=== PATIENT | male | born 1950 | race American Indian/Alaskan Native ===

== ENCOUNTER 2016-11-18 13:50 | Inpatient (IN) | payer MEDICARE, MEDICAID ==
[2016-11-18 14:05] VITALS: BMI 35.7
[2016-11-18] MEDS ORDERED: Piperacillin/Tazobact 3.375 gm 100 ML IV STA (14:11)
[2016-11-18] MEDS ORDERED: (Novolin R) Insulin Human Regular 100 units/ml vial IV STA (14:17)
[2016-11-18] MEDS ORDERED: Vancomycin 1 GM 1 GM/250 ML BAG IV STA (14:31)
--- NOTE | 2016-11-18 14:33 | C.PDOC ---
History Of Present Illness 65 year old male was referred to the ED by Dr. Johns for evaluation of gangrene of the right foot. Patient has a history of left AKA and chronic distal right toe infections. He was seen today and found to have deteriorating wounds. Patient denies fever, nausea, or vomiting. Time Seen by Provider: 11/18/16 14:07 Chief Complaint (Nursing): Lower Extremity Problem/Injury History Per: Patient, Other (Patient's girlfriend is at bedside ) History/Exam Limitations: no limitations Onset/Duration Of Symptoms: Hrs (deteriorating wounds found today), Persistent ( chronic right toe infections ) Current Symptoms Are (Timing): Still Present Recent travel outside of the [place]: No Additional History Per: Prior Records (Dr. Johns) Past Medical History Reviewed: Historical Data, Nursing Documentation, Vital Signs Vital Signs: Last Vital Signs Temp 99.3 F 11/18/16 14:05 Pulse 89 11/18/16 14:05 Resp 18 11/18/16 14:05 BP 151/82 H 11/18/16 14:05 Pulse Ox 95 11/18/16 15:28 - Medical History PMH: Anxiety, Arthritis, Asthma, Depression, Diabetes, HTN, Hypercholesterolemia Surgical History: CABG, Cholecystectomy, Coronary Stent (x3) - [facility] Procedures ABOVE KNEE AMPUTATION (12/07/14) ANGIOPLASTY OF OTHER NON-CORONARY VESSEL(S) (11/28/13) ATHERECTOMY OF OTHER NON-CORONARY VESSEL(S) (10/21/11) BELOW KNEE AMPUTAT NEC (09/10/14) CATARAC PHACOEMULS/ASPIR (02/13/14) CONTRAST AORTOGRAM (09/04/14) CONTRAST ARTERIOGRAM-LEG (09/04/14) INFLUENZA VACCINATION (04/24/14) INSEJ [id number] PERIPHERAL NON-CORONARY VES STENT(S) (11/28/13) INSERT LENS AT CATAR EXT (02/13/14) INSERTION OF ONE VASCULAR STENT (11/28/13) LOC EXC BONE LESION NEC (10/31/14) OCCUPATIONAL THERAPY (09/17/14) OTHER MYECTOMY (10/10/14) PHYSICAL THERAPY NEC (09/17/14) PROCEDURE ON SINGLE VESSEL (11/28/13) RECREATIONAL THERAPY (09/17/14) VACCINATION NEC (04/24/14) VASC SHUNT & BYPASS NEC (11/28/13) Family History: States: Unknown Family Hx - Social History Hx Tobacco Use: Yes Hx Alcohol Use: No Hx Substance Use: No - Immunization History Hx Tetanus Toxoid Vaccination: No Hx Influenza Vaccination: No Hx Pneumococcal Vaccination: No Review Of Systems Constitutional: Negative for: Fever, Chills Cardiovascular: Negative for: Chest Pain, Palpitations Respiratory: Negative for: Cough, Shortness of Breath Gastrointestinal: Negative for: Nausea, Vomiting, Abdominal Pain, Diarrhea Musculoskeletal: Positive for: Foot Pain (gangrene of the right foot; chronic right toe infections) Neurological: Negative for: Weakness, Numbness Physical Exam - Physical Exam Appears: Non-toxic, No Acute Distress, Other (Patient is a morbidly obese black male) Skin: Warm, Dry Head: Atraumatic Oral Mucosa: Moist Neck: Supple Chest: Symmetrical, No Deformity Cardiovascular: Rhythm Regular Respiratory: Normal Breath Sounds, No Rhonchi, No Wheezing Gastrointestinal/Abdominal: Soft, No Tenderness, No Distention, No Guarding, No Rebound Extremity: No Calf Tenderness, No Swelling, Other (left AKA; first and second toe of the right foot with chronic diabetic wounds and are foul smelling. ) Neurological/Psych: Oriented x3, Normal Speech, Normal Cognition ED Course And Treatment - Laboratory Results Result Diagrams: 11/18/16 14:52 11/18/16 14:52 Lab Interpretation: Abnormal (+ elev glu) ECG: Interpreted By Me, Viewed By Me ECG Rhythm: Sinus Rhythm (91 bpm) ECG Interpretation: Normal Rate From EC O2 Sat by Pulse Oximetry: 95 (room air ) Pulse Ox Interpretation: Normal - Radiology CXR: Interpreted by Me CXR Interpretation: Yes: No Acute Disease - Other Rad R foot X-Ray: Interpreted by Me (no gas/periosteal lifting) Progress Note: EKG , CXR, right foot X-Ray, and labs were ordered. PAtient was given insulin, ultram, vancomycin, and IV fluids were given. Case was discussed with Dr. Dias at 14:[address] Muhammad at 14:20. Reevaluation Time: 15:21 Reassessment Condition: Improved - Physician Consult Information Time Consulting Physician Contacted: 14:15 Physician Contacted: Nba Dias Jr. Medical Decision Making Medical Decision Making: chronic non-healing wounds/gangrene R foot 1/2 MTP's glucose corrected in ED Disposition Doctor Will See Patient In The: Hospital Counseled Patient/Family Regarding: Studies Performed, Diagnosis - Disposition Disposition: HOSPITALIZED Disposition Time: 15:22 Condition: GOOD Forms: [facility] (Greenlandic) - Clinical Impression Clinical Impression: Uncontrolled diabetes mellitus, Diabetic foot ulcer - Scribe Statement The provider has reviewed the documentation as recorded by the Scribcassy Elizabeth All medical record entries made by the Markibcassy were at my direction and personally dictated by me. I have reviewed the chart and agree that the record accurately reflects my personal performance of the history, physical exam, medical decision making, and the department course for this patient. I have also personally directed, reviewed, and agree with the discharge instructions and disposition.
--- NOTE | 2016-11-18 14:54 | RAD ---
PROCEDURE: CHEST RADIOGRAPH, 1 VIEW HISTORY: SOB COMPARISON: 01/19/2016. FINDINGS: LUNGS: The lungs are clear. PLEURA: No pneumothorax or pleural fluid seen. CARDIOVASCULAR: There is persistent moderate cardiomegaly. Status post CABG. OSSEOUS STRUCTURES: No significant abnormalities. VISUALIZED UPPER ABDOMEN: Normal. OTHER FINDINGS: None. IMPRESSION: No active pulmonary disease. Persistent moderate cardiomegaly.
--- NOTE | 2016-11-18 14:55 | RAD ---
PROCEDURE: Right Foot Radiographs. HISTORY: chronic infect R 2/d MTP, ? osteo/gas COMPARISON: None. FINDINGS: BONES: There is no acute fracture or bone destruction. Bone alignment is normal. There is periarticular bone demineralization. JOINTS: The joint spaces are preserved. SOFT TISSUES: There is mild dorsal soft tissue swelling. OTHER FINDINGS: Atherosclerotic vascular calcifications are present. IMPRESSION: Mild dorsal soft tissue swelling. No radiographic evidence for osteomyelitis. No evidence of soft tissue emphysema.
[2016-11-18 15:02] LABS: BASO # 0.1 K/uL (0.0-0.2); BASO % 0.7 % (0.0-2.0); EOS # 0.2 K/uL (0.0-0.7); EOS % 1.9 % (0.0-4.0); HEMATOCRIT 45.1 % (35.0-51.0); LYMPH # 2.2 K/uL (1.0-4.3); LYMPH % 20.8 % (20.0-40.0); MEAN CORPUSCULAR HGB CONC 33.9 g/dL (33.0-37.0); MEAN PLATELET VOLUME 7.9 fL (7.2-11.7); MONO # 0.4 K/uL (0.0-0.8); MONO % 4.2 % (0.0-10.0); NRBC % 0.1 % (0.0-2.0); RED CELL DISTRIBUTION WIDTH 14.1 % (11.5-14.5); WHITE BLOOD COUNT 10.4 K/uL (4.8-10.8)
[2016-11-18 15:03] LABS: MEAN CELL VOLUME 82.6 fL (80.0-94.0)
[2016-11-18 15:05] LABS: INR 1.1
[2016-11-18] MEDS ORDERED: Vancomycin 1 GM 1 GM/250 ML BAG IVPB ONE (15:09)
[2016-11-18] MEDS ORDERED: (Novolin R) Insulin Human Regular 100 units/ml vial ONE (15:09)
[2016-11-18] MEDS ORDERED: Piperacillin/Tazobact 3.375 gm 100 ML IVPB ONE (15:09)
[2016-11-18 15:10] LABS: CHLORIDE 102 mmol/L (98-107); SODIUM 137 mmol/L (132-148)
[2016-11-18 15:11] LABS: POTASSIUM 4.6 mmol/L (3.6-5.2)
[2016-11-18 15:13] LABS: AST/SGOT 32 U/L (17-59); BILIRUBIN,TOTAL 0.9 mg/dL (0.2-1.3); CARBON DIOXIDE 25 mmol/L (22-30); GFR AFRICAN-AMERICAN > 60; TOTAL PROTEIN 7.9 g/dL (6.3-8.3)
[2016-11-18 15:14] LABS: ALKALINE PHOSPHATASE 104 U/L (38-126); ALT/SGPT 22 U/L (21-72); BLOOD UREA NITROGEN 11 mg/dL (9-20); CALCIUM 9.6 mg/dl (8.6-10.4); GLUCOSE,RANDOM 237 mg/dL (75-110)
[2016-11-18] MEDS ORDERED: Iodixanol 320 mg/ml 150 ml Bottle IV ONE (15:54)
--- NOTE | 2016-11-18 16:30 | CP.PCM.CON ---
History of Present Illness - History of Present Illness History of Present Illness: 65M with PMHx of CAD with 3 stent placement, CABG, IDDM, Asthma, and HTN comes to the ED complaining of right leg pain and was sent by his PMD for evaluation of right foot. General surgery consulted for gangrene of right foot. Patient denies fever, nausea, or vomiting. PMHx: CAD with 3 stent placement, CABG, IDDM, Asthma, and HTN PSHx: CABG, Stent placement, Left AKA SHx: Smokes 1/2 pack a day since he was 11 years old, social etoh use, denies illicit drug use. Review of Systems - Review of Systems Review of Systems: 12 pt ROS unremarkable except as stated in HPI Past Patient History - Infectious Disease Hx of Infectious Diseases: None - Past Medical History & Family History Past Medical History?: Yes - Past Social History Smoking Status: Light Smoker < 10 Cigarettes Daily - CARDIAC Hx Hypercholesterolemia: Yes Hx Hypertension: Yes - PULMONARY Hx Asthma: Yes - HEENT Hx HEENT Problems: Yes Hx Cataracts: Yes Hx Glaucoma: Yes - RENAL Hx Chronic Kidney Disease: No - ENDOCRINE/METABOLIC Hx Endocrine Disorders: Yes Hx Diabetes Mellitus Type 1: Yes - INTEGUMENTARY Hx Dermatological Problems: No - MUSCULOSKELETAL/RHEUMATOLOGICAL Hx Arthritis: Yes - GASTROINTESTINAL Hx Gastrointestinal Disorders: No - GENITOURINARY/GYNECOLOGICAL Hx Genitourinary Disorders: No - PSYCHIATRIC Hx Anxiety: Yes Hx Depression: Yes Hx Substance Use: No - SURGICAL HISTORY Hx Cholecystectomy: Yes Hx Coronary Artery Bypass Graft: Yes Hx Coronary Stent: Yes (x3) - ANESTHESIA Hx Anesthesia: Yes Hx Anesthesia Reactions: No Hx Malignant Hyperthermia: No Meds Allergies/Adverse Reactions: Allergies Allergy/AdvReac Type Severity Reaction Status Date / Time tomato Allergy Verified 11/18/16 14:02 Physical Exam - Constitutional Appears: No Acute Distress - Head Exam Head Exam: NORMOCEPHALIC - Eye Exam Eye Exam: Normal appearance - ENT Exam ENT Exam: Normal Exam - Respiratory Exam Respiratory Exam: NORMAL BREATHING PATTERN - Cardiovascular Exam Cardiovascular Exam: +S1, +S2 - GI/Abdominal Exam GI & Abdominal Exam: Soft - Extremities Exam Extremities exam: Negative for: pedal edema Additional comments: right foot discoloration ulcers present along lateral side of foot +femoral pulses - Neurological Exam Neurological exam: Alert, Oriented x3 - Psychiatric Exam Psychiatric exam: Normal Mood - Skin Skin Exam: Dry Results - Vital Signs Recent Vital Signs: Last Vital Signs Temp 98.7 F 11/18/16 16:25 Pulse 83 11/18/16 16:25 Resp 18 11/18/16 16:25 BP 143/82 11/18/16 16:25 Pulse Ox 98 11/18/16 16:25 - Labs Result Diagrams: 11/18/16 14:52 11/18/16 14:52 Assessment & Plan - Assessment and Plan (Free Text) Assessment: 65M w/ right foot gangrene -F/u arterial doppler -F/u venous duplex -F/u CTAngiography -Will make further recommendations based on imaging results -D/w Dr. Larissa Singh PGY-2
[2016-11-18] MEDS: (Novolog) Insulin Aspart, Recombinant 100 u/ml 10 ml vial SC SCH ×2 (17:30→21:44)
[2016-11-18] MEDS: Enoxaparin 40 mg Syringe SC SCH (18:00)
--- NOTE | 2016-11-18 21:18 | CT ---
EXAM: CT Angiography Abdomen and Pelvis With Runoff to the Lower Extremities With Intravenous Contrast EXAM DATE/TIME: 11/18/2016 2:48 PM CLINICAL HISTORY: 65 years old, male; Condition or disease; Peripheral vascular disease; Patient HX: Right foot swelling; Additional info: Pad TECHNIQUE: Axial computed tomographic angiography images of the abdomen, pelvis and lower extremities with intravenous contrast using CT angiography protocol. All CT scans at this facility use one or more dose reduction techniques, viz.: automated exposure control; ma/kV adjustment per patient size (including targeted exams where dose is matched to indication; i.e. head); or iterative reconstruction technique. 3D and MIP reconstructed images were created and reviewed. Coronal and sagittal reformatted images were created and reviewed. CONTRAST: 150 mL of visipaque 320 administered intravenously. COMPARISON: No relevant prior studies available. FINDINGS: LOWER THORAX: No infiltrate seen in the lung bases. VASCULATURE: AORTA: No evidence of aortic dissection. No evidence of abdominal aortic aneurysm. CELIAC TRUNK AND MESENTERIC ARTERIES: Noncalcified plaque in the celiac trunk, just distal to its origin, causing a less than 50% stenosis. Noncalcified plaque in the superior mesenteric artery, just distal to its takeoff, causing an approximately 50% stenosis. RENAL ARTERIES: Extensive atherosclerotic disease of the left and right renal arteries. This does appear to be causing bilateral renal artery stenoses, but recommend ultrasound for better evaluation. RIGHT ILIAC ARTERIES: Right common iliac artery demonstrates extensive atherosclerotic disease, but is not occluded. Right external iliac artery is patent. There is extensive atherosclerotic disease of the right internal iliac artery and its branches. RIGHT FEMORAL/POPLITEAL ARTERIES: Right common femoral artery demonstrates atherosclerotic plaque, but is non-occluded. Right superficial femoral artery is occluded just distal to its origin. Right popliteal artery is occluded. Stent is noted in the right popliteal artery, which is occluded. RIGHT CALF/FOOT ARTERIES: Right peroneal artery is occluded. Right anterior tibial artery is occluded. Best seen on image 3 of series 651, there is a collateral vessel originating in the posterior thigh which courses distally and reconstitutes the right posterior tibial artery in the proximal to mid calf. There is one vessel runoff to the right foot. LEFT ILIAC ARTERIES: Left common iliac artery demonstrates extensive atherosclerotic plaque, however is nonoccluded. Left external iliac artery appears patent. There is extensive atherosclerotic disease of the left internal iliac artery and its branches. LEFT FEMORAL/POPLITEAL ARTERIES: Left common femoral artery is occluded, at its origin. Left superficial femoral artery is occluded. Stent is noted in the left superficial femoral artery, which is occluded. Left femoral bypass graft is visualized, which is occluded. ABDOMEN: LIVER: Fatty infiltration of the liver. GALLBLADDER AND BILE DUCTS: No evidence of acute cholecystitis. PANCREAS: No evidence of acute pancreatitis. SPLEEN: No acute abnormality of the spleen identified. ADRENALS: No acute abnormality of the adrenal glands identified. KIDNEYS AND URETERS: No acute abnormality of the kidneys identified. STOMACH AND BOWEL: Colonic diverticulosis, with no evidence of acute diverticulitis. APPENDIX: No findings to suggest acute appendicitis. PELVIS: BLADDER: No acute abnormality of the bladder is seen. REPRODUCTIVE: Prostate gland is enlarged and enhances heterogeneously. Fluid incidentally noted in the scrotum bilaterally, suspicious for bilateral hydroceles. ABDOMEN, PELVIS and LOWER EXTREMITIES: INTRAPERITONEAL SPACE: No evidence of free fluid or free air. BONES/JOINTS: Patchy areas of sclerosis and lucency in the left femoral on the stump, and chronic osteomyelitis is not excluded.Patient is post left above the knee amputation. SOFT TISSUES: No acute abnormality of the visualized soft tissues seen. LYMPH NODES: No evidence of diffuse lymphadenopathy. IMPRESSION: - Occlusion of the right superficial femoral artery. The right popliteal, anterior tibial, and peroneal arteries are occluded. The left posterior tibial artery is occluded proximally, but is reconstituted via a collateral vessel of the level of the proximal to mid calf. There is one vessel runoff to the right foot. - Occlusion of the left common femoral artery. There are multiple stents in the left superficial femoral artery, which are occluded. - Patchy areas of sclerosis and lucency in the left distal femoral stump, and chronic osteomyelitis is not excluded. - See above for remaining findings.
[2016-11-18] MEDS ORDERED: Pneumococcal 23-Valent Vaccine IM ONE (22:00)
[2016-11-19 07:23] LABS: RBC URINE 2 /hpf (0-3); URINE BILIRUBIN NEGATIVE (NEGATIVE); URINE BLOOD NEGATIVE (NEGATIVE); URINE COLOR Yellow (YELLOW); URINE GLUCOSE (UA) 1+ mg/dL (Normal); URINE KETONE NEGATIVE (NEGATIVE); URINE LEUKOCYTE ESTERASE NEG Leu/uL (Negative); URINE PROTEIN 1+ mg/dL (NEGATIVE); URINE UROBILINOGEN NORMAL mg/dL (0.2-1.0)
[2016-11-19] MEDS: (Novolog) Insulin Aspart, Recombinant 100 u/ml 10 ml vial SC SCH ×4 (08:13→21:30)
[2016-11-19 08:49] LABS: BASO % 0.4 % (0.0-2.0); EOS # 0.2 K/uL (0.0-0.7); EOS % 2.1 % (0.0-4.0); HEMATOCRIT 43.9 % (35.0-51.0); LYMPH # 1.8 K/uL (1.0-4.3); LYMPH % 23.7 % (20.0-40.0); MEAN CELL VOLUME 83.4 fL (80.0-94.0); MEAN CORPUSCULAR HEMOGLOBIN 27.6 pg (27.0-31.0); MEAN CORPUSCULAR HGB CONC 33.1 g/dL (33.0-37.0); MEAN PLATELET VOLUME 7.9 fL (7.2-11.7); MONO # 0.4 K/uL (0.0-0.8); MONO % 5.2 % (0.0-10.0); RED CELL DISTRIBUTION WIDTH 14.1 % (11.5-14.5); WHITE BLOOD COUNT 7.8 K/uL (4.8-10.8)
[2016-11-19 08:51] LABS: CHLORIDE 102 mmol/L (98-107)
[2016-11-19 08:52] LABS: POTASSIUM 4.2 mmol/L (3.6-5.2); SODIUM 136 mmol/L (132-148)
[2016-11-19 08:54] LABS: ALB/GLOB RATIO 1.1 (1.0-2.1); ALKALINE PHOSPHATASE 102 U/L (38-126); ALT/SGPT 23 U/L (21-72); AST/SGOT 18 U/L (17-59); BILIRUBIN,TOTAL 0.6 mg/dL (0.2-1.3); BLOOD UREA NITROGEN 11 mg/dL (9-20); CARBON DIOXIDE 22 mmol/L (22-30); GFR AFRICAN-AMERICAN > 60; TOTAL PROTEIN 6.8 g/dL (6.3-8.3)
[2016-11-19 08:55] LABS: CALCIUM 9.1 mg/dl (8.6-10.4); GLUCOSE,RANDOM 334 mg/dL (75-110)
[2016-11-19] MEDS: Enoxaparin 40 mg Syringe SC SCH (09:42)
--- NOTE | 2016-11-19 10:01 | CP.PCM.PN ---
Subjective - Date & Time of Evaluation Date of Evaluation: 11/19/16 Time of Evaluation: 07:05 - Subjective Subjective: General Surgery Note Patient was seen and examined at bedside in no acute distress. Patient was resting comfortably. Patient denies fever, chills, nausea, vomiting, chest pain , SOB but admit to mild pain in his right leg. Objective - Vital Signs/Intake and Output Vital Signs (last 24 hours): Temp Pulse Resp BP Pulse Ox 98.2 F 85 20 136/76 95 11/19/16 08:12 11/19/16 08:12 11/19/16 08:12 11/18/16 23:20 11/19/16 08:12 Intake and Output: 11/19/16 11/19/16 06:59 18:59 Intake Total 340 Balance 340 - Medications Medications: Current Medications Enoxaparin Sodium (Lovenox) 40 mg SC DAILY [facility] Last Admin: 11/19/16 09:42 Dose: 40 mg Gabapentin (Neurontin) 400 mg PO TID [facility] Last Admin: 11/19/16 09:42 Dose: 400 mg Insulin Aspart (Novolog) 0 unit SC [facility] PRN Reason: Protocol Last Admin: 11/19/16 08:13 Dose: 3 unit - Labs Labs: 11/19/16 08:36 11/19/16 08:36 PT 12.4 SECONDS (9.7-12.2) H 11/18/16 14:52 INR 1.1 11/18/16 14:52 APTT 31 SECONDS (21-34) 11/18/16 14:52 - Constitutional Appears: Well, No Acute Distress - Head Exam Head Exam: ATRAUMATIC, NORMAL INSPECTION - Eye Exam Eye Exam: EOMI, Normal appearance - Respiratory Exam Respiratory Exam: Clear to Ausculation Bilateral, NORMAL BREATHING PATTERN - Cardiovascular Exam Cardiovascular Exam: REGULAR RHYTHM, +S1, +S2 - GI/Abdominal Exam GI & Abdominal Exam: Soft, Normal Bowel Sounds - Extremities Exam Extremities Exam: absent: Pedal Edema Additional comments: right foot discoloration ulcers present along lateral side of foot +femoral pulses - Neurological Exam Neurological Exam: Alert, Awake, Oriented x3 Assessment and Plan - Assessment and Plan (Free Text) Assessment: 65M w/ right foot gangrene Plan: -F/u vein mapping to determine if surgical intervention is needed -Pain control as needed -Plans discussed with Dr. Roche during rounds -Further recommendation as per Dr. Larissa Lucas, PGY-1
--- NOTE | 2016-11-19 14:21 | CP.PCM.PN ---
Subjective - Date & Time of Evaluation Date of Evaluation: 11/19/16 Time of Evaluation: 07:25 - Subjective Subjective: Medicine Note- Dr. Muhammad's service Patient was seen and examined at bedside. Patient reports no acute complaints at this time. He says that he is unsure how long his right toes have been ulcerated as they are, but he says they are not painful and he able to feel and move his toes at this time. 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 No events overnight, per nursing. Objective - Vital Signs/Intake and Output Vital Signs (last 24 hours): Temp Pulse Resp BP Pulse Ox 98.2 F 85 20 140/80 95 11/19/16 08:12 11/19/16 08:12 11/19/16 08:12 11/19/16 10:44 11/19/16 08:12 Intake and Output: 11/19/16 11/19/16 06:59 18:59 Intake Total 340 Balance 340 - Medications Medications: Current Medications Enoxaparin Sodium (Lovenox) 40 mg SC DAILY [facility] Last Admin: 11/19/16 09:42 Dose: 40 mg Gabapentin (Neurontin) 400 mg PO TID [facility] Last Admin: 11/19/16 13:51 Dose: 400 mg Insulin Aspart (Novolog) 0 unit SC ACHS [facility] PRN Reason: Protocol Last Admin: 11/19/16 11:30 Dose: 4 unit - Labs Labs: 11/19/16 08:36 11/19/16 08:36 PT 12.4 SECONDS (9.7-12.2) H 11/18/16 14:52 INR 1.1 11/18/16 14:52 APTT 31 SECONDS (21-34) 11/18/16 14:52 - Constitutional Appears: Non-toxic, No Acute Distress, Older Than Stated Age, Chronically Ill - Head Exam Head Exam: ATRAUMATIC, NORMAL INSPECTION, NORMOCEPHALIC - Eye Exam Pupil Exam: NORMAL ACCOMODATION, PERRL - ENT Exam ENT Exam: Mucous Membranes Moist - Respiratory Exam Respiratory Exam: Clear to Ausculation Bilateral, NORMAL BREATHING PATTERN. absent: Prolonged Expiratory Phase, Rales, Rhonchi, Wheezes - Cardiovascular Exam Cardiovascular Exam: REGULAR RHYTHM, +S1, +S2 - GI/Abdominal Exam GI & Abdominal Exam: Soft, Normal Bowel Sounds. absent: Rigid, Tenderness, Diminished Bowel Sounds, Hypoactive Bowel Sounds, Pulsatile Mass - Extremities Exam Extremities Exam: absent: Normal Inspection Additional comments: left BKA Multiple dry ulcers +femoral pulse - Neurological Exam Neurological Exam: Alert, Awake, Oriented x3 - Psychiatric Exam Psychiatric exam: Normal Affect, Normal Mood - Skin Skin Exam: Dry, Intact, Normal Color, Warm Assessment and Plan - Assessment and Plan (Free Text) Assessment: R foot gangrene Consult Podiatry- Dr. Mehta Consult Vascular Surgery- Dr. Dias Consult Cardio- Dr. Roche Planned vein mapping to evaluate possibility of Fem bipass surgery Foot X ray- 11/18/16- mild dorsal soft tissue swelling. CT Abdomen Angio- Occlusion of R superficial fem aryery, R popliteal , anterior tibila and peroneal arteries are occluded. R posterior tibilal artery is occluded proximally, but is reconsitutted via a collateral vessel of the foot. Occlusion of left common femoral artery. Multiple stents in the left superficial femoral artery , which are occluded. Patchy areas of sclerosis and lucency in the left distal femoral stump. Pending Venous and Arterial dopplers Continue Neurontin 400mg TID DM RISS Accucheck Heart Healthy, Mod CHO Diet Htn Blood pressure appears controlled at this time without medication. Will start Lisinopril 5mg for renal protection. Will continue to monitor for now. Hx of CAD s/p 3 stents Consult Cardio- Dr. Roche Prophylactic Measure Lovenox 40mg SC Daily
--- NOTE | 2016-11-19 15:45 | CP.PCM.CON ---
History of Present Illness - History of Present Illness History of Present Illness: 65 year old male with PMHx including CAD with 3 stent placement, CABG, IDDM, Asthma, and HTN was seen at bedside for evaluation of right foot. Patient is a poor historian and unwilling to answer many questions. Patient has a AKA noted to the LLE but does not recall when the surgery was performed. He denies any n/v /f/c/sob/cp. Past Patient History - Infectious Disease Hx of Infectious Diseases: None - Past Medical History & Family History Past Medical History?: Yes - Past Social History Smoking Status: Light Smoker < 10 Cigarettes Daily - CARDIAC Hx Hypercholesterolemia: Yes Hx Hypertension: Yes - PULMONARY Hx Asthma: Yes - HEENT Hx HEENT Problems: Yes Hx Cataracts: Yes Hx Glaucoma: Yes - RENAL Hx Chronic Kidney Disease: No - ENDOCRINE/METABOLIC Hx Endocrine Disorders: Yes Hx Diabetes Mellitus Type 1: Yes - INTEGUMENTARY Hx Dermatological Problems: No - MUSCULOSKELETAL/RHEUMATOLOGICAL Hx Falls: No - GASTROINTESTINAL Hx Gastrointestinal Disorders: No - GENITOURINARY/GYNECOLOGICAL Hx Genitourinary Disorders: No - PSYCHIATRIC Hx Anxiety: Yes Hx Depression: Yes Hx Substance Use: No - SURGICAL HISTORY Hx Cholecystectomy: Yes Hx Coronary Artery Bypass Graft: Yes Hx Coronary Stent: Yes (x3) - ANESTHESIA Hx Anesthesia: Yes Hx Anesthesia Reactions: No Hx Malignant Hyperthermia: No Meds Allergies/Adverse Reactions: Allergies Allergy/AdvReac Type Severity Reaction Status Date / Time tomato Allergy Verified 11/18/16 14:02 - Medications Medications: Current Medications Enoxaparin Sodium (Lovenox) 40 mg SC DAILY [facility] Last Admin: 11/19/16 09:42 Dose: 40 mg Gabapentin (Neurontin) 400 mg PO TID [facility] Last Admin: 11/19/16 13:51 Dose: 400 mg Insulin Aspart (Novolog) 0 unit SC ACHS [facility] PRN Reason: Protocol Last Admin: 11/19/16 11:30 Dose: 4 unit Insulin Human Regular (Novolin R) 0 unit SC ACHS [facility] PRN Reason: Protocol Lisinopril (Zestril) 5 mg PO DAILY [facility] Pantoprazole Sodium (Protonix Ec Tab) 40 mg PO DAILY [facility] Physical Exam - Constitutional Appears: Non-toxic, No Acute Distress - Extremities Exam Additional comments: Left: AKA Right lower extremity focused exam: Vasc: DP and PT pulses non-palpable. Skin temperature is cool to cold from proximal to distal. Neuro: Gross sensation diminished Ortho: No tenderness on palpation to right 2nd digit Derm: Open ulceration noted to the dorsum of the right 2nd digit with possible bone exposed and right 1st medial emience. Second digit is dry and darkly discolored. No drainage, no malodor, no purulence. - Neurological Exam Neurological exam: Alert, Oriented x3 - Psychiatric Exam Psychiatric exam: Normal Affect, Normal Mood Results - Vital Signs Recent Vital Signs: Last Vital Signs Temp 98.2 F 11/19/16 08:12 Pulse 85 11/19/16 08:12 Resp 20 11/19/16 08:12 BP 140/80 11/19/16 10:44 Pulse Ox 95 11/19/16 08:12 - Labs Result Diagrams: 11/19/16 08:36 11/19/16 08:36 Labs: Laboratory Results - last 24 hr 11/18/16 11/18/16 11/19/16 17:19 21:11 07:14 WBC RBC Hgb Hct MCV MCH MCHC RDW Plt Count MPV Neut % (Auto) Lymph % (Auto) [place] % (Auto) Eos % (Auto) Baso % (Auto) Neut # Lymph # [place] # Eos # Baso # Sodium Potassium Chloride Carbon Dioxide Anion Gap BUN Creatinine Est GFR ( Amer) Est GFR (Non-Af Amer) POC Glucose (mg/dL) 155 H 262 H Random Glucose Calcium Total Bilirubin AST ALT Alkaline Phosphatase Total Protein Albumin Globulin Albumin/Globulin Ratio Urine Color Yellow Urine Clarity Clear Urine pH 6.0 Ur Specific [place] 1.046 H Urine Protein 1+ H Urine Glucose (UA) 1+ H Urine Ketones Negative Urine Blood Negative Urine Nitrate Negative Urine Bilirubin Negative Urine Urobilinogen Normal Ur Leukocyte Esterase Neg Urine RBC (Auto) 2 Ur Squamous Epith Cells 1 Urine Opiates Screen Urine Methadone Screen Ur Barbiturates Screen Ur Phencyclidine Scrn Ur Amphetamines Screen U Benzodiazepines Scrn U Oth Cocaine Metabols U Cannabinoids Screen 11/19/16 11/19/16 11/19/16 07:14 07:25 08:36 WBC 7.8 RBC 5.26 Hgb 14.5 Hct 43.9 MCV 83.4 MCH 27.6 MCHC 33.1 RDW 14.1 Plt Count 225 MPV 7.9 Neut % (Auto) 68.6 Lymph % (Auto) 23.7 [place] % (Auto) 5.2 Eos % (Auto) 2.1 Baso % (Auto) 0.4 Neut # 5.3 Lymph # 1.8 [place] # 0.4 Eos # 0.2 Baso # 0.0 Sodium Potassium Chloride Carbon Dioxide Anion Gap BUN Creatinine Est GFR ( Amer) Est GFR (Non-Af Amer) POC Glucose (mg/dL) 283 H Random Glucose Calcium Total Bilirubin AST ALT Alkaline Phosphatase Total Protein Albumin Globulin Albumin/Globulin Ratio Urine Color Urine Clarity Urine pH Ur Specific [place] Urine Protein Urine Glucose (UA) Urine Ketones Urine Blood Urine Nitrate Urine Bilirubin Urine Urobilinogen Ur Leukocyte Esterase Urine RBC (Auto) Ur Squamous Epith Cells Urine Opiates Screen Negative Urine Methadone Screen Negative Ur Barbiturates Screen Negative Ur Phencyclidine Scrn Negative Ur Amphetamines Screen Negative U Benzodiazepines Scrn Negative U Oth Cocaine Metabols Negative U Cannabinoids Screen Negative 11/19/16 11/19/16 08:36 11:10 WBC RBC Hgb Hct MCV MCH MCHC RDW Plt Count MPV Neut % (Auto) Lymph % (Auto) [place] % (Auto) Eos % (Auto) Baso % (Auto) Neut # Lymph # [place] # Eos # Baso # Sodium 136 Potassium 4.2 Chloride 102 Carbon Dioxide 22 Anion Gap 15 BUN 11 Creatinine 0.8 Est GFR ( Amer) > 60 Est GFR (Non-Af Amer) > 60 POC Glucose (mg/dL) 310 H Random Glucose 334 H Calcium 9.1 Total Bilirubin 0.6 AST 18 ALT 23 Alkaline Phosphatase 102 Total Protein 6.8 Albumin 3.5 Globulin 3.3 Albumin/Globulin Ratio 1.1 Urine Color Urine Clarity Urine pH Ur Specific [place] Urine Protein Urine Glucose (UA) Urine Ketones Urine Blood Urine Nitrate Urine Bilirubin Urine Urobilinogen Ur Leukocyte Esterase Urine RBC (Auto) Ur Squamous Epith Cells Urine Opiates Screen Urine Methadone Screen Ur Barbiturates Screen Ur Phencyclidine Scrn Ur Amphetamines Screen U Benzodiazepines Scrn U Oth Cocaine Metabols U Cannabinoids Screen Assessment & Plan - Assessment and Plan (Free Text) Assessment: 65 year old male with right 2nd digit gangrene Plan: patient examined and evaluated discussed in detail with attending, Dr. Johns chart, labs, vitals reviewed right foot dressed with 4x4, kerlix Vascular on board cont IV abx per primary podiatry will continue to follow patient while in house
[2016-11-19] MEDS ORDERED: (Novolin R) Insulin Human Regular 100 units/ml vial SC SCH (16:30)
--- NOTE | 2016-11-19 18:42 | CP.PCM.CON ---
History of Present Illness - History of Present Illness History of Present Illness: I was asked to evlaute patient by Dr. Muhammad for cardiovascular evalaution. Patient is a 65 year old male with PMH CAD s/p CABG, HTN, PAD, L BKA who presents with pain of the right foot. The patient states he has had pain of the foot for the last few months, but came in today because of worsening pain. The patient denies chest pain or dyspnea. Review of Systems - Constitutional Constitutional: absent: As Per HPI, Anorexia, Chills, Daytime Sleepiness, Excessive Sweating, Fatigue, Fever, Frequent Falls, Headache, Increased Appetite , Lethargy, Malaise, Night Sweats, Snoring, Sleep Apnea, Weight Gain, Weight Loss, Weakness, Other - EENT Eyes: absent: As Per HPI, Blind Spots, Blurred Vision, Change in Vision, Decreased Night Vision, Diplopia, Discharge, Dry Eye, Exophthalmos, Floaters, Irritation, Itchy Eyes, Loss of Peripheral Vision, Pain, Photophobia, Requires Corrective Lenses, Sees Flashes, Spots in Vision, Tunnel Vision, Other Visual Disturbances, Loss of Vision, Other Ears: absent: As Per HPI, Decreased Hearing, Ear Discharge, Ear Pain, Tinnitus, Abnormal Hearing, Disequilibrium, Dizziness, Other Nose/Mouth/Throat: absent: As Per HPI, Epistaxis, Nasal Congestion, Nasal Discharge, Nasal Obstruction, Nasal Trauma, Nose Pain, Post Nasal Drip, Sinus Pain, Sinus Pressure, Bleeding Gums, Change in Voice, Dental Pain, Dry Mouth, Dysphagia, Halitosis, Hoarsness, Lip Swelling, Mouth Lesions, Mouth Pain, Odynophagia, Sore Throat, Throat Swelling, Tongue Swelling, Facial Pain, Neck Pain, Neck Mass, Other - Cardiovascular Cardiovascular: absent: As Per HPI, Acrocyanosis, Chest Pain, Chest Pain at Rest , Chest Pain with Activity, Claudication, Diaphoresis, Dyspnea, Dyspnea on Exertion, Edema, Irregular Heart Rhythm, Pain Radiating to Arm/Neck/Jaw, Leg Edema, Leg Ulcers, Lightheadedness, Orthopnea, Palpitations, Paroxysmal Nocturnal Dyspnea, Pedal Edema, Radiating Pain, Rapid Heart Rate, Slow Heart Rate, Syncope, Other - Respiratory Respiratory: absent: As Per HPI, Cough, Dyspnea, Hemoptysis, Dyspnea on Exertion , Wheezing, Snoring, Stridor, Pain on Inspiration, Chest Congestion, Excessive Mucous Production, Change in Mucous Color, Pain with Coughing, Other - Gastrointestinal Gastrointestinal: absent: As Per HPI, Abdominal Pain, Belching, Bloating, Change in Bowel Habits, Change in Stool Character, Coffee Ground Emesis, Constipation, Cramping, Diarrhea, Dyspepsia, Dysphagia, Early Satiety, Excessive Flatus, Fecal Incontinence, Heartburn, Hematemesis, Hematochezia, Loose Stools, Melena, Nausea, Odynophagia, Temesmus, Vomiting, Other - Genitourinary Genitourinary: absent: As Per HPI, Change in Urinary Stream, Difficulty Urinating, Dysuria, Flank Pain, Hematuria, Pyuria, Nocturia, Urinary Incontinence, Urinary Frequency, Urinary Hesitance, Urinary Urgency, Voiding Freq/Small Amts, Freq UTI, Hx Renal/Bladder Calculi, Hx /Renal Surgery, Bladder Distension, Other - Musculoskeletal Musculoskeletal: Radiating Pain into Limb - Integumentary Integumentary: absent: As Per HPI, Acne, Alopecia, Bleeding Lesions, Change in Hair, Change in Nails, Change in Pigmentation, Changing Lesions, Dry Skin, Erythema, Furuncle, Hirsutism, Lesions, New Lesions, Non-Healing Lesions, Photosensitivity, Pruritus, Rash, Skin Pain, Skin Ulcer, Sores, Striae, Swelling , Unusual Bruising, Wounds, Jaundice, Other - Neurological Neurological: absent: As Per HPI, Abnormal Gait, Abnormal Hearing, Abnormal Movements, Abnormal Speech, Behavioral Changes, Burning Sensations, Confusion, Convulsions, Disequilibrium, Dizziness, Numbness, Focal Weakness, Frequent Falls , Headaches, Lack of Coordination, Loss of Vision, Memory Loss, Paresthesias, Radicular Pain, Restless Legs, Sensory Deficit, Syncope, Tingling, Tremor, Vertigo, Weakness, Other Visual Disturbances, Other - Psychiatric Psychiatric: absent: As Per HPI, Abnormal Sleep Pattern, Anhedonia, Anxiety, Auditory Hallucinations, Behavioral Changes, Change in Appetite, Change in Libido, Confusion, Depression, Difficulty Concentrating, Hallucinations, Homicidal Ideation, Hopelessness, Irritability, Memory Loss, Mood Swings, Panic Attacks, Paranoia, Suicidal Ideation, Visual Hallucinations, Tactile Hallucinations, Other - Endocrine Endocrine: absent: As Per HPI, Change in Body Appearance, Change in Libido, Cold Intolorance, Deepening of Voice, Excessive Sweating, Fatigue, Flushing, Heat Intolorance, Increase in Ring/Shoe/Hat Size, Palpitations, Polydipsia, Polyphagia, Polyuria, Other - Hematologic/Lymphatic Hematologic: absent: As Per HPI, Easy Bleeding, Easy Bruising, Lymphadenopathy, Other Past Patient History - Infectious Disease Hx of Infectious Diseases: None - Past Medical History & Family History Past Medical History?: Yes - Past Social History Smoking Status: Light Smoker < 10 Cigarettes Daily - CARDIAC Hx Hypercholesterolemia: Yes Hx Hypertension: Yes - PULMONARY Hx Asthma: Yes - HEENT Hx HEENT Problems: Yes Hx Cataracts: Yes Hx Glaucoma: Yes - RENAL Hx Chronic Kidney Disease: No - ENDOCRINE/METABOLIC Hx Endocrine Disorders: Yes Hx Diabetes Mellitus Type 1: Yes - INTEGUMENTARY Hx Dermatological Problems: No - MUSCULOSKELETAL/RHEUMATOLOGICAL Hx Falls: No - GASTROINTESTINAL Hx Gastrointestinal Disorders: No - GENITOURINARY/GYNECOLOGICAL Hx Genitourinary Disorders: No - PSYCHIATRIC Hx Anxiety: Yes Hx Depression: Yes Hx Substance Use: No - SURGICAL HISTORY Hx Cholecystectomy: Yes Hx Coronary Artery Bypass Graft: Yes Hx Coronary Stent: Yes (x3) - ANESTHESIA Hx Anesthesia: Yes Hx Anesthesia Reactions: No Hx Malignant Hyperthermia: No Meds Allergies/Adverse Reactions: Allergies Allergy/AdvReac Type Severity Reaction Status Date / Time tomato Allergy Verified 11/18/16 14:02 - Medications Medications: Current Medications Enoxaparin Sodium (Lovenox) 40 mg SC DAILY [facility] Last Admin: 11/19/16 09:42 Dose: 40 mg Gabapentin (Neurontin) 400 mg PO TID [facility] Last Admin: 11/19/16 17:03 Dose: 400 mg Insulin Aspart (Novolog) 0 unit SC ACHS [facility] PRN Reason: Protocol Last Admin: 11/19/16 17:02 Dose: 4 unit Lisinopril (Zestril) 5 mg PO DAILY [facility] Pantoprazole Sodium (Protonix Ec Tab) 40 mg PO DAILY [facility] Physical Exam - Constitutional Appears: Non-toxic - Head Exam Head Exam: NORMAL INSPECTION - Eye Exam Eye Exam: Normal appearance - ENT Exam ENT Exam: Mucous Membranes Moist - Neck Exam Neck exam: Positive for: Full Rom - Respiratory Exam Respiratory Exam: NORMAL BREATHING PATTERN - Cardiovascular Exam Cardiovascular Exam: REGULAR RHYTHM - GI/Abdominal Exam GI & Abdominal Exam: Normal Bowel Sounds - Rectal Exam Rectal Exam: Deferred - Extremities Exam Extremities exam: Positive for: pedal edema - Back Exam Back exam: NORMAL INSPECTION - Neurological Exam Neurological exam: Alert, Oriented x3 - Psychiatric Exam Psychiatric exam: Normal Affect - Skin Skin Exam: Normal Color Results - Vital Signs Recent Vital Signs: Last Vital Signs Temp 98.1 F 11/19/16 15:00 Pulse 78 11/19/16 15:00 Resp 20 11/19/16 15:00 BP 165/82 H 11/19/16 15:00 Pulse Ox 96 11/19/16 15:00 - Labs Result Diagrams: 11/20/16 08:01 11/20/16 08:01 Labs: Laboratory Results - last 24 hr 11/18/16 11/19/16 11/19/16 21:11 07:14 07:14 WBC RBC Hgb Hct MCV MCH MCHC RDW Plt Count MPV Neut % (Auto) Lymph % (Auto) [place] % (Auto) Eos % (Auto) Baso % (Auto) Neut # Lymph # [place] # Eos # Baso # Sodium Potassium Chloride Carbon Dioxide Anion Gap BUN Creatinine Est GFR ( Amer) Est GFR (Non-Af Amer) POC Glucose (mg/dL) 262 H Random Glucose Calcium Total Bilirubin AST ALT Alkaline Phosphatase Total Protein Albumin Globulin Albumin/Globulin Ratio Urine Color Yellow Urine Clarity Clear Urine pH 6.0 Ur Specific [place] 1.046 H Urine Protein 1+ H Urine Glucose (UA) 1+ H Urine Ketones Negative Urine Blood Negative Urine Nitrate Negative Urine Bilirubin Negative Urine Urobilinogen Normal Ur Leukocyte Esterase Neg Urine RBC (Auto) 2 Ur Squamous Epith Cells 1 Urine Opiates Screen Negative Urine Methadone Screen Negative Ur Barbiturates Screen Negative Ur Phencyclidine Scrn Negative Ur Amphetamines Screen Negative U Benzodiazepines Scrn Negative U Oth Cocaine Metabols Negative U Cannabinoids Screen Negative 11/19/16 11/19/16 11/19/16 07:25 08:36 08:36 WBC 7.8 RBC 5.26 Hgb 14.5 Hct 43.9 MCV 83.4 MCH 27.6 MCHC 33.1 RDW 14.1 Plt Count 225 MPV 7.9 Neut % (Auto) 68.6 Lymph % (Auto) 23.7 [place] % (Auto) 5.2 Eos % (Auto) 2.1 Baso % (Auto) 0.4 Neut # 5.3 Lymph # 1.8 [place] # 0.4 Eos # 0.2 Baso # 0.0 Sodium 136 Potassium 4.2 Chloride 102 Carbon Dioxide 22 Anion Gap 15 BUN 11 Creatinine 0.8 Est GFR ( Amer) > 60 Est GFR (Non-Af Amer) > 60 POC Glucose (mg/dL) 283 H Random Glucose 334 H Calcium 9.1 Total Bilirubin 0.6 AST 18 ALT 23 Alkaline Phosphatase 102 Total Protein 6.8 Albumin 3.5 Globulin 3.3 Albumin/Globulin Ratio 1.1 Urine Color Urine Clarity Urine pH Ur Specific [place] Urine Protein Urine Glucose (UA) Urine Ketones Urine Blood Urine Nitrate Urine Bilirubin Urine Urobilinogen Ur Leukocyte Esterase Urine RBC (Auto) Ur Squamous Epith Cells Urine Opiates Screen Urine Methadone Screen Ur Barbiturates Screen Ur Phencyclidine Scrn Ur Amphetamines Screen U Benzodiazepines Scrn U Oth Cocaine Metabols U Cannabinoids Screen 11/19/16 11/19/16 11:10 16:11 WBC RBC Hgb Hct MCV MCH MCHC RDW Plt Count MPV Neut % (Auto) Lymph % (Auto) [place] % (Auto) Eos % (Auto) Baso % (Auto) Neut # Lymph # [place] # Eos # Baso # Sodium Potassium Chloride Carbon Dioxide Anion Gap BUN Creatinine Est GFR ( Amer) Est GFR (Non-Af Amer) POC Glucose (mg/dL) 310 H 321 H Random Glucose Calcium Total Bilirubin AST ALT Alkaline Phosphatase Total Protein Albumin Globulin Albumin/Globulin Ratio Urine Color Urine Clarity Urine pH Ur Specific [place] Urine Protein Urine Glucose (UA) Urine Ketones Urine Blood Urine Nitrate Urine Bilirubin Urine Urobilinogen Ur Leukocyte Esterase Urine RBC (Auto) Ur Squamous Epith Cells Urine Opiates Screen Urine Methadone Screen Ur Barbiturates Screen Ur Phencyclidine Scrn Ur Amphetamines Screen U Benzodiazepines Scrn U Oth Cocaine Metabols U Cannabinoids Screen - EKG Data EKG Interpreted by: Myself Assessment & Plan (1) PVD (peripheral vascular disease) Assessment and Plan: CT angiogram reviewed. The patient has severe occlusive disease to the level of the popliteal artery. THe patient will benefit from vein mapping to assess if he may undergo fem-pop bypass. Endovascular therapy does not appear to be a feasible option. Status: Acute (2) CAD (coronary artery disease) Assessment and Plan: no current angina. will check echocardogram to assess LV function. Status: Acute (3) Diabetes mellitus Assessment and Plan: risk factor for progressive PAD Status: Chronic (4) HTN (hypertension) Assessment and Plan: blood pressure control Status: Chronic
--- NOTE | 2016-11-20 01:01 | CP.PCM.PN ---
Subjective - Date & Time of Evaluation Date of Evaluation: 11/20/16 Time of Evaluation: 00:58 - Subjective Subjective: SURGERY NOTE FOR DR. DOMINGUEZ 65M seen and examined at bedside. Patient complain of mild pain in the foot, denies fevers. Objective - Vital Signs/Intake and Output Vital Signs (last 24 hours): Temp Pulse Resp BP Pulse Ox 98.4 F 90 20 168/82 H 95 11/20/16 00:00 11/20/16 00:00 11/20/16 00:00 11/20/16 00:00 11/20/16 00:00 Intake and Output: 11/19/16 11/20/16 18:59 06:59 Intake Total 120 Balance 120 - Medications Medications: Current Medications Enoxaparin Sodium (Lovenox) 40 mg SC DAILY [facility] Last Admin: 11/19/16 09:42 Dose: 40 mg Gabapentin (Neurontin) 400 mg PO TID [facility] Last Admin: 11/19/16 17:03 Dose: 400 mg Insulin Aspart (Novolog) 0 unit SC ACHS [facility] PRN Reason: Protocol Last Admin: 11/19/16 21:30 Dose: Not Given Lisinopril (Zestril) 5 mg PO DAILY [facility] Oxycodone/Acetaminophen (Percocet 5/325 Mg Tab) 2 tab PO Q6H PRN PRN Reason: Pain, moderate (4-7) Stop: 11/22/16 18:49 Pantoprazole Sodium (Protonix Ec Tab) 40 mg PO DAILY [facility] - Labs Labs: 11/19/16 08:36 11/19/16 08:36 PT 12.4 SECONDS (9.7-12.2) H 11/18/16 14:52 INR 1.1 11/18/16 14:52 APTT 31 SECONDS (21-34) 11/18/16 14:52 - Constitutional Appears: Non-toxic, No Acute Distress - Respiratory Exam Respiratory Exam: Clear to Ausculation Bilateral, NORMAL BREATHING PATTERN - Cardiovascular Exam Cardiovascular Exam: REGULAR RHYTHM, +S1, +S2 - Extremities Exam Additional comments: right foot dressed with curlex, CDI. Assessment and Plan - Assessment and Plan (Free Text) Assessment: 65M w/ right foot gangrene Plan: -F/u vein mapping to determine if surgical intervention is possible -Pain control as needed -Plans discussed with Dr. Roche during rounds -Further recommendation as per Dr. Larissa Carrera, PGY2
[2016-11-20] MEDS: (Novolog) Insulin Aspart, Recombinant 100 u/ml 10 ml vial SC SCH ×3 (08:07→21:28)
[2016-11-20 08:09] LABS: BASO % 0.3 % (0.0-2.0); EOS # 0.2 K/uL (0.0-0.7); EOS % 2.1 % (0.0-4.0); HEMATOCRIT 44.1 % (35.0-51.0); LYMPH # 1.7 K/uL (1.0-4.3); LYMPH % 23.7 % (20.0-40.0); MEAN CELL VOLUME 82.1 fL (80.0-94.0); MEAN CORPUSCULAR HEMOGLOBIN 27.6 pg (27.0-31.0); MEAN CORPUSCULAR HGB CONC 33.6 g/dL (33.0-37.0); MEAN PLATELET VOLUME 8.1 fL (7.2-11.7); MONO # 0.4 K/uL (0.0-0.8); MONO % 5.9 % (0.0-10.0); NRBC % 0.1 % (0.0-2.0); RED CELL DISTRIBUTION WIDTH 13.7 % (11.5-14.5); WHITE BLOOD COUNT 7.3 K/uL (4.8-10.8)
[2016-11-20 08:38] LABS: CHLORIDE 101 mmol/L (98-107); POTASSIUM 3.9 mmol/L (3.6-5.2); SODIUM 138 mmol/L (132-148)
[2016-11-20 08:40] LABS: ALKALINE PHOSPHATASE 104 U/L (38-126); AST/SGOT 17 U/L (17-59); BILIRUBIN,TOTAL 0.6 mg/dL (0.2-1.3); CARBON DIOXIDE 25 mmol/L (22-30); GFR AFRICAN-AMERICAN > 60; TOTAL PROTEIN 6.8 g/dL (6.3-8.3)
[2016-11-20 08:41] LABS: ALT/SGPT 25 U/L (21-72); BLOOD UREA NITROGEN 11 mg/dL (9-20); CALCIUM 9.5 mg/dl (8.6-10.4); GLUCOSE,RANDOM 338 mg/dL (75-110)
--- NOTE | 2016-11-20 10:04 | CP.PCM.PN ---
Subjective - Date & Time of Evaluation Date of Evaluation: 11/20/16 Time of Evaluation: 10:02 - Subjective Subjective: gsv marginal at best based on review of cta and previous angios there is a posterior tibial artery as a target will discuss options with patient all reviewed and discussed Objective - Vital Signs/Intake and Output Vital Signs (last 24 hours): Temp Pulse Resp BP Pulse Ox 98.3 F 71 209 H 144/92 H 95 11/20/16 06:00 11/20/16 06:00 11/20/16 06:00 11/20/16 06:00 11/20/16 00:00 Intake and Output: 11/20/16 11/20/16 06:59 18:59 Intake Total 120 Balance 120 - Medications Medications: Current Medications Enoxaparin Sodium (Lovenox) 40 mg SC DAILY [facility] Last Admin: 11/19/16 09:42 Dose: 40 mg Gabapentin (Neurontin) 400 mg PO TID [facility] Last Admin: 11/19/16 17:03 Dose: 400 mg Insulin Aspart (Novolog) 0 unit SC ACHS [facility] PRN Reason: Protocol Last Admin: 11/20/16 08:07 Dose: 5 unit Lisinopril (Zestril) 5 mg PO DAILY [facility] Oxycodone/Acetaminophen (Percocet 5/325 Mg Tab) 2 tab PO Q6H PRN PRN Reason: Pain, moderate (4-7) Stop: 11/22/16 18:49 Pantoprazole Sodium (Protonix Ec Tab) 40 mg PO DAILY [facility] - Labs Labs: 11/20/16 08:01 11/20/16 08:01 PT 12.4 SECONDS (9.7-12.2) H 11/18/16 14:52 INR 1.1 11/18/16 14:52 APTT 31 SECONDS (21-34) 11/18/16 14:52
[2016-11-20] MEDS: Enoxaparin 40 mg Syringe SC SCH (10:22)
[2016-11-20] MEDS: Pantoprazole 40 mg EC Tab PO SCH (10:22)
[2016-11-20] MEDS: Oxycodone/Acetaminophen 5/325 mg Tab PO PRN (11:09)
[2016-11-20] MEDS: (Novolog Mix 70/30) Insulin Aspart/Insulin Aspar 100 units/ml SC SCH ×2 (12:27→17:28)
--- NOTE | 2016-11-20 13:37 | CP.PCM.PN ---
Subjective - Date & Time of Evaluation Date of Evaluation: 11/20/16 Time of Evaluation: 10:30 - Subjective Subjective: 65 year old male with seen at bedside concerning right foot and leg ischemia. Patient is a poor historian and but was willing to answer simple questions and respond to verbal prompts. Reports transient left 2nd digit and forfoot pain, graded 5/10 at peak. He denies any n/v/f/c/sob/cp. Objective - Vital Signs/Intake and Output Vital Signs (last 24 hours): Temp Pulse Resp BP Pulse Ox 98.3 F 71 209 H 144/92 H 95 11/20/16 06:00 11/20/16 06:00 11/20/16 06:00 11/20/16 06:00 11/20/16 00:00 Intake and Output: 11/20/16 11/20/16 06:59 18:59 Intake Total 120 Balance 120 - Medications Medications: Current Medications Enoxaparin Sodium (Lovenox) 40 mg SC DAILY [facility] Last Admin: 11/20/16 10:22 Dose: 40 mg Gabapentin (Neurontin) 400 mg PO TID [facility] Last Admin: 11/20/16 13:10 Dose: 400 mg Insulin Aspart (Novolog) 0 unit SC ACHS [facility] PRN Reason: Protocol Insulin Aspart (Novolog Mix 70/30 (70/30 Units/Ml)) 35 units SC ACTID [facility] Last Admin: 11/20/16 12:27 Dose: 35 units Lisinopril (Zestril) 5 mg PO DAILY [facility] Last Admin: 11/20/16 10:22 Dose: 5 mg Oxycodone/Acetaminophen (Percocet 5/325 Mg Tab) 2 tab PO Q6H PRN PRN Reason: Pain, moderate (4-7) Stop: 11/22/16 18:49 Last Admin: 11/20/16 11:09 Dose: 2 tab Pantoprazole Sodium (Protonix Ec Tab) 40 mg PO DAILY [facility] Last Admin: 11/20/16 10:22 Dose: 40 mg - Labs Labs: 11/20/16 08:01 11/20/16 08:01 PT 12.4 SECONDS (9.7-12.2) H 11/18/16 14:52 INR 1.1 11/18/16 14:52 APTT 31 SECONDS (21-34) 11/18/16 14:52 - Constitutional Appears: Well, Non-toxic, No Acute Distress - Extremities Exam Additional comments: Left side above knee amputation (AKA) noted. Right lower extremity focused exam: Vasc: DP and PT pulses non-palpable. Skin temperature is cool to cold from proximal to distal. 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 Neuro: Gross sensation diminished Ortho: No tenderness on palpation to right 2nd digit Derm: Open dry, ulceration noted to the dorsum of the right 2nd digit with possible bone exposed and right 1st medial emience. Second digit is dry and darkly discolored. No drainage, no malodor, no purulence, no exudates. Medial forefoot preulcerative schar noted. Midfoot and forefoot skin dusky in appearance. - Neurological Exam Neurological Exam: Alert, Awake - Psychiatric Exam Psychiatric exam: Normal Affect, Normal Mood Assessment and Plan - Assessment and Plan (Free Text) Assessment: 65 year old male with right 2nd digit gangrene and right foot ischemia. Plan: Patient examined and evaluated. Discussed in detail with attending, Dr. Johns Chart, labs, & vitals reviewed. Right foot dressed with 4x4, kerlix -Endovascular consult reviewed- notes unfeasible nature of an endo-vascular intervention due to significant right popliteal artery occlusions. -Discussed pt with Vascular specialist, Dr. Dias who reports there is potential indication for fem-pop bypass depending on results of venous mapping. Venous mapping- results pending. Cont IV abx per primary. Podiatry will continue to follow patient while in house
[2016-11-21] MEDS: (Novolog) Insulin Aspart, Recombinant 100 u/ml 10 ml vial SC SCH ×4 (08:03→22:17)
[2016-11-21] MEDS: (Novolog Mix 70/30) Insulin Aspart/Insulin Aspar 100 units/ml SC SCH ×3 (08:30→17:22)
[2016-11-21 08:44] LABS: CHLORIDE 103 mmol/L (98-107); SODIUM 140 mmol/L (132-148)
[2016-11-21 08:45] LABS: POTASSIUM 3.7 mmol/L (3.6-5.2)
[2016-11-21 08:47] LABS: ALKALINE PHOSPHATASE 98 U/L (38-126); ALT/SGPT 22 U/L (21-72); AST/SGOT 17 U/L (17-59); BILIRUBIN,TOTAL 0.6 mg/dL (0.2-1.3); BLOOD UREA NITROGEN 18 mg/dL (9-20); CALCIUM 9.6 mg/dl (8.6-10.4); CARBON DIOXIDE 25 mmol/L (22-30); GFR AFRICAN-AMERICAN > 60; GLUCOSE,RANDOM 146 mg/dL (75-110); TOTAL PROTEIN 6.8 g/dL (6.3-8.3)
[2016-11-21 08:54] LABS: BASO % 0.4 % (0.0-2.0); EOS # 0.2 K/uL (0.0-0.7); EOS % 2.4 % (0.0-4.0); HEMATOCRIT 43.2 % (35.0-51.0); LYMPH % 22.4 % (20.0-40.0); MEAN CELL VOLUME 82.1 fL (80.0-94.0); MEAN CORPUSCULAR HEMOGLOBIN 27.6 pg (27.0-31.0); MEAN CORPUSCULAR HGB CONC 33.6 g/dL (33.0-37.0); MONO # 0.5 K/uL (0.0-0.8); MONO % 5.9 % (0.0-10.0); NRBC % 0.1 % (0.0-2.0); RED CELL DISTRIBUTION WIDTH 13.9 % (11.5-14.5); WHITE BLOOD COUNT 8.9 K/uL (4.8-10.8)
--- NOTE | 2016-11-21 09:35 | CP.PCM.PN ---
Subjective - Date & Time of Evaluation Date of Evaluation: 11/21/16 Time of Evaluation: 10:15 - Subjective Subjective: 65 year old male with seen at bedside concerning right foot and leg ischemia. Patient is a poor historian and but was willing to answer simple questions and respond to verbal prompts. Reports transient left 2nd digit and forefoot pain, graded 3/10 at peak during breakthrough, though largely well controlled. He denies any n/v/f/c/sob/cp. Objective - Vital Signs/Intake and Output Vital Signs (last 24 hours): Temp Pulse Resp BP Pulse Ox 97.7 F 77 20 134/77 100 11/21/16 08:00 11/21/16 08:00 11/21/16 08:00 11/21/16 08:00 11/21/16 08:00 Intake and Output: 11/21/16 11/21/16 06:59 18:59 Intake Total 120 Balance 120 - Medications Medications: Current Medications Enoxaparin Sodium (Lovenox) 40 mg SC DAILY [facility] Last Admin: 11/20/16 10:22 Dose: 40 mg Gabapentin (Neurontin) 400 mg PO TID [facility] Last Admin: 11/20/16 17:28 Dose: 400 mg Insulin Aspart (Novolog) 0 unit SC ACHS [facility] PRN Reason: Protocol Last Admin: 11/21/16 08:03 Dose: Not Given Insulin Aspart (Novolog Mix 70/30 (70/30 Units/Ml)) 35 units SC ACTID [facility] Last Admin: 11/21/16 08:30 Dose: 35 units Lisinopril (Zestril) 5 mg PO DAILY [facility] Last Admin: 11/20/16 10:22 Dose: 5 mg Oxycodone/Acetaminophen (Percocet 5/325 Mg Tab) 2 tab PO Q6H PRN PRN Reason: Pain, moderate (4-7) Stop: 11/22/16 18:49 Last Admin: 11/20/16 11:09 Dose: 2 tab Pantoprazole Sodium (Protonix Ec Tab) 40 mg PO DAILY [facility] Last Admin: 11/20/16 10:22 Dose: 40 mg - Labs Labs: 11/21/16 08:20 11/21/16 08:20 PT 12.4 SECONDS (9.7-12.2) H 11/18/16 14:52 INR 1.1 11/18/16 14:52 APTT 31 SECONDS (21-34) 11/18/16 14:52 - Constitutional Appears: Well, Non-toxic, No Acute Distress - Extremities Exam Additional comments: Left side above knee amputation (AKA) noted. Right lower extremity focused exam: Vasc: DP and PT pulses non-palpable. Skin temperature is cool to cold from proximal to distal. 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 Neuro: Gross sensation diminished Ortho: No tenderness on palpation to right 2nd digit Derm: Open dry, ulceration noted to the dorsum of the right 2nd digit with possible bone exposed and right 1st medial emience. Second digit is dry and darkly discolored. No drainage, no malodor, no purulence, no exudates. Medial forefoot preulcerative schar noted. Midfoot and forefoot skin dusky in appearance. - Neurological Exam Neurological Exam: Alert, Awake, Oriented x3 - Psychiatric Exam Psychiatric exam: Normal Affect, Normal Mood Assessment and Plan - Assessment and Plan (Free Text) Assessment: 65 year old male with right 2nd digit gangrene and right foot ischemia. Plan: Patient examined and evaluated. Discussed in detail with attending, Dr. Johns Chart, labs, & vitals reviewed. Right foot dressed with 4x4, kerlix * Venous mapping- results pending. * Vascular intervention (Fem-pop bypass)-pending decision Cont IV abx per primary. Podiatry will continue to follow patient while in house
--- NOTE | 2016-11-21 09:42 | CP.PCM.PN ---
Subjective - Date & Time of Evaluation Date of Evaluation: 11/21/16 Objective - Vital Signs/Intake and Output Vital Signs (last 24 hours): Temp Pulse Resp BP Pulse Ox 97.7 F 77 20 134/77 100 11/21/16 08:00 11/21/16 08:00 11/21/16 08:00 11/21/16 08:00 11/21/16 08:00 Intake and Output: 11/21/16 11/21/16 06:59 18:59 Intake Total 120 Balance 120 - Medications Medications: Current Medications Enoxaparin Sodium (Lovenox) 40 mg SC DAILY [facility] Last Admin: 11/20/16 10:22 Dose: 40 mg Gabapentin (Neurontin) 400 mg PO TID [facility] Last Admin: 11/20/16 17:28 Dose: 400 mg Insulin Aspart (Novolog) 0 unit SC ACHS [facility] PRN Reason: Protocol Last Admin: 11/21/16 08:03 Dose: Not Given Insulin Aspart (Novolog Mix 70/30 (70/30 Units/Ml)) 35 units SC ACTID [facility] Last Admin: 11/21/16 08:30 Dose: 35 units Lisinopril (Zestril) 5 mg PO DAILY [facility] Last Admin: 11/20/16 10:22 Dose: 5 mg Oxycodone/Acetaminophen (Percocet 5/325 Mg Tab) 2 tab PO Q6H PRN PRN Reason: Pain, moderate (4-7) Stop: 11/22/16 18:49 Last Admin: 11/20/16 11:09 Dose: 2 tab Pantoprazole Sodium (Protonix Ec Tab) 40 mg PO DAILY [facility] Last Admin: 11/20/16 10:22 Dose: 40 mg - Labs Labs: 11/21/16 08:20 11/21/16 08:20 PT 12.4 SECONDS (9.7-12.2) H 11/18/16 14:52 INR 1.1 11/18/16 14:52 APTT 31 SECONDS (21-34) 11/18/16 14:52 - Constitutional Appears: Well, Non-toxic, No Acute Distress - Neurological Exam Neurological Exam: Alert, Awake, Oriented x3 - Psychiatric Exam Psychiatric exam: Normal Affect, Normal Mood
[2016-11-21] MEDS: Pantoprazole 40 mg EC Tab PO SCH (10:04)
[2016-11-21] MEDS: Enoxaparin 40 mg Syringe SC SCH (10:05)
[2016-11-21] MEDS: Oxycodone/Acetaminophen 5/325 mg Tab PO PRN (11:07)
--- NOTE | 2016-11-21 12:41 | CP.PCM.PN ---
Subjective - Date & Time of Evaluation Date of Evaluation: 11/21/16 Time of Evaluation: 12:25 - Subjective Subjective: patient is feeling well. no current chest pain vascular surgery note reviewed. Objective - Vital Signs/Intake and Output Vital Signs (last 24 hours): Temp Pulse Resp BP Pulse Ox 97.7 F 77 20 134/77 100 11/21/16 08:00 11/21/16 08:00 11/21/16 08:00 11/21/16 08:00 11/21/16 08:00 Intake and Output: 11/21/16 11/21/16 06:59 18:59 Intake Total 120 Balance 120 - Medications Medications: Current Medications Enoxaparin Sodium (Lovenox) 40 mg SC DAILY [facility] Last Admin: 11/21/16 10:05 Dose: 40 mg Gabapentin (Neurontin) 400 mg PO TID [facility] Last Admin: 11/21/16 10:04 Dose: 400 mg Insulin Aspart (Novolog) 0 unit SC ACHS [facility] PRN Reason: Protocol Last Admin: 11/21/16 08:03 Dose: Not Given Insulin Aspart (Novolog Mix 70/30 (70/30 Units/Ml)) 35 units SC ACTID [facility] Last Admin: 11/21/16 08:30 Dose: 35 units Lisinopril (Zestril) 5 mg PO DAILY [facility] Last Admin: 11/21/16 10:04 Dose: 5 mg Oxycodone/Acetaminophen (Percocet 5/325 Mg Tab) 2 tab PO Q6H PRN PRN Reason: Pain, moderate (4-7) Stop: 11/22/16 18:49 Last Admin: 11/21/16 11:07 Dose: 2 tab Pantoprazole Sodium (Protonix Ec Tab) 40 mg PO DAILY [facility] Last Admin: 11/21/16 10:04 Dose: 40 mg - Labs Labs: 11/21/16 08:20 11/21/16 08:20 PT 12.4 SECONDS (9.7-12.2) H 11/18/16 14:52 INR 1.1 11/18/16 14:52 APTT 31 SECONDS (21-34) 11/18/16 14:52 - Constitutional Appears: Non-toxic - Head Exam Head Exam: NORMAL INSPECTION - Eye Exam Eye Exam: Normal appearance - ENT Exam ENT Exam: Mucous Membranes Moist - Respiratory Exam Respiratory Exam: Decreased Breath Sounds - Cardiovascular Exam Cardiovascular Exam: REGULAR RHYTHM - GI/Abdominal Exam GI & Abdominal Exam: Normal Bowel Sounds - Rectal Exam Rectal Exam: Deferred - Extremities Exam Extremities Exam: Pedal Edema - Back Exam Back Exam: NORMAL INSPECTION - Psychiatric Exam Psychiatric exam: Normal Affect - Skin Skin Exam: Normal Color Assessment and Plan (1) PVD (peripheral vascular disease) Assessment & Plan: for possible fem distal. will check echocardiogram Status: Acute (2) CAD (coronary artery disease) Assessment & Plan: previous CABG Status: Acute (3) Diabetes mellitus Status: Chronic (4) HTN (hypertension) Assessment & Plan: controlled Status: Chronic
--- NOTE | 2016-11-21 14:12 | CP.PCM.PN ---
Subjective - Date & Time of Evaluation Date of Evaluation: 11/21/16 Time of Evaluation: 07:50 - Subjective Subjective: Vascular Surgery Pt S&E, NAEO. No complaints at this time. Objective - Vital Signs/Intake and Output Vital Signs (last 24 hours): Temp Pulse Resp BP Pulse Ox 97.7 F 77 20 134/77 100 11/21/16 08:00 11/21/16 08:00 11/21/16 08:00 11/21/16 08:00 11/21/16 08:00 Intake and Output: 11/21/16 11/21/16 06:59 18:59 Intake Total 120 Balance 120 - Medications Medications: Current Medications Enoxaparin Sodium (Lovenox) 40 mg SC DAILY [facility] Last Admin: 11/21/16 10:05 Dose: 40 mg Gabapentin (Neurontin) 400 mg PO TID [facility] Last Admin: 11/21/16 13:50 Dose: 400 mg Insulin Aspart (Novolog) 0 unit SC ACHS [facility] PRN Reason: Protocol Last Admin: 11/21/16 12:45 Dose: 6 unit Insulin Aspart (Novolog Mix 70/30 (70/30 Units/Ml)) 35 units SC ACTID [facility] Last Admin: 11/21/16 12:46 Dose: 35 units Lisinopril (Zestril) 5 mg PO DAILY [facility] Last Admin: 11/21/16 10:04 Dose: 5 mg Oxycodone/Acetaminophen (Percocet 5/325 Mg Tab) 2 tab PO Q6H PRN PRN Reason: Pain, moderate (4-7) Stop: 11/22/16 18:49 Last Admin: 11/21/16 11:07 Dose: 2 tab Pantoprazole Sodium (Protonix Ec Tab) 40 mg PO DAILY [facility] Last Admin: 11/21/16 10:04 Dose: 40 mg - Labs Labs: 11/21/16 08:20 11/21/16 08:20 PT 12.4 SECONDS (9.7-12.2) H 11/18/16 14:52 INR 1.1 11/18/16 14:52 APTT 31 SECONDS (21-34) 11/18/16 14:52 - Constitutional Appears: Non-toxic, No Acute Distress - Head Exam Head Exam: ATRAUMATIC, NORMOCEPHALIC - GI/Abdominal Exam GI & Abdominal Exam: Soft. absent: Distended, Tenderness - Back Exam Additional comments: L amputation right foot dressed with curlex, CDI. - Neurological Exam Neurological Exam: Alert, Awake, Oriented x3 - Skin Skin Exam: Dry, Warm Assessment and Plan - Assessment and Plan (Free Text) Assessment: 65M w/ right foot gangrene Plan: Options discussed with pt by Dr. Dias. Pain control as needed PGY4
--- NOTE | 2016-11-21 17:56 | CARD ---
APPROVED REPORT EKG Measurement Heart [id number] MD [id number] <Conclusion> Normal sinus rhythm Inferior infarct, age undetermined T wave abnormality, consider lateral ischemia Abnormal ECG
[2016-11-22] MEDS: Oxycodone/Acetaminophen 5/325 mg Tab PO PRN ×2 (01:15→07:12)
[2016-11-22] MEDS: (Novolog) Insulin Aspart, Recombinant 100 u/ml 10 ml vial SC SCH ×4 (08:20→21:18)
[2016-11-22] MEDS: (Novolog Mix 70/30) Insulin Aspart/Insulin Aspar 100 units/ml SC SCH ×3 (08:21→18:07)
--- NOTE | 2016-11-22 09:00 | CP.PCM.PN ---
Subjective - Date & Time of Evaluation Date of Evaluation: 11/22/16 Time of Evaluation: 08:57 - Subjective Subjective: Medicine Progress Note for Dr. Muhammad's Service Pt seen and examined at bedside. He complains of phantom pain in the LLE which is s/p AKA. He denies f/c/n/v/cp/sob. He continues to be followed by the surgical team and they are considering fem-pop bypass pending venous studies. Pt verbalizes that he is vehemently opposed to amputation of the lower extremity. No acute events overnight as per nursing. Objective - Vital Signs/Intake and Output Vital Signs (last 24 hours): Temp Pulse Resp BP Pulse Ox 97.9 F 88 20 140/80 97 11/22/16 07:48 11/22/16 07:48 11/22/16 07:48 11/22/16 08:38 11/22/16 07:48 - Medications Medications: Current Medications Enoxaparin Sodium (Lovenox) 40 mg SC DAILY [facility] Last Admin: 11/21/16 10:05 Dose: 40 mg Gabapentin (Neurontin) 400 mg PO TID [facility] Last Admin: 11/21/16 17:21 Dose: 400 mg Insulin Aspart (Novolog) 0 unit SC ACHS [facility] PRN Reason: Protocol Last Admin: 11/22/16 08:20 Dose: 4 unit Insulin Aspart (Novolog Mix 70/30 (70/30 Units/Ml)) 35 units SC ACTID [facility] Last Admin: 11/22/16 08:21 Dose: 35 units Lisinopril (Zestril) 5 mg PO DAILY [facility] Last Admin: 11/21/16 10:04 Dose: 5 mg Oxycodone/Acetaminophen (Percocet 5/325 Mg Tab) 2 tab PO Q6H PRN PRN Reason: Pain, moderate (4-7) Stop: 11/22/16 18:49 Last Admin: 11/22/16 07:12 Dose: 2 tab Pantoprazole Sodium (Protonix Ec Tab) 40 mg PO DAILY [facility] Last Admin: 11/21/16 10:04 Dose: 40 mg - Labs Labs: 11/21/16 08:20 11/21/16 08:20 PT 12.4 SECONDS (9.7-12.2) H 11/18/16 14:52 INR 1.1 11/18/16 14:52 APTT 31 SECONDS (21-34) 11/18/16 14:52 - Constitutional Appears: No Acute Distress - Head Exam Head Exam: ATRAUMATIC - Eye Exam Eye Exam: EOMI - ENT Exam ENT Exam: Mucous Membranes Moist - Respiratory Exam Respiratory Exam: Clear to Ausculation Bilateral, NORMAL BREATHING PATTERN - Cardiovascular Exam Cardiovascular Exam: REGULAR RHYTHM - GI/Abdominal Exam GI & Abdominal Exam: Soft. absent: Tenderness - Extremities Exam Additional comments: L AKA RLE dressing c/d/i RLE diminished DP pulse - Neurological Exam Neurological Exam: Alert, Awake, Oriented x3 Assessment and Plan - Assessment and Plan (Free Text) Plan: PVD complicated by R foot gangrene Consult Podiatry- Dr. Mehta Seen by attending and resident- recs appreciated evaluating for fem-pop bypass pending studies Consult Vascular Surgery- Dr. Dias Continuing to follow pending decision for fem-pop Consult Cardio- Dr. Roche; recs appreciated Foot X ray- 11/18/16- mild dorsal soft tissue swelling. CT Abdomen Angio- Occlusion of R superficial fem aryery, R popliteal , anterior tibila and peroneal arteries are occluded. R posterior tibilal artery is occluded proximally, but is reconsitutted via a collateral vessel of the foot. Occlusion of left common femoral artery. Multiple stents in the left superficial femoral artery , which are occluded. Patchy areas of sclerosis and lucency in the left distal femoral stump. Pending Venous and Arterial dopplers Continue Neurontin 400mg TID Follow up lower extremity dopplers Follow up lower extremity venous study Continue gabapentin 400mg PO TID Continue percocet 2T PO q6hrs prn DM RISS Accucheck Heart Healthy, Mod CHO Diet Htn Blood pressure appears controlled at this time without medication. Will start Lisinopril 5mg for renal protection. Will continue to monitor for now. Hx of CAD s/p 3 stents Consult Cardio- Dr. Roche Prophylactic Measure Lovenox 40mg SC Daily Protonix Case discussed with Dr. Muhammad. All management as per Dr. Muhammad.
[2016-11-22] MEDS: Enoxaparin 40 mg Syringe SC SCH (09:42)
[2016-11-22] MEDS: Pantoprazole 40 mg EC Tab PO SCH (09:42)
[2016-11-22 11:42] LABS: BASO % 0.3 % (0.0-2.0); EOS # 0.2 K/uL (0.0-0.7); HEMATOCRIT 43.6 % (35.0-51.0); LYMPH # 1.7 K/uL (1.0-4.3); LYMPH % 18.9 % (20.0-40.0); MEAN CELL VOLUME 82.2 fL (80.0-94.0); MEAN CORPUSCULAR HEMOGLOBIN 27.2 pg (27.0-31.0); MEAN CORPUSCULAR HGB CONC 33.1 g/dL (33.0-37.0); MONO # 0.6 K/uL (0.0-0.8); NRBC % 0.1 % (0.0-2.0)
[2016-11-22 11:52] LABS: CHLORIDE 104 mmol/L (98-107); POTASSIUM 3.7 mmol/L (3.6-5.2); SODIUM 143 mmol/L (132-148)
[2016-11-22 11:54] LABS: AST/SGOT 21 U/L (17-59); BILIRUBIN,TOTAL 0.6 mg/dL (0.2-1.3); CARBON DIOXIDE 26 mmol/L (22-30); GFR AFRICAN-AMERICAN > 60
[2016-11-22 11:55] LABS: ALKALINE PHOSPHATASE 101 U/L (38-126); ALT/SGPT 19 U/L (21-72); BLOOD UREA NITROGEN 12 mg/dL (9-20); CALCIUM 9.7 mg/dl (8.6-10.4); GLUCOSE,RANDOM 171 mg/dL (75-110); TOTAL PROTEIN 7.1 g/dL (6.3-8.3)
--- NOTE | 2016-11-22 14:31 | CP.PCM.PN ---
Subjective - Date & Time of Evaluation Date of Evaluation: 11/22/16 Time of Evaluation: 08:00 - Subjective Subjective: SURGERY NOTE FOR DR. DOMINGUEZ 65M seen and examined at bedside. Patient continues to complain of pain in the right leg. Objective - Vital Signs/Intake and Output Vital Signs (last 24 hours): Temp Pulse Resp BP Pulse Ox 97.9 F 88 20 140/80 97 11/22/16 07:48 11/22/16 07:48 11/22/16 07:48 11/22/16 08:38 11/22/16 07:48 Intake and Output: 11/22/16 11/22/16 06:59 18:59 Intake Total 500 Balance 500 - Medications Medications: Current Medications Enoxaparin Sodium (Lovenox) 40 mg SC DAILY [facility] Last Admin: 11/22/16 09:42 Dose: 40 mg Gabapentin (Neurontin) 400 mg PO TID [facility] Last Admin: 11/22/16 09:42 Dose: 400 mg Insulin Aspart (Novolog) 0 unit SC ACHS [facility] PRN Reason: Protocol Last Admin: 11/22/16 12:07 Dose: 3 unit Insulin Aspart (Novolog Mix 70/30 (70/30 Units/Ml)) 35 units SC ACTID [facility] Last Admin: 11/22/16 12:06 Dose: 35 units Lisinopril (Zestril) 5 mg PO DAILY [facility] Last Admin: 11/22/16 09:42 Dose: 5 mg Oxycodone/Acetaminophen (Percocet 5/325 Mg Tab) 2 tab PO Q6H PRN PRN Reason: Pain, moderate (4-7) Stop: 11/22/16 18:49 Last Admin: 11/22/16 07:12 Dose: 2 tab Pantoprazole Sodium (Protonix Ec Tab) 40 mg PO DAILY [facility] Last Admin: 11/22/16 09:42 Dose: 40 mg - Labs Labs: 11/22/16 11:29 11/22/16 11:29 PT 12.4 SECONDS (9.7-12.2) H 11/18/16 14:52 INR 1.1 11/18/16 14:52 APTT 31 SECONDS (21-34) 11/18/16 14:52 - Constitutional Appears: Non-toxic, No Acute Distress - Respiratory Exam Respiratory Exam: Clear to Ausculation Bilateral, NORMAL BREATHING PATTERN - Cardiovascular Exam Cardiovascular Exam: REGULAR RHYTHM, +S1, +S2 - Extremities Exam Additional comments: L BKA, R foot wrapped with curlex, CDI Assessment and Plan - Assessment and Plan (Free Text) Assessment: 65M with PVD, Right foot gangrene Plan: - Plan for possible bypass in near future Discussed with Dr Larissa Carrera, PGY2
--- NOTE | 2016-11-22 15:00 | VASCLAB ---
PROCEDURE: HISTORY: PAD COMPARISON: None available. TECHNIQUE: Grayscale and duplex Doppler evaluation of the right common femoral, femoral, profunda femoral, popliteal, posterior tibial, anterior tibial and dorsalis pedis arteries was performed. Report prepared by MAGAN Wood, RVT FINDINGS: RIGHT LOWER EXTREMITY: * Common Femoral Artery: Peak Systolic Velocity - 60: Doppler Waveform: Biphasic: Plaque description - Calcific * Profunda Femoral Artery: Peak Systolic Velocity - 243: Doppler Waveform: Biphasic.: Plaque description - Calcific * Femoral Artery o Proximal Segment: Peak Systolic Velocity - 0: Doppler Waveform: Absent: Plaque description - Calcific o Middle Segment: Peak Systolic Velocity - 0: Doppler Waveform: Absent: Plaque description - Calcific o Distal Segment: Peak Systolic Velocity - 0: Doppler Waveform: Absent: Plaque description - Calcific * Popliteal Artery o Proximal Segment: Peak Systolic Velocity - 0: Doppler Waveform: Absent: Plaque description - Calcific o Middle Segment: Peak Systolic Velocity - 0: Doppler Waveform: Absent: Plaque description - Calcific o Distal Segment: Peak Systolic Velocity - 0: Doppler Waveform: Absent: Plaque description - Calcific * Posterior Tibial Artery: Peak Systolic Velocity - 0: Doppler Waveform: Absent: Plaque description - Calcific * Anterior Tibial Artery: Peak Systolic Velocity - 0: Doppler Waveform: Absent: Plaque description - Calcific * Dorsalis Pedis Artery: Peak Systolic Velocity - 0: Doppler Waveform: Absent: Plaque description - Calcific OTHER FINDINGS: Dr. Enrique Vance notified about the findings. IMPRESSION: RIGHT: Occlusion of the right superficial femoral, popliteal, anterior tibial and proximal posterior tibial arteries. 50-75% stenosis of the right proximal profunda femoral artery.
--- NOTE | 2016-11-22 15:08 | VASCLAB ---
PROCEDURE: Right Lower Extremity Vein mapping. HISTORY: Right leg pain PRIORS: None. TECHNIQUE: Right common femoral, femoral, popliteal and posterior tibial, peroneal and great saphenous veins were evaluated. Flow was assessed with color Doppler, compressibility, assessment of phasic flow and augmentation response. Report prepared by MAGAN Wood, RVT FINDINGS: RIGHT: 1. Common Femoral Vein: Compressibility - Fully compressible: Thrombus - None : Flow - Phasic: Augmentation -Normal: Reflux - None. 2. Femoral Vein:Compressibility - Fully compressible: Thrombus - None 3. Popliteal Vein: Compressibility - Fully compressible: Thrombus - None 4. Posterior Tibial Vein: Compressibility - Fully compressible: Thrombus - None 5. Peroneal Vein:Compressibility - Fully compressible: Thrombus - None 6. Greater Saphenous Vein: Compressibility - Fully compressible: Thrombus - None 6.1. Thigh - Proximal Diameter: 0.34cm. Mid Diameter: 0.29cm. Distal Diameter: 0.26cm. Knee - Diameter 0.34cm 7. 7.1. Calf - Proximal Diameter: 0.33cm. Mid Diameter:0.35cm. Distal Diameter: 0.35cm 7.2. Ankle - Diameter: 0.46cm 8. Conway Saphenous Vein: Compressibility - Fully compressible: thrombus - None 8.1. Knee - Diameter cm 8.2. Calf - Proximal Diameter: cm. Mid Diameter: cm. Distal Diameter: cm. 8.3. Ankle - Diameter: cm OTHER FINDINGS: The right shorter saphenous vein was small in caliber. IMPRESSION: Diameter measurements of the right greater saphenous vein are measured between 0.26 cm and 0.46 cm.
--- NOTE | 2016-11-22 15:46 | CP.PCM.PN ---
Subjective - Date & Time of Evaluation Date of Evaluation: 11/22/16 Time of Evaluation: 15:46 - Subjective Subjective: 65 year old male with seen at bedside concerning right foot and leg ischemia. Patient is a poor historian and but was willing to answer simple questions and respond to verbal prompts. Reports transient left 2nd digit and forefoot pain. He denies any n/v/f/c/sob/cp. Objective - Vital Signs/Intake and Output Vital Signs (last 24 hours): Temp Pulse Resp BP Pulse Ox 97.9 F 88 20 140/80 97 11/22/16 07:48 11/22/16 07:48 11/22/16 07:48 11/22/16 08:38 11/22/16 07:48 Intake and Output: 11/22/16 11/22/16 06:59 18:59 Intake Total 500 Balance 500 - Medications Medications: Current Medications Enoxaparin Sodium (Lovenox) 40 mg SC DAILY [facility] Last Admin: 11/22/16 09:42 Dose: 40 mg Gabapentin (Neurontin) 400 mg PO TID [facility] Last Admin: 11/22/16 09:42 Dose: 400 mg Insulin Aspart (Novolog) 0 unit SC ACHS [facility] PRN Reason: Protocol Last Admin: 11/22/16 12:07 Dose: 3 unit Insulin Aspart (Novolog Mix 70/30 (70/30 Units/Ml)) 35 units SC ACTID [facility] Last Admin: 11/22/16 12:06 Dose: 35 units Lisinopril (Zestril) 5 mg PO DAILY [facility] Last Admin: 11/22/16 09:42 Dose: 5 mg Oxycodone/Acetaminophen (Percocet 5/325 Mg Tab) 2 tab PO Q6H PRN PRN Reason: Pain, moderate (4-7) Stop: 11/22/16 18:49 Last Admin: 11/22/16 07:12 Dose: 2 tab Pantoprazole Sodium (Protonix Ec Tab) 40 mg PO DAILY [facility] Last Admin: 11/22/16 09:42 Dose: 40 mg - Labs Labs: 11/22/16 11:29 11/22/16 11:29 PT 12.4 SECONDS (9.7-12.2) H 11/18/16 14:52 INR 1.1 11/18/16 14:52 APTT 31 SECONDS (21-34) 11/18/16 14:52 - Constitutional Appears: Non-toxic, No Acute Distress - Extremities Exam Additional comments: Left side above knee amputation (AKA) noted. Right lower extremity focused exam: Vasc: DP and PT pulses non-palpable. Skin temperature is cool to cold from proximal to distal. 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 Neuro: Gross sensation diminished Ortho: No tenderness on palpation to right 2nd digit Derm: Open dry, ulceration noted to the dorsum of the right 2nd digit with possible bone exposed and right 1st medial eminence. Second digit is dry and darkly discolored. No drainage, no malodor, no purulence, no exudates. Medial forefoot pre-ulcerative eschar noted. Midfoot and forefoot skin dusky in appearance. - Neurological Exam Neurological Exam: Alert, Awake, Oriented x3 - Psychiatric Exam Psychiatric exam: Normal Affect, Normal Mood Assessment and Plan - Assessment and Plan (Free Text) Assessment: 65 year old male with right 2nd digit gangrene and right foot ischemia. Plan: Patient examined and evaluated. Discussed in detail with attending, Dr. Johns Chart, labs, & vitals reviewed. Right foot dressed with 4x4, kerlix Cont IV abx per primary Plan for possible bypass in near future per vascular Podiatry will continue to follow patient while in house
--- NOTE | 2016-11-22 16:59 | CARD ---
APPROVED REPORT EXAM: Two-dimensional and M-mode echocardiogram with Doppler and color Doppler. Other Information Quality : GoodTechnically LimitedRhythm : INDICATION Cardiac Disease: CAD RISK FACTORS Hypertension Diabetes 2D DIMENSIONS LVOT Diameter2.1 (1.8-2.4cm) M-Mode DIMENSIONS RVDd1.64 (2.1-3.2cm)Left Atrium (MM)3.16 (2.5-4.0cm) IVSd1.60 (0.7-1.1cm)Aortic Root3.32 (2.2-3.7cm) LVDd4.41 (4.0-5.6cm)Aortic Cusp Exc.1.80 (1.5-2.0cm) PWd1.17 (0.7-1.1cm)FS (%) 18 % LVDs3.63 (2.0-3.8cm)LVEF (%)37 (>50%) Aortic Valve AoV Peak Arpbpkzn780.2cm/sAoV VTI33.6cmAO Peak GR.12mmHg LVOT Peak Geidgfzz82.0cm/sLVOT VTI16.93cmAO Mean GR.5mmHg OLAMIDE (VMAX)1.05jd7QTE (VTI)1.69cm2 Mitral Valve MV E Fcwjzrfa98.7cm/sMV A Qgvmwqdr590.8cm/sE/A ratio0.7 TDI E/Lateral E'0.0E/Medial E'0.0 LEFT VENTRICLE The left ventricle is mildly dilated. There is borderline concentric left ventricular hypertrophy. The systolic function is moderately impaired. The Ejection Fraction is 35-40%. There is borderline to mild hypokinesis in the proximal-anteroseptal wall. Transmitral Doppler flow pattern is Grade I-abnormal relaxation pattern. RIGHT VENTRICLE The right ventricle is normal size. The right ventricular systolic function is normal. ATRIA The left atrium size is normal. The right atrium size is normal. AORTIC VALVE The aortic valve is slightly calcified but opens well. No aortic regurgitation is present. MITRAL VALVE The mitral valve is normal in structure. Mitral annular calcification is mild. There is no mitral valve regurgitation noted. TRICUSPID VALVE The tricuspid valve is normal in structure. There is no tricuspid valve regurgitation noted. PULMONIC VALVE The pulmonic valve is not well visualized. GREAT VESSELS The aortic root displays mild to moderate sclerocalcific changes. The IVC is normal in size and collapses >50% with inspiration. PERICARDIAL EFFUSION There is no pericardial effusion. <Conclusion> SUBOPTIMAL STUDY DUE TO POOR ACOUSTIC WINDOWS There is borderline concentric left ventricular hypertrophy. The systolic function is moderately impaired. The Ejection Fraction is 35-40%. There is borderline to mild hypokinesis in the proximal-anteroseptal wall. Transmitral Doppler flow pattern is Grade I-abnormal relaxation pattern. The right ventricular systolic function is normal. Arteriosclerotic Heart Disease as depicted by: Miitral annular calcification - The aortic valve is slightly calcified but opens well - The aortic root displays mild to moderate sclerocalcific changes. There is no pericardial effusion.
--- NOTE | 2016-11-22 21:47 | CP.PCM.PN ---
Subjective - Date & Time of Evaluation Date of Evaluation: 11/22/16 Time of Evaluation: 17:30 - Subjective Subjective: patient denies chest pain. foot has been increasingly painful. Objective - Vital Signs/Intake and Output Vital Signs (last 24 hours): Temp Pulse Resp BP Pulse Ox 97.8 F 80 20 135/61 94 L 11/22/16 15:00 11/22/16 15:00 11/22/16 15:00 11/22/16 15:00 11/22/16 15:00 Intake and Output: 11/22/16 11/23/16 18:59 06:59 Intake Total 500 Balance 500 - Medications Medications: Current Medications Enoxaparin Sodium (Lovenox) 40 mg SC DAILY [facility] Last Admin: 11/22/16 09:42 Dose: 40 mg Gabapentin (Neurontin) 400 mg PO TID [facility] Last Admin: 11/22/16 18:06 Dose: 400 mg Insulin Aspart (Novolog) 0 unit SC ACHS [facility] PRN Reason: Protocol Last Admin: 11/22/16 21:18 Dose: Not Given Insulin Aspart (Novolog Mix 70/30 (70/30 Units/Ml)) 35 units SC ACTID [facility] Last Admin: 11/22/16 18:07 Dose: 35 units Lisinopril (Zestril) 5 mg PO DAILY [facility] Last Admin: 11/22/16 09:42 Dose: 5 mg Pantoprazole Sodium (Protonix Ec Tab) 40 mg PO DAILY [facility] Last Admin: 11/22/16 09:42 Dose: 40 mg - Labs Labs: 11/22/16 11:29 11/22/16 11:29 PT 12.4 SECONDS (9.7-12.2) H 11/18/16 14:52 INR 1.1 11/18/16 14:52 APTT 31 SECONDS (21-34) 11/18/16 14:52 - Constitutional Appears: Non-toxic - Head Exam Head Exam: NORMAL INSPECTION - Eye Exam Eye Exam: Normal appearance - ENT Exam ENT Exam: Mucous Membranes Moist - Neck Exam Neck Exam: Full ROM - Respiratory Exam Respiratory Exam: NORMAL BREATHING PATTERN - Cardiovascular Exam Cardiovascular Exam: REGULAR RHYTHM - GI/Abdominal Exam GI & Abdominal Exam: Normal Bowel Sounds - Rectal Exam Rectal Exam: Deferred - Extremities Exam Additional comments: ischemic right foot - Back Exam Back Exam: NORMAL INSPECTION - Neurological Exam Neurological Exam: Alert - Psychiatric Exam Psychiatric exam: Normal Affect - Skin Skin Exam: Normal Color Assessment and Plan (1) PVD (peripheral vascular disease) Assessment & Plan: patient has an ischemic foot. Due to extensive diffuse PAD with occlusions, patient is not a candidate for endovascular therapy. Patient is consider at intermediate to high risk givne previous cardiac history and LV dysfunction, however the patient has no other options for revascularization. The patient is medically optimized. Recommend postop ICU management Status: Acute (2) CAD (coronary artery disease) Status: Acute (3) Diabetes mellitus Status: Chronic (4) HTN (hypertension) Status: Chronic
[2016-11-23] MEDS: (Novolog Mix 70/30) Insulin Aspart/Insulin Aspar 100 units/ml SC SCH ×3 (07:30→16:30)
[2016-11-23] MEDS: (Novolog) Insulin Aspart, Recombinant 100 u/ml 10 ml vial SC SCH ×4 (07:30→21:46)
[2016-11-23 07:54] LABS: BASO # 0.1 K/uL (0.0-0.2); BASO % 0.6 % (0.0-2.0); EOS # 0.2 K/uL (0.0-0.7); EOS % 1.9 % (0.0-4.0); LYMPH # 1.8 K/uL (1.0-4.3); LYMPH % 19.1 % (20.0-40.0); MEAN CELL VOLUME 82.7 fL (80.0-94.0); MEAN CORPUSCULAR HEMOGLOBIN 27.7 pg (27.0-31.0); MEAN CORPUSCULAR HGB CONC 33.5 g/dL (33.0-37.0); MEAN PLATELET VOLUME 8.3 fL (7.2-11.7); MONO # 0.5 K/uL (0.0-0.8); MONO % 5.8 % (0.0-10.0); WHITE BLOOD COUNT 9.2 K/uL (4.8-10.8)
[2016-11-23 07:58] LABS: CHLORIDE 103 mmol/L (98-107); POTASSIUM 4.2 mmol/L (3.6-5.2); SODIUM 137 mmol/L (132-148)
[2016-11-23 08:00] LABS: BILIRUBIN,TOTAL 0.7 mg/dL (0.2-1.3); GFR AFRICAN-AMERICAN > 60
[2016-11-23 08:01] LABS: ALKALINE PHOSPHATASE 99 U/L (38-126); ALT/SGPT 22 U/L (21-72); AST/SGOT 22 U/L (17-59); BLOOD UREA NITROGEN 13 mg/dL (9-20); CALCIUM 9.4 mg/dl (8.6-10.4); CARBON DIOXIDE 25 mmol/L (22-30); GLUCOSE,RANDOM 261 mg/dL (75-110)
--- NOTE | 2016-11-23 09:21 | CP.PCM.PN ---
Subjective - Date & Time of Evaluation Date of Evaluation: 11/23/16 Time of Evaluation: 09:18 - Subjective Subjective: Medicine Progress Note for Dr. Muhammad's Service Pt seen and examined at bedside. He continues to complain of phantom pain in the LLE which is s/p AKA. He continues to be followed by the surgical team and they are considering fem- pop bypass pending venous studies. Pt verbalizes that he is vehemently opposed to amputation of the lower extremity. He will be seen by the surgical team later today once study results have been released for a decision on future OR plans. No acute events overnight as per nursing. He denies f/c/n/v/cp/sob. Objective - Vital Signs/Intake and Output Vital Signs (last 24 hours): Temp Pulse Resp BP Pulse Ox 98.4 F 96 H 22 153/78 H 97 11/22/16 23:00 11/22/16 23:00 11/22/16 23:00 11/22/16 23:00 11/22/16 23:00 Intake and Output: 11/23/16 11/23/16 06:59 18:59 Intake Total 240 Output Total 600 Balance -360 - Medications Medications: Current Medications Enoxaparin Sodium (Lovenox) 40 mg SC DAILY [facility] Last Admin: 11/22/16 09:42 Dose: 40 mg Gabapentin (Neurontin) 400 mg PO TID [facility] Last Admin: 11/22/16 18:06 Dose: 400 mg Insulin Aspart (Novolog) 0 unit SC ACHS [facility] PRN Reason: Protocol Last Admin: 11/22/16 21:18 Dose: Not Given Insulin Aspart (Novolog Mix 70/30 (70/30 Units/Ml)) 35 units SC ACTID [facility] Last Admin: 11/22/16 18:07 Dose: 35 units Lisinopril (Zestril) 5 mg PO DAILY [facility] Last Admin: 11/22/16 09:42 Dose: 5 mg Pantoprazole Sodium (Protonix Ec Tab) 40 mg PO DAILY [facility] Last Admin: 11/22/16 09:42 Dose: 40 mg - Labs Labs: 11/23/16 07:44 11/23/16 07:44 PT 12.4 SECONDS (9.7-12.2) H 11/18/16 14:52 INR 1.1 11/18/16 14:52 APTT 31 SECONDS (21-34) 11/18/16 14:52 - Constitutional Appears: No Acute Distress - Head Exam Head Exam: NORMAL INSPECTION - Eye Exam Eye Exam: EOMI - ENT Exam ENT Exam: Mucous Membranes Moist - Respiratory Exam Respiratory Exam: Clear to Ausculation Bilateral, NORMAL BREATHING PATTERN - Cardiovascular Exam Cardiovascular Exam: REGULAR RHYTHM - GI/Abdominal Exam GI & Abdominal Exam: Soft. absent: Tenderness - Extremities Exam Additional comments: LLE s/p AKA RLE dressing is C/D/I - Neurological Exam Neurological Exam: Alert, Awake, Oriented x3 Assessment and Plan - Assessment and Plan (Free Text) Plan: PVD complicated by R foot gangrene Consult Podiatry- Dr. Mehta-11/22: possible bypass in near future as per vascular. Will continue to follow up. evaluating for fem-pop bypass pending studies Consult Vascular Surgery- Dr. Dias- 11/23: Plan for possible bypass in near future. Continue pain control. Continuing to follow pending decision for fem-pop Consult Cardio- Dr. Roche- 11/22: pt not candidate for endovascular surgery. Pt considered intermediate to high risk but there are no alternatives at this point. He has been medically optimized. Recommend post op ICU management. Foot X ray- 11/18/16- mild dorsal soft tissue swelling. CT Abdomen Angio- Occlusion of R superficial fem aryery, R popliteal , anterior tibila and peroneal arteries are occluded. R posterior tibilal artery is occluded proximally, but is reconsitutted via a collateral vessel of the foot. Occlusion of left common femoral artery. Multiple stents in the left superficial femoral artery , which are occluded. Patchy areas of sclerosis and lucency in the left distal femoral stump. lower extremity doppler-11/18 - Occlusion R superficial femoral, popliteal, anterior tibial and proximal posterior tibal arteries. 50-75% stenosis. lower extremity venous study- 11/19- Right LE: no thrombus common femoral, femoral, posterior tibial and popliteal veins. Diameter measurements of the right greater saphenous vein are measured between 0.26 cm and 0.46cm. Continue gabapentin 400mg PO TID Continue percocet 5/325 2Tab PO q6hrs prn DM ISS 35 units novolog 70/30 ACTID Accucheck Heart Healthy, Mod CHO Diet Htn Blood pressure appears controlled at this time without medication. Lisinopril 5mg PO daily Will continue to monitor for now. Hx of CAD s/p CABG Consult Cardio- Dr. Roche Echo 11/21/16- LVH with systolic dyfunction and EF of 35-40% Currently asymptomatic; no angina Prophylactic Measure Lovenox 40mg SC Daily Protonix 40mg PO daily Dr. Dias will be making a decision of whether or not to take this patient to the OR. As per cardiology consult- Dr. Roche, this patient is high risk but there are not alternatives to the OR at this point. He has been medically optimized for the OR. Case discussed with Dr. Muhammad. All management as per Dr. Muhammad.
[2016-11-23] MEDS: Enoxaparin 40 mg Syringe SC SCH (09:36)
[2016-11-23] MEDS: Pantoprazole 40 mg EC Tab PO SCH (09:37)
--- NOTE | 2016-11-23 09:44 | CP.PCM.PN ---
Subjective - Date & Time of Evaluation Date of Evaluation: 11/23/16 Time of Evaluation: 08:10 - Subjective Subjective: General Surgery Note Patient was seen and examined at bedside in no acute distress. Patient denies fever, chills, nausea, vomiting, chest pain, palpitations but admits to moderate pain in his right leg. Objective - Vital Signs/Intake and Output Vital Signs (last 24 hours): Temp Pulse Resp BP Pulse Ox 98.4 F 96 H 22 153/78 H 97 11/22/16 23:00 11/22/16 23:00 11/22/16 23:00 11/22/16 23:00 11/22/16 23:00 Intake and Output: 11/23/16 11/23/16 06:59 18:59 Intake Total 240 Output Total 600 Balance -360 - Medications Medications: Current Medications Enoxaparin Sodium (Lovenox) 40 mg SC DAILY [facility] Last Admin: 11/22/16 09:42 Dose: 40 mg Gabapentin (Neurontin) 400 mg PO TID [facility] Last Admin: 11/22/16 18:06 Dose: 400 mg Insulin Aspart (Novolog) 0 unit SC ACHS [facility] PRN Reason: Protocol Last Admin: 11/22/16 21:18 Dose: Not Given Insulin Aspart (Novolog Mix 70/30 (70/30 Units/Ml)) 35 units SC ACTID [facility] Last Admin: 11/22/16 18:07 Dose: 35 units Lisinopril (Zestril) 5 mg PO DAILY [facility] Last Admin: 11/22/16 09:42 Dose: 5 mg Pantoprazole Sodium (Protonix Ec Tab) 40 mg PO DAILY [facility] Last Admin: 11/22/16 09:42 Dose: 40 mg - Labs Labs: 11/23/16 07:44 11/23/16 07:44 PT 12.4 SECONDS (9.7-12.2) H 11/18/16 14:52 INR 1.1 11/18/16 14:52 APTT 31 SECONDS (21-34) 11/18/16 14:52 - Constitutional Appears: Well, No Acute Distress - Head Exam Head Exam: ATRAUMATIC - Eye Exam Eye Exam: EOMI, Normal appearance - Respiratory Exam Respiratory Exam: Clear to Ausculation Bilateral, NORMAL BREATHING PATTERN - Cardiovascular Exam Cardiovascular Exam: REGULAR RHYTHM, +S1, +S2 - GI/Abdominal Exam GI & Abdominal Exam: Soft, Normal Bowel Sounds - Extremities Exam Additional comments: L BKA, R foot wrapped with curlex, CDI - Neurological Exam Neurological Exam: Alert, Awake, Oriented x3 - Psychiatric Exam Psychiatric exam: Normal Affect, Normal Mood - Skin Skin Exam: Dry, Normal Color, Warm Assessment and Plan - Assessment and Plan (Free Text) Assessment: 65M with PVD, Right foot gangrene Plan: - Plan for possible bypass in near future -Continue pain control Discussed with Dr Dias
[2016-11-23] MEDS: Oxycodone/Acetaminophen 5/325 mg Tab PO PRN (11:27)
--- NOTE | 2016-11-23 13:17 | CP.PCM.PN ---
Subjective - Date & Time of Evaluation Date of Evaluation: 11/23/16 Time of Evaluation: 13:14 - Subjective Subjective: 65 year old male with seen at bedside concerning right foot and leg ischemia. Patient is a poor historian but admits he is going to surgery tomorrow. Admits to some intermittent right 2nd digit pain. He denies any n/v/f/c/sob/cp. Objective - Vital Signs/Intake and Output Vital Signs (last 24 hours): Temp Pulse Resp BP Pulse Ox 97.8 F 88 20 123/72 97 11/23/16 08:00 11/23/16 08:00 11/23/16 08:00 11/23/16 08:00 11/23/16 08:00 Intake and Output: 11/23/16 11/23/16 06:59 18:59 Intake Total 240 Output Total 600 Balance -360 - Medications Medications: Current Medications Enoxaparin Sodium (Lovenox) 40 mg SC DAILY [facility] Last Admin: 11/23/16 09:36 Dose: 40 mg Gabapentin (Neurontin) 400 mg PO TID [facility] Last Admin: 11/23/16 10:00 Dose: 400 mg Insulin Aspart (Novolog) 0 unit SC ACHS [facility] PRN Reason: Protocol Last Admin: 11/23/16 11:30 Dose: 4 unit Insulin Aspart (Novolog Mix 70/30 (70/30 Units/Ml)) 35 units SC ACTID [facility] Last Admin: 11/23/16 07:30 Dose: 35 units Lisinopril (Zestril) 5 mg PO DAILY [facility] Last Admin: 11/23/16 09:37 Dose: 5 mg Oxycodone/Acetaminophen (Percocet 5/325 Mg Tab) 2 tab PO Q6H PRN PRN Reason: Pain, moderate (4-7) Stop: 11/26/16 10:44 Last Admin: 11/23/16 11:27 Dose: 2 tab Pantoprazole Sodium (Protonix Ec Tab) 40 mg PO DAILY [facility] Last Admin: 11/23/16 09:37 Dose: 40 mg - Labs Labs: 11/23/16 07:44 11/23/16 07:44 PT 12.4 SECONDS (9.7-12.2) H 11/18/16 14:52 INR 1.1 11/18/16 14:52 APTT 31 SECONDS (21-34) 11/18/16 14:52 - Constitutional Appears: Non-toxic, No Acute Distress - Extremities Exam Additional comments: Left side above knee amputation (AKA) noted. Right lower extremity focused exam: Vasc: DP and PT pulses non-palpable. Skin temperature is cool to cold from proximal to distal. POULTRY SEXER >3 seconds. Neuro: Gross sensation diminished Ortho: No tenderness on palpation to right 2nd digit Derm: Open dry, ulceration noted to the dorsum of the right 2nd digit with possible bone exposed and right 1st medial eminence. Second digit is dry and darkly discolored. No drainage, no malodor, no purulence, no exudates. Medial forefoot pre-ulcerative eschar noted. Midfoot and forefoot skin dusky in appearance. - Neurological Exam Neurological Exam: Alert, Awake, Oriented x3 - Psychiatric Exam Psychiatric exam: Normal Affect, Normal Mood Assessment and Plan - Assessment and Plan (Free Text) Assessment: 65 year old male with right 2nd digit gangrene and right foot ischemia. Plan: Patient examined and evaluated. Discussed in detail with attending, Dr. Johns Chart, labs, & vitals reviewed. Right foot dressed with 4x4, kerlix Cont IV abx per primary Patient for bypass tomorrow morning Podiatry will continue to follow patient while in house
[2016-11-23 14:14] LABS: INR 1.1
[2016-11-24] MEDS: Oxycodone/Acetaminophen 5/325 mg Tab PO PRN (01:32)
[2016-11-24 04:30] LABS: BASO # 0.1 K/uL (0.0-0.2); BASO % 0.6 % (0.0-2.0); EOS # 0.2 K/uL (0.0-0.7); HEMATOCRIT 41.3 % (35.0-51.0); LYMPH # 1.7 K/uL (1.0-4.3); LYMPH % 18.2 % (20.0-40.0); MEAN CELL VOLUME 82.1 fL (80.0-94.0); MEAN CORPUSCULAR HEMOGLOBIN 27.5 pg (27.0-31.0); MEAN CORPUSCULAR HGB CONC 33.5 g/dL (33.0-37.0); MEAN PLATELET VOLUME 7.8 fL (7.2-11.7); MONO # 0.6 K/uL (0.0-0.8); MONO % 6.7 % (0.0-10.0); RED CELL DISTRIBUTION WIDTH 13.9 % (11.5-14.5); WHITE BLOOD COUNT 9.5 K/uL (4.8-10.8)
[2016-11-24 04:39] LABS: CHLORIDE 102 mmol/L (98-107); POTASSIUM 3.9 mmol/L (3.6-5.2); SODIUM 139 mmol/L (132-148)
[2016-11-24 04:42] LABS: ALKALINE PHOSPHATASE 93 U/L (38-126); ALT/SGPT 20 U/L (21-72); AST/SGOT 20 U/L (17-59); BILIRUBIN,TOTAL 0.7 mg/dL (0.2-1.3); BLOOD UREA NITROGEN 15 mg/dL (9-20); CARBON DIOXIDE 25 mmol/L (22-30); GFR AFRICAN-AMERICAN > 60; GLUCOSE,RANDOM 241 mg/dL (75-110); TOTAL PROTEIN 6.7 g/dL (6.3-8.3)
[2016-11-24 04:43] LABS: CALCIUM 9.2 mg/dl (8.6-10.4)
[2016-11-24] MEDS: (Novolog) Insulin Aspart, Recombinant 100 u/ml 10 ml vial SC SCH ×4 (08:22→21:57)
[2016-11-24] MEDS: (Novolog Mix 70/30) Insulin Aspart/Insulin Aspar 100 units/ml SC SCH ×3 (08:22→16:30)
[2016-11-24] MEDS ORDERED: HEPARIN-NS 5,000 UNITS/500 ML 10,000 UNIT/1,000 ML BAG IV ONE (10:15)
[2016-11-24] MEDS ORDERED: Thrombin Topical 20,000 Intl Units Spray Kit TOP ONE (10:15)
[2016-11-24] MEDS ORDERED: Iodixanol 320 MG/ML 200 ML BOTTLE IV ONE (10:16)
[2016-11-24] MEDS ORDERED: Propofol 10 mg/ml Inj (20 ML) ONE (11:09)
[2016-11-24] MEDS ORDERED: Succinylcholine Chloride 20 mg/ml Syr (5 ml) IV ONE (11:09)
[2016-11-24] MEDS ORDERED: Phenylephrine 10 mg/ml Inj ONE (11:10)
[2016-11-24] MEDS ORDERED: Lactated Ringer's 1,000 ML IV ONE ×2 (11:15)
--- NOTE | 2016-11-24 11:17 | CP.PCM.PN ---
Subjective - Date & Time of Evaluation Date of Evaluation: 11/24/16 Time of Evaluation: 09:00 - Subjective Subjective: PGY3 on medicine Dr. Muhammad service: Pt seen and examined at bedside this morning. Pt c/o right leg pain controlled with medication. Pt said he is ready for bypass procedure today. Objective - Vital Signs/Intake and Output Vital Signs (last 24 hours): Temp Pulse Resp BP Pulse Ox 98.6 F 97 H 22 134/62 97 11/23/16 16:00 11/24/16 10:45 11/23/16 16:00 11/24/16 10:45 11/24/16 10:45 Intake and Output: 11/24/16 11/24/16 06:59 18:59 Intake Total 0 Output Total 300 Balance -300 - Medications Medications: Current Medications Enoxaparin Sodium (Lovenox) 40 mg SC DAILY [facility] Last Admin: 11/23/16 09:36 Dose: 40 mg Gabapentin (Neurontin) 400 mg PO TID [facility] Last Admin: 11/23/16 18:05 Dose: 400 mg Insulin Aspart (Novolog) 0 unit SC ACHS [facility] PRN Reason: Protocol Last Admin: 11/24/16 08:22 Dose: Not Given Insulin Aspart (Novolog Mix 70/30 (70/30 Units/Ml)) 35 units SC ACTID [facility] Last Admin: 11/24/16 08:22 Dose: Not Given Lisinopril (Zestril) 5 mg PO DAILY [facility] Last Admin: 11/23/16 09:37 Dose: 5 mg Oxycodone/Acetaminophen (Percocet 5/325 Mg Tab) 2 tab PO Q6H PRN PRN Reason: Pain, moderate (4-7) Stop: 11/26/16 10:44 Last Admin: 11/24/16 01:32 Dose: 2 tab Pantoprazole Sodium (Protonix Ec Tab) 40 mg PO DAILY [facility] Last Admin: 11/23/16 09:37 Dose: 40 mg - Labs Labs: 11/24/16 04:28 11/24/16 04:28 PT 12.7 SECONDS (9.7-12.2) H 11/23/16 14:00 INR 1.1 11/23/16 14:00 APTT 30 SECONDS (21-34) 11/23/16 14:00 - Constitutional Appears: Non-toxic, No Acute Distress - Head Exam Head Exam: NORMOCEPHALIC - Eye Exam Eye Exam: Normal appearance - ENT Exam ENT Exam: Mucous Membranes Moist - Respiratory Exam Respiratory Exam: Clear to Ausculation Bilateral, NORMAL BREATHING PATTERN. absent: Wheezes - Cardiovascular Exam Cardiovascular Exam: REGULAR RHYTHM, +S1, +S2. absent: Gallop, Rubs - GI/Abdominal Exam GI & Abdominal Exam: Soft, Normal Bowel Sounds - Extremities Exam Additional comments: left AKA, right lower extremity dressing clean dry and intact - Neurological Exam Neurological Exam: Alert, Awake, Oriented x3 - Psychiatric Exam Psychiatric exam: Normal Mood Assessment and Plan - Assessment and Plan (Free Text) Assessment: PVD complicated by R foot gangrene 11/24: patient to have fem-pop bypass today. Likely transfer to ICU for post op care as per Dr. Roche suggestion. Consult Podiatry- Dr. Mehta-11/22: possible bypass in near future as per vascular. Will continue to follow up. evaluating for fem-pop bypass pending studies Consult Vascular Surgery- Dr. Dias- 11/23: Plan for possible bypass in near future. Continue pain control. Continuing to follow pending decision for fem-pop Consult Cardio- Dr. Roche- 11/22: pt not candidate for endovascular surgery. Pt considered intermediate to high risk but there are no alternatives at this point. He has been medically optimized. Recommend post op ICU management. Foot X ray- 11/18/16- mild dorsal soft tissue swelling. CT Abdomen Angio- Occlusion of R superficial fem aryery, R popliteal , anterior tibila and peroneal arteries are occluded. R posterior tibilal artery is occluded proximally, but is reconsitutted via a collateral vessel of the foot. Occlusion of left common femoral artery. Multiple stents in the left superficial femoral artery , which are occluded. Patchy areas of sclerosis and lucency in the left distal femoral stump. lower extremity doppler-11/18 - Occlusion R superficial femoral, popliteal, anterior tibial and proximal posterior tibal arteries. 50-75% stenosis. lower extremity venous study- 11/19- Right LE: no thrombus common femoral, femoral, posterior tibial and popliteal veins. Diameter measurements of the right greater saphenous vein are measured between 0.26 cm and 0.46cm. Continue gabapentin 400mg PO TID Continue percocet 5/325 2Tab PO q6hrs prn DM ISS 35 units novolog 70/30 ACTID Accucheck Heart Healthy, Mod CHO Diet Htn Blood pressure appears controlled at this time without medication. Lisinopril 5mg PO daily Will continue to monitor for now. Hx of CAD s/p CABG Consult Cardio- Dr. Roche Echo 11/21/16- LVH with systolic dyfunction and EF of 35-40% Currently asymptomatic; no angina Prophylactic Measure Lovenox 40mg SC Daily Protonix 40mg PO daily Case discussed with Dr. Muhammad. All management as per Dr. Muhammad.
[2016-11-24] MEDS ORDERED: Nitroglycerin 50mg in D5W 50 MG/250 ML BOTTLE IV ONE (11:18)
[2016-11-24] MEDS ORDERED: ceFAZolin IV 2 gm in Dextrose 1 GM/50 ML BAG IVPB ONE (11:31)
[2016-11-24] MEDS: Enoxaparin 40 mg Syringe SC SCH (11:45)
[2016-11-24] MEDS: Pantoprazole 40 mg EC Tab PO SCH (11:50)
[2016-11-24] MEDS ORDERED: Rocuronium 10 mg/ml (5 ml) ONE (11:50)
[2016-11-24] MEDS ORDERED: Bacitracin 50,000 UNIT in Sodium Chloride 0.9% Irrig 1,000 ML IR SCH (12:44)
[2016-11-24] MEDS ORDERED: Papaverine Hydrochloride 30 mg/ml (2ml) ONE (13:01)
[2016-11-24] MEDS ORDERED: Neostigmine Methylsulfate 3mg/3ml Syringe IV ONE (13:14)
[2016-11-24] MEDS ORDERED: HYDROmorphone 0.5 mg/0.5 ml ISec IVP PRN (14:07)
--- NOTE | 2016-11-24 14:08 | PCM.SURG1 ---
Surgeon's Initial Post Op Note - Surgeon's Notes Surgeon: Dr. Dias Spot Cleaner: Dr. Burks PGY-3, Luis Stroud OMS-III Type of Anesthesia: General Endo Pre-Operative Diagnosis: Right PVD Operative Findings: Intraop angio: posterior tibial artery visualized, not adequate target for successful bypass Post-Operative Diagnosis: Right PVD Operation Performed: Open femoral artery exploration with intraoperative arterial angiogram Specimen/Specimens Removed: none Estimated Blood Loss: EBL {In ML}: 75 Blood Products Given: N/A Drains Used: No Drains Post-Op Condition: Fair Date of Surgery/Procedure: 11/24/16 Time of Surgery/Procedure: 14:07
[2016-11-24] MEDS ORDERED: (Novolin R) Insulin Human Regular 100 units/ml vial IV STA (14:42)
--- NOTE | 2016-11-24 15:35 | RAD ---
PROCEDURE: INTRAOPERATIVE FLUOROSCOPY RIGHT LOWER EXTREMITY HISTORY: TVD COMPARISON: TECHNIQUE: Intraoperative fluoroscopy was provided the referring physician to assist in angiographic based procedure. FINDINGS: Spot fluoroscopic images have been did not submitted demonstrating fiducial markings along the distal right lower extremity down to the right ankle. Apparent digital subtraction technique was utilized no definite arterial opacification is is seen on the images submitted. Please see operative report further detail. 12.1 mGy total radiographic dose is noted over 147 seconds of fluoroscopy time. IMPRESSION: See discussion above as well separate operative report.
[2016-11-24 16:08] VITALS: RESP 20
--- NOTE | 2016-11-25 01:47 | OP ---
PROCEDURE DATE: 11/24/2016 PREOPERATIVE DIAGNOSIS: Gangrene of the right foot. PROCEDURE CARRIED OUT: Open exploration of right groin, femoral artery expose, multiple intraoperative arteriogram. SURGEON: Dr. Dias. FICTION AND NONFICTION PROSE WRITER: Dr. Burks and Dr. Singh. The patient is an older middle-aged male with multiple problems including amputation of the other leg above the knee. He presents with gangrene of the foot. He previously had endovascular procedures. OPERATIVE FINDINGS: 1. Our initial plan based on previous imaging was to carry out a right femoral to posterior tibial bypass. However, prior to beginning the operation, we dissected out the groin where the vessels are relatively soft and we dissected out the common femoral artery. After obtaining control of vessel, we placed a 5-Macedonian sheath and carried out multiple angiograms via injection of the common femoral artery. Overlapping films were taken from the area of the midline down, and this showed that all the stents were previously occluded, that the anterior tibial and peroneal artery were completely occluded, that the only vessel posterior tibial artery, which we constituted in the mid calf and continued to foot. Despite continuing his vessel, there are multiple areas of stenosis throughout the vessel. With over 70% stenosis in some region, because of this, we abandoned any attempt to carry out a bypass in this portion of the leg and abandoned the procedure. We then removed the catheter from the groin, applied pressure, and terminated the procedure and closed the groin wound. The operation carried out was open exploration of right common femoral artery and multiple intraoperative arteriograms. The angiographic findings were as described above. Nba Dias Jr., MD
--- NOTE | 2016-11-25 07:19 | CP.PCM.PN ---
Subjective - Date & Time of Evaluation Date of Evaluation: 11/25/16 Time of Evaluation: 07:15 - Subjective Subjective: Medicine Progress Not for Dr. Muhammad's Service Pt seen and examined at bedside. He continues to have a variety of complaints including left lower extremity phantom pain and lack of attention from nurses. He states that he has been urinating all night and does not understand why he is experiencing this increased urination. His speech is tangential and he makes a variety of outstanding claims such as "there was blood all over the pedroza in the OR" and extensive complaints about someone named Dominga. He was taken to the OR yesterday but it was determined that he is not a candidate for bypass. We are awaiting the official surgical report and recommendations for this patient. He continues to reject the idea of amputation. Objective - Vital Signs/Intake and Output Vital Signs (last 24 hours): Temp Pulse Resp BP Pulse Ox 98 F 101 H 20 126/49 L 96 11/25/16 00:00 11/25/16 00:00 11/25/16 00:00 11/25/16 00:00 11/25/16 00:00 Intake and Output: 11/25/16 11/25/16 06:59 18:59 Intake Total 400 Balance 400 - Medications Medications: Current Medications Acetaminophen (Tylenol 325mg Tab) 975 mg PO Q8 [facility] Last Admin: 11/24/16 22:01 Dose: Not Given Enoxaparin Sodium (Lovenox) 40 mg SC DAILY [facility] Last Admin: 11/24/16 11:45 Dose: Not Given Gabapentin (Neurontin) 400 mg PO TID [facility] Last Admin: 11/24/16 18:00 Dose: 400 mg Insulin Aspart (Novolog) 0 unit SC ACHS [facility] PRN Reason: Protocol Last Admin: 11/24/16 21:57 Dose: Not Given Insulin Aspart (Novolog Mix 70/30 (70/30 Units/Ml)) 35 units SC ACTID [facility] Last Admin: 11/24/16 16:30 Dose: 35 units Ketorolac Tromethamine (Toradol) 15 mg IVP Q6 PRN PRN Reason: Pain, moderate (4-7) Last Admin: 11/25/16 03:40 Dose: 15 mg Lisinopril (Zestril) 5 mg PO DAILY [facility] Last Admin: 11/24/16 18:10 Dose: 5 mg Pantoprazole Sodium (Protonix Ec Tab) 40 mg PO DAILY [facility] Last Admin: 11/24/16 11:50 Dose: Not Given - Labs Labs: 11/24/16 04:28 11/24/16 04:28 PT 12.7 SECONDS (9.7-12.2) H 11/23/16 14:00 INR 1.1 11/23/16 14:00 APTT 30 SECONDS (21-34) 11/23/16 14:00 - Constitutional Appears: No Acute Distress - Head Exam Head Exam: ATRAUMATIC - Eye Exam Eye Exam: EOMI - ENT Exam ENT Exam: Mucous Membranes Moist - Respiratory Exam Respiratory Exam: Clear to Ausculation Bilateral, NORMAL BREATHING PATTERN - Cardiovascular Exam Cardiovascular Exam: REGULAR RHYTHM - GI/Abdominal Exam GI & Abdominal Exam: Soft - Neurological Exam Neurological Exam: Alert, Awake, Oriented x3 - Psychiatric Exam Psychiatric exam: Agitated Assessment and Plan - Assessment and Plan (Free Text) Plan: PVD complicated by R foot gangrene 11/24: patient to have fem-pop bypass today. Likely transfer to ICU for post op care as per Dr. Roche suggestion. Consult Podiatry- Dr. Mehta-11/22: possible bypass in near future as per vascular. Will continue to follow up. evaluating for fem-pop bypass pending studies Consult Vascular Surgery- Dr. Dias- 11/23: Plan for possible bypass in near future. Continue pain control. Continuing to follow pending decision for fem-pop Consult Cardio- Dr. Roche- 11/22: pt not candidate for endovascular surgery. Pt considered intermediate to high risk but there are no alternatives at this point. He has been medically optimized. Recommend post op ICU management. Foot X ray- 11/18/16- mild dorsal soft tissue swelling. CT Abdomen Angio- Occlusion of R superficial fem aryery, R popliteal , anterior tibila and peroneal arteries are occluded. R posterior tibilal artery is occluded proximally, but is reconsitutted via a collateral vessel of the foot. Occlusion of left common femoral artery. Multiple stents in the left superficial femoral artery , which are occluded. Patchy areas of sclerosis and lucency in the left distal femoral stump. lower extremity doppler-11/18 - Occlusion R superficial femoral, popliteal, anterior tibial and proximal posterior tibal arteries. 50-75% stenosis. lower extremity venous study- 11/19- Right LE: no thrombus common femoral, femoral, posterior tibial and popliteal veins. Diameter measurements of the right greater saphenous vein are measured between 0.26 cm and 0.46cm. Continue gabapentin 400mg PO TID Continue percocet 5/325 2Tab PO q6hrs prn He was taken to the OR yesterday but it was determined that he is not a candidate for bypass. We are awaiting the official surgical report and recommendations for this patient. He continues to reject the idea of amputation. DM ISS 35 units novolog 70/30 ACTID Accucheck Heart Healthy, Mod CHO Diet Htn Lisinopril 5mg PO daily Will continue to monitor for now. Hx of CAD s/p CABG Consult Cardio- Dr. Roche Echo 11/21/16- LVH with systolic dyfunction and EF of 35-40% Currently asymptomatic; no angina Prophylactic Measure Lovenox 40mg SC Daily Protonix 40mg PO daily Following up on recommendations from surgery. Case discussed with Dr. Muhammad. All management as per Dr. Muhammad.
[2016-11-25 07:39] LABS: BASO % 0.3 % (0.0-2.0); EOS # 0.1 K/uL (0.0-0.7); EOS % 1.1 % (0.0-4.0); HEMATOCRIT 41.9 % (35.0-51.0); LYMPH # 1.5 K/uL (1.0-4.3); LYMPH % 13.7 % (20.0-40.0); MEAN CELL VOLUME 82.8 fL (80.0-94.0); MEAN CORPUSCULAR HEMOGLOBIN 27.3 pg (27.0-31.0); MEAN CORPUSCULAR HGB CONC 32.9 g/dL (33.0-37.0); MEAN PLATELET VOLUME 8.5 fL (7.2-11.7); MONO # 0.7 K/uL (0.0-0.8); MONO % 6.2 % (0.0-10.0); RED CELL DISTRIBUTION WIDTH 13.9 % (11.5-14.5); WHITE BLOOD COUNT 11.3 K/uL (4.8-10.8)
[2016-11-25 07:59] LABS: CHLORIDE 99 mmol/L (98-107)
[2016-11-25 08:00] LABS: POTASSIUM 4.1 mmol/L (3.6-5.2); SODIUM 136 mmol/L (132-148)
[2016-11-25 08:02] LABS: AST/SGOT 20 U/L (17-59); BILIRUBIN,TOTAL 0.9 mg/dL (0.2-1.3); BLOOD UREA NITROGEN 12 mg/dL (9-20); CARBON DIOXIDE 26 mmol/L (22-30); GFR AFRICAN-AMERICAN > 60; TOTAL PROTEIN 7.3 g/dL (6.3-8.3)
[2016-11-25 08:03] LABS: ALKALINE PHOSPHATASE 105 U/L (38-126); ALT/SGPT 24 U/L (21-72); CALCIUM 9.3 mg/dl (8.6-10.4); GLUCOSE,RANDOM 327 mg/dL (75-110)
[2016-11-25] MEDS: (Novolog Mix 70/30) Insulin Aspart/Insulin Aspar 100 units/ml SC SCH ×3 (08:40→16:30)
[2016-11-25] MEDS: (Novolog) Insulin Aspart, Recombinant 100 u/ml 10 ml vial SC SCH ×4 (08:40→16:30)
[2016-11-25] MEDS: Enoxaparin 40 mg Syringe SC SCH (10:13)
[2016-11-25] MEDS: Pantoprazole 40 mg EC Tab PO SCH (10:13)
--- NOTE | 2016-11-25 13:01 | CP.PCM.PN ---
Subjective - Date & Time of Evaluation Date of Evaluation: 11/25/16 Time of Evaluation: 12:59 - Subjective Subjective: 65 year old male with seen at bedside concerning right foot and leg ischemia. Patient states that he went for surgery yesterday but the procedure did not happen. Admits to some intermittent right 2nd digit pain. He denies any n/v/f/c /sob/cp. Objective - Vital Signs/Intake and Output Vital Signs (last 24 hours): Temp Pulse Resp BP Pulse Ox 98.0 F 65 20 161/74 H 95 11/25/16 09:02 11/25/16 09:02 11/25/16 09:02 11/25/16 09:02 11/25/16 09:02 Intake and Output: 11/25/16 11/25/16 06:59 18:59 Intake Total 400 Balance 400 - Medications Medications: Current Medications Acetaminophen (Tylenol 325mg Tab) 975 mg PO Q8 [facility] Last Admin: 11/24/16 22:01 Dose: Not Given Enoxaparin Sodium (Lovenox) 40 mg SC DAILY [facility] Last Admin: 11/25/16 10:13 Dose: 40 mg Gabapentin (Neurontin) 400 mg PO TID [facility] Last Admin: 11/25/16 10:13 Dose: 400 mg Insulin Aspart (Novolog) 0 unit SC ACHS [facility] PRN Reason: Protocol Last Admin: 11/25/16 12:31 Dose: 1 unit Insulin Aspart (Novolog Mix 70/30 (70/30 Units/Ml)) 35 units SC ACTID [facility] Last Admin: 11/25/16 12:30 Dose: 35 units Ketorolac Tromethamine (Toradol) 15 mg IVP Q6 PRN PRN Reason: Pain, moderate (4-7) Last Admin: 11/25/16 10:12 Dose: 15 mg Lisinopril (Zestril) 5 mg PO DAILY [facility] Last Admin: 11/25/16 10:13 Dose: 5 mg Pantoprazole Sodium (Protonix Ec Tab) 40 mg PO DAILY [facility] Last Admin: 11/25/16 10:13 Dose: 40 mg - Labs Labs: 11/25/16 07:07 11/25/16 07:07 PT 12.7 SECONDS (9.7-12.2) H 11/23/16 14:00 INR 1.1 11/23/16 14:00 APTT 30 SECONDS (21-34) 11/23/16 14:00 - Constitutional Appears: No Acute Distress, Chronically Ill - Extremities Exam Additional comments: Left side above knee amputation (AKA) noted. Right lower extremity focused exam: Vasc: DP and PT pulses non-palpable. Skin temperature is cool to cold from proximal to distal. 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 Neuro: Gross sensation diminished Ortho: No tenderness on palpation to right 2nd digit Derm: Open dry, ulceration noted to the dorsum of the right 2nd digit with possible bone exposed and right 1st medial eminence. Second digit is dry and darkly discolored. No drainage, no malodor, no purulence, no exudates. Medial forefoot pre-ulcerative eschar noted. Midfoot and forefoot skin dusky in appearance. - Neurological Exam Neurological Exam: Alert, Awake - Psychiatric Exam Psychiatric exam: Normal Mood Assessment and Plan - Assessment and Plan (Free Text) Assessment: 65 year old male with right 2nd digit gangrene and right foot ischemia. Plan: Patient examined and evaluated. Discussed in detail with attending, Dr. Johns Chart, labs, & vitals reviewed. Patient refused dressing to his RLE daily dressing changes of DSD to RLE Cont IV abx per primary Patient stable for d/c per podiatry f/u vascular recs Podiatry will continue to follow patient while in house
--- NOTE | 2016-11-25 13:53 | CP.PCM.PN ---
Subjective - Date & Time of Evaluation Date of Evaluation: 12/02/16 Time of Evaluation: 09:35 - Subjective Subjective: General Surgery note Patient was seen and examined at bedside. Patient denies fever, chills, nausea , vomiting, chest pain, palpitations but admits to moderate pain in his right leg. Patient is aware of the outcome of surgical procedure and current recommendations as per Dr. Dias. Objective - Vital Signs/Intake and Output Vital Signs (last 24 hours): Temp Pulse Resp BP Pulse Ox 98.0 F 65 20 161/74 H 95 11/25/16 09:02 11/25/16 09:02 11/25/16 09:02 11/25/16 09:02 11/25/16 09:02 Intake and Output: 11/25/16 11/25/16 06:59 18:59 Intake Total 400 Balance 400 - Medications Medications: Current Medications Acetaminophen (Tylenol 325mg Tab) 975 mg PO Q8 [facility] Last Admin: 11/24/16 22:01 Dose: Not Given Enoxaparin Sodium (Lovenox) 40 mg SC DAILY [facility] Last Admin: 11/25/16 10:13 Dose: 40 mg Gabapentin (Neurontin) 400 mg PO TID [facility] Last Admin: 11/25/16 10:13 Dose: 400 mg Insulin Aspart (Novolog) 0 unit SC ACHS [facility] PRN Reason: Protocol Last Admin: 11/25/16 12:31 Dose: 1 unit Insulin Aspart (Novolog Mix 70/30 (70/30 Units/Ml)) 35 units SC ACTID [facility] Last Admin: 11/25/16 12:30 Dose: 35 units Ketorolac Tromethamine (Toradol) 15 mg IVP Q6 PRN PRN Reason: Pain, moderate (4-7) Last Admin: 11/25/16 10:12 Dose: 15 mg Lisinopril (Zestril) 5 mg PO DAILY [facility] Last Admin: 11/25/16 10:13 Dose: 5 mg Pantoprazole Sodium (Protonix Ec Tab) 40 mg PO DAILY [facility] Last Admin: 11/25/16 10:13 Dose: 40 mg - Labs Labs: 11/25/16 07:07 11/25/16 07:07 PT 12.7 SECONDS (9.7-12.2) H 11/23/16 14:00 INR 1.1 11/23/16 14:00 APTT 30 SECONDS (21-34) 11/23/16 14:00 - Constitutional Appears: Well, No Acute Distress - Head Exam Head Exam: ATRAUMATIC - Eye Exam Eye Exam: EOMI - Respiratory Exam Respiratory Exam: Clear to Ausculation Bilateral, NORMAL BREATHING PATTERN - Cardiovascular Exam Cardiovascular Exam: REGULAR RHYTHM, +S1, +S2 - GI/Abdominal Exam GI & Abdominal Exam: Soft, Normal Bowel Sounds - Extremities Exam Additional comments: L BKA, R foot wrapped with curlex, CDI - Neurological Exam Neurological Exam: Alert, Awake - Psychiatric Exam Psychiatric exam: Depressed Assessment and Plan - Assessment and Plan (Free Text) Assessment: 65M with PVD, Right foot gangrene with open femoral artery exploration artery, intraoperative angiogram with no bypass POD #1 Plan: -Unsuccessful right femoral popliteal bypass -Patient was counselled on the need for amputation as well as the risk and benefits. Patient refused and states that he would rather deal with the pain and future complications - Continue medical management as per primary team Plans discussed with Dr. Larissa Lucas, PGY-1
[2016-11-25 16:22] VITALS: BP 104/59; PULSE 87; TEMP 99.9; O2SAT 97
--- NOTE | 2016-11-25 16:29 | CP.PCM.PN ---
Subjective - Date & Time of Evaluation Date of Evaluation: 11/25/16 Time of Evaluation: 16:29 - Subjective Subjective: Pt to be discharged to [facility] as per Dr. Muhammad Objective - Vital Signs/Intake and Output Vital Signs (last 24 hours): Temp Pulse Resp BP Pulse Ox 99.9 F H 87 20 104/59 L 97 11/25/16 16:21 11/25/16 16:21 11/25/16 16:21 11/25/16 16:21 11/25/16 16:21 Intake and Output: 11/25/16 11/25/16 06:59 18:59 Intake Total 400 Balance 400 - Medications Medications: Current Medications Acetaminophen (Tylenol 325mg Tab) 975 mg PO Q8 [facility] Last Admin: 11/25/16 14:11 Dose: 975 mg Enoxaparin Sodium (Lovenox) 40 mg SC DAILY [facility] Last Admin: 11/25/16 10:13 Dose: 40 mg Gabapentin (Neurontin) 400 mg PO TID [facility] Last Admin: 11/25/16 14:13 Dose: 400 mg Insulin Aspart (Novolog) 0 unit SC ACHS [facility] PRN Reason: Protocol Last Admin: 11/25/16 12:31 Dose: 1 unit Insulin Aspart (Novolog Mix 70/30 (70/30 Units/Ml)) 35 units SC ACTID [facility] Last Admin: 11/25/16 12:30 Dose: 35 units Ketorolac Tromethamine (Toradol) 15 mg IVP Q6 PRN PRN Reason: Pain, moderate (4-7) Last Admin: 11/25/16 10:12 Dose: 15 mg Lisinopril (Zestril) 5 mg PO DAILY [facility] Last Admin: 11/25/16 10:13 Dose: 5 mg Pantoprazole Sodium (Protonix Ec Tab) 40 mg PO DAILY [facility] Last Admin: 11/25/16 10:13 Dose: 40 mg - Labs Labs: 11/25/16 07:07 11/25/16 07:07 PT 12.7 SECONDS (9.7-12.2) H 11/23/16 14:00 INR 1.1 11/23/16 14:00 APTT 30 SECONDS (21-34) 11/23/16 14:00
--- NOTE | 2016-11-25 17:02 | CP.PCM.PN ---
Subjective - Date & Time of Evaluation Date of Evaluation: 11/25/16 Time of Evaluation: 17:01 - Subjective Subjective: OR findings and plans dw patient Objective - Vital Signs/Intake and Output Vital Signs (last 24 hours): Temp Pulse Resp BP Pulse Ox 99.9 F H 87 20 104/59 L 97 11/25/16 16:21 11/25/16 16:21 11/25/16 16:21 11/25/16 16:21 11/25/16 16:21 Intake and Output: 11/25/16 11/25/16 06:59 18:59 Intake Total 400 Balance 400 - Medications Medications: Current Medications Acetaminophen (Tylenol 325mg Tab) 975 mg PO Q8 [facility] Last Admin: 11/25/16 14:11 Dose: 975 mg Enoxaparin Sodium (Lovenox) 40 mg SC DAILY [facility] Last Admin: 11/25/16 10:13 Dose: 40 mg Gabapentin (Neurontin) 400 mg PO TID [facility] Last Admin: 11/25/16 14:13 Dose: 400 mg Insulin Aspart (Novolog) 0 unit SC ACHS [facility] PRN Reason: Protocol Last Admin: 11/25/16 12:31 Dose: 1 unit Insulin Aspart (Novolog Mix 70/30 (70/30 Units/Ml)) 35 units SC ACTID [facility] Last Admin: 11/25/16 12:30 Dose: 35 units Ketorolac Tromethamine (Toradol) 15 mg IVP Q6 PRN PRN Reason: Pain, moderate (4-7) Last Admin: 11/25/16 10:12 Dose: 15 mg Lisinopril (Zestril) 5 mg PO DAILY [facility] Last Admin: 11/25/16 10:13 Dose: 5 mg Pantoprazole Sodium (Protonix Ec Tab) 40 mg PO DAILY [facility] Last Admin: 11/25/16 10:13 Dose: 40 mg - Labs Labs: 11/25/16 07:07 11/25/16 07:07 PT 12.7 SECONDS (9.7-12.2) H 11/23/16 14:00 INR 1.1 11/23/16 14:00 APTT 30 SECONDS (21-34) 11/23/16 14:00
--- NOTE | 2016-12-09 03:21 | DS ---
The patient is admitted to hospital with chief complaint of diabetic foot, osteomyelitis and peripheral vascular disease. The patient was given IV antibiotics. Vascular consult done. Vascular Doppler shows peripheral vascular disease. The patient not suitable for bypass. . The patient was transferred to a rehab with IV antibiotics. Mrati Muhammad MD
== END 2016-11-25 19:00 | DRG 253 ==
LOC: C.ER 13:50 → C.9E 15:39 → C.3T 16:16
PROVIDERS: ADMIT Internal Medicine Pulmonary Disease; ATTEND Internal Medicine Pulmonary Disease
PROC: B41F110 Fluoroscopy of Right Lower Extremity Arteries using Low Osmolar Contrast, Laser Intraoperative (ICD-10-PCS; 2016-11-24)
PROC: 04JY0ZZ Inspection of Lower Artery, Open Approach (ICD-10-PCS; principal; 2016-11-24 11:30)
DX: E10.52 Type 1 diabetes mellitus with diabetic peripheral angiopathy with gangrene (principal); I70.261 Atherosclerosis of native arteries of extremities with gangrene, right leg; E10.621 Type 1 diabetes mellitus with foot ulcer; M86.671 Other chronic osteomyelitis, right ankle and foot; E10.65 Type 1 diabetes mellitus with hyperglycemia; I70.92 Chronic total occlusion of artery of the extremities; Z89.612 Acquired absence of left leg above knee; T82.856A Stenosis of peripheral vascular stent, initial encounter; E10.69 Type 1 diabetes mellitus with other specified complication; G54.6 Phantom limb syndrome with pain; L97.519 Non-pressure chronic ulcer of other part of right foot with unspecified severity; E78.00 Pure hypercholesterolemia, unspecified; F17.210 Nicotine dependence, cigarettes, uncomplicated; I10 Essential (primary) hypertension; I25.10 Atherosclerotic heart disease of native coronary artery without angina pectoris; Y83.8 Other surgical procedures as the cause of abnormal reaction of the patient, or of later complication, without mention of misadventure at the time of the procedure; J45.909 Unspecified asthma, uncomplicated; Z79.4 Long term (current) use of insulin; Z95.1 Presence of aortocoronary bypass graft; Z95.5 Presence of coronary angioplasty implant and graft

== ENCOUNTER 2017-01-07 15:39 | Inpatient (IN) | payer MEDICARE, MEDICAID ==
[2017-01-07 15:40] VITALS: BMI 35.7
[2017-01-07] MEDS ORDERED: HYDROmorphone 1 mg/ml ISec IVP STA (16:57)
[2017-01-07] MEDS ORDERED: Sodium Chloride 0.9% 500 ML IV STA (16:57)
[2017-01-07] MEDS ORDERED: HYDROmorphone 0.5 mg/0.5 ml ISec ONE (17:11)
[2017-01-07 17:16] LABS: BASO % 0.2 % (0.0-2.0); EOS # 0.1 K/uL (0.0-0.7); EOS % 1.4 % (0.0-4.0); HEMATOCRIT 39.4 % (35.0-51.0); LYMPH # 1.8 K/uL (1.0-4.3); LYMPH % 19.8 % (20.0-40.0); MEAN CELL VOLUME 82.1 fL (80.0-94.0); MEAN CORPUSCULAR HEMOGLOBIN 27.3 pg (27.0-31.0); MEAN CORPUSCULAR HGB CONC 33.2 g/dL (33.0-37.0); MONO # 0.5 K/uL (0.0-0.8); MONO % 5.7 % (0.0-10.0)
[2017-01-07 17:24] LABS: CHLORIDE 99 mmol/L (98-107); POTASSIUM 3.6 mmol/L (3.6-5.2); SODIUM 138 mmol/L (132-148)
[2017-01-07 17:26] LABS: AST/SGOT 15 U/L (17-59); BILIRUBIN,TOTAL 0.4 mg/dL (0.2-1.3); CARBON DIOXIDE 24 mmol/L (22-30); GFR AFRICAN-AMERICAN > 60
[2017-01-07 17:27] LABS: ALKALINE PHOSPHATASE 99 U/L (38-126); ALT/SGPT 26 U/L (21-72); BLOOD UREA NITROGEN 7 mg/dL (9-20); CALCIUM 9.5 mg/dl (8.6-10.4); GLUCOSE,RANDOM 232 mg/dL (75-110); TOTAL PROTEIN 7.8 g/dL (6.3-8.3)
--- NOTE | 2017-01-07 18:03 | C.PDOC ---
History Of Present Illness 66 y/o male sent to ED by PMD for evaluation of right foot pain for the last month. As per PMD note, pt has signs of gangrene. Otherwise, denies any injury, fall, change in sensation, weakness, numbness, fever, or chills. Time Seen by Provider: 01/07/17 16:09 Chief Complaint (Nursing): Lower Extremity Problem/Injury History Per: Patient History/Exam Limitations: no limitations Onset/Duration Of Symptoms: Days Current Symptoms Are (Timing): Still Present Recent travel outside of the [place]: No Additional History Per: Patient Past Medical History Reviewed: Historical Data, Nursing Documentation, Vital Signs Vital Signs: Last Vital Signs Temp 98.8 F 01/07/17 15:46 Pulse 80 01/07/17 17:47 Resp 18 01/07/17 17:47 BP 177/93 H 01/07/17 17:47 Pulse Ox 100 01/07/17 18:36 - Medical History PMH: Anxiety, Arthritis, Asthma, Depression, Diabetes, HTN, Hypercholesterolemia Denies: Chronic Kidney Disease Surgical History: CABG, Cholecystectomy, Coronary Stent (x3) - [facility] Procedures ABOVE KNEE AMPUTATION (12/07/14) ANGIOPLASTY OF OTHER NON-CORONARY VESSEL(S) (11/28/13) ATHERECTOMY OF OTHER NON-CORONARY VESSEL(S) (10/21/11) BELOW KNEE AMPUTAT NEC (09/10/14) CATARAC PHACOEMULS/ASPIR (02/13/14) CONTRAST AORTOGRAM (09/04/14) CONTRAST ARTERIOGRAM-LEG (09/04/14) FLUOROSCOPY R LOW EXTREM ART W L OSM CONTRAST, LASER INTRAOP (11/18/16) INFLUENZA VACCINATION (04/24/14) INSEJ [id number] PERIPHERAL NON-CORONARY VES STENT(S) (11/28/13) INSERT LENS AT CATAR EXT (02/13/14) INSERTION OF ONE VASCULAR STENT (11/28/13) INSPECTION OF LOWER ARTERY, OPEN APPROACH (11/18/16) LOC EXC BONE LESION NEC (10/31/14) OCCUPATIONAL THERAPY (09/17/14) OTHER MYECTOMY (10/10/14) PHYSICAL THERAPY NEC (09/17/14) PROCEDURE ON SINGLE VESSEL (11/28/13) RECREATIONAL THERAPY (09/17/14) VACCINATION NEC (04/24/14) VASC SHUNT & BYPASS NEC (11/28/13) Family History: States: Unknown Family Hx - Social History Hx Tobacco Use: Yes Hx Alcohol Use: No Hx Substance Use: No - Immunization History Hx Tetanus Toxoid Vaccination: No Hx Influenza Vaccination: No Hx Pneumococcal Vaccination: No Review Of Systems Except As Marked, All Systems Reviewed And Found Negative. Constitutional: Negative for: Fever, Chills Cardiovascular: Negative for: Chest Pain, Palpitations, Edema Respiratory: Negative for: Cough, Shortness of Breath Musculoskeletal: Positive for: Foot Pain (right) Neurological: Negative for: Weakness, Numbness, Headache Physical Exam - Physical Exam Appears: Non-toxic, No Acute Distress Skin: Warm, Dry, Other (dry gangrene to right foot, (+) black discoloration, no drainage) Head: Atraumatic, Normacephalic Eye(s): bilateral: Normal Inspection Oral Mucosa: Moist Neck: Supple Chest: Symmetrical Cardiovascular: Rhythm Regular, No Murmur Respiratory: Normal Breath Sounds, No Rales, No Rhonchi, No Wheezing Gastrointestinal/Abdominal: Soft, No Tenderness Extremity: Normal ROM (FROM of right foot), Capillary Refill (<2 sec.), Other ( left BKA) Neurological/Psych: Oriented x3, Normal Speech, Normal Motor, Normal Sensation ED Course And Treatment - Laboratory Results Result Diagrams: 01/07/17 17:06 01/07/17 17:06 O2 Sat by Pulse Oximetry: 100 Pulse Ox Interpretation: Normal - Other Rad Right foot x-ray X-Ray: Interpreted by Me, Viewed By Me Interpretation: No acute changes. Progress Note: Blood work, EKG, CXR, right foot x-ray ordered and reviewed. Patient was given Dilaudid and IV fluids. Case was d/w pt's PMD who accepted him to med/surg for admission. Disposition - Disposition Disposition: HOSPITALIZED Disposition Time: 18:02 Condition: FAIR - Clinical Impression Clinical Impression: Gangrene of right foot - PA / [employer] / Resident Statement MD/DO has reviewed & agrees with the documentation as recorded. - Scribe Statement The provider has reviewed the documentation as recorded by the Scribe Crissy Marquez All medical record entries made by the Scribe were at my direction and personally dictated by me. I have reviewed the chart and agree that the record accurately reflects my personal performance of the history, physical exam, medical decision making, and the department course for this patient. I have also personally directed, reviewed, and agree with the discharge instructions and disposition. Decision To Admit - Pt Status Changed To: Hospital Disposition Of: Inpatient - Admit Certification Admit to Inpatient:: After my assessment, the patient will require hospitalization for at least two midnights. This is because of the severity of symptoms shown, intensity of services needed, and/or the medical risk in this patient being treated as an outpatient. - InPatient: Physician Admission Certification: I certify that this patient requires 2 or more midnights of care for the following reason:: Patient will need surgical treatment of his right foot gangrene. - . Bed Request Type: Regular Patient Diagnosis: Gangrene of right foot
--- NOTE | 2017-01-07 20:03 | RAD ---
PROCEDURE: CHEST RADIOGRAPH, 1 VIEW HISTORY: admission COMPARISON: 11/18/2016 FINDINGS: LUNGS: The lungs are clear. PLEURA: No pneumothorax or pleural fluid seen. CARDIOVASCULAR: There is mild cardiomegaly. Status post CABG. OSSEOUS STRUCTURES: No significant abnormalities. VISUALIZED UPPER ABDOMEN: Normal. OTHER FINDINGS: None. IMPRESSION: No active pulmonary disease.
--- NOTE | 2017-01-07 20:03 | RAD ---
PROCEDURE: Right Foot Radiographs. HISTORY: right foot gangrene COMPARISON: None. FINDINGS: BONES: There is no acute displaced fracture or bone destruction. Bone alignment is normal. There is periarticular bone demineralization. JOINTS: There is mild degenerative osteoarthrosis at the 1st MTP joint. The remaining joint spaces are preserved. SOFT TISSUES: There is diffuse soft tissue swelling in the foot. OTHER FINDINGS: There atherosclerotic vascular calcifications. . IMPRESSION: No radiographic evidence for osteomyelitis.
[2017-01-07] MEDS ORDERED: Pneumococcal 23-Valent Vaccine IM ONE (22:19)
[2017-01-07] MEDS: Oxycodone/Acetaminophen 5/325 mg Tab PO PRN (22:23)
[2017-01-07] MEDS: (Novolog) Insulin Aspart, Recombinant 100 u/ml 10 ml vial SC SCH (22:29)
--- NOTE | 2017-01-08 01:23 | CP.PCM.CON ---
History of Present Illness - History of Present Illness History of Present Illness: Vascular Surgery Consult Re: R foot gangrene HPI: 66M well known to the surgical service was sent to ED by PMD for R foot pain x 1 month and signs of gangrene. Pt knows his foot is dying but he wants to have only the forefoot removed. He declined prior recommendation for BKA /AKA. Still wants to keep part of his foot at this time. Denies change in sensation, weakness, numbness, F/C, N/V, SOB, chest pain, night sweats. PMH: CAD with 3 stent placement, CABG, IDDM, Asthma, and HTN PSH: CABG, Stent placement, Left AKA SH: Smokes 1/2 pack a day since he was 11 years old, social etoh use, denies illicit drug use. All: tomato Meds: See MAR Review of Systems - Review of Systems All systems: reviewed and no additional remarkable complaints except (as per HPI ) Past Patient History - Infectious Disease Hx of Infectious Diseases: None - Past Medical History & Family History Past Medical History?: Yes - Past Social History Smoking Status: Light Smoker < 10 Cigarettes Daily - CARDIAC Hx Hypercholesterolemia: Yes Hx Hypertension: Yes - PULMONARY Hx Asthma: Yes - HEENT Hx HEENT Problems: Yes Hx Cataracts: Yes Hx Glaucoma: Yes - RENAL Hx Chronic Kidney Disease: No - ENDOCRINE/METABOLIC Hx Diabetes Mellitus Type 1: Yes - INTEGUMENTARY Hx Dermatological Problems: No - MUSCULOSKELETAL/RHEUMATOLOGICAL Hx Arthritis: Yes - GASTROINTESTINAL Hx Gastrointestinal Disorders: No - GENITOURINARY/GYNECOLOGICAL Hx Genitourinary Disorders: No - PSYCHIATRIC Hx Anxiety: Yes Hx Depression: Yes Hx Substance Use: No - SURGICAL HISTORY Hx Cholecystectomy: Yes Hx Coronary Artery Bypass Graft: Yes Hx Coronary Stent: Yes (x3) - ANESTHESIA Hx Anesthesia: Yes Hx Anesthesia Reactions: No Hx Malignant Hyperthermia: No Meds Allergies/Adverse Reactions: Allergies Allergy/AdvReac Type Severity Reaction Status Date / Time tomato Allergy Verified 11/18/16 14:02 - Medications Medications: Current Medications Enoxaparin Sodium (Lovenox) 40 mg SC DAILY [facility] Gabapentin (Neurontin) 400 mg PO TID [facility] Insulin Aspart (Novolog) 35 unit SC TIDAC [facility] Insulin Aspart (Novolog) 0 unit SC ACHS [facility] PRN Reason: Protocol Last Admin: 01/07/17 22:29 Dose: Not Given Lisinopril (Zestril) 5 mg PO DAILY [facility] Oxycodone/Acetaminophen (Percocet 5/325 Mg Tab) 2 tab PO Q4H PRN PRN Reason: pain Stop: 01/10/17 22:09 Last Admin: 01/07/17 22:23 Dose: 2 tab Physical Exam - Constitutional Appears: Non-toxic, No Acute Distress - Head Exam Head Exam: ATRAUMATIC, NORMOCEPHALIC - Eye Exam Eye Exam: EOMI. absent: Scleral icterus - ENT Exam ENT Exam: Mucous Membranes Moist Additional comments: trachea midline - Respiratory Exam Respiratory Exam: NORMAL BREATHING PATTERN. absent: Respiratory Distress - Cardiovascular Exam Cardiovascular Exam: RRR, +S1, +S2 - GI/Abdominal Exam GI & Abdominal Exam: Soft. absent: Distended, Tenderness - Rectal Exam Rectal Exam: Deferred - Extremities Exam Extremities exam: Negative for: calf tenderness, pedal edema, tenderness Additional comments: L BKA R foot with medial dry gangrene to mid foot - Back Exam Back exam: absent: CVA tenderness (L), CVA tenderness (R) - Neurological Exam Neurological exam: Alert, Oriented x3 - Psychiatric Exam Psychiatric exam: Normal Affect, Normal Mood - Skin Skin Exam: Dry, Warm Results - Vital Signs Recent Vital Signs: Last Vital Signs Temp 98.6 F 01/07/17 23:44 Pulse 94 H 01/07/17 23:44 Resp 20 01/07/17 23:44 BP 135/77 01/07/17 23:44 Pulse Ox 98 01/07/17 23:44 - Labs Result Diagrams: 01/07/17 17:06 01/07/17 17:06 Labs: Laboratory Results - last 24 hr 01/07/17 01/07/17 01/07/17 17:06 17:06 22:24 WBC 9.0 RBC 4.80 Hgb 13.1 Hct 39.4 MCV 82.1 MCH 27.3 MCHC 33.2 RDW 14.0 Plt Count 273 MPV 8.0 Neut % (Auto) 72.9 Lymph % (Auto) 19.8 L [place] % (Auto) 5.7 Eos % (Auto) 1.4 Baso % (Auto) 0.2 Neut # 6.6 Lymph # 1.8 [place] # 0.5 Eos # 0.1 Baso # 0.0 Sodium 138 Potassium 3.6 Chloride 99 Carbon Dioxide 24 Anion Gap 18 BUN 7 L Creatinine 0.7 L Est GFR ( Amer) > 60 Est GFR (Non-Af Amer) > 60 POC Glucose (mg/dL) 273 H Random Glucose 232 H Calcium 9.5 Total Bilirubin 0.4 AST 15 L ALT 26 Alkaline Phosphatase 99 Total Protein 7.8 Albumin 3.9 Globulin 3.9 Albumin/Globulin Ratio 1.0 - Imaging and Cardiology R Foot x-ray Status: Image reviewed by me, Report reviewed by me Assessment & Plan - Assessment and Plan (Free Text) Assessment: 66M with dry gangrene of R distal foot Plan: Pain control Had offered pt BKA/AKA in past as bypass was unable to be performed. Pt still is declining complete foot amputation and wants a trans met amputation. A trans met wound would not be likely to heal due to poor blood flow. Will D/W Dr. Larissa Garcia PGY4
[2017-01-08] MEDS: Oxycodone/Acetaminophen 5/325 mg Tab PO PRN ×3 (05:59→23:03)
[2017-01-08] MEDS: (Novolog) Insulin Aspart, Recombinant 100 u/ml 10 ml vial SC SCH ×7 (08:30→22:46)
[2017-01-08] MEDS: Enoxaparin 40 mg Syringe SC SCH (10:26)
--- NOTE | 2017-01-08 12:57 | CP.PCM.PN ---
Subjective - Date & Time of Evaluation Date of Evaluation: 01/08/17 Time of Evaluation: 12:56 - Subjective Subjective: will need aka Objective - Vital Signs/Intake and Output Vital Signs (last 24 hours): Temp Pulse Resp BP Pulse Ox 98.7 F 76 20 167/92 H 98 01/08/17 08:38 01/08/17 08:38 01/08/17 08:38 01/08/17 08:38 01/08/17 08:38 Intake and Output: 01/08/17 01/08/17 06:59 18:59 Intake Total 200 Output Total 550 Balance -350 - Medications Medications: Current Medications Enoxaparin Sodium (Lovenox) 40 mg SC DAILY [facility] Last Admin: 01/08/17 10:26 Dose: 40 mg Gabapentin (Neurontin) 400 mg PO TID [facility] Last Admin: 01/08/17 10:26 Dose: 400 mg Insulin Aspart (Novolog) 35 unit SC TIDAC [facility] Last Admin: 01/08/17 12:30 Dose: Not Given Insulin Aspart (Novolog) 0 unit SC ACHS [facility] PRN Reason: Protocol Last Admin: 01/08/17 12:30 Dose: 3 unit Lisinopril (Zestril) 5 mg PO DAILY [facility] Last Admin: 01/08/17 10:26 Dose: 5 mg Oxycodone/Acetaminophen (Percocet 5/325 Mg Tab) 2 tab PO Q4H PRN PRN Reason: pain Stop: 01/10/17 22:09 Last Admin: 01/08/17 10:26 Dose: 2 tab - Labs Labs: 01/07/17 17:06 01/07/17 17:06
[2017-01-08] MEDS: Patient's Own Drops OU SCH ×2 (18:21→22:46)
--- NOTE | 2017-01-09 08:09 | CP.PCM.PN ---
Subjective - Date & Time of Evaluation Date of Evaluation: 01/09/17 Time of Evaluation: 07:00 - Subjective Subjective: Vascular Surgery Dr. Dias Pt S&E @bedside. NAEO. admits minor paresthesia of RLE. denies pain, F/C, N/V. tolerating diet. Objective - Vital Signs/Intake and Output Vital Signs (last 24 hours): Temp Pulse Resp BP Pulse Ox 97.5 F L 73 20 159/83 H 99 01/09/17 00:00 01/09/17 00:00 01/09/17 00:00 01/09/17 00:00 01/09/17 00:00 Intake and Output: 01/09/17 01/09/17 06:59 18:59 Intake Total 850 Balance 850 - Medications Medications: Current Medications Enoxaparin Sodium (Lovenox) 40 mg SC DAILY [facility] Last Admin: 01/08/17 10:26 Dose: 40 mg Gabapentin (Neurontin) 400 mg PO TID [facility] Last Admin: 01/08/17 18:21 Dose: 400 mg Home Med (Patient's Own Drops) 1 drop OU QID [facility] Last Admin: 01/08/17 22:46 Dose: Not Given Hydromorphone HCl (Dilaudid) 2 mg IVP Q4H PRN PRN Reason: Pain, severe (8-10) Last Admin: 01/08/17 15:08 Dose: 2 mg Vancomycin HCl 1,000 mg/ (Sodium Chloride) 250 mls @ 166.6 mls/hr IVPB Q12H [facility] Last Admin: 01/09/17 00:05 Dose: 166.6 mls/hr Insulin Aspart (Novolog) 35 unit SC TIDAC [facility] Last Admin: 01/08/17 17:18 Dose: Not Given Insulin Aspart (Novolog) 0 unit SC ACHS [facility] PRN Reason: Protocol Last Admin: 01/08/17 22:46 Dose: Not Given Lisinopril (Zestril) 5 mg PO DAILY [facility] Last Admin: 01/08/17 10:26 Dose: 5 mg Oxycodone/Acetaminophen (Percocet 5/325 Mg Tab) 2 tab PO Q4H PRN PRN Reason: pain Stop: 01/10/17 22:09 Last Admin: 01/08/17 23:03 Dose: 2 tab - Labs Labs: 01/07/17 17:06 01/07/17 17:06 - Constitutional Appears: Non-toxic, No Acute Distress - Head Exam Head Exam: NORMAL INSPECTION - Eye Exam Eye Exam: Normal appearance - ENT Exam ENT Exam: Mucous Membranes Moist - Respiratory Exam Respiratory Exam: NORMAL BREATHING PATTERN. absent: Accessory Muscle Use, Respiratory Distress - GI/Abdominal Exam GI & Abdominal Exam: Soft. absent: Distended - Extremities Exam Additional comments: R halux dry gangrene - Neurological Exam Neurological Exam: Alert, Awake, Oriented x3 - Psychiatric Exam Psychiatric exam: Normal Affect, Normal Mood - Skin Skin Exam: Dry, Warm Assessment and Plan - Assessment and Plan (Free Text) Assessment: 66 y/o M w/ dry gangrene of R distal foot - cont pain management - Pt wants a trans met amputation though pt would benefit most from AKA - cont medical management Further recs per Dr. Larissa Zamarripa DO PGY2
[2017-01-09] MEDS: (Novolog) Insulin Aspart, Recombinant 100 u/ml 10 ml vial SC SCH ×7 (08:11→21:58)
[2017-01-09] MEDS: Patient's Own Drops OU SCH ×4 (09:10→21:31)
[2017-01-09] MEDS: Enoxaparin 40 mg Syringe SC SCH (09:10)
[2017-01-09] MEDS ORDERED: Influenza Vaccine 60 mcg/0.5 mL SYR (4YR UP) IM ONE (10:00)
--- NOTE | 2017-01-09 16:02 | HP ---
HISTORY OF PRESENT ILLNESS: A 66-year-old male who has a complaint of weakness with pain in the foot. The patient had gangrene of the foot. The patient came to the hospital, advised admission. PAST MEDICAL HISTORY: Diabetes, hypertension, peripheral vascular disease. PHYSICAL EXAMINATION: GENERAL: The patient is awake, alert, and oriented. VITAL SIGNS: Temperature 98. Pulse . HEENT: Normal limits. NECK: Supple. CHEST: Symmetrical. HEART: Regular. ABDOMEN: Soft. EXTREMITIES: Gangrene present. ASSESSMENT AND PLAN: The patient with gangrene of foot, diabetic foot, diabetes, hypertension. The patient on bedrest, pain medication, Vascular Surgery consult. Marti Muhammad MD
--- NOTE | 2017-01-09 18:00 | CP.PCM.CON ---
History of Present Illness - History of Present Illness History of Present Illness: 66M was sent to ED by PMD for R foot pain x 1 month and signs of gangrene. Pt knows his foot is dying but he wants to have only the forefoot removed. He declined prior recommendation for BKA/AKA. Still wants to keep part of his foot at this time. Denies change in sensation, weakness, numbness, F/C, N/V, SOB, chest pain, night sweats. PMH: CAD with 3 stent placement, CABG, IDDM, Asthma, and HTN PSH: CABG, Stent placement, Left AKA SH: Smokes 1/2 pack a day since he was 11 years old, social etoh use, denies illicit drug use. All: tomato Meds: See MAR Review of Systems - Constitutional Constitutional: As Per HPI - EENT Eyes: absent: As Per HPI, Blind Spots, Blurred Vision, Change in Vision, Decreased Night Vision, Diplopia, Discharge, Dry Eye, Exophthalmos, Floaters, Irritation, Itchy Eyes, Loss of Peripheral Vision, Pain, Photophobia, Requires Corrective Lenses, Sees Flashes, Spots in Vision, Tunnel Vision, Other Visual Disturbances, Loss of Vision, Other Ears: absent: As Per HPI, Decreased Hearing, Ear Discharge, Ear Pain, Tinnitus, Abnormal Hearing, Disequilibrium, Dizziness, Other Nose/Mouth/Throat: absent: As Per HPI, Epistaxis, Nasal Congestion, Nasal Discharge, Nasal Obstruction, Nasal Trauma, Nose Pain, Post Nasal Drip, Sinus Pain, Sinus Pressure, Bleeding Gums, Change in Voice, Dental Pain, Dry Mouth, Dysphagia, Halitosis, Hoarsness, Lip Swelling, Mouth Lesions, Mouth Pain, Odynophagia, Sore Throat, Throat Swelling, Tongue Swelling, Facial Pain, Neck Pain, Neck Mass, Other - Cardiovascular Cardiovascular: As Per HPI - Respiratory Respiratory: absent: As Per HPI, Cough, Dyspnea, Hemoptysis, Dyspnea on Exertion , Wheezing, Snoring, Stridor, Pain on Inspiration, Chest Congestion, Excessive Mucous Production, Change in Mucous Color, Pain with Coughing, Other - Gastrointestinal Gastrointestinal: absent: As Per HPI, Abdominal Pain, Belching, Bloating, Change in Bowel Habits, Change in Stool Character, Coffee Ground Emesis, Constipation, Cramping, Diarrhea, Dyspepsia, Dysphagia, Early Satiety, Excessive Flatus, Fecal Incontinence, Heartburn, Hematemesis, Hematochezia, Loose Stools, Melena, Nausea, Odynophagia, Temesmus, Vomiting, Other - Genitourinary Genitourinary: absent: As Per HPI, Change in Urinary Stream, Difficulty Urinating, Dysuria, Flank Pain, Hematuria, Pyuria, Nocturia, Urinary Incontinence, Urinary Frequency, Urinary Hesitance, Urinary Urgency, Voiding Freq/Small Amts, Freq UTI, Hx Renal/Bladder Calculi, Hx /Renal Surgery, Bladder Distension, Other - Musculoskeletal Musculoskeletal: absent: As Per HPI, Abnormal Gait, Arthralgias, Atrophy, Back Pain, Deformity, Joint Swelling, Limited Range of Motion, Loss of Height, Muscle Cramps, Muscle Weakness, Myalgias, Neck Pain, Numbness, Radiating Pain into Limb, Stiffness, Tingling, Other - Integumentary Integumentary: absent: As Per HPI, Acne, Alopecia, Bleeding Lesions, Change in Hair, Change in Nails, Change in Pigmentation, Changing Lesions, Dry Skin, Erythema, Furuncle, Hirsutism, Lesions, New Lesions, Non-Healing Lesions, Photosensitivity, Pruritus, Rash, Skin Pain, Skin Ulcer, Sores, Striae, Swelling , Unusual Bruising, Wounds, Jaundice, Other - Neurological Neurological: absent: As Per HPI, Abnormal Gait, Abnormal Hearing, Abnormal Movements, Abnormal Speech, Behavioral Changes, Burning Sensations, Confusion, Convulsions, Disequilibrium, Dizziness, Numbness, Focal Weakness, Frequent Falls , Headaches, Lack of Coordination, Loss of Vision, Memory Loss, Paresthesias, Radicular Pain, Restless Legs, Sensory Deficit, Syncope, Tingling, Tremor, Vertigo, Weakness, Other Visual Disturbances, Other - Psychiatric Psychiatric: absent: As Per HPI, Abnormal Sleep Pattern, Anhedonia, Anxiety, Auditory Hallucinations, Behavioral Changes, Change in Appetite, Change in Libido, Confusion, Depression, Difficulty Concentrating, Hallucinations, Homicidal Ideation, Hopelessness, Irritability, Memory Loss, Mood Swings, Panic Attacks, Paranoia, Suicidal Ideation, Visual Hallucinations, Tactile Hallucinations, Other - Endocrine Endocrine: As Per HPI - Hematologic/Lymphatic Hematologic: As Per HPI Past Patient History - Infectious Disease Hx of Infectious Diseases: None - Past Medical History & Family History Past Medical History?: Yes - Past Social History Smoking Status: Light Smoker < 10 Cigarettes Daily - CARDIAC Hx Hypercholesterolemia: Yes Hx Hypertension: Yes - PULMONARY Hx Asthma: Yes - HEENT Hx HEENT Problems: Yes Hx Cataracts: Yes Hx Glaucoma: Yes - RENAL Hx Chronic Kidney Disease: No - ENDOCRINE/METABOLIC Hx Diabetes Mellitus Type 1: Yes - INTEGUMENTARY Hx Dermatological Problems: No - MUSCULOSKELETAL/RHEUMATOLOGICAL Hx Arthritis: Yes - GASTROINTESTINAL Hx Gastrointestinal Disorders: No - GENITOURINARY/GYNECOLOGICAL Hx Genitourinary Disorders: No - PSYCHIATRIC Hx Anxiety: Yes Hx Depression: Yes Hx Substance Use: No - SURGICAL HISTORY Hx Cholecystectomy: Yes Hx Coronary Artery Bypass Graft: Yes Hx Coronary Stent: Yes (x3) - ANESTHESIA Hx Anesthesia: Yes Hx Anesthesia Reactions: No Hx Malignant Hyperthermia: No Meds Allergies/Adverse Reactions: Allergies Allergy/AdvReac Type Severity Reaction Status Date / Time tomato Allergy Verified 11/18/16 14:02 - Medications Medications: Current Medications Enoxaparin Sodium (Lovenox) [address] [facility] Last Admin: 01/09/17 09:10 Dose: 40 mg Gabapentin (Neurontin) [address] [facility] Last Admin: 01/09/17 17:51 Dose: 400 mg Home Med (Patient's Own Drops) [address] [facility] Last Admin: 01/09/17 17:51 Dose: 1 drop Hydromorphone HCl (Dilaudid) 2 mg IVP Q4H PRN PRN Reason: Pain, severe (8-10) Last Admin: 01/09/17 17:54 Dose: 2 mg Vancomycin HCl 1,000 mg/ (Sodium Chloride) 250 mls @ 166.6 mls/hr IVPB Q12H [facility] Last Admin: 01/09/17 12:35 Dose: 166.6 mls/hr Insulin Aspart (Novolog) [address] [facility] PRN Reason: Protocol Last Admin: 01/09/17 16:49 Dose: Not Given Lisinopril (Zestril) [address] [facility] Last Admin: 01/09/17 09:09 Dose: 5 mg Oxycodone/Acetaminophen (Percocet 5/325 Mg Tab) 2 tab PO Q4H PRN PRN Reason: pain Stop: 01/10/17 22:09 Last Admin: 01/08/17 23:03 Dose: 2 tab Physical Exam - Constitutional Appears: Non-toxic, Chronically Ill - Head Exam Head Exam: NORMOCEPHALIC - Eye Exam Eye Exam: PERRL. absent: Scleral icterus - ENT Exam ENT Exam: Mucous Membranes Dry, Normal External Ear Exam - Neck Exam Neck exam: Negative for: Lymphadenopathy - Respiratory Exam Respiratory Exam: Decreased Breath Sounds, Clear to Auscultation Bilateral - Cardiovascular Exam Cardiovascular Exam: REGULAR RHYTHM, +S1, +S2 - GI/Abdominal Exam GI & Abdominal Exam: Diminished Bowel Sounds, Soft. absent: Tenderness - Rectal Exam Rectal Exam: Deferred - Exam Exam: NORMAL INSPECTION - Extremities Exam Extremities exam: Positive for: pedal edema. Negative for: calf tenderness, tenderness, pedal pulses present Additional comments: left AKA right foot dry gangrene - Back Exam Back exam: absent: CVA tenderness (L), CVA tenderness (R) - Neurological Exam Neurological exam: Alert, CN II-XII Intact, Oriented x3, Reflexes Normal - Psychiatric Exam Psychiatric exam: Normal Mood - Skin Skin Exam: Dry Results - Vital Signs Recent Vital Signs: Last Vital Signs Temp 98.2 F 01/09/17 16:00 Pulse 74 01/09/17 16:00 Resp 20 01/09/17 16:00 BP 163/77 H 01/09/17 16:00 Pulse Ox 96 01/09/17 16:00 - Labs Result Diagrams: 01/07/17 17:06 01/07/17 17:06 Labs: Laboratory Results - last 24 hr 01/08/17 01/09/17 01/09/17 21:34 07:06 11:08 POC Glucose (mg/dL) 283 H 195 H 274 H 01/09/17 01/09/17 16:38 16:58 POC Glucose (mg/dL) 58 L 106 Assessment & Plan (1) Gangrene of right foot Status: Acute (2) Above knee amputation of left lower extremity Status: Acute (3) Arterial, arteriole and capillary disease Status: Acute (4) CAD (coronary artery disease) Status: Acute (5) Diabetic foot ulcer Status: Acute (6) Elevated BP Status: Acute - Assessment and Plan (Free Text) Assessment: positive blood c/s refusing BKA severe PVD CAD DM Plan: cont iv vanco checlk levels
--- NOTE | 2017-01-10 08:19 | CP.PCM.PN ---
Subjective - Date & Time of Evaluation Date of Evaluation: 01/10/17 Time of Evaluation: 07:00 - Subjective Subjective: Surgery Note for Dr. Dias Patient seen and examined at bedside and in no acute distress. Patient says his right foot is not painful today like it was when he came to the hospital. Patient denies n/v, c/d. Objective - Vital Signs/Intake and Output Vital Signs (last 24 hours): Temp Pulse Resp BP Pulse Ox 97.9 F 77 20 162/82 H 96 01/10/17 07:36 01/10/17 07:36 01/10/17 07:36 01/10/17 07:36 01/10/17 07:36 Intake and Output: 01/10/17 01/10/17 06:59 18:59 Intake Total 1000 Output Total 600 Balance 400 - Medications Medications: Current Medications Enoxaparin Sodium (Lovenox) 40 mg SC DAILY [facility] Last Admin: 01/09/17 09:10 Dose: 40 mg Gabapentin (Neurontin) 400 mg PO TID [facility] Last Admin: 01/09/17 18:00 Dose: Not Given Home Med (Patient's Own Drops) 1 drop OU QID [facility] Last Admin: 01/09/17 21:31 Dose: 1 drop Hydromorphone HCl (Dilaudid) 2 mg IVP Q4H PRN PRN Reason: Pain, severe (8-10) Last Admin: 01/09/17 17:54 Dose: 2 mg Vancomycin HCl 1,000 mg/ (Sodium Chloride) 250 mls @ 166.6 mls/hr IVPB Q12H [facility] Last Admin: 01/09/17 12:35 Dose: 166.6 mls/hr Insulin Aspart (Novolog) 0 unit SC ACHS [facility] PRN Reason: Protocol Last Admin: 01/09/17 21:58 Dose: Not Given Lisinopril (Zestril) 5 mg PO DAILY [facility] Last Admin: 01/09/17 09:09 Dose: 5 mg Oxycodone/Acetaminophen (Percocet 5/325 Mg Tab) 2 tab PO Q4H PRN PRN Reason: pain Stop: 01/10/17 22:09 Last Admin: 01/08/17 23:03 Dose: 2 tab - Labs Labs: 01/07/17 17:06 01/07/17 17:06 - Constitutional Appears: Non-toxic, No Acute Distress - Head Exam Head Exam: ATRAUMATIC, NORMAL INSPECTION, NORMOCEPHALIC - Eye Exam Eye Exam: EOMI, Normal appearance - ENT Exam ENT Exam: Mucous Membranes Moist - Respiratory Exam Respiratory Exam: NORMAL BREATHING PATTERN. absent: Accessory Muscle Use, Respiratory Distress - GI/Abdominal Exam GI & Abdominal Exam: Soft. absent: Tenderness - Extremities Exam Additional comments: R halux dry gangrene, pulses not appreciated by doppler - Neurological Exam Neurological Exam: Alert, Awake, Oriented x3 - Psychiatric Exam Psychiatric exam: Normal Affect, Normal Mood - Skin Skin Exam: Warm Additional comments: dry gangrene of right foot Assessment and Plan - Assessment and Plan (Free Text) Assessment: 66 y/o M w/ dry gangrene of R distal foot - cont pain management - Pt considering AKA as recommended by Dr. Dias - cont medical management -NPO past midnight Further recs per Dr. Dias
[2017-01-10] MEDS: (Novolog) Insulin Aspart, Recombinant 100 u/ml 10 ml vial SC SCH ×4 (08:40→21:46)
[2017-01-10] MEDS: Patient's Own Drops OU SCH ×4 (09:57→21:45)
[2017-01-10] MEDS: Enoxaparin 40 mg Syringe SC SCH (09:57)
[2017-01-10] MEDS: Oxycodone/Acetaminophen 5/325 mg Tab PO PRN (10:02)
[2017-01-10] MEDS ORDERED: Dextrose 50% SYRINGE Inj (50 ml) IV PRN (12:59)
[2017-01-10] MEDS ORDERED: Glucagon Recombinant 1 mg Inj IM PRN (12:59)
--- NOTE | 2017-01-10 13:00 | CP.PCM.PN ---
Subjective - Date & Time of Evaluation Date of Evaluation: 01/10/17 Time of Evaluation: 13:06 - Subjective Subjective: Pt seen and examined at bedside; reluctant to to AKA but finally agreed, patient is complaining of pain in his right foot that is "unbearable". Denies all other symptoms. Objective - Vital Signs/Intake and Output Vital Signs (last 24 hours): Temp Pulse Resp BP Pulse Ox 97.9 F 77 20 162/82 H 96 01/10/17 07:36 01/10/17 07:36 01/10/17 07:36 01/10/17 07:36 01/10/17 07:36 Intake and Output: 01/10/17 01/10/17 06:59 18:59 Intake Total 1000 Output Total 600 Balance 400 - Medications Medications: Current Medications Enoxaparin Sodium (Lovenox) 40 mg SC DAILY [facility] Last Admin: 01/10/17 09:57 Dose: 40 mg Gabapentin (Neurontin) 400 mg PO TID [facility] Last Admin: 01/10/17 09:56 Dose: 400 mg Home Med (Patient's Own Drops) 1 drop OU QID [facility] Last Admin: 01/10/17 09:57 Dose: 1 drop Hydromorphone HCl (Dilaudid) 2 mg IVP Q4H PRN PRN Reason: Pain, severe (8-10) Last Admin: 01/10/17 12:11 Dose: 2 mg Vancomycin HCl 1,000 mg/ (Sodium Chloride) 250 mls @ 166.6 mls/hr IVPB Q12H [facility] Last Admin: 01/09/17 12:35 Dose: 166.6 mls/hr Insulin Aspart (Novolog) 0 unit SC ACHS [facility] PRN Reason: Protocol Last Admin: 01/10/17 08:40 Dose: 3 unit Lisinopril (Zestril) 5 mg PO DAILY [facility] Last Admin: 01/10/17 09:56 Dose: 5 mg Oxycodone/Acetaminophen (Percocet 5/325 Mg Tab) 2 tab PO Q4H PRN PRN Reason: pain Stop: 01/10/17 22:09 Last Admin: 01/10/17 10:02 Dose: 2 tab - Labs Labs: 01/07/17 17:06 01/07/17 17:06 - Constitutional Appears: Non-toxic - Head Exam Head Exam: ATRAUMATIC - Eye Exam Eye Exam: EOMI - ENT Exam ENT Exam: Mucous Membranes Moist - Neck Exam Neck Exam: Full ROM - Respiratory Exam Respiratory Exam: Clear to Ausculation Bilateral. absent: Rales, Rhonchi, Wheezes - Cardiovascular Exam Cardiovascular Exam: REGULAR RHYTHM, +S1, +S2 - GI/Abdominal Exam GI & Abdominal Exam: Soft, Normal Bowel Sounds - Extremities Exam Additional comments: Right foot is cold to the touch, black, and - Back Exam Back Exam: absent: CVA tenderness (L), CVA tenderness (R) - Neurological Exam Neurological Exam: Alert, Awake, Oriented x3 - Psychiatric Exam Psychiatric exam: Normal Affect - Skin Skin Exam: Warm Assessment and Plan - Assessment and Plan (Free Text) Assessment: 66 yo M admitted for Dry Gangrene of R Foot Dry Gangrene R Foot -Mangia ID on board; appreciate recs; c/w antibiotics (Vancomycin) -Surgery on board; Larissa; appreciate recs; recommending AKA; patient is extremely reluctant but has agreed to the surgery; coordinate to see when patient is good to go for surgery -pain control DM 2 -RISS -hypoglycemia protocol Proph -Lovenox -Pepcid -Heart Healthy Diet All management as per Dr. Muhammad
--- NOTE | 2017-01-10 15:56 | CP.PCM.PN ---
Subjective - Date & Time of Evaluation Date of Evaluation: 01/10/17 Time of Evaluation: 11:00 - Subjective Subjective: blood + coag neg staph iv rx in progress Objective - Vital Signs/Intake and Output Vital Signs (last 24 hours): Temp Pulse Resp BP Pulse Ox 97.9 F 77 20 162/82 H 96 01/10/17 07:36 01/10/17 07:36 01/10/17 07:36 01/10/17 07:36 01/10/17 07:36 Intake and Output: 01/10/17 01/10/17 06:59 18:59 Intake Total 1000 Output Total 600 Balance 400 - Medications Medications: Current Medications Dextrose (Dextrose 50% Inj) 0 ml IV STAT PRN; Protocol PRN Reason: Hyglycemia Protocol Dextrose (Glutose 15) 0 gm PO ONCE PRN; Protocol PRN Reason: Hypoglycemia Protocol Enoxaparin Sodium (Lovenox) 40 mg SC DAILY [facility] Last Admin: 01/10/17 09:57 Dose: 40 mg Gabapentin (Neurontin) 400 mg PO TID [facility] Last Admin: 01/10/17 13:11 Dose: 400 mg Glucagon (Glucagen Diagnostic Kit) 0 mg IM STAT PRN; Protocol PRN Reason: Hypoglycemia Protocol Home Med (Patient's Own Drops) 1 drop OU QID [facility] Last Admin: 01/10/17 13:11 Dose: 1 drop Hydromorphone HCl (Dilaudid) 2 mg IVP Q4H PRN PRN Reason: Pain, severe (8-10) Last Admin: 01/10/17 12:11 Dose: 2 mg Vancomycin HCl 1,000 mg/ (Sodium Chloride) 250 mls @ 166.6 mls/hr IVPB Q12H [facility] Last Admin: 01/10/17 13:07 Dose: 166.6 mls/hr Dextrose (Dextrose 5% In Water 1000 Ml) 1,000 mls @ 0 mls/hr IV .Q0M PRN; Protocol; Per Protocol PRN Reason: Hypoglycemia Protocol Insulin Aspart (Novolog) 0 unit SC ACHS [facility] PRN Reason: Protocol Lisinopril (Zestril) 5 mg PO DAILY [facility] Last Admin: 01/10/17 09:56 Dose: 5 mg Oxycodone/Acetaminophen (Percocet 5/325 Mg Tab) 2 tab PO Q4H PRN PRN Reason: pain Stop: 01/10/17 22:09 Last Admin: 01/10/17 10:02 Dose: 2 tab - Labs Labs: 01/07/17 17:06 01/07/17 17:06 - Constitutional Appears: Non-toxic, Chronically Ill - Head Exam Head Exam: NORMOCEPHALIC - Eye Exam Eye Exam: PERRL - ENT Exam ENT Exam: Mucous Membranes Dry - Neck Exam Neck Exam: absent: Lymphadenopathy - Respiratory Exam Respiratory Exam: Decreased Breath Sounds - Cardiovascular Exam Cardiovascular Exam: REGULAR RHYTHM - GI/Abdominal Exam GI & Abdominal Exam: Distended Assessment and Plan (1) Gangrene of right foot Status: Acute (2) Above knee amputation of left lower extremity Status: Acute (3) Arterial, arteriole and capillary disease Status: Acute (4) CAD (coronary artery disease) Status: Acute (5) Diabetic foot ulcer Status: Acute (6) Elevated BP Status: Acute
[2017-01-11] MEDS: (Novolog) Insulin Aspart, Recombinant 100 u/ml 10 ml vial SC SCH ×4 (08:19→21:19)
--- NOTE | 2017-01-11 09:11 | CP.PCM.PN ---
Subjective - Date & Time of Evaluation Date of Evaluation: 01/11/17 Time of Evaluation: 07:00 - Subjective Subjective: Surgery Note fro Dr. Dias Patient seen and examined at bedside and in no acute distress. Patient says he is not having any pain this morning and feels okay. Patient agrees with plan to get AKA tomorrow. Patient denies n/v, c/d. Objective - Vital Signs/Intake and Output Vital Signs (last 24 hours): Temp Pulse Resp BP Pulse Ox 97.6 F 72 20 178/81 H 99 01/11/17 07:52 01/11/17 07:52 01/11/17 07:52 01/11/17 07:52 01/11/17 07:52 Intake and Output: 01/11/17 01/11/17 06:59 18:59 Intake Total 250 Output Total 800 Balance -550 - Medications Medications: Current Medications Dextrose (Dextrose 50% Inj) 0 ml IV STAT PRN; Protocol PRN Reason: Hyglycemia Protocol Dextrose (Glutose 15) 0 gm PO ONCE PRN; Protocol PRN Reason: Hypoglycemia Protocol Enoxaparin Sodium (Lovenox) 40 mg SC DAILY [facility] Last Admin: 01/10/17 09:57 Dose: 40 mg Gabapentin (Neurontin) 400 mg PO TID [facility] Last Admin: 01/10/17 18:00 Dose: 400 mg Glucagon (Glucagen Diagnostic Kit) 0 mg IM STAT PRN; Protocol PRN Reason: Hypoglycemia Protocol Home Med (Patient's Own Drops) 1 drop OU QID [facility] Last Admin: 01/10/17 21:45 Dose: 1 drop Hydromorphone HCl (Dilaudid) 2 mg IVP Q4H PRN PRN Reason: Pain, severe (8-10) Last Admin: 01/11/17 06:28 Dose: 2 mg Vancomycin HCl 1,000 mg/ (Sodium Chloride) 250 mls @ 166.6 mls/hr IVPB Q12H [facility] Last Admin: 01/11/17 00:04 Dose: 166.6 mls/hr Dextrose (Dextrose 5% In Water 1000 Ml) 1,000 mls @ 0 mls/hr IV .Q0M PRN; Protocol; Per Protocol PRN Reason: Hypoglycemia Protocol Insulin Aspart (Novolog) 0 unit SC ACHS [facility] PRN Reason: Protocol Last Admin: 01/11/17 08:19 Dose: Not Given Lisinopril (Zestril) 5 mg PO DAILY [facility] Last Admin: 01/10/17 09:56 Dose: 5 mg - Labs Labs: 01/07/17 17:06 01/07/17 17:06 - Constitutional Appears: Non-toxic, No Acute Distress, Chronically Ill - Head Exam Head Exam: ATRAUMATIC, NORMAL INSPECTION, NORMOCEPHALIC - Eye Exam Eye Exam: EOMI, Normal appearance - ENT Exam ENT Exam: Mucous Membranes Moist - Respiratory Exam Respiratory Exam: absent: Accessory Muscle Use, Respiratory Distress - Cardiovascular Exam Cardiovascular Exam: REGULAR RHYTHM, +S1, +S2 - GI/Abdominal Exam GI & Abdominal Exam: Soft, Normal Bowel Sounds. absent: Tenderness - Extremities Exam Additional comments: left leg aka right foot dry gangrene - Neurological Exam Neurological Exam: Alert, Awake, Oriented x3 - Psychiatric Exam Psychiatric exam: Normal Affect, Normal Mood - Skin Additional comments: right foot dry gangrene, cold, no pulses Assessment and Plan - Assessment and Plan (Free Text) Assessment: 66 y/o M w/ dry gangrene of R distal foot -cont pain management -pt agrees to AKA as recommended by Dr. Dias -cont medical management -NPO past midnight -pt scheduled for OR tomorrow for R AKA Further recs per Dr. Dias
--- NOTE | 2017-01-11 09:16 | CP.PCM.PN ---
Subjective - Date & Time of Evaluation Date of Evaluation: 01/18/17 Time of Evaluation: 09:45 - Subjective Subjective: Dr. Muhammad note: Patient seen and examined in room. His is present in room as well. He say she cam because of pain his right foot with worsening ulcerations. He says he is seeing Dr. Muhammad as an outpatient. He has a history of AKA on his right lower extremity. Objective - Vital Signs/Intake and Output Vital Signs (last 24 hours): Temp Pulse Resp BP Pulse Ox 97.6 F 72 20 178/81 H 99 01/11/17 07:52 01/11/17 07:52 01/11/17 07:52 01/11/17 07:52 01/11/17 07:52 Intake and Output: 01/11/17 01/11/17 06:59 18:59 Intake Total 250 Output Total 800 Balance -550 - Medications Medications: Current Medications Dextrose (Dextrose 50% Inj) 0 ml IV STAT PRN; Protocol PRN Reason: Hyglycemia Protocol Dextrose (Glutose 15) 0 gm PO ONCE PRN; Protocol PRN Reason: Hypoglycemia Protocol Enoxaparin Sodium (Lovenox) 40 mg SC DAILY [facility] Last Admin: 01/10/17 09:57 Dose: 40 mg Gabapentin (Neurontin) 400 mg PO TID [facility] Last Admin: 01/10/17 18:00 Dose: 400 mg Glucagon (Glucagen Diagnostic Kit) 0 mg IM STAT PRN; Protocol PRN Reason: Hypoglycemia Protocol Home Med (Patient's Own Drops) 1 drop OU QID [facility] Last Admin: 01/10/17 21:45 Dose: 1 drop Hydromorphone HCl (Dilaudid) 2 mg IVP Q4H PRN PRN Reason: Pain, severe (8-10) Last Admin: 01/11/17 06:28 Dose: 2 mg Vancomycin HCl 1,000 mg/ (Sodium Chloride) 250 mls @ 166.6 mls/hr IVPB Q12H [facility] Last Admin: 01/11/17 00:04 Dose: 166.6 mls/hr Dextrose (Dextrose 5% In Water 1000 Ml) 1,000 mls @ 0 mls/hr IV .Q0M PRN; Protocol; Per Protocol PRN Reason: Hypoglycemia Protocol Insulin Aspart (Novolog) 0 unit SC ACHS [facility] PRN Reason: Protocol Last Admin: 01/11/17 08:19 Dose: Not Given Lisinopril (Zestril) 5 mg PO DAILY [facility] Last Admin: 01/10/17 09:56 Dose: 5 mg - Labs Labs: 01/07/17 17:06 01/07/17 17:06 - Constitutional Appears: Non-toxic, No Acute Distress - Eye Exam Eye Exam: Normal appearance. absent: Scleral icterus - Respiratory Exam Respiratory Exam: Clear to Ausculation Bilateral. absent: Rales, Rhonchi, Wheezes - Cardiovascular Exam Cardiovascular Exam: REGULAR RHYTHM, RRR, +S1, +S2. absent: Gallop, Rubs - GI/Abdominal Exam GI & Abdominal Exam: Soft, Normal Bowel Sounds. absent: Guarding, Tenderness - Extremities Exam Extremities Exam: absent: Normal Inspection, Pedal Edema Additional comments: left AKA with right foot having ulcerations. Assessment and Plan - Assessment and Plan (Free Text) Assessment: Dry Gangrene R Foot 01/12/2017: Patient is for AKA with Dr. James tomorrow of his right lower extremity. continue IV antibotiocs Mangia ID on board; appreciate recs; c/w antibiotics (Vancomycin) -Surgery on board; Larissa; appreciate recs; recommending AKA; patient is extremely reluctant but has agreed to the surgery; coordinate to see when patient is good to go for surgery -pain control DM 2 -RISS with accu checks, sliding scal as needed. -hypoglycemia protocol Proph -Lovenox -Pepcid -Heart Healthy Diet
[2017-01-11] MEDS: Enoxaparin 40 mg Syringe SC SCH (10:45)
[2017-01-11] MEDS: Patient's Own Drops OU SCH ×4 (10:45→21:18)
--- NOTE | 2017-01-11 11:55 | CP.PCM.PN ---
Subjective - Date & Time of Evaluation Date of Evaluation: 01/11/17 Time of Evaluation: 06:00 - Subjective Subjective: Patient says he is not having any pain this morning and feels okay. Patient agrees with plan to get AKA tomorrow. Patient denies n/v, c/d. Objective - Vital Signs/Intake and Output Vital Signs (last 24 hours): Temp Pulse Resp BP Pulse Ox 97.6 F 72 20 178/81 H 99 01/11/17 07:52 01/11/17 07:52 01/11/17 07:52 01/11/17 07:52 01/11/17 07:52 Intake and Output: 01/11/17 01/11/17 06:59 18:59 Intake Total 250 Output Total 800 Balance -550 - Medications Medications: Current Medications Dextrose (Dextrose 50% Inj) 0 ml IV STAT PRN; Protocol PRN Reason: Hyglycemia Protocol Dextrose (Glutose 15) 0 gm PO ONCE PRN; Protocol PRN Reason: Hypoglycemia Protocol Enoxaparin Sodium (Lovenox) 40 mg SC DAILY [facility] Last Admin: 01/10/17 09:57 Dose: 40 mg Gabapentin (Neurontin) 400 mg PO TID [facility] Last Admin: 01/10/17 18:00 Dose: 400 mg Glucagon (Glucagen Diagnostic Kit) 0 mg IM STAT PRN; Protocol PRN Reason: Hypoglycemia Protocol Home Med (Patient's Own Drops) 1 drop OU QID [facility] Last Admin: 01/10/17 21:45 Dose: 1 drop Hydromorphone HCl (Dilaudid) 2 mg IVP Q4H PRN PRN Reason: Pain, severe (8-10) Last Admin: 01/11/17 06:28 Dose: 2 mg Vancomycin HCl 1,000 mg/ (Sodium Chloride) 250 mls @ 166.6 mls/hr IVPB Q12H [facility] Last Admin: 01/11/17 00:04 Dose: 166.6 mls/hr Dextrose (Dextrose 5% In Water 1000 Ml) 1,000 mls @ 0 mls/hr IV .Q0M PRN; Protocol; Per Protocol PRN Reason: Hypoglycemia Protocol Insulin Aspart (Novolog) 0 unit SC ACHS [facility] PRN Reason: Protocol Last Admin: 01/11/17 08:19 Dose: Not Given Lisinopril (Zestril) 5 mg PO DAILY [facility] Last Admin: 01/10/17 09:56 Dose: 5 mg - Labs Labs: 01/07/17 17:06 01/07/17 17:06 - Constitutional Appears: Non-toxic, Chronically Ill - Head Exam Head Exam: NORMOCEPHALIC - Eye Exam Eye Exam: PERRL - ENT Exam ENT Exam: Mucous Membranes Dry - Neck Exam Neck Exam: absent: Lymphadenopathy - Respiratory Exam Respiratory Exam: Decreased Breath Sounds - Cardiovascular Exam Cardiovascular Exam: REGULAR RHYTHM - GI/Abdominal Exam GI & Abdominal Exam: Distended - Rectal Exam Rectal Exam: Deferred - Extremities Exam Extremities Exam: Pedal Edema Additional comments: right foot gangrene left aka Assessment and Plan (1) Gangrene of right foot Status: Acute (2) Above knee amputation of left lower extremity Status: Acute (3) Arterial, arteriole and capillary disease Status: Acute (4) CAD (coronary artery disease) Status: Acute (5) Diabetic foot ulcer Status: Acute (6) Elevated BP Status: Acute
[2017-01-12 06:44] LABS: BASO % 0.4 % (0.0-2.0); EOS # 0.1 K/uL (0.0-0.7); EOS % 1.9 % (0.0-4.0); LYMPH # 1.3 K/uL (1.0-4.3); LYMPH % 16.2 % (20.0-40.0); MEAN CELL VOLUME 81.5 fL (80.0-94.0); MEAN CORPUSCULAR HEMOGLOBIN 27.5 pg (27.0-31.0); MEAN CORPUSCULAR HGB CONC 33.8 g/dL (33.0-37.0); MEAN PLATELET VOLUME 8.2 fL (7.2-11.7); MONO # 0.5 K/uL (0.0-0.8); MONO % 6.5 % (0.0-10.0); RED CELL DISTRIBUTION WIDTH 13.5 % (11.5-14.5); WHITE BLOOD COUNT 7.8 K/uL (4.8-10.8)
[2017-01-12 06:49] LABS: INR 1.1
[2017-01-12 06:57] LABS: CHLORIDE 98 mmol/L (98-107); POTASSIUM 3.9 mmol/L (3.6-5.2); SODIUM 136 mmol/L (132-148)
[2017-01-12 06:59] LABS: BILIRUBIN,TOTAL 0.5 mg/dL (0.2-1.3); GFR AFRICAN-AMERICAN > 60
[2017-01-12 07:00] LABS: ALB/GLOB RATIO 0.9 (1.0-2.1); ALKALINE PHOSPHATASE 93 U/L (38-126); ALT/SGPT 16 U/L (21-72); AST/SGOT 15 U/L (17-59); BLOOD UREA NITROGEN 10 mg/dL (9-20); CALCIUM 9.4 mg/dl (8.6-10.4); CARBON DIOXIDE 26 mmol/L (22-30); GLUCOSE,RANDOM 260 mg/dL (75-110); MAGNESIUM 1.5 mg/dL (1.6-2.3); PHOSPHOROUS 3.8 mg/dL (2.5-4.5); TOTAL PROTEIN 7.7 g/dL (6.3-8.3)
[2017-01-12] MEDS: (Novolog) Insulin Aspart, Recombinant 100 u/ml 10 ml vial SC SCH ×4 (07:33→21:41)
[2017-01-12] MEDS: Enoxaparin 40 mg Syringe SC SCH (10:33)
[2017-01-12] MEDS: Patient's Own Drops OU SCH ×4 (11:47→21:39)
[2017-01-12] MEDS ORDERED: Propofol 10 mg/ml Inj (20 ML) ONE (12:03)
[2017-01-12] MEDS ORDERED: Phenylephrine 10 mg/ml Inj ONE (12:16)
[2017-01-12] MEDS ORDERED: Succinylcholine Chloride 20 mg/ml Syr (5 ml) IV ONE (12:16)
[2017-01-12] MEDS ORDERED: Lactated Ringer's 1,000 ML IV ONE ×2 (12:19→15:00)
--- NOTE | 2017-01-12 14:08 | PCM.SURG1 ---
Surgeon's Initial Post Op Note - Surgeon's Notes Surgeon: Dr. Dias Payment Specialist: Dr. Zamarripa PGY2, Millicent Culp OMS3 Type of Anesthesia: General Endo Pre-Operative Diagnosis: Right foot gangrene Operative Findings: see dictation Post-Operative Diagnosis: same Operation Performed: Right AKA Specimen/Specimens Removed: Right leg Estimated Blood Loss: EBL {In ML}: 250 Drains Used: No Drains Post-Op Condition: Good Date of Surgery/Procedure: 01/12/17 Time of Surgery/Procedure: 12:30
[2017-01-12] MEDS ORDERED: HYDROmorphone 0.5 mg/0.5 ml ISec ONE (14:09)
[2017-01-12] MEDS: HYDROmorphone 0.5 mg/0.5 ml ISec IVP PRN ×5 (14:10→14:55)
--- NOTE | 2017-01-12 14:15 | CP.PCM.PN ---
Subjective - Date & Time of Evaluation Date of Evaluation: 01/12/17 Time of Evaluation: 09:00 - Subjective Subjective: Dr. Muhammad note: Patient is a 66 year old male with a history of DM, PVD, and left AKA is here because of a infected ischemic right foot. He is for the OR today for a right AKA. Patient is resting comfortable in bed Objective - Vital Signs/Intake and Output Vital Signs (last 24 hours): Temp Pulse Resp BP Pulse Ox 98.5 F 85 19 150/80 100 01/12/17 10:29 01/12/17 10:29 01/12/17 10:29 01/12/17 10:31 01/12/17 10:29 Intake and Output: 01/12/17 01/12/17 06:59 18:59 Intake Total 250 0 Output Total 400 500 Balance -150 -500 - Medications Medications: Current Medications Dextrose (Dextrose 50% Inj) 0 ml IV STAT PRN; Protocol PRN Reason: Hyglycemia Protocol Dextrose (Glutose 15) 0 gm PO ONCE PRN; Protocol PRN Reason: Hypoglycemia Protocol Enoxaparin Sodium (Lovenox) 40 mg SC DAILY [facility] Last Admin: 01/12/17 10:33 Dose: Not Given Gabapentin (Neurontin) 400 mg PO TID [facility] Last Admin: 01/12/17 13:33 Dose: Not Given Glucagon (Glucagen Diagnostic Kit) 0 mg IM STAT PRN; Protocol PRN Reason: Hypoglycemia Protocol Home Med (Patient's Own Drops) 1 drop OU QID [facility] Last Admin: 01/12/17 11:47 Dose: Not Given Vancomycin HCl 1,000 mg/ (Sodium Chloride) 250 mls @ 166.6 mls/hr IVPB Q12H [facility] Last Admin: 01/12/17 13:34 Dose: Not Given Dextrose (Dextrose 5% In Water 1000 Ml) 1,000 mls @ 0 mls/hr IV .Q0M PRN; Protocol; Per Protocol PRN Reason: Hypoglycemia Protocol Insulin Aspart (Novolog) 0 unit SC ACHS [facility] PRN Reason: Protocol Last Admin: 01/12/17 12:24 Dose: Not Given Lisinopril (Zestril) 5 mg PO DAILY [facility] Last Admin: 01/12/17 10:34 Dose: 5 mg - Labs Labs: 01/12/17 06:23 01/12/17 06:23 PT 12.8 SECONDS (9.7-12.2) H 01/12/17 06:23 INR 1.1 01/12/17 06:23 APTT 31 SECONDS (21-34) 01/12/17 06:23 Assessment and Plan - Assessment and Plan (Free Text) Assessment: Dry Gangrene R Foot 01/12: Patient went to the OR today for right AKA, continue with day 3 of IV antiobiotics, will follow up with Dr. James and Vasyl. 01/11: Patient is for AKA with Dr. James tomorrow of his right lower extremity. continue IV antibotiocs Vasyl ID on board; appreciate recs; c/w antibiotics (Vancomycin) -Surgery on board; Larissa; appreciate recs; recommending AKA; patient is extremely reluctant but has agreed to the surgery; coordinate to see when patient is good to go for surgery -pain control DM 2 -RISS with accu checks, sliding scal as needed. -hypoglycemia protocol Proph -Lovenox -Pepcid -Heart Healthy Diet
[2017-01-12] MEDS ORDERED: HYDROmorphone 1 mg/ml ISec ONE ×3 (14:18→14:36)
[2017-01-12] MEDS: Magnesium Sulfate 1 gm in D5W 1 GM/100 ML BAG IVPB SCH ×4 (14:30→18:50)
[2017-01-12 16:29] VITALS: RESP 20
--- NOTE | 2017-01-12 21:20 | OP ---
PROCEDURE DATE: 01/12/2017 PREOPERATIVE DIAGNOSIS: Gangrene of right foot. POSTOPERATIVE DIAGNOSIS: Gangrene of right foot. PROCEDURE CARRIED OUT: Right above-knee amputation. SURGEON: Nba Dias Jr., MD ELECTROMECHANICAL ASSEMBLER: Dr. Lewis. ANESTHESIA ADMINISTERED BY: Mr. Noam CRNA. BLOOD LOSS: 200 to 250 mL. INDICATIONS: The patient is an over middle-aged man with a variety of medical problems, including previous left above-knee amputation, who presents with gangrene of the foot, non-reconstructable situation, no target vessels. OPERATIVE FINDINGS: Standard right above-knee amputation was carried out. DESCRIPTION OF PROCEDURE: The patient was given general anesthesia and intravenous antibiotics. Venodyne boots were not applied. Standard above-knee amputation was carried out. After completion of obtaining hemostasis, we had to cut through a previously placed stent, which was partially removed. We then over-sowed the artery and the vein. There was no pulsatile flow from the artery. We then closed the wounds with Monocryl, Vicryl sutures, skin clips, and nylon sutures and a non-compressive dressing applied. The operation carried out was right above-knee amputation. Blood loss was 250 mL. Nba Dias Jr., MD
[2017-01-13 07:40] LABS: BASO % 0.2 % (0.0-2.0); EOS % 0.3 % (0.0-4.0); HEMATOCRIT 36.2 % (35.0-51.0); LYMPH # 0.6 K/uL (1.0-4.3); LYMPH % 4.8 % (20.0-40.0); MEAN CELL VOLUME 81.4 fL (80.0-94.0); MEAN CORPUSCULAR HEMOGLOBIN 27.1 pg (27.0-31.0); MEAN CORPUSCULAR HGB CONC 33.3 g/dL (33.0-37.0); MEAN PLATELET VOLUME 8.3 fL (7.2-11.7); MONO # 0.7 K/uL (0.0-0.8); NRBC % 0.1 % (0.0-2.0); PLATELET COUNT 233 K/uL (130-400); RED CELL DISTRIBUTION WIDTH 13.9 % (11.5-14.5); WHITE BLOOD COUNT 11.7 K/uL (4.8-10.8)
[2017-01-13 08:18] LABS: CHLORIDE 97 mmol/L (98-107); POTASSIUM 4.2 mmol/L (3.6-5.2); SODIUM 133 mmol/L (132-148)
[2017-01-13 08:20] LABS: AST/SGOT 19 U/L (17-59); BILIRUBIN,TOTAL 0.7 mg/dL (0.2-1.3); BLOOD UREA NITROGEN 12 mg/dL (9-20); CARBON DIOXIDE 25 mmol/L (22-30); GFR AFRICAN-AMERICAN > 60; TOTAL PROTEIN 7.2 g/dL (6.3-8.3)
[2017-01-13 08:21] LABS: ALKALINE PHOSPHATASE 91 U/L (38-126); ALT/SGPT 20 U/L (21-72); CALCIUM 8.9 mg/dl (8.6-10.4); GLUCOSE,RANDOM 352 mg/dL (75-110)
[2017-01-13] MEDS: (Novolog) Insulin Aspart, Recombinant 100 u/ml 10 ml vial SC SCH ×4 (08:25→22:00)
[2017-01-13] MEDS: Oxycodone/Acetaminophen 5/325 mg Tab PO PRN ×3 (08:36→22:58)
[2017-01-13 09:18] LABS: NEUTROPHIL 88 % (50-75); TOTAL CELLS COUNTED 100
[2017-01-13] MEDS: Enoxaparin 40 mg Syringe SC SCH (11:40)
[2017-01-13] MEDS: Patient's Own Drops OU SCH ×4 (11:46→21:27)
[2017-01-14] MEDS: Oxycodone/Acetaminophen 5/325 mg Tab PO PRN (02:59)
[2017-01-14] MEDS: HYDROmorphone 0.5 mg/0.5 ml ISec IVP PRN (05:29)
[2017-01-14 07:03] LABS: BASO % 0.2 % (0.0-2.0); EOS # 0.1 K/uL (0.0-0.7); EOS % 0.6 % (0.0-4.0); LYMPH # 0.9 K/uL (1.0-4.3); LYMPH % 8.8 % (20.0-40.0); MEAN CELL VOLUME 81.4 fL (80.0-94.0); MEAN CORPUSCULAR HEMOGLOBIN 27.3 pg (27.0-31.0); MEAN CORPUSCULAR HGB CONC 33.6 g/dL (33.0-37.0); MEAN PLATELET VOLUME 7.7 fL (7.2-11.7); MONO # 0.8 K/uL (0.0-0.8); MONO % 7.6 % (0.0-10.0); PLATELET COUNT 208 K/uL (130-400); RED CELL DISTRIBUTION WIDTH 14.1 % (11.5-14.5); WHITE BLOOD COUNT 10.5 K/uL (4.8-10.8)
[2017-01-14 07:44] LABS: CHLORIDE 98 mmol/L (98-107)
[2017-01-14 07:45] LABS: SODIUM 134 mmol/L (132-148)
[2017-01-14 07:47] LABS: ALB/GLOB RATIO 0.9 (1.0-2.1); AST/SGOT 16 U/L (17-59); BILIRUBIN,TOTAL 0.7 mg/dL (0.2-1.3); BLOOD UREA NITROGEN 12 mg/dL (9-20); CARBON DIOXIDE 26 mmol/L (22-30); GFR AFRICAN-AMERICAN > 60; TOTAL PROTEIN 7.4 g/dL (6.3-8.3)
[2017-01-14 07:48] LABS: ALKALINE PHOSPHATASE 92 U/L (38-126); ALT/SGPT 12 U/L (21-72); GLUCOSE,RANDOM 311 mg/dL (75-110)
[2017-01-14 07:51] LABS: POTASSIUM 3.7 mmol/L (3.6-5.2)
--- NOTE | 2017-01-14 08:23 | PN ---
DATE: The patient is getting supportive care. Marti Muhammad MD
--- NOTE | 2017-01-14 08:37 | CP.PCM.PN ---
Subjective - Date & Time of Evaluation Date of Evaluation: 01/13/17 Time of Evaluation: 11:00 - Subjective Subjective: Vascular Surgery Dr. Dias Pt S&E @bedside. Pt had R AKA yesterday. Pt tolerated the procedure well w/ no complications. NAEO. pt altered this AM. @bedside denies F/C, N/C. pain moderately controlled. Pt tolerating diet. Objective - Vital Signs/Intake and Output Vital Signs (last 24 hours): Temp Pulse Resp BP Pulse Ox 98.2 F 98 H 20 156/83 H 100 01/14/17 08:11 01/14/17 08:11 01/14/17 08:11 01/14/17 08:11 01/14/17 08:11 Intake and Output: 01/14/17 01/14/17 06:59 18:59 Intake Total 940 Output Total 500 Balance 440 - Medications Medications: Current Medications Dextrose (Dextrose 50% Inj) 0 ml IV STAT PRN; Protocol PRN Reason: Hyglycemia Protocol Dextrose (Glutose 15) 0 gm PO ONCE PRN; Protocol PRN Reason: Hypoglycemia Protocol Enoxaparin Sodium (Lovenox) 40 mg SC DAILY [facility] Last Admin: 01/13/17 11:40 Dose: 40 mg Gabapentin (Neurontin) 400 mg PO TID [facility] Last Admin: 01/13/17 18:12 Dose: 400 mg Glucagon (Glucagen Diagnostic Kit) 0 mg IM STAT PRN; Protocol PRN Reason: Hypoglycemia Protocol Home Med (Patient's Own Drops) 1 drop OU QID [facility] Last Admin: 01/13/17 21:27 Dose: 1 drop Hydromorphone HCl (Dilaudid) 1 mg IVP Q3 PRN PRN Reason: Pain, severe (8-10) Last Admin: 01/13/17 11:39 Dose: 1 mg Hydromorphone HCl (Dilaudid) 0.5 mg IVP Q3 PRN PRN Reason: Pain, moderate (4-7) Last Admin: 01/14/17 05:29 Dose: 0.5 mg Vancomycin HCl 1,000 mg/ (Sodium Chloride) 250 mls @ 166.6 mls/hr IVPB Q12H [facility] Last Admin: 01/13/17 23:51 Dose: 166.6 mls/hr Insulin Aspart (Novolog) 0 unit SC ACHS [facility] PRN Reason: Protocol Last Admin: 01/13/17 22:00 Dose: 2 unit Lisinopril (Zestril) 5 mg PO DAILY [facility] Last Admin: 01/13/17 11:46 Dose: 5 mg Ondansetron HCl (Zofran Inj) 4 mg IVP Q4 PRN PRN Reason: Nausea/Vomiting Oxycodone/Acetaminophen (Percocet 5/325 Mg Tab) 1 tab PO Q4H PRN PRN Reason: Pain, Mild (1-3) Stop: 01/15/17 14:17 Last Admin: 01/14/17 02:59 Dose: 1 tab - Labs Labs: 01/14/17 06:58 01/14/17 06:58 PT 12.8 SECONDS (9.7-12.2) H 01/12/17 06:23 INR 1.1 01/12/17 06:23 APTT 31 SECONDS (21-34) 01/12/17 06:23 - Constitutional Appears: Non-toxic, No Acute Distress - Head Exam Head Exam: NORMAL INSPECTION - Eye Exam Eye Exam: Normal appearance - ENT Exam ENT Exam: Mucous Membranes Moist - Respiratory Exam Respiratory Exam: NORMAL BREATHING PATTERN. absent: Accessory Muscle Use, Respiratory Distress - GI/Abdominal Exam GI & Abdominal Exam: Soft. absent: Distended, Tenderness - Extremities Exam Additional comments: B/L AKA R dressing w/ some blood staining posteriorly. - Neurological Exam Neurological Exam: Alert, Altered, Awake - Skin Skin Exam: Dry, Normal Color, Warm Assessment and Plan - Assessment and Plan (Free Text) Assessment: 66 y/o M POD#1 s/p R AKA - pain management - PT/OT evaluation - monitor vitals and labs - cont medical management Pt discussed w/ Dr. Larissa Zamarripa DO PGY2
--- NOTE | 2017-01-14 08:44 | CP.PCM.PN ---
Subjective - Date & Time of Evaluation Date of Evaluation: 01/14/17 Time of Evaluation: 07:00 - Subjective Subjective: Vascular Surgery Dr. Dias Pt S&E @bedside. NAEO. pt more coherent today. c/o pain w/ only minimal improvement w/ meds. denies N/V, F/C. Pt is tolerating diet. Pt wants to be discharged and does not want PT. Objective - Vital Signs/Intake and Output Vital Signs (last 24 hours): Temp Pulse Resp BP Pulse Ox 98.2 F 98 H 20 156/83 H 100 01/14/17 08:11 01/14/17 08:11 01/14/17 08:11 01/14/17 08:11 01/14/17 08:11 Intake and Output: 01/14/17 01/14/17 06:59 18:59 Intake Total 940 Output Total 500 Balance 440 - Medications Medications: Current Medications Dextrose (Dextrose 50% Inj) 0 ml IV STAT PRN; Protocol PRN Reason: Hyglycemia Protocol Dextrose (Glutose 15) 0 gm PO ONCE PRN; Protocol PRN Reason: Hypoglycemia Protocol Enoxaparin Sodium (Lovenox) 40 mg SC DAILY [facility] Last Admin: 01/13/17 11:40 Dose: 40 mg Gabapentin (Neurontin) 400 mg PO TID [facility] Last Admin: 01/13/17 18:12 Dose: 400 mg Glucagon (Glucagen Diagnostic Kit) 0 mg IM STAT PRN; Protocol PRN Reason: Hypoglycemia Protocol Home Med (Patient's Own Drops) 1 drop OU QID [facility] Last Admin: 01/13/17 21:27 Dose: 1 drop Hydromorphone HCl (Dilaudid) 1 mg IVP Q3 PRN PRN Reason: Pain, severe (8-10) Last Admin: 01/13/17 11:39 Dose: 1 mg Hydromorphone HCl (Dilaudid) 0.5 mg IVP Q3 PRN PRN Reason: Pain, moderate (4-7) Last Admin: 01/14/17 05:29 Dose: 0.5 mg Vancomycin HCl 1,000 mg/ (Sodium Chloride) 250 mls @ 166.6 mls/hr IVPB Q12H [facility] Last Admin: 01/13/17 23:51 Dose: 166.6 mls/hr Insulin Aspart (Novolog) 0 unit SC ACHS [facility] PRN Reason: Protocol Last Admin: 01/13/17 22:00 Dose: 2 unit Lisinopril (Zestril) 5 mg PO DAILY [facility] Last Admin: 01/13/17 11:46 Dose: 5 mg Ondansetron HCl (Zofran Inj) 4 mg IVP Q4 PRN PRN Reason: Nausea/Vomiting Oxycodone/Acetaminophen (Percocet 5/325 Mg Tab) 1 tab PO Q4H PRN PRN Reason: Pain, Mild (1-3) Stop: 01/15/17 14:17 Last Admin: 01/14/17 02:59 Dose: 1 tab - Labs Labs: 01/14/17 06:58 01/14/17 06:58 PT 12.8 SECONDS (9.7-12.2) H 01/12/17 06:23 INR 1.1 01/12/17 06:23 APTT 31 SECONDS (21-34) 01/12/17 06:23 - Constitutional Appears: Non-toxic, No Acute Distress - Head Exam Head Exam: NORMAL INSPECTION - Eye Exam Eye Exam: Normal appearance - ENT Exam ENT Exam: Mucous Membranes Moist - Respiratory Exam Respiratory Exam: NORMAL BREATHING PATTERN. absent: Accessory Muscle Use, Respiratory Distress - GI/Abdominal Exam GI & Abdominal Exam: Soft. absent: Distended, Tenderness - Extremities Exam Additional comments: R AKA dressing c/d/i - Neurological Exam Neurological Exam: Alert, Awake, Oriented x3 - Psychiatric Exam Psychiatric exam: Normal Affect, Normal Mood - Skin Skin Exam: Dry, Normal Color, Warm Assessment and Plan - Assessment and Plan (Free Text) Assessment: 66 y/o M POD#2 s/p R AKA - cont pain management - cont to monitor labs - encourage OOB to chair/IS use - Encourgae PT - Pt needs Trapeeze for mobilization Pt discussed w/ Dr. Larissa Zamarripa DO PGY2
[2017-01-14] MEDS: (Novolog) Insulin Aspart, Recombinant 100 u/ml 10 ml vial SC SCH ×4 (08:51→22:09)
[2017-01-14 09:41] LABS: NEUTROPHIL 85 % (50-75); TOTAL CELLS COUNTED 100
[2017-01-14 09:42] LABS: LARGE PLATELETS PRESENT
[2017-01-14] MEDS: Enoxaparin 40 mg Syringe SC SCH (10:05)
[2017-01-14] MEDS: Patient's Own Drops OU SCH ×4 (10:48→22:09)
--- NOTE | 2017-01-14 10:48 | CP.PCM.PN ---
Subjective - Date & Time of Evaluation Date of Evaluation: 01/14/17 Time of Evaluation: 10:47 - Subjective Subjective: Pt seen and examined at bedside; states pain is well controlled; denies any other symptoms; minor pain at site of AKA; surgery cleared for d/c as well as Dr. Muhammad to [facility] Objective - Vital Signs/Intake and Output Vital Signs (last 24 hours): Temp Pulse Resp BP Pulse Ox 98.2 F 98 H 20 156/83 H 100 01/14/17 08:11 01/14/17 08:11 01/14/17 08:11 01/14/17 08:11 01/14/17 08:11 Intake and Output: 01/14/17 01/14/17 06:59 18:59 Intake Total 940 Output Total 500 Balance 440 - Medications Medications: Current Medications Dextrose (Dextrose 50% Inj) 0 ml IV STAT PRN; Protocol PRN Reason: Hyglycemia Protocol Dextrose (Glutose 15) 0 gm PO ONCE PRN; Protocol PRN Reason: Hypoglycemia Protocol Enoxaparin Sodium (Lovenox) 40 mg SC DAILY [facility] Last Admin: 01/14/17 10:05 Dose: 40 mg Gabapentin (Neurontin) 400 mg PO TID [facility] Last Admin: 01/13/17 18:12 Dose: 400 mg Glucagon (Glucagen Diagnostic Kit) 0 mg IM STAT PRN; Protocol PRN Reason: Hypoglycemia Protocol Home Med (Patient's Own Drops) 1 drop OU QID [facility] Last Admin: 01/13/17 21:27 Dose: 1 drop Hydromorphone HCl (Dilaudid) 1 mg IVP Q3 PRN PRN Reason: Pain, severe (8-10) Last Admin: 01/13/17 11:39 Dose: 1 mg Hydromorphone HCl (Dilaudid) 0.5 mg IVP Q3 PRN PRN Reason: Pain, moderate (4-7) Last Admin: 01/14/17 05:29 Dose: 0.5 mg Insulin Aspart (Novolog) 0 unit SC ACHS [facility] PRN Reason: Protocol Last Admin: 01/14/17 08:51 Dose: 6 unit Lisinopril (Zestril) 10 mg PO DAILY [facility] Last Admin: 01/14/17 09:53 Dose: 10 mg Ondansetron HCl (Zofran Inj) 4 mg IVP Q4 PRN PRN Reason: Nausea/Vomiting Oxycodone/Acetaminophen (Percocet 5/325 Mg Tab) 1 tab PO Q4H PRN PRN Reason: Pain, Mild (1-3) Stop: 01/15/17 14:17 Last Admin: 01/14/17 02:59 Dose: 1 tab - Labs Labs: 01/14/17 06:58 01/14/17 06:58 PT 12.8 SECONDS (9.7-12.2) H 01/12/17 06:23 INR 1.1 01/12/17 06:23 APTT 31 SECONDS (21-34) 01/12/17 06:23 - Constitutional Appears: Non-toxic - Head Exam Head Exam: NORMAL INSPECTION - Eye Exam Eye Exam: EOMI - ENT Exam ENT Exam: Mucous Membranes Moist - Neck Exam Neck Exam: Full ROM. absent: Lymphadenopathy - Respiratory Exam Respiratory Exam: Clear to Ausculation Bilateral - Cardiovascular Exam Cardiovascular Exam: REGULAR RHYTHM - GI/Abdominal Exam GI & Abdominal Exam: Soft, Normal Bowel Sounds - Extremities Exam Additional comments: b/l aka no signs of bleeding - Neurological Exam Neurological Exam: Alert, Awake, Oriented x3 - Psychiatric Exam Psychiatric exam: Normal Affect - Skin Skin Exam: Warm Assessment and Plan - Assessment and Plan (Free Text) Assessment: Dry Gangrene R Foot Patient is stable for d/c as per Dr. Muhammad No Abx as per Jb at [facility] -Surgery on board; [place]; appreciate recs for wound care -pain control DM 2 -RISS with accu checks, sliding scal as needed. -hypoglycemia protocol -patient can restart home insulin Patient is stable for d/c as per Dr. Muhammad
[2017-01-15 07:50] LABS: BASO % 0.4 % (0.0-2.0); EOS # 0.1 K/uL (0.0-0.7); EOS % 0.7 % (0.0-4.0); HEMATOCRIT 35.6 % (35.0-51.0); LYMPH # 1.2 K/uL (1.0-4.3); LYMPH % 11.7 % (20.0-40.0); MEAN CELL VOLUME 81.4 fL (80.0-94.0); MEAN CORPUSCULAR HEMOGLOBIN 27.2 pg (27.0-31.0); MEAN CORPUSCULAR HGB CONC 33.5 g/dL (33.0-37.0); MEAN PLATELET VOLUME 8.4 fL (7.2-11.7); MONO # 0.7 K/uL (0.0-0.8); MONO % 6.7 % (0.0-10.0); RED CELL DISTRIBUTION WIDTH 13.9 % (11.5-14.5); WHITE BLOOD COUNT 10.4 K/uL (4.8-10.8)
[2017-01-15 08:09] LABS: CHLORIDE 99 mmol/L (98-107); POTASSIUM 3.6 mmol/L (3.6-5.2); SODIUM 137 mmol/L (132-148)
[2017-01-15 08:11] LABS: AST/SGOT 20 U/L (17-59); BILIRUBIN,TOTAL 0.6 mg/dL (0.2-1.3); CARBON DIOXIDE 25 mmol/L (22-30); GFR AFRICAN-AMERICAN > 60
[2017-01-15 08:12] LABS: ALB/GLOB RATIO 0.9 (1.0-2.1); ALKALINE PHOSPHATASE 95 U/L (38-126); ALT/SGPT 13 U/L (21-72); BLOOD UREA NITROGEN 13 mg/dL (9-20); CALCIUM 9.7 mg/dl (8.6-10.4); GLUCOSE,RANDOM 306 mg/dL (75-110); TOTAL PROTEIN 7.7 g/dL (6.3-8.3)
[2017-01-15] MEDS: (Novolog) Insulin Aspart, Recombinant 100 u/ml 10 ml vial SC SCH ×4 (08:27→22:07)
[2017-01-15] MEDS: Enoxaparin 40 mg Syringe SC SCH (09:39)
[2017-01-15] MEDS: Patient's Own Drops OU SCH ×4 (09:48→22:09)
[2017-01-15] MEDS: HYDROmorphone 0.5 mg/0.5 ml ISec IVP PRN (18:08)
[2017-01-16] MEDS: (Novolog) Insulin Aspart, Recombinant 100 u/ml 10 ml vial SC SCH ×4 (08:17→21:44)
[2017-01-16] MEDS: Oxycodone/Acetaminophen 5/325 mg Tab PO PRN ×3 (08:18→17:51)
[2017-01-16] MEDS: Patient's Own Drops OU SCH ×4 (10:23→21:45)
--- NOTE | 2017-01-16 15:22 | CP.PCM.PN ---
Subjective - Date & Time of Evaluation Date of Evaluation: 01/16/17 Time of Evaluation: 08:00 - Subjective Subjective: afebrile c/o pain nad Objective - Vital Signs/Intake and Output Vital Signs (last 24 hours): Temp Pulse Resp BP Pulse Ox 97.5 F L 95 H 20 147/72 99 01/16/17 09:00 01/16/17 09:00 01/16/17 09:00 01/16/17 09:00 01/16/17 09:00 Intake and Output: 01/16/17 01/16/17 06:59 18:59 Intake Total 980 500 Balance 980 500 - Medications Medications: Current Medications Dextrose (Dextrose 50% Inj) 0 ml IV STAT PRN; Protocol PRN Reason: Hyglycemia Protocol Dextrose (Glutose 15) 0 gm PO ONCE PRN; Protocol PRN Reason: Hypoglycemia Protocol Gabapentin (Neurontin) 400 mg PO TID [facility] Last Admin: 01/16/17 12:59 Dose: 400 mg Glucagon (Glucagen Diagnostic Kit) 0 mg IM STAT PRN; Protocol PRN Reason: Hypoglycemia Protocol Home Med (Patient's Own Drops) 1 drop OU QID [facility] Last Admin: 01/16/17 13:10 Dose: Not Given Insulin Aspart (Novolog) 0 unit SC ACHS [facility] PRN Reason: Protocol Last Admin: 01/16/17 12:50 Dose: 4 unit Lisinopril (Zestril) 10 mg PO DAILY [facility] Last Admin: 01/16/17 10:23 Dose: 10 mg Ondansetron HCl (Zofran Inj) 4 mg IVP Q4 PRN PRN Reason: Nausea/Vomiting Oxycodone/Acetaminophen (Percocet 5/325 Mg Tab) 1 tab PO Q4H PRN PRN Reason: Pain, moderate (4-7) Stop: 01/18/17 22:32 Last Admin: 01/16/17 12:53 Dose: 1 tab - Labs Labs: 01/15/17 07:43 01/15/17 07:43 PT 12.8 SECONDS (9.7-12.2) H 01/12/17 06:23 INR 1.1 01/12/17 06:23 APTT 31 SECONDS (21-34) 01/12/17 06:23 - Constitutional Appears: Non-toxic, Chronically Ill - Head Exam Head Exam: NORMOCEPHALIC - Eye Exam Eye Exam: PERRL - ENT Exam ENT Exam: Mucous Membranes Dry, Normal External Ear Exam - Neck Exam Neck Exam: absent: Lymphadenopathy - Respiratory Exam Respiratory Exam: Decreased Breath Sounds - Cardiovascular Exam Cardiovascular Exam: REGULAR RHYTHM, +S1, +S2 - GI/Abdominal Exam GI & Abdominal Exam: Distended, Soft. absent: Tenderness - Rectal Exam Rectal Exam: Deferred - Exam Exam: NORMAL INSPECTION - Extremities Exam Extremities Exam: absent: Calf Tenderness, Pedal Edema - Back Exam Back Exam: absent: CVA tenderness (L), CVA tenderness (R) - Neurological Exam Neurological Exam: Alert, Awake, Oriented x3 - Psychiatric Exam Psychiatric exam: Normal Mood Assessment and Plan (1) Gangrene of right foot Status: Acute (2) Above knee amputation of left lower extremity Status: Acute (3) Arterial, arteriole and capillary disease Status: Acute (4) CAD (coronary artery disease) Status: Acute (5) Diabetic foot ulcer Status: Acute (6) Elevated BP Status: Acute - Assessment and Plan (Free Text) Assessment: stable s/p right aka old left aka
[2017-01-17] MEDS: Oxycodone/Acetaminophen 5/325 mg Tab PO PRN ×2 (06:02→10:50)
[2017-01-17 08:15] VITALS: BP 132/71; PULSE 85; TEMP 98.5; O2SAT 100
[2017-01-17] MEDS: (Novolog) Insulin Aspart, Recombinant 100 u/ml 10 ml vial SC SCH ×2 (08:30→12:00)
[2017-01-17] MEDS: Patient's Own Drops OU SCH ×2 (10:53→14:13)
[2017-01-17] MEDS ORDERED: (Lantus) Insulin Glargine, Recombinant SC SCH (22:00)
--- NOTE | 2017-01-21 08:04 | DS ---
Patient was in the hospital with complaint of peripheral vascular ischemia and gangrene of the toe. The patient was getting bedrest, supportive care, and Vascular consult. The patient underwent BKA. Postop course unremarkable. The patient transferred to rehab. We also discussed the disease gangrene of the foot and diabetes. Marti Muhammad MD
== END 2017-01-17 14:22 | DRG 240 ==
LOC: C.ER 15:39 → C.9E 18:01 → C.3T 21:15
PROVIDERS: ADMIT Internal Medicine Pulmonary Disease; ATTEND Internal Medicine Pulmonary Disease
PROC: 0Y6C0Z3 Detachment at Right Upper Leg, Low, Open Approach (ICD-10-PCS; principal; 2017-01-12 13:45)
DX: E10.52 Type 1 diabetes mellitus with diabetic peripheral angiopathy with gangrene (principal); E10.621 Type 1 diabetes mellitus with foot ulcer; I70.261 Atherosclerosis of native arteries of extremities with gangrene, right leg; L97.519 Non-pressure chronic ulcer of other part of right foot with unspecified severity; E78.00 Pure hypercholesterolemia, unspecified; F17.210 Nicotine dependence, cigarettes, uncomplicated; H40.9 Unspecified glaucoma; I10 Essential (primary) hypertension; I25.10 Atherosclerotic heart disease of native coronary artery without angina pectoris; J45.909 Unspecified asthma, uncomplicated; Z89.612 Acquired absence of left leg above knee; Z79.4 Long term (current) use of insulin; Z90.49 Acquired absence of other specified parts of digestive tract; Z95.1 Presence of aortocoronary bypass graft; Z95.5 Presence of coronary angioplasty implant and graft

== ENCOUNTER 2017-02-03 20:54 | Emergency (ER) | payer MEDICARE, MEDICAID ==
[2017-02-03 20:54] VITALS: BMI 35.7
--- NOTE | 2017-02-03 22:19 | C.PDOC ---
History Of Present Illness Patient is a 66 y/o male who presents to the ED by referral of custodial s/p falling. Nature of fall is unknown as custodial states it occurred today, but patient admits to falling today. Patient denies occipital or back pain; refuses exam. No other physical complaints at this time. - HPI Time Seen by Provider: 02/03/17 22:09 Chief Complaint (Nursing): Trauma History Per: Patient History/Exam Limitations: no limitations Recent travel outside of the [place]: No Past Medical History Reviewed: Historical Data, Nursing Documentation, Vital Signs Vital Signs: Last Vital Signs Temp 98.5 F 02/03/17 21:07 Pulse 62 02/03/17 21:07 Resp 19 02/03/17 21:07 BP 172/72 H 02/03/17 21:07 Pulse Ox 96 02/03/17 22:19 - Medical History PMH: Anxiety, Arthritis, Asthma, Depression, Diabetes, HTN, Hypercholesterolemia Denies: Chronic Kidney Disease Surgical History: CABG, Cholecystectomy, Coronary Stent (x3) - [facility] Procedures ABOVE KNEE AMPUTATION (12/07/14) ANGIOPLASTY OF OTHER NON-CORONARY VESSEL(S) (11/28/13) ATHERECTOMY OF OTHER NON-CORONARY VESSEL(S) (10/21/11) BELOW KNEE AMPUTAT NEC (09/10/14) CATARAC PHACOEMULS/ASPIR (02/13/14) CONTRAST AORTOGRAM (09/04/14) CONTRAST ARTERIOGRAM-LEG (09/04/14) DETACHMENT AT RIGHT UPPER LEG, LOW, OPEN APPROACH (01/07/17) FLUOROSCOPY R LOW EXTREM ART W L OSM CONTRAST, LASER INTRAOP (11/18/16) INFLUENZA VACCINATION (04/24/14) INSEJ [id number] PERIPHERAL NON-CORONARY VES STENT(S) (11/28/13) INSERT LENS AT CATAR EXT (02/13/14) INSERTION OF ONE VASCULAR STENT (11/28/13) INSPECTION OF LOWER ARTERY, OPEN APPROACH (11/18/16) LOC EXC BONE LESION NEC (10/31/14) OCCUPATIONAL THERAPY (09/17/14) OTHER MYECTOMY (10/10/14) PHYSICAL THERAPY NEC (09/17/14) PROCEDURE ON SINGLE VESSEL (11/28/13) RECREATIONAL THERAPY (09/17/14) VACCINATION NEC (01/21/15) VASC SHUNT & BYPASS NEC (11/28/13) Family History: States: Unknown Family Hx - Social History Hx Tobacco Use: Yes Hx Alcohol Use: No Hx Substance Use: No - Immunization History Hx Tetanus Toxoid Vaccination: No Hx Influenza Vaccination: No Hx Pneumococcal Vaccination: No Review Of Systems Musculoskeletal: Positive for: Other (no occipital pain). Negative for: Back Pain Physical Exam - Physical Exam Appears: Well, Non-toxic, No Acute Distress Skin: Normal Color, Warm, Dry Head: Atraumatic, Normacephalic Oral Mucosa: Moist Back: Normal Inspection, No Vertebral Tenderness Extremity: Other (bilateral AKA) Neurological/Psych: Oriented x3, Normal Speech, Normal Cognition, Other (no focal deficits) ED Course And Treatment O2 Sat by Pulse Oximetry: 96 Medical Decision Making Medical Decision Making: pt claims he fell yeterday and not today denies QUINTERO nor occipital pain nor lower back pain exam craig. Refused CT/x-rays Return to [place] Disposition Doctor Will See Patient In The: Office Counseled Patient/Family Regarding: Studies Performed, Diagnosis - Disposition Referrals: Marti Quintero MD [Staff Provider] - Disposition: OTHER INSTITUTION Disposition Time: 22:19 Condition: GOOD Additional Instructions: have follow-up with Dr. Quintero as needed. Instructions: Contusion in Adults (GEN) Forms: [facility] (Swedish) - Clinical Impression Clinical Impression: Fall - Scribe Statement The provider has reviewed the documentation as recorded by the Scribe Giulia Muñoz All medical record entries made by the Scribe were at my direction and personally dictated by me. I have reviewed the chart and agree that the record accurately reflects my personal performance of the history, physical exam, medical decision making, and the department course for this patient. I have also personally directed, reviewed, and agree with the discharge instructions and disposition.
[2017-02-04 00:18] VITALS: BP 147/68; PULSE 86; RESP 18; TEMP 97.8; O2SAT 98
== END 2017-02-04 00:18 ==
LOC: C.ER 20:54
DX: Z03.89 Encounter for observation for other suspected diseases and conditions ruled out (principal); E11.9 Type 2 diabetes mellitus without complications; E78.00 Pure hypercholesterolemia, unspecified; I10 Essential (primary) hypertension; Z87.891 Personal history of nicotine dependence; Z91.81 History of falling

== ENCOUNTER 2017-02-11 21:41 | Inpatient (IN) | payer MEDICARE, MEDICAID ==
[2017-02-11 21:42] VITALS: BMI 35.7
--- NOTE | 2017-02-11 21:48 | C.PDOC ---
History Of Present Illness 66M biba from SNF for ams since around dinner time. per report he did not eat dinner and became more lethargic since that time. also his apparently took him home after an dr appt today before taking him back to the SNF. Time Seen by Provider: 02/11/17 21:44 Past Medical History Vital Signs: Last Vital Signs Temp 98.7 F 02/11/17 21:43 Pulse 90 02/11/17 22:05 Resp 16 02/11/17 22:05 BP 142/74 02/11/17 22:05 Pulse Ox 96 02/11/17 22:05 - Medical History PMH: Anxiety, Arthritis, Asthma, Depression, Diabetes, HTN, Hypercholesterolemia Surgical History: CABG, Cholecystectomy, Coronary Stent (x3) - [facility] Procedures ABOVE KNEE AMPUTATION (12/07/14) ANGIOPLASTY OF OTHER NON-CORONARY VESSEL(S) (11/28/13) ATHERECTOMY OF OTHER NON-CORONARY VESSEL(S) (10/21/11) BELOW KNEE AMPUTAT NEC (09/10/14) CATARAC PHACOEMULS/ASPIR (02/13/14) CONTRAST AORTOGRAM (09/04/14) CONTRAST ARTERIOGRAM-LEG (09/04/14) DETACHMENT AT RIGHT UPPER LEG, LOW, OPEN APPROACH (01/07/17) FLUOROSCOPY R LOW EXTREM ART W L OSM CONTRAST, LASER INTRAOP (11/18/16) INFLUENZA VACCINATION (04/24/14) INSEJ [id number] PERIPHERAL NON-CORONARY VES STENT(S) (11/28/13) INSERT LENS AT CATAR EXT (02/13/14) INSERTION OF ONE VASCULAR STENT (11/28/13) INSPECTION OF LOWER ARTERY, OPEN APPROACH (11/18/16) LOC EXC BONE LESION NEC (10/31/14) OCCUPATIONAL THERAPY (09/17/14) OTHER MYECTOMY (10/10/14) PHYSICAL THERAPY NEC (09/17/14) PROCEDURE ON SINGLE VESSEL (11/28/13) RECREATIONAL THERAPY (09/17/14) VACCINATION NEC (04/24/14) VASC SHUNT & BYPASS NEC (11/28/13) Family History: States: Unknown Family Hx - Social History Hx Tobacco Use: Yes Hx Alcohol Use: No Hx Substance Use: No - Immunization History Hx Tetanus Toxoid Vaccination: No Hx Influenza Vaccination: No Hx Pneumococcal Vaccination: No Review Of Systems Review Of Systems: ROS cannot be obtained secondary to pt's inabilty to answer questions. Physical Exam - Physical Exam Appears: Confused Skin: Warm, Dry Head: Atraumatic Eye(s): bilateral: PERRL Nose: No Epistaxis Oral Mucosa: Moist Neck: Supple Cardiovascular: Rhythm Regular Respiratory: No Decreased Breath Sounds, No Accessory Muscle Use, No Rales, No Rhonchi, No Stridor, No Wheezing Gastrointestinal/Abdominal: Soft, No Tenderness, No Distention, No Guarding, No Rebound Extremity: Other (bilateral BKA, recent surgical wound on the right still w sutures in place- no erythema, warmth, or drainage. ) Pulses: Left Radial: Normal, Right Radial: Normal Neurological/Psych: No Oriented x3 (unintelligible speech. no focal deficits. ) , Other ED Course And Treatment - Laboratory Results Result Diagrams: 02/11/17 22:04 02/11/17 22:04 Medical Decision Making Medical Decision Making: ecg- nsr 93, nl int, no acute ischemia cxr- nad Disposition - Disposition Disposition: HOSPITALIZED Disposition Time: 22:45 Condition: GUARDED - Clinical Impression Clinical Impression: UTI (urinary tract infection), Sepsis, Metabolic encephalopathy
[2017-02-11] MEDS ORDERED: Naloxone 0.4 mg/ml Inj (Adult) IVP ONE (22:00)
[2017-02-11] MEDS ORDERED: Naloxone 0.4 mg/ml Inj (Adult) ONE (22:05)
[2017-02-11 22:09] LABS: BASO # 0.1 K/uL (0.0-0.2); EOS # 0.3 K/uL (0.0-0.7); MEAN CELL VOLUME 80.8 fL (80.0-94.0); MEAN PLATELET VOLUME 8.3 fL (7.2-11.7); RED CELL DISTRIBUTION WIDTH 14.3 % (11.5-14.5)
[2017-02-11 22:19] LABS: DRAW SITE RRA
[2017-02-11 22:28] LABS: BASO % 0.4 % (0.0-2.0); CHLORIDE 100 mmol/L (98-107); EOS % 2.2 % (0.0-4.0); HEMATOCRIT 39.1 % (35.0-51.0); LYMPH # 3.8 K/uL (1.0-4.3); LYMPH % 26.6 % (20.0-40.0); MEAN CORPUSCULAR HEMOGLOBIN 26.5 pg (27.0-31.0); MEAN CORPUSCULAR HGB CONC 32.8 g/dL (33.0-37.0); MONO # 0.9 K/uL (0.0-0.8); MONO % 6.1 % (0.0-10.0); NRBC % 0.1 % (0.0-2.0); POTASSIUM 4.9 mmol/L (3.6-5.2); SODIUM 134 mmol/L (132-148); WHITE BLOOD COUNT 14.5 K/uL (4.8-10.8)
[2017-02-11 22:30] LABS: BILIRUBIN,TOTAL 0.9 mg/dL (0.2-1.3); GFR AFRICAN-AMERICAN > 60
[2017-02-11 22:31] LABS: ALB/GLOB RATIO 1.1 (1.0-2.1); ALKALINE PHOSPHATASE 94 U/L (38-126); ALT/SGPT 21 U/L (21-72); AST/SGOT 27 U/L (17-59); BLOOD UREA NITROGEN 21 mg/dL (9-20); CALCIUM 9.2 mg/dl (8.6-10.4); CARBON DIOXIDE 22 mmol/L (22-30); GLUCOSE,RANDOM 214 mg/dL (75-110); TOTAL PROTEIN 7.3 g/dL (6.3-8.3)
[2017-02-11 22:32] LABS: ALCOHOL SERUM < 10 mg/dl (0-10)
--- NOTE | 2017-02-11 22:38 | CT ---
EXAM: CT Head Without Intravenous Contrast CLINICAL HISTORY: 66 years old, male; Signs and symptoms; Altered mental status/memory loss; Additional info: AMS TECHNIQUE: Axial computed tomography images of the head/brain without intravenous contrast. All CT scans at this facility use one or more dose reduction techniques, viz.: automated exposure control; ma/kV adjustment per patient size (including targeted exams where dose is matched to indication; i.e. head); or iterative reconstruction technique. COMPARISON: No relevant prior studies available. FINDINGS: Brain: No acute intracranial hemorrhage. Age-appropriate periventricular white matter disease. No edema. Ventricles: Age-appropriate ventriculomegaly. Bones: No acute displaced fracture. Sinuses: Unremarkable as visualized. No acute sinusitis. Mastoid air cells: Unremarkable as visualized. No mastoid effusion. IMPRESSION: No acute intracranial hemorrhage, or suspicious mass effect.
[2017-02-11 23:05] LABS: RBC URINE 8 /hpf (0-3); URINE BACTERIA MANY (<OCC); URINE BILIRUBIN NEGATIVE (NEGATIVE); URINE BLOOD 1+ (NEGATIVE); URINE COLOR Yellow (YELLOW); URINE GLUCOSE (UA) NORMAL (Normal); URINE KETONE NEGATIVE (NEGATIVE); URINE LEUKOCYTE ESTERASE 3+ Leu/uL (Negative); URINE PROTEIN 2+ mg/dL (NEGATIVE); URINE UROBILINOGEN NORMAL mg/dL (0.2-1.0); WBC URINE 650 /hpf (0-5)
[2017-02-11] MEDS ORDERED: Sodium Chloride 0.9% 1,000 ML IV ONE ×2 (23:09→23:10)
[2017-02-11] MEDS ORDERED: Sodium Chloride 0.9% 2,000 ML ONE (23:24)
[2017-02-11] MEDS ORDERED: cefTRIAXone IV 1 gm in Dextros 50 ML IVPB ONE (23:37)
[2017-02-11] MEDS ORDERED: Oxycodone/Acetaminophen 5/325 mg Tab PO PRN (23:58)
[2017-02-12] MEDS: Sodium Chloride 0.9% 1,000 ML IV SCH ×2 (00:18→21:03)
--- NOTE | 2017-02-12 08:33 | RAD ---
HISTORY: Altered mental status COMPARISON: 01/07/2017. FINDINGS: LUNGS: The lungs are clear. PLEURA: No significant pleural effusion identified, no pneumothorax apparent. CARDIOVASCULAR: There is mild cardiomegaly. Status post CABG. OSSEOUS STRUCTURES: No significant abnormalities. VISUALIZED UPPER ABDOMEN: Normal. OTHER FINDINGS: None. IMPRESSION: No active pulmonary disease. Mild cardiomegaly.
[2017-02-12] MEDS: (Novolog) Insulin Aspart, Recombinant 100 u/ml 10 ml vial SC SCH ×4 (08:57→21:03)
[2017-02-12] MEDS: HYDROmorphone 0.5 mg/0.5 ml ISec IVP PRN (09:42)
[2017-02-12] MEDS: Enoxaparin 40 mg Syringe SC SCH (09:48)
[2017-02-12] MEDS: Vancomycin 1 gm/NS 200 ml 1 GM/200 ML BAG IVPB SCH ×2 (11:35→21:04)
[2017-02-13] MEDS: HYDROmorphone 0.5 mg/0.5 ml ISec IVP PRN ×3 (00:24→18:05)
[2017-02-13] MEDS: Sodium Chloride 0.45% 1,000 ML IV SCH ×2 (00:45→16:54)
[2017-02-13] MEDS: Sodium Chloride 0.9% 1,000 ML IV SCH (05:01)
[2017-02-13] MEDS: (Novolog) Insulin Aspart, Recombinant 100 u/ml 10 ml vial SC SCH ×3 (10:00→21:35)
[2017-02-13] MEDS: Vancomycin 1 gm/NS 200 ml 1 GM/200 ML BAG IVPB SCH ×2 (13:37→21:35)
[2017-02-13] MEDS: Enoxaparin 40 mg Syringe SC SCH (13:55)
--- NOTE | 2017-02-13 16:12 | CP.PCM.CON ---
History of Present Illness - History of Present Illness History of Present Illness: 66M biba from SNF for ams since around dinner time. per report he did not eat dinner and became more lethargic since that time. also his apparently took him home after an dr chase today before taking him back to the SNF. referred for id eval possible sepsis - Medical History PMH: Anxiety, Arthritis, Asthma, Depression, Diabetes, HTN, Hypercholesterolemia Surgical History: CABG, Cholecystectomy, Coronary Stent (x3) - [facility] Procedures ABOVE KNEE AMPUTATION (12/07/14) ANGIOPLASTY OF OTHER NON-CORONARY VESSEL(S) (11/28/13) ATHERECTOMY OF OTHER NON-CORONARY VESSEL(S) (10/21/11) BELOW KNEE AMPUTAT NEC (09/10/14) CATARAC PHACOEMULS/ASPIR (02/13/14) CONTRAST AORTOGRAM (09/04/14) CONTRAST ARTERIOGRAM-LEG (09/04/14) DETACHMENT AT RIGHT UPPER LEG, LOW, OPEN APPROACH (01/07/17) FLUOROSCOPY R LOW EXTREM ART W L OSM CONTRAST, LASER INTRAOP (11/18/16) INFLUENZA VACCINATION (04/24/14) INSEJ [id number] PERIPHERAL NON-CORONARY VES STENT(S) (11/28/13) INSERT LENS AT CATAR EXT (02/13/14) INSERTION OF ONE VASCULAR STENT (11/28/13) INSPECTION OF LOWER ARTERY, OPEN APPROACH (11/18/16) LOC EXC BONE LESION NEC (10/31/14) OCCUPATIONAL THERAPY (09/17/14) OTHER MYECTOMY (10/10/14) PHYSICAL THERAPY NEC (09/17/14) PROCEDURE ON SINGLE VESSEL (11/28/13) RECREATIONAL THERAPY (09/17/14) VACCINATION NEC (04/24/14) VASC SHUNT & BYPASS NEC (11/28/13) Review of Systems - Review of Systems Systems not reviewed;Unavailable: Altered Mental Status - Constitutional Constitutional: As Per HPI - EENT Eyes: absent: As Per HPI, Blind Spots, Blurred Vision, Change in Vision, Decreased Night Vision, Diplopia, Discharge, Dry Eye, Exophthalmos, Floaters, Irritation, Itchy Eyes, Loss of Peripheral Vision, Pain, Photophobia, Requires Corrective Lenses, Sees Flashes, Spots in Vision, Tunnel Vision, Other Visual Disturbances, Loss of Vision, Other Ears: absent: As Per HPI, Decreased Hearing, Ear Discharge, Ear Pain, Tinnitus, Abnormal Hearing, Disequilibrium, Dizziness, Other Nose/Mouth/Throat: absent: As Per HPI, Epistaxis, Nasal Congestion, Nasal Discharge, Nasal Obstruction, Nasal Trauma, Nose Pain, Post Nasal Drip, Sinus Pain, Sinus Pressure, Bleeding Gums, Change in Voice, Dental Pain, Dry Mouth, Dysphagia, Halitosis, Hoarsness, Lip Swelling, Mouth Lesions, Mouth Pain, Odynophagia, Sore Throat, Throat Swelling, Tongue Swelling, Facial Pain, Neck Pain, Neck Mass, Other - Cardiovascular Cardiovascular: absent: As Per HPI, Acrocyanosis, Chest Pain, Chest Pain at Rest , Chest Pain with Activity, Claudication, Diaphoresis, Dyspnea, Dyspnea on Exertion, Edema, Irregular Heart Rhythm, Pain Radiating to Arm/Neck/Jaw, Leg Edema, Leg Ulcers, Lightheadedness, Orthopnea, Palpitations, Paroxysmal Nocturnal Dyspnea, Pedal Edema, Radiating Pain, Rapid Heart Rate, Slow Heart Rate, Syncope, Other - Respiratory Respiratory: absent: As Per HPI, Cough, Dyspnea, Hemoptysis, Dyspnea on Exertion , Wheezing, Snoring, Stridor, Pain on Inspiration, Chest Congestion, Excessive Mucous Production, Change in Mucous Color, Pain with Coughing, Other - Gastrointestinal Gastrointestinal: absent: As Per HPI, Abdominal Pain, Belching, Bloating, Change in Bowel Habits, Change in Stool Character, Coffee Ground Emesis, Constipation, Cramping, Diarrhea, Dyspepsia, Dysphagia, Early Satiety, Excessive Flatus, Fecal Incontinence, Heartburn, Hematemesis, Hematochezia, Loose Stools, Melena, Nausea, Odynophagia, Temesmus, Vomiting, Other - Genitourinary Genitourinary: absent: As Per HPI, Change in Urinary Stream, Difficulty Urinating, Dysuria, Flank Pain, Hematuria, Pyuria, Nocturia, Urinary Incontinence, Urinary Frequency, Urinary Hesitance, Urinary Urgency, Voiding Freq/Small Amts, Freq UTI, Hx Renal/Bladder Calculi, Hx /Renal Surgery, Bladder Distension, Other - Musculoskeletal Musculoskeletal: absent: As Per HPI, Abnormal Gait, Arthralgias, Atrophy, Back Pain, Deformity, Joint Swelling, Limited Range of Motion, Loss of Height, Muscle Cramps, Muscle Weakness, Myalgias, Neck Pain, Numbness, Radiating Pain into Limb, Stiffness, Tingling, Other - Integumentary Integumentary: absent: As Per HPI, Acne, Alopecia, Bleeding Lesions, Change in Hair, Change in Nails, Change in Pigmentation, Changing Lesions, Dry Skin, Erythema, Furuncle, Hirsutism, Lesions, New Lesions, Non-Healing Lesions, Photosensitivity, Pruritus, Rash, Skin Pain, Skin Ulcer, Sores, Striae, Swelling , Unusual Bruising, Wounds, Jaundice, Other - Neurological Neurological: absent: As Per HPI, Abnormal Gait, Abnormal Hearing, Abnormal Movements, Abnormal Speech, Behavioral Changes, Burning Sensations, Confusion, Convulsions, Disequilibrium, Dizziness, Numbness, Focal Weakness, Frequent Falls , Headaches, Lack of Coordination, Loss of Vision, Memory Loss, Paresthesias, Radicular Pain, Restless Legs, Sensory Deficit, Syncope, Tingling, Tremor, Vertigo, Weakness, Other Visual Disturbances, Other - Psychiatric Psychiatric: absent: As Per HPI, Abnormal Sleep Pattern, Anhedonia, Anxiety, Auditory Hallucinations, Behavioral Changes, Change in Appetite, Change in Libido, Confusion, Depression, Difficulty Concentrating, Hallucinations, Homicidal Ideation, Hopelessness, Irritability, Memory Loss, Mood Swings, Panic Attacks, Paranoia, Suicidal Ideation, Visual Hallucinations, Tactile Hallucinations, Other - Endocrine Endocrine: absent: As Per HPI, Change in Body Appearance, Change in Libido, Cold Intolorance, Deepening of Voice, Excessive Sweating, Fatigue, Flushing, Heat Intolorance, Increase in Ring/Shoe/Hat Size, Palpitations, Polydipsia, Polyphagia, Polyuria, Other - Hematologic/Lymphatic Hematologic: absent: As Per HPI, Easy Bleeding, Easy Bruising, Lymphadenopathy, Other Past Patient History - Infectious Disease Hx of Infectious Diseases: None - Past Medical History & Family History Past Medical History?: Yes - Past Social History Smoking Status: Former Smoker - CARDIAC Hx Hypercholesterolemia: Yes Hx Hypertension: Yes - PULMONARY Hx Asthma: Yes - HEENT Hx HEENT Problems: Yes Hx Cataracts: Yes Hx Glaucoma: Yes - RENAL Hx Chronic Kidney Disease: No - ENDOCRINE/METABOLIC Hx Endocrine Disorders: Yes Hx Diabetes Mellitus Type 1: Yes - INTEGUMENTARY Hx Dermatological Problems: No - MUSCULOSKELETAL/RHEUMATOLOGICAL Hx Falls: No (bilat AKA) - GASTROINTESTINAL Hx Gastrointestinal Disorders: No - GENITOURINARY/GYNECOLOGICAL Hx Genitourinary Disorders: No - PSYCHIATRIC Hx Anxiety: Yes Hx Depression: Yes Hx Substance Use: No - SURGICAL HISTORY Hx Cholecystectomy: Yes Hx Coronary Artery Bypass Graft: Yes Hx Coronary Stent: Yes (x3) - ANESTHESIA Hx Anesthesia: Yes Hx Anesthesia Reactions: No Hx Malignant Hyperthermia: No Meds Allergies/Adverse Reactions: Allergies Allergy/AdvReac Type Severity Reaction Status Date / Time tomato Allergy RASH Verified 02/11/17 21:53 - Medications Medications: Current Medications Enoxaparin Sodium (Lovenox) 40 mg SC DAILY [facility] Last Admin: 02/13/17 13:55 Dose: Not Given Hydromorphone HCl (Dilaudid) 0.5 mg IVP Q6H PRN PRN Reason: Pain, severe (8-10) Last Admin: 02/13/17 07:25 Dose: 0.5 mg Sodium Chloride (Sodium Chloride 0.45%) 1,000 mls @ 80 mls/hr IV .[id number] [facility] Last Admin: 02/13/17 00:45 Dose: Not Given Vancomycin/Sodium Chloride (Vancomycin 1 Gm/Ns 200 Ml) 1 gm in 200 mls @ 133.333 mls/hr IVPB Q12 [facility] Stop: 02/17/17 10:01 Last Admin: 02/13/17 13:37 Dose: 133.333 mls/hr Ceftriaxone Sodium 1 gm/ (Dextrose) 100 mls @ 100 mls/hr IVPB Q12 [facility] Last Admin: 02/13/17 11:30 Dose: Not Given Insulin Aspart (Novolog) 0 unit SC ACHS [facility] PRN Reason: Protocol Last Admin: 02/13/17 10:00 Dose: Not Given Lorazepam (Ativan) 1 mg IVP Q6H PRN PRN Reason: Anxiety Last Admin: 02/13/17 13:00 Dose: 1 mg Oxycodone/Acetaminophen (Percocet 5/325 Mg Tab) 1 tab PO Q4H PRN PRN Reason: Pain, moderate (4-7) Stop: 02/14/17 23:59 Pantoprazole Sodium (Protonix Inj) 40 mg IVP DAILY [facility] Last Admin: 02/13/17 11:00 Dose: Not Given Physical Exam - Constitutional Appears: Non-toxic, Cachectic, Chronically Ill - Head Exam Head Exam: NORMOCEPHALIC - Eye Exam Eye Exam: PERRL. absent: Scleral icterus - ENT Exam ENT Exam: Mucous Membranes Dry - Neck Exam Neck exam: Negative for: Lymphadenopathy - Respiratory Exam Respiratory Exam: Decreased Breath Sounds, Clear to Auscultation Bilateral - Cardiovascular Exam Cardiovascular Exam: REGULAR RHYTHM, +S1, +S2 - GI/Abdominal Exam GI & Abdominal Exam: Diminished Bowel Sounds, Distended, Soft. absent: Guarding , Rigid, Tenderness - Rectal Exam Rectal Exam: Deferred - Exam Exam: NORMAL INSPECTION - Extremities Exam Extremities exam: Negative for: pedal edema Additional comments: bilat amputation lower extremities - Back Exam Back exam: absent: CVA tenderness (L), CVA tenderness (R) - Neurological Exam Neurological exam: Alert, Altered, CN II-XII Intact - Psychiatric Exam Psychiatric exam: Depressed - Skin Skin Exam: Dry Results - Vital Signs Recent Vital Signs: Last Vital Signs Temp 99.2 F 02/13/17 15:54 Pulse 99 H 02/13/17 15:54 Resp 20 02/13/17 15:54 BP 165/79 H 02/13/17 15:54 Pulse Ox 100 02/13/17 15:54 - Labs Result Diagrams: 02/11/17 22:04 02/11/17 22:04 Labs: Laboratory Results - last 24 hr 02/13/17 06:25 POC Glucose (mg/dL) 213 H Assessment & Plan (1) Metabolic encephalopathy Status: Acute (2) Sepsis Status: Acute (3) UTI (urinary tract infection) Status: Acute (4) Above knee amputation of left lower extremity Status: Acute (5) Arterial, arteriole and capillary disease Status: Acute (6) CAD (coronary artery disease) Status: Acute (7) S/P BKA (below knee amputation) Status: Acute (8) S/P AKA (above knee amputation) Status: Acute - Assessment and Plan (Free Text) Assessment: cont iv antibiotics await cultures
[2017-02-13] MEDS: Meropenem 500 MG in Dextrose 5% In Water 100 ML IVPB SCH ×2 (16:53→23:45)
[2017-02-14] MEDS: HYDROmorphone 0.5 mg/0.5 ml ISec IVP PRN ×3 (00:02→18:44)
[2017-02-14] MEDS: Sodium Chloride 0.45% 1,000 ML IV SCH ×2 (02:00→08:16)
[2017-02-14] MEDS: (Novolog) Insulin Aspart, Recombinant 100 u/ml 10 ml vial SC SCH ×4 (08:10→21:46)
[2017-02-14] MEDS: Meropenem 500 MG in Dextrose 5% In Water 100 ML IVPB SCH (08:30)
[2017-02-14] MEDS: Enoxaparin 40 mg Syringe SC SCH (09:51)
[2017-02-14] MEDS: Vancomycin 1 gm/NS 200 ml 1 GM/200 ML BAG IVPB SCH ×2 (09:56→21:10)
[2017-02-14 11:45] LABS: BASO % 0.2 % (0.0-2.0); EOS # 0.2 K/uL (0.0-0.7); EOS % 2.3 % (0.0-4.0); HEMATOCRIT 38.4 % (35.0-51.0); LYMPH # 1.5 K/uL (1.0-4.3); LYMPH % 18.7 % (20.0-40.0); MEAN CELL VOLUME 81.1 fL (80.0-94.0); MEAN CORPUSCULAR HEMOGLOBIN 26.6 pg (27.0-31.0); MEAN CORPUSCULAR HGB CONC 32.8 g/dL (33.0-37.0); MEAN PLATELET VOLUME 8.4 fL (7.2-11.7); MONO # 0.4 K/uL (0.0-0.8); MONO % 5.2 % (0.0-10.0); RED CELL DISTRIBUTION WIDTH 14.1 % (11.5-14.5); WHITE BLOOD COUNT 7.9 K/uL (4.8-10.8)
[2017-02-14 12:08] LABS: CHLORIDE 101 mmol/L (98-107); SODIUM 135 mmol/L (132-148)
[2017-02-14 12:09] LABS: POTASSIUM 3.8 mmol/L (3.6-5.2)
[2017-02-14 12:11] LABS: ALB/GLOB RATIO 0.9 (1.0-2.1); ALKALINE PHOSPHATASE 109 U/L (38-126); ALT/SGPT 34 U/L (21-72); AST/SGOT 32 U/L (17-59); BILIRUBIN,TOTAL 0.5 mg/dL (0.2-1.3); BLOOD UREA NITROGEN 10 mg/dL (9-20); CARBON DIOXIDE 24 mmol/L (22-30); GFR AFRICAN-AMERICAN > 60; GLUCOSE,RANDOM 214 mg/dL (75-110)
[2017-02-14 12:12] LABS: MAGNESIUM 1.6 mg/dL (1.6-2.3); PHOSPHOROUS 3.6 mg/dL (2.5-4.5)
--- NOTE | 2017-02-14 12:19 | CP.PCM.PN ---
Subjective - Date & Time of Evaluation Date of Evaluation: 02/14/17 Time of Evaluation: 08:00 - Subjective Subjective: cultures noted added cefepime consider neuro eval Objective - Vital Signs/Intake and Output Vital Signs (last 24 hours): Temp Pulse Resp BP Pulse Ox 98 F 80 20 147/80 98 02/13/17 23:15 02/13/17 23:15 02/13/17 23:15 02/13/17 23:15 02/13/17 23:15 Intake and Output: 02/14/17 02/14/17 06:59 18:59 Intake Total 1320 Balance 1320 - Medications Medications: Current Medications Enoxaparin Sodium (Lovenox) 40 mg SC DAILY [facility] Last Admin: 02/14/17 09:51 Dose: 40 mg Hydromorphone HCl (Dilaudid) 0.5 mg IVP Q6H PRN PRN Reason: Pain, severe (8-10) Last Admin: 02/14/17 00:02 Dose: 0.5 mg Sodium Chloride (Sodium Chloride 0.45%) 1,000 mls @ 80 mls/hr IV .[id number] [facility] Last Admin: 02/14/17 08:16 Dose: 80 mls/hr Vancomycin/Sodium Chloride (Vancomycin 1 Gm/Ns 200 Ml) 1 gm in 200 mls @ 133.333 mls/hr IVPB Q12 [facility] Stop: 02/17/17 10:01 Last Admin: 02/14/17 09:56 Dose: 133.333 mls/hr Cefepime HCl (Maxipime Iv 1 Gm Premix) 1 gm in 50 mls @ 100 mls/hr IVPB Q12H [facility] Insulin Aspart (Novolog) 0 unit SC ACHS [facility] PRN Reason: Protocol Last Admin: 02/14/17 08:10 Dose: 3 unit Lorazepam (Ativan) 1 mg IVP Q6H PRN PRN Reason: Anxiety Last Admin: 02/13/17 13:00 Dose: 1 mg Oxycodone/Acetaminophen (Percocet 5/325 Mg Tab) 1 tab PO Q4H PRN PRN Reason: Pain, moderate (4-7) Stop: 02/14/17 23:59 Pantoprazole Sodium (Protonix Inj) 40 mg IVP DAILY [facility] Last Admin: 02/14/17 09:51 Dose: 40 mg - Labs Labs: 02/14/17 11:37 02/11/17 22:04 - Constitutional Appears: Non-toxic, Chronically Ill - Head Exam Head Exam: NORMOCEPHALIC - Eye Exam Eye Exam: PERRL. absent: Scleral icterus - ENT Exam ENT Exam: Mucous Membranes Dry - Neck Exam Neck Exam: absent: Lymphadenopathy - Respiratory Exam Respiratory Exam: Decreased Breath Sounds - Cardiovascular Exam Cardiovascular Exam: REGULAR RHYTHM - GI/Abdominal Exam GI & Abdominal Exam: Distended, Soft - Rectal Exam Rectal Exam: Deferred - Exam Exam: NORMAL INSPECTION - Extremities Exam Extremities Exam: absent: Pedal Edema - Back Exam Back Exam: absent: CVA tenderness (L), CVA tenderness (R) - Neurological Exam Neurological Exam: Alert, Awake, Oriented x3 - Psychiatric Exam Psychiatric exam: Normal Mood - Skin Skin Exam: Dry Assessment and Plan (1) Metabolic encephalopathy Status: Acute (2) Sepsis Status: Acute (3) UTI (urinary tract infection) Status: Acute (4) Above knee amputation of left lower extremity Status: Acute (5) Arterial, arteriole and capillary disease Status: Acute (6) CAD (coronary artery disease) Status: Acute (7) S/P BKA (below knee amputation) Status: Acute (8) S/P AKA (above knee amputation) Status: Acute
[2017-02-14] MEDS: Cefepime IV 1 gm in Dextrose 1 GM/50 ML BAG IVPB SCH (12:47)
[2017-02-14] MEDS ORDERED: Pneumococcal 23-Valent Vaccine IM ONE (14:00)
--- NOTE | 2017-02-14 15:36 | CP.PCM.PN ---
Subjective - Date & Time of Evaluation Date of Evaluation: 02/14/17 Time of Evaluation: 15:30 - Subjective Subjective: Progress note. Attending: Dr. Muhammad Pt seen and examined at bedside. No acute distress. No events overnight. No fevers, chills, vomiting, diarrhea. Objective - Vital Signs/Intake and Output Vital Signs (last 24 hours): Temp Pulse Resp BP Pulse Ox 98 F 80 20 147/80 98 02/13/17 23:15 02/13/17 23:15 02/13/17 23:15 02/13/17 23:15 02/13/17 23:15 Intake and Output: 02/14/17 02/14/17 06:59 18:59 Intake Total 1320 Balance 1320 - Medications Medications: Current Medications Enoxaparin Sodium (Lovenox) 40 mg SC DAILY [facility] Last Admin: 02/14/17 09:51 Dose: 40 mg Hydromorphone HCl (Dilaudid) 0.5 mg IVP Q6H PRN PRN Reason: Pain, severe (8-10) Last Admin: 02/14/17 12:43 Dose: 0.5 mg Sodium Chloride (Sodium Chloride 0.45%) 1,000 mls @ 80 mls/hr IV .[id number] [facility] Last Admin: 02/14/17 08:16 Dose: 80 mls/hr Vancomycin/Sodium Chloride (Vancomycin 1 Gm/Ns 200 Ml) 1 gm in 200 mls @ 133.333 mls/hr IVPB Q12 [facility] Stop: 02/17/17 10:01 Last Admin: 02/14/17 09:56 Dose: 133.333 mls/hr Cefepime HCl (Maxipime Iv 1 Gm Premix) 1 gm in 50 mls @ 100 mls/hr IVPB Q12H [facility] Last Admin: 02/14/17 12:47 Dose: 100 mls/hr Insulin Aspart (Novolog) 0 unit SC ACHS [facility] PRN Reason: Protocol Last Admin: 02/14/17 12:27 Dose: Not Given Lorazepam (Ativan) 1 mg IVP Q6H PRN PRN Reason: Anxiety Last Admin: 02/13/17 13:00 Dose: 1 mg Oxycodone/Acetaminophen (Percocet 5/325 Mg Tab) 1 tab PO Q4H PRN PRN Reason: Pain, moderate (4-7) Stop: 02/14/17 23:59 Pantoprazole Sodium (Protonix Inj) 40 mg IVP DAILY [facility] Last Admin: 02/14/17 09:51 Dose: 40 mg - Labs Labs: 02/14/17 11:37 02/14/17 11:37 - Constitutional Appears: Non-toxic, No Acute Distress - Head Exam Head Exam: ATRAUMATIC, NORMAL INSPECTION, NORMOCEPHALIC - Eye Exam Eye Exam: EOMI - ENT Exam ENT Exam: Mucous Membranes Moist - Neck Exam Neck Exam: Full ROM, Normal Inspection - Respiratory Exam Respiratory Exam: NORMAL BREATHING PATTERN. absent: Respiratory Distress - Cardiovascular Exam Cardiovascular Exam: +S1, +S2 - GI/Abdominal Exam GI & Abdominal Exam: Soft, Normal Bowel Sounds. absent: Tenderness - Extremities Exam Extremities Exam: absent: Full ROM, Normal Inspection Additional comments: double amputee - Back Exam Back Exam: NORMAL INSPECTION - Neurological Exam Neurological Exam: Alert, Awake, Oriented x3 - Psychiatric Exam Psychiatric exam: Normal Affect, Normal Mood - Skin Skin Exam: Dry, Intact, Normal Color, Warm Assessment and Plan - Assessment and Plan (Free Text) Assessment: This is a 66 yo male with 1. Sepsis/urosepsis -ID consult. Dr. Fallon. recs appreciated. -blood cultures negative -urine shows gram negative ella. -dilaudid .5 IV q 6 prn for pain -meropenem 500 mg q 8 -percocet 5/325 for pain -1/2 NS 80 cc/hr -continue vanco 1 g IV q 12
[2017-02-15] MEDS: Cefepime IV 1 gm in Dextrose 1 GM/50 ML BAG IVPB SCH ×2 (01:29→17:39)
[2017-02-15] MEDS: Sodium Chloride 0.45% 1,000 ML IV SCH (05:12)
[2017-02-15] MEDS: HYDROmorphone 0.5 mg/0.5 ml ISec IVP PRN (05:16)
[2017-02-15] MEDS: (Novolog) Insulin Aspart, Recombinant 100 u/ml 10 ml vial SC SCH ×4 (07:30→21:48)
[2017-02-15] MEDS ORDERED: Oxycodone/Acetaminophen 5/325 mg Tab PO PRN (07:36)
[2017-02-15] MEDS: Vancomycin 1 gm/NS 200 ml 1 GM/200 ML BAG IVPB SCH ×2 (10:17→21:09)
--- NOTE | 2017-02-15 11:06 | CP.PCM.PN ---
Subjective - Date & Time of Evaluation Date of Evaluation: 02/15/17 Time of Evaluation: 11:03 - Subjective Subjective: Medicine Progress Note- Dr Muhammad's service Patient seen and examined. Patient is AAOx2 to person and place. The patient wishes to go back to his fdc and states that he wants to bring his girlfriend with him. Patient states he feels well and denies pain. Denies shortness of breath, abdominal pain, chest pain, and palpitations. Patient is a resident of [facility]. Objective - Vital Signs/Intake and Output Vital Signs (last 24 hours): Temp Pulse Resp BP Pulse Ox 98.1 F 95 H 18 152/76 H 100 02/15/17 00:00 02/15/17 09:00 02/15/17 09:00 02/15/17 09:00 02/15/17 09:00 Intake and Output: 02/15/17 02/15/17 06:59 18:59 Intake Total 1650 Output Total 600 Balance 1050 - Medications Medications: Current Medications Enoxaparin Sodium (Lovenox) 40 mg SC DAILY [facility] Last Admin: 02/14/17 09:51 Dose: 40 mg Gabapentin (Neurontin) 400 mg PO TID [facility] Vancomycin/Sodium Chloride (Vancomycin 1 Gm/Ns 200 Ml) 1 gm in 200 mls @ 133.333 mls/hr IVPB Q12 [facility] Stop: 02/17/17 10:01 Last Admin: 02/15/17 10:17 Dose: 133.333 mls/hr Cefepime HCl (Maxipime Iv 1 Gm Premix) 1 gm in 50 mls @ 100 mls/hr IVPB Q12H [facility] Last Admin: 02/15/17 01:29 Dose: 100 mls/hr Insulin Aspart (Novolog) 0 unit SC ACHS [facility] PRN Reason: Protocol Last Admin: 02/15/17 07:30 Dose: Not Given Lisinopril (Zestril) 10 mg PO DAILY [facility] Last Admin: 02/15/17 10:17 Dose: 10 mg Lorazepam (Ativan) 1 mg PO Q6H PRN PRN Reason: Anxiety Last Admin: 02/15/17 10:17 Dose: 1 mg Oxycodone/Acetaminophen (Percocet 5/325 Mg Tab) 2 tab PO Q6H PRN PRN Reason: Pain, severe (8-10) Pantoprazole Sodium (Protonix Inj) 40 mg IVP DAILY [facility] Last Admin: 02/15/17 10:17 Dose: 40 mg - Labs Labs: 02/14/17 11:37 02/14/17 11:37 - Constitutional Appears: Non-toxic, No Acute Distress - Head Exam Head Exam: ATRAUMATIC, NORMOCEPHALIC - Eye Exam Eye Exam: EOMI, Normal appearance - ENT Exam ENT Exam: Mucous Membranes Moist - Respiratory Exam Respiratory Exam: Clear to Ausculation Bilateral, NORMAL BREATHING PATTERN. absent: Rhonchi, Wheezes, Respiratory Distress - Cardiovascular Exam Cardiovascular Exam: REGULAR RHYTHM, +S1, +S2 - GI/Abdominal Exam GI & Abdominal Exam: Soft, Normal Bowel Sounds. absent: Firm, Guarding, Tenderness - Extremities Exam Additional comments: Right AKA Left BKA - Neurological Exam Neurological Exam: Alert, Awake, CN II-XII Intact, Oriented x3 - Psychiatric Exam Psychiatric exam: Normal Mood - Skin Skin Exam: Dry, Warm Additional comments: Sacral ulcers: left side- stage 2 ulcer 1 inch lateral to gluteal fold right side- stage 2 ulcer 1 inch lateral to gluteal fold Assessment and Plan - Assessment and Plan (Free Text) Assessment: Altered Mental Status -AAOx2 -may be secondary to UTI, will treat -f/u ammonia level -f/u psych consult, help appreciated: Dr Victor -CT head negative UTI -ID consult. Dr. Fallon. recs appreciated. -blood cultures negative -urine shows gram negative ella- Proteus -dilaudid .5 IV q 6 prn for pain -meropenem 500 mg IV q 8 (started on 02/14) -percocet 5/325 for pain -continue vanco 1 g IV q 12 (started on 02/12) Sacral ulcers -Stage 2 -wound care consulted Diabetes Mellitus -ISS -Gabapentin 400mg TID -Lisinopril 10mg PO daily HTN -BP elevated -Lisinopril 10mg PO daily -will adjust if remains elevated Prophylactic measures -Lovenox 40mg SC daily -Protonix 40mg IV daily -PT eval/OT eval Management per Dr Muhammad
[2017-02-15] MEDS: Enoxaparin 40 mg Syringe SC SCH (11:47)
--- NOTE | 2017-02-15 12:19 | CARD ---
APPROVED REPORT EKG Measurement Heart [id number] <Conclusion> Normal sinus rhythm Inferior infarct, age undetermined Abnormal ECG
--- NOTE | 2017-02-15 14:18 | PCM.PSYCH ---
Initial Psychiatric Evaluation - Initial Psychiatric Evaluation Type of Admission: Voluntary Chief Complaint (in patient's own words): "I want to go home" History of Present Illness and Precipitating Events: The pt is seen, chart reviewed and case discussed He is a 66 y/o double-amputee man, a very poor historian. He claims he has pain and would like to go home, but he is in soft restraints due to agitation The pt is quite confused, agitated and uncooperative He is disoriented, restless in bed, and couldn't answer many questions. Support given Meds ordered Current Medications: Active Medications Generic Name Dose Route Start Last Admin Trade Name Freq PRN Reason Stop Dose Admin Enoxaparin Sodium 40 mg 02/12/17 10:00 02/15/17 11:47 Lovenox SC 40 mg DAILY [facility] Administration Gabapentin 400 mg 02/15/17 10:00 02/15/17 13:35 Neurontin PO 400 mg TID [facility] Administration Haloperidol 5 mg 02/15/17 14:17 Haldol PO Q1H PRN agitation max 4x/24h Vancomycin/Sodium Chloride 1 gm in 200 mls @ 133.333 mls/hr 02/12/17 10:00 10:17 Vancomycin 1 Gm/Ns 200 Ml IVPB 02/17/17 10:01 133.333 mls/hr Q12 [facility] Administration Cefepime HCl 1 gm in 50 mls @ 100 mls/hr 02/14/17 13:00 02/15/17 01:29 Maxipime Iv 1 Gm Premix IVPB 100 mls/hr Q12H [facility] Administration Insulin Aspart 0 unit 02/12/17 07:30 02/15/17 13:29 Novolog SC 8 unit ACHS [facility] Administration Protocol Lisinopril 10 mg 02/15/17 10:00 02/15/17 10:17 Zestril PO 10 mg DAILY [facility] Administration Lorazepam 1 mg 02/14/17 17:15 02/15/17 10:17 Ativan PO 1 mg Q6H PRN Administration Anxiety Oxycodone/Acetaminophen 2 tab 02/15/17 07:36 Percocet 5/325 Mg Tab PO Q6H PRN Pain, severe (8-10) Pantoprazole Sodium 40 mg 02/12/17 10:00 02/15/17 10:17 Protonix Inj IVP 40 mg DAILY [facility] Administration Past Psychiatric History - Past Psychiatric History Previous Treatment History: None Pertinent Medical Hx (Current Medical&Sleep Prob, Allergies): Allergies Allergy/AdvReac Type Severity Reaction Status Date / Time tomato Allergy RASH Verified 02/11/17 21:53 Acetaminophen [Tylenol 325mg tab] 2 tab PO Q4 PRN 02/03/17 Aluminum Hydroxide/Magnesium [Maalox Plus 30 ml] 30 ml PO Q4 PRN 02/03/17 Bismuth Tribromoph/Petrolatum [Xeroflo Gauze Dressing] 1 patch TOP DAILY Enoxaparin [Lovenox] 40 mg SQ DAILY 02/03/17 Gabapentin [Neurontin] 600 mg PO TID 02/03/17 Insulin Aspart, Recombinant [Novolog] 20 unit SQ TID 02/03/17 Insulin Glargine, Recombina [Lantus] 15 unit SC HS 02/03/17 Lisinopril [Zestril] 10 mg PO DAILY 02/03/17 Magnesium Hydroxide [Milk of Magnesia] 400 mg PO DAILY PRN 02/03/17 Multivitamin [Multiple Vitamins] 1 tab PO DAILY 02/03/17 Neomycin Arzate/Bacitra/Polymyxin [Donte-Polycin Eye Ointment] 3.5 gm OU QID 02/03/17 Oxycodone HCl/Acetaminophen [Endocet 325 mg-5 mg] 1 tab PO Q4 PRN 02/03/17 Oxycodone HCl/Acetaminophen [Percocet 10-325 mg Tablet] 1 tab PO Q4 PRN Tobramycin/Dexamethasone [TobraDex 0.3%-0.1% Opht Oint] 1 appl OU QID 02/03/17 Tuberculin [Tubersol] 5 tu ID 02/03/17 Review of Systems - Review of Systems Systems not reviewed;Unavailable: Altered Mental Status Mental Status Examination - Personal Presentation Personal Presentation: Looks stated age - Affect Affect: Constricted - Motor Activity Motor Activity: Psychomotor Agitation - Reliability in Providing Information Reliability in Providing Information: Poor, due to cognitve impairment - Speech Speech: Disorganized - Mood Mood: Other (irate, labile) - Formal Thought Process Formal Thought Process: Loosening of associations - Cognitive Functions Sensorium: Drowsy Attention/Concentration: Easily distracted Abstract Thinking: [place] Estimate of Intelligence: Average Judgement: Intact, as evidence by: Insight regarding need for hospitalization Memory: Recent impaired, as evidence by: Inability to recall events of the day, Remote impaired as evidenced by: Inability to recall historical events - Risk Risk: Diminished functioning - Strength & Assets Inventory Strength & Assets Inventory: Life experience, Cooperative DSM 5 DX - DSM 5 DSM 5 Diagnosis: Delirium, hyperactive - Recommended/Plan of Treatment Treatment Recommendations and Plan of Treatment: Haldol prn po or IM Benzos should be last resort Support and frequent orientation 31 min
[2017-02-15 16:00] VITALS: RESP 20
[2017-02-16] MEDS: Cefepime IV 1 gm in Dextrose 1 GM/50 ML BAG IVPB SCH ×2 (05:58→17:35)
--- NOTE | 2017-02-16 09:19 | CP.PCM.PN ---
Subjective - Date & Time of Evaluation Date of Evaluation: 02/16/17 Time of Evaluation: 09:15 - Subjective Subjective: Medicine Progress Note- Dr Muhammad's service Patient seen and examined. Patient calm this morning but sleepy. Patient was given Haldol 4mg last night after he was agitated and aggressive and slept through the night. No other acute events overnight per RN. Objective - Vital Signs/Intake and Output Vital Signs (last 24 hours): Temp Pulse Resp BP Pulse Ox 98.6 F 137 H 20 118/90 97 02/16/17 08:10 02/16/17 08:10 02/16/17 08:10 02/16/17 08:10 02/16/17 08:10 Intake and Output: 02/16/17 02/16/17 06:59 18:59 Intake Total 1200 Balance 1200 - Medications Medications: Current Medications Enoxaparin Sodium (Lovenox) 40 mg SC DAILY [facility] Last Admin: 02/15/17 11:47 Dose: 40 mg Gabapentin (Neurontin) 400 mg PO TID [facility] Last Admin: 02/15/17 17:39 Dose: 400 mg Haloperidol (Haldol) 4 mg PO Q1H PRN PRN Reason: agitation max 4x/24h Last Admin: 02/16/17 00:20 Dose: 4 mg Haloperidol (Haldol) 1 mg PO Q1H PRN PRN Reason: agitation max 4x/24h Last Admin: 02/15/17 19:00 Dose: 1 mg Vancomycin/Sodium Chloride (Vancomycin 1 Gm/Ns 200 Ml) 1 gm in 200 mls @ 133.333 mls/hr IVPB Q12 [facility] Stop: 02/17/17 10:01 Last Admin: 02/15/17 21:09 Dose: 133.333 mls/hr Cefepime HCl (Maxipime Iv 1 Gm Premix) 1 gm in 50 mls @ 100 mls/hr IVPB Q12H [facility] Last Admin: 02/16/17 05:58 Dose: 100 mls/hr Insulin Aspart (Novolog) 0 unit SC ACHS [facility] PRN Reason: Protocol Last Admin: 02/15/17 21:48 Dose: Not Given Lisinopril (Zestril) 10 mg PO DAILY [facility] Last Admin: 02/15/17 10:17 Dose: 10 mg Lorazepam (Ativan) 2 mg PO Q6H PRN PRN Reason: severe agitation Oxycodone/Acetaminophen (Percocet 5/325 Mg Tab) 2 tab PO Q6H PRN PRN Reason: Pain, severe (8-10) Last Admin: 02/16/17 08:33 Dose: 2 tab Pantoprazole Sodium (Protonix Inj) 40 mg IVP DAILY [facility] Last Admin: 02/15/17 10:17 Dose: 40 mg - Labs Labs: 02/14/17 11:37 02/14/17 11:37 - Constitutional Appears: Non-toxic, No Acute Distress - Head Exam Head Exam: ATRAUMATIC, NORMOCEPHALIC - Eye Exam Eye Exam: EOMI, Normal appearance - ENT Exam ENT Exam: Mucous Membranes Moist - Respiratory Exam Respiratory Exam: Clear to Ausculation Bilateral, NORMAL BREATHING PATTERN. absent: Rhonchi, Wheezes, Respiratory Distress - Cardiovascular Exam Cardiovascular Exam: REGULAR RHYTHM, +S1, +S2 - GI/Abdominal Exam GI & Abdominal Exam: Soft, Normal Bowel Sounds. absent: Firm, Guarding, Tenderness - Extremities Exam Additional comments: Right AKA Left BKA - Neurological Exam Neurological Exam: Awake. absent: Alert, Oriented - Psychiatric Exam Psychiatric exam: Normal Mood - Skin Skin Exam: Dry, Warm Additional comments: Sacral ulcers: left side- stage 2 ulcer 1 inch lateral to gluteal fold right side- stage 2 ulcer 1 inch lateral to gluteal fold Assessment and Plan - Assessment and Plan (Free Text) Assessment: Altered Mental Status -agitated -may be secondary to UTI, will treat -ammonia level 28 (normal) -psych consult, help appreciated: Dr Victor -Avoid benzos, started Haldol prn agitation per psych recommendations -CT head negative UTI -f/u repeat Urine culture ordered on 02/16 -ID consult. Dr. Fallon. recs appreciated. -blood cultures negative -urine shows gram negative ella- Proteus -meropenem 500 mg IV q 8 (started on 02/14) -percocet 5/325 for pain -continue vanco 1 g IV q 12 (started on 02/12) Sacral ulcers -Stage 2 -wound care consulted Diabetes Mellitus -ISS -Gabapentin 400mg TID -Lisinopril 10mg PO daily HTN -BP well controlled -Lisinopril 10mg PO daily Prophylactic measures -Lovenox 40mg SC daily -Protonix 40mg IV daily -PT eval/OT eval Management per Dr Muhammad
--- NOTE | 2017-02-16 09:43 | HP ---
HISTORY OF PRESENT ILLNESS: The patient presented with chief complaint of altered mental status, weakness, fatigue. The patient was found to have sepsis. The patient has history of diabetes, peripheral vascular disease, bilateral amputation. PHYSICAL EXAMINATION: GENERAL: The patient is awake, alert and oriented. VITAL SIGNS: Temperature 98, pulse 90. HEENT: Within normal limits. NECK: Supple. CHEST: Symmetrical. HEART: Regular. ABDOMEN: Soft. EXTREMITIES: No edema. IMPRESSION: Altered mental status sepsis. PLAN: The patient needs bedrest, supportive care, antibiotics, one to one monitoring. Marti Muhammad MD
[2017-02-16] MEDS: Vancomycin 1 gm/NS 200 ml 1 GM/200 ML BAG IVPB SCH ×2 (10:26→22:52)
[2017-02-16] MEDS: (Novolog) Insulin Aspart, Recombinant 100 u/ml 10 ml vial SC SCH ×3 (10:31→21:34)
[2017-02-16] MEDS: Enoxaparin 40 mg Syringe SC SCH (10:31)
[2017-02-16 12:27] LABS: BLOOD UREA NITROGEN 7 mg/dL (9-20); CALCIUM 9.1 mg/dl (8.6-10.4); CARBON DIOXIDE 22 mmol/L (22-30); CHLORIDE 100 mmol/L (98-107); GFR AFRICAN-AMERICAN > 60; GLUCOSE,RANDOM 269 mg/dL (75-110); POTASSIUM 3.7 mmol/L (3.6-5.2); SODIUM 136 mmol/L (132-148)
[2017-02-16 13:57] LABS: BASO % 0.3 % (0.0-2.0); EOS # 0.2 K/uL (0.0-0.7); EOS % 2.6 % (0.0-4.0); HEMATOCRIT 37.7 % (35.0-51.0); LYMPH # 1.6 K/uL (1.0-4.3); LYMPH % 19.4 % (20.0-40.0); MEAN CELL VOLUME 80.6 fL (80.0-94.0); MEAN CORPUSCULAR HEMOGLOBIN 26.5 pg (27.0-31.0); MEAN CORPUSCULAR HGB CONC 32.9 g/dL (33.0-37.0); MEAN PLATELET VOLUME 8.2 fL (7.2-11.7); MONO # 0.6 K/uL (0.0-0.8); MONO % 6.9 % (0.0-10.0); NRBC % 0.4 % (0.0-2.0); RED CELL DISTRIBUTION WIDTH 14.6 % (11.5-14.5); WHITE BLOOD COUNT 8.2 K/uL (4.8-10.8)
--- NOTE | 2017-02-16 17:31 | CP.PCM.PN ---
Subjective - Date & Time of Evaluation Date of Evaluation: 02/16/17 Time of Evaluation: 10:00 - Subjective Subjective: less agitated afebrile iv rx in progress Objective - Vital Signs/Intake and Output Vital Signs (last 24 hours): Temp Pulse Resp BP Pulse Ox 98.1 F 75 20 146/75 95 02/16/17 15:10 02/16/17 15:10 02/16/17 15:10 02/16/17 15:10 02/16/17 15:10 Intake and Output: 02/16/17 02/16/17 06:59 18:59 Intake Total 1200 850 Balance 1200 850 - Medications Medications: Current Medications Enoxaparin Sodium (Lovenox) 40 mg SC DAILY [facility] Last Admin: 02/16/17 10:31 Dose: 40 mg Gabapentin (Neurontin) 400 mg PO TID [facility] Last Admin: 02/16/17 13:29 Dose: 400 mg Haloperidol (Haldol) 4 mg PO Q1H PRN PRN Reason: agitation max 4x/24h Last Admin: 02/16/17 00:20 Dose: 4 mg Haloperidol (Haldol) 1 mg PO Q1H PRN PRN Reason: agitation max 4x/24h Last Admin: 02/15/17 19:00 Dose: 1 mg Vancomycin/Sodium Chloride (Vancomycin 1 Gm/Ns 200 Ml) 1 gm in 200 mls @ 133.333 mls/hr IVPB Q12 [facility] Stop: 02/17/17 10:01 Last Admin: 02/16/17 10:26 Dose: 133.333 mls/hr Cefepime HCl (Maxipime Iv 1 Gm Premix) 1 gm in 50 mls @ 100 mls/hr IVPB Q12[facility] Last Admin: 02/16/17 05:58 Dose: 100 mls/hr Insulin Aspart (Novolog) 0 unit SC ACHS [facility] PRN Reason: Protocol Last Admin: 02/16/17 10:31 Dose: 6 unit Lisinopril (Zestril) 10 mg PO DAILY [facility] Last Admin: 02/16/17 10:27 Dose: 10 mg Lorazepam (Ativan) 2 mg PO Q6H PRN PRN Reason: severe agitation Oxycodone/Acetaminophen (Percocet 5/325 Mg Tab) 2 tab PO Q6H PRN PRN Reason: Pain, severe (8-10) Last Admin: 02/16/17 08:33 Dose: 2 tab Pantoprazole Sodium (Protonix Inj) 40 mg IVP DAILY [facility] Last Admin: 02/16/17 10:24 Dose: 40 mg - Labs Labs: 02/16/17 13:52 02/16/17 12:00 - Constitutional Appears: Non-toxic, Chronically Ill - Head Exam Head Exam: NORMOCEPHALIC - Eye Exam Eye Exam: PERRL - ENT Exam ENT Exam: Mucous Membranes Dry - Neck Exam Neck Exam: absent: Lymphadenopathy - Respiratory Exam Respiratory Exam: Decreased Breath Sounds - Cardiovascular Exam Cardiovascular Exam: REGULAR RHYTHM - GI/Abdominal Exam GI & Abdominal Exam: Distended Assessment and Plan (1) Metabolic encephalopathy Status: Acute (2) Sepsis Status: Acute (3) UTI (urinary tract infection) Status: Acute (4) Above knee amputation of left lower extremity Status: Acute (5) Arterial, arteriole and capillary disease Status: Acute (6) CAD (coronary artery disease) Status: Acute (7) S/P BKA (below knee amputation) Status: Acute (8) S/P AKA (above knee amputation) Status: Acute
[2017-02-16 23:28] VITALS: BP 164/84; PULSE 84; TEMP 98.2; O2SAT 96
--- NOTE | 2017-02-22 05:54 | DS ---
Mr. Garrett presented with altered mental status, weakness, fatigue, tiredness. The patient came to the ER and evaluated, advised admission. Patient is on bedrest, neuro check, supportive care. The patient showed very slow gradual improvement on IV antibiotics. The patient transferred to rehab. DIAGNOSES: altered mental status. Marti Muhammad MD
== END 2017-02-17 01:15 | DRG 871 ==
LOC: C.ER 21:41 → C.9E 23:12 → C.5S 02-12 00:02
PROVIDERS: ADMIT Internal Medicine Pulmonary Disease; ATTEND Internal Medicine Pulmonary Disease
DX: A41.9 Sepsis, unspecified organism (principal); G93.41 Metabolic encephalopathy; L89.152 Pressure ulcer of sacral region, stage 2; E11.51 Type 2 diabetes mellitus with diabetic peripheral angiopathy without gangrene; Z89.612 Acquired absence of left leg above knee; Z89.611 Acquired absence of right leg above knee; N39.0 Urinary tract infection, site not specified; E78.00 Pure hypercholesterolemia, unspecified; I10 Essential (primary) hypertension; I25.10 Atherosclerotic heart disease of native coronary artery without angina pectoris; F32.9 Major depressive disorder, single episode, unspecified; F41.9 Anxiety disorder, unspecified; J45.909 Unspecified asthma, uncomplicated; Z87.891 Personal history of nicotine dependence; Z95.1 Presence of aortocoronary bypass graft; Z95.5 Presence of coronary angioplasty implant and graft

== ENCOUNTER 2017-02-22 23:09 | Emergency (ER) | payer MEDICARE, MEDICAID ==
[2017-02-22 23:10] VITALS: BMI 35.7
--- NOTE | 2017-02-22 23:31 | C.PDOC ---
History Of Present Illness pt fell off his wheelchair. No loc, remembers the event. No n/v or visual changes - HPI Time Seen by Provider: 02/22/17 23:31 Chief Complaint (Nursing): Trauma History Per: Patient History/Exam Limitations: no limitations Onset/Duration Of Symptoms: Mins Location Of Injury: Right: Wrist Severity: Mild Pain Scale Rating Of: 2 Recent travel outside of the [place]: No Additional History Per: Patient Past Medical History Reviewed: Historical Data, Nursing Documentation, Vital Signs Vital Signs: Last Vital Signs Temp Pulse Resp BP Pulse Ox 99 02/23/17 01:09 - Medical History PMH: Anxiety, Arthritis, Asthma, Back Problems, Depression, Diabetes, HTN, Hypercholesterolemia Denies: Chronic Kidney Disease Surgical History: CABG, Cholecystectomy, Coronary Stent (x3) - [facility] Procedures ABOVE KNEE AMPUTATION (12/07/14) ANGIOPLASTY OF OTHER NON-CORONARY VESSEL(S) (11/28/13) ATHERECTOMY OF OTHER NON-CORONARY VESSEL(S) (10/21/11) BELOW KNEE AMPUTAT NEC (09/10/14) CATARAC PHACOEMULS/ASPIR (02/13/14) CONTRAST AORTOGRAM (09/04/14) CONTRAST ARTERIOGRAM-LEG (09/04/14) DETACHMENT AT RIGHT UPPER LEG, LOW, OPEN APPROACH (01/07/17) FLUOROSCOPY R LOW EXTREM ART W L OSM CONTRAST, LASER INTRAOP (11/18/16) INFLUENZA VACCINATION (04/24/14) INSEJ [id number] PERIPHERAL NON-CORONARY VES STENT(S) (11/28/13) INSERT LENS AT CATAR EXT (02/13/14) INSERTION OF ONE VASCULAR STENT (11/28/13) INSPECTION OF LOWER ARTERY, OPEN APPROACH (11/18/16) LOC EXC BONE LESION NEC (10/31/14) OCCUPATIONAL THERAPY (09/17/14) OTHER MYECTOMY (10/10/14) PHYSICAL THERAPY NEC (09/17/14) PROCEDURE ON SINGLE VESSEL (11/28/13) RECREATIONAL THERAPY (09/17/14) VACCINATION NEC (04/24/14) VASC SHUNT & BYPASS NEC (11/28/13) Family History: States: No Known Family Hx - Social History Hx Tobacco Use: Yes Hx Alcohol Use: No Hx Substance Use: No - Immunization History Hx Tetanus Toxoid Vaccination: No Hx Influenza Vaccination: No Hx Pneumococcal Vaccination: No Review Of Systems Constitutional: Negative for: Fever, Chills Eyes: Positive for: Redness (chronic) ENT: Negative for: Throat Pain Cardiovascular: Negative for: Chest Pain Respiratory: Negative for: Shortness of Breath Gastrointestinal: Negative for: Nausea, Vomiting Skin: Negative for: Rash Neurological: Negative for: Weakness Psych: Negative for: Anxiety Physical Exam - Physical Exam Appears: Non-toxic, No Acute Distress Skin: Warm, Dry Head: Normacephalic Eye(s): bilateral: Other (conjuctival erythema, chronic) Nose: Normal Oral Mucosa: Moist Neck: Trachea Midline, No Midline Cervical Tenderness, Supple Chest: Symmetrical Cardiovascular: Rhythm Regular Respiratory: No Rales, Rhonchi, No Wheezing Gastrointestinal/Abdominal: Soft, No Tenderness, No Distention Extremity: Other (b/l aka) Extremity: Bilateral: Normal Color And Temperature Neurological/Psych: Oriented x3 Gait: Other (b/l aka) ED Course And Treatment O2 Sat by Pulse Oximetry: 99 Pulse Ox Interpretation: Normal - Other Rad wrist X-Ray: Interpreted by Me, Viewed By Me Interpretation: no fx or dislocation Disposition Counseled Patient/Family Regarding: Studies Performed, Diagnosis, Need For Followup - Disposition Referrals: Marti Muhammad MD [Staff Provider] - Disposition: HOME/ ROUTINE Disposition Time: 23:31 Condition: FAIR Instructions: Contusion in Adults (DC), Wrist Injury (ED) Forms: [facility] (Greek) - Clinical Impression Clinical Impression: Fall, Minor head injury without loss of consciousness, Contusion of wrist, right
--- NOTE | 2017-02-23 01:20 | CT ---
EXAM: CT Maxillofacial and mandible Without Intravenous Contrast CLINICAL HISTORY: 66 years old, male; Pain; Eye pain; Bilateral; Additional info: Fall TECHNIQUE: Axial computed tomography images of the face and mandible without intravenous contrast. All CT scans at this facility use one or more dose reduction techniques, viz.: automated exposure control; ma/kV adjustment per patient size (including targeted exams where dose is matched to indication; i.e. head); or iterative reconstruction technique. [address] maxillofacial with mandible Coronal and sagittal reformatted images were created and reviewed. COMPARISON: No relevant prior studies available. FINDINGS: Bones/joints: No acute fracture. Soft tissues: Unremarkable. Vasculature: Vascular calcifications. Orbits: Bilateral ophthalmic lenses are not well seen. Correlation with patient's abdomen history is recommended. The globes are intact. Sinuses: Mild patchy sinus disease. No air-fluid levels. Mastoid air cells: Patchy right mastoid disease. Dental: Edentulous maxilla. Partially dentulous mandible. Mandibular teeth with erosions or carious lesions. Nonemergent dental evaluation may be helpful. Brain: Cerebral and cerebellar volume loss. Patchy hypodensity is seen in the periventricular and subcortical white matter. IMPRESSION: No acute findings.
--- NOTE | 2017-02-23 01:23 | CT ---
EXAM: CT Head Without Intravenous Contrast CLINICAL HISTORY: 66 years old, male; Pain; Headache and other: Fall; Patient HX: 02-11-17 TECHNIQUE: Axial computed tomography images of the head/brain without intravenous contrast. All CT scans at this facility use one or more dose reduction techniques, viz.: automated exposure control; ma/kV adjustment per patient size (including targeted exams where dose is matched to indication; i.e. head); or iterative reconstruction technique. 392 images are submitted. Coronal and sagittal reformatted images were created and reviewed. COMPARISON: CT - HEAD W/O CONTRAST 2017-02-11 22:20 FINDINGS: Brain: Cerebral and cerebellar volume loss. Patchy hypodensity is seen in the periventricular and subcortical white matter. Left posterior parietal encephalomalacia likely due to a remote infarct. No hemorrhage. Ventricles: Unremarkable. No ventriculomegaly. Bones/joints: Unremarkable. No acute fracture. Soft tissues: Unremarkable. Vasculature: Vascular calcifications. Sinuses: Mild patchy sinus disease. Mastoid air cells: Patchy right mastoid disease. IMPRESSION: No evidence of an acute intracranial hemorrhage, midline shift or mass effect is identified.
[2017-02-23 01:34] VITALS: TEMP 98
[2017-02-23 04:22] VITALS: RESP 20
[2017-02-23 06:07] VITALS: BP 137/59; PULSE 81; O2SAT 99
--- NOTE | 2017-02-23 10:25 | RAD ---
PROCEDURE: Right Wrist Radiographs. HISTORY: FALL COMPARISON: None available. FINDINGS: Examination limited by patient condition, motion, and suboptimal positioning. BONES: Osseous demineralization limits evaluation for acute fracture lines. No acute displaced fracture. Degenerative changes. JOINTS: No dislocation. Joint space narrowing most prominent at the 1st carpal/metacarpal joint space. SOFT TISSUES: Vascular calcifications. No evidence of radiopaque foreign body OTHER FINDINGS: None. IMPRESSION: Osseous demineralization. Degenerative changes. No acute displaced fracture, dislocation, or significant joint effusion identified. If symptoms persist, or if there is continued clinical concern, x-ray follow-up in 7-10 days should be considered.
== END 2017-02-23 06:07 | disposition home or self-care (01) ==
LOC: C.ER 23:09
DX: S09.90XA Unspecified injury of head, initial encounter (principal); S60.211A Contusion of right wrist, initial encounter; Y92.89 Other specified places as the place of occurrence of the external cause; W05.0XXA Fall from non-moving wheelchair, initial encounter; Y93.89 Activity, other specified

== ENCOUNTER 2017-02-23 20:21 | Inpatient (IN) | payer MEDICARE, MEDICAID ==
[2017-02-23 20:21] VITALS: BMI 35.7
--- NOTE | 2017-02-23 21:05 | C.PDOC ---
History Of Present Illness 66 year old male with a Hx of bilateral BKA, HTN, and diabetes presents to the ER for a complaint of body aches and generalized pain. Patient was seen and discharge from the ER yesterday after having a fall. Denies fever or specific complaints. Time Seen by Provider: 02/23/17 20:30 Chief Complaint (Nursing): Pain, Chronic History Per: Patient History/Exam Limitations: no limitations Onset/Duration Of Symptoms: Hrs Current Symptoms Are (Timing): Still Present Recent travel outside of the [place]: No Past Medical History Reviewed: Historical Data, Nursing Documentation, Vital Signs Vital Signs: Last Vital Signs Temp 98.2 F 02/23/17 20:24 Pulse 83 02/23/17 20:24 Resp 20 02/23/17 20:24 BP 152/75 H 02/23/17 20:24 Pulse Ox 98 02/23/17 22:05 - Medical History PMH: Anxiety, Arthritis, Asthma, Back Problems, Depression, Diabetes, HTN, Hypercholesterolemia Surgical History: CABG, Cholecystectomy, Coronary Stent (x3) - [facility] Procedures ABOVE KNEE AMPUTATION (12/07/14) ANGIOPLASTY OF OTHER NON-CORONARY VESSEL(S) (11/28/13) ATHERECTOMY OF OTHER NON-CORONARY VESSEL(S) (10/21/11) BELOW KNEE AMPUTAT NEC (09/10/14) CATARAC PHACOEMULS/ASPIR (02/13/14) CONTRAST AORTOGRAM (09/04/14) CONTRAST ARTERIOGRAM-LEG (09/04/14) DETACHMENT AT RIGHT UPPER LEG, LOW, OPEN APPROACH (01/07/17) FLUOROSCOPY R LOW EXTREM ART W L OSM CONTRAST, LASER INTRAOP (11/18/16) INFLUENZA VACCINATION (04/24/14) INSEJ [id number] PERIPHERAL NON-CORONARY VES STENT(S) (11/28/13) INSERT LENS AT CATAR EXT (02/13/14) INSERTION OF ONE VASCULAR STENT (11/28/13) INSPECTION OF LOWER ARTERY, OPEN APPROACH (11/18/16) LOC EXC BONE LESION NEC (10/31/14) OCCUPATIONAL THERAPY (09/17/14) OTHER MYECTOMY (10/10/14) PHYSICAL THERAPY NEC (09/17/14) PROCEDURE ON SINGLE VESSEL (11/28/13) RECREATIONAL THERAPY (09/17/14) VACCINATION NEC (04/24/14) VASC SHUNT & BYPASS NEC (11/28/13) Family History: States: Unknown Family Hx - Social History Hx Tobacco Use: Yes Hx Alcohol Use: No Hx Substance Use: No - Immunization History Hx Tetanus Toxoid Vaccination: No Hx Influenza Vaccination: No Hx Pneumococcal Vaccination: No Review Of Systems Constitutional: Negative for: Fever, Chills Gastrointestinal: Negative for: Nausea, Vomiting, Diarrhea Musculoskeletal: Positive for: Other (Body aches) Physical Exam - Physical Exam Appears: Non-toxic, No Acute Distress Skin: Normal Color, Warm, Dry Head: Atraumatic, Normacephalic Oral Mucosa: Moist Chest: Symmetrical Cardiovascular: Rhythm Regular Respiratory: Normal Breath Sounds, No Rales, No Rhonchi, No Wheezing Gastrointestinal/Abdominal: Soft, No Tenderness Neurological/Psych: Oriented x3, Normal Speech ED Course And Treatment - Laboratory Results Result Diagrams: 02/23/17 21:33 02/23/17 21:33 ECG: Interpreted By Me, Viewed By Me ECG Rhythm: Sinus Rhythm Interpretation Of ECG: No ST/T wave changes Rate From EC O2 Sat by Pulse Oximetry: 98 (Room air) Pulse Ox Interpretation: Normal Medical Decision Making Medical Decision Making: pt with multiple falls. seen and d/c yesterday. today with generalized weakness. difficulty caring for self. discussed with dr whitley, will obs for social work eval. EKG, blood work, and urinalysis ordered. Toradol administered. Disposition - Disposition Disposition: HOSPITALIZED Disposition Time: 10:00 Condition: STABLE Instructions: Weakness (ED) Forms: [facility] (Japanese) - Clinical Impression Clinical Impression: Weakness - Scribe Statement The provider has reviewed the documentation as recorded by the Scribcassy Pitts All medical record entries made by the Scribe were at my direction and personally dictated by me. I have reviewed the chart and agree that the record accurately reflects my personal performance of the history, physical exam, medical decision making, and the department course for this patient. I have also personally directed, reviewed, and agree with the discharge instructions and disposition.
[2017-02-23 21:40] LABS: BASO % 0.3 % (0.0-2.0); EOS # 0.2 K/uL (0.0-0.7); EOS % 2.6 % (0.0-4.0); HEMATOCRIT 35.4 % (35.0-51.0); LYMPH # 1.6 K/uL (1.0-4.3); MEAN CELL VOLUME 80.9 fL (80.0-94.0); MEAN CORPUSCULAR HEMOGLOBIN 26.7 pg (27.0-31.0); MEAN CORPUSCULAR HGB CONC 32.9 g/dL (33.0-37.0); MEAN PLATELET VOLUME 7.9 fL (7.2-11.7); MONO # 0.5 K/uL (0.0-0.8); RED CELL DISTRIBUTION WIDTH 14.8 % (11.5-14.5); WHITE BLOOD COUNT 7.6 K/uL (4.8-10.8)
[2017-02-23 21:46] LABS: INR 1.1
[2017-02-23 22:02] LABS: ALB/GLOB RATIO 1.3 (1.0-2.1); ALKALINE PHOSPHATASE 87 U/L (38-126); ALT/SGPT 32 U/L (21-72); AST/SGOT 28 U/L (17-59); BILIRUBIN,TOTAL 0.8 mg/dL (0.2-1.3); BLOOD UREA NITROGEN 11 mg/dL (9-20); CALCIUM 8.6 mg/dl (8.6-10.4); CARBON DIOXIDE 24 mmol/L (22-30); CHLORIDE 100 mmol/L (98-107); GFR AFRICAN-AMERICAN > 60; GLUCOSE,RANDOM 316 mg/dL (75-110); POTASSIUM 4.3 mmol/L (3.6-5.2); SODIUM 134 mmol/L (132-148); TOTAL PROTEIN 6.6 g/dL (6.3-8.3)
[2017-02-23 22:24] LABS: RBC URINE 2 /hpf (0-3); URINE BACTERIA RARE (<OCC); URINE BILIRUBIN NEGATIVE (NEGATIVE); URINE BLOOD NEGATIVE (NEGATIVE); URINE COLOR Yellow (YELLOW); URINE GLUCOSE (UA) 3+ mg/dL (Normal); URINE HYALINE CAST 0-2 /lpf (0-2); URINE KETONE NEGATIVE (NEGATIVE); URINE LEUKOCYTE ESTERASE NEG Leu/uL (Negative); URINE PROTEIN NEGATIVE (NEGATIVE); URINE UROBILINOGEN NORMAL mg/dL (0.2-1.0); WBC URINE 2 /hpf (0-5)
[2017-02-23] MEDS ORDERED: Magnesium Hydroxide Susp 30 ml UD PO PRN (22:36)
[2017-02-23] MEDS ORDERED: Alum-Mag Hydrox-Simethicone Susp (30 mL) PO PRN (22:36)
[2017-02-23] MEDS ORDERED: Oxycodone/Acetaminophen 5/325 mg Tab ONE (23:24)
[2017-02-23] MEDS: Oxycodone/Acetaminophen 5/325 mg Tab PO PRN (23:58)
[2017-02-24] MEDS: Enoxaparin 40 mg Syringe SC SCH (10:01)
[2017-02-24] MEDS: (Novolog) Insulin Aspart, Recombinant 100 u/ml 10 ml vial SC SCH ×3 (10:05→17:03)
[2017-02-24] MEDS: Oxycodone/Acetaminophen 5/325 mg Tab PO PRN (17:46)
[2017-02-24] MEDS: (Lantus) Insulin Glargine, Recombinant SC SCH (21:30)
--- NOTE | 2017-02-25 08:01 | HP ---
HISTORY OF PRESENT ILLNESS: Mr. Garrett is a 66-year-old male with a history of bilateral amputation of lower extremity, diabetes, peripheral vascular disease, dementia altered mental status, weakness, failure to thrive. The patient is unable to function after he left [facility]. The patient is extremely confused, combative at home, brought to the ER, advised admission. PHYSICAL EXAMINATION: GENERAL: The patient is awake, obese, not fully oriented to time and place. VITAL SIGNS: Temperature is 98, pulse 90, blood pressure 130/80. HEENT: Within normal limits. NECK: Supple. CHEST: Symmetrical. HEART: Regular. ABDOMEN: Soft. EXTREMITIES: Bilateral amputation. Well-healed scar. ASSESSMENT AND PLAN: The patient suffers from altered mental status, dementia, failure to thrive, bilateral amputation, diabetes uncontrolled. The patient given bed rest, supportive care, and blood sugar monitoring. Marti Muhammad MD
[2017-02-25] MEDS: Oxycodone/Acetaminophen 5/325 mg Tab PO PRN ×2 (09:17→18:24)
[2017-02-25] MEDS: Enoxaparin 40 mg Syringe SC SCH (09:20)
[2017-02-25] MEDS: (Novolog) Insulin Aspart, Recombinant 100 u/ml 10 ml vial SC SCH ×3 (10:00→16:30)
--- NOTE | 2017-02-25 10:57 | CP.PCM.PN ---
Subjective - Date & Time of Evaluation Date of Evaluation: 02/25/17 Time of Evaluation: 10:55 - Subjective Subjective: PGY2 Medicine Note for Dr. Muhammad; all management as per Dr. Muhammad Patient seen and examined with attending physician; patient states he wants to go home; does not know where he is. /sig other at bedside and states she cannot care for him anymore, and has been falling at home and becoming agitated more frequently. The patient is known to this specification writer and seems at his baseline, and is normally somewhat verbally aggressive and combative; patient can not verbalize his needs adequately and will need 24/care and would be better suited to a [facility] environment. Objective - Vital Signs/Intake and Output Vital Signs (last 24 hours): Temp Pulse Resp BP Pulse Ox 80 F L 80 20 129/72 97 02/25/17 07:41 02/25/17 07:41 02/25/17 07:41 02/25/17 07:41 02/25/17 07:41 Intake and Output: 02/25/17 02/25/17 06:59 18:59 Intake Total 340 Balance 340 - Medications Medications: Current Medications Acetaminophen (Tylenol 325mg Tab) 650 mg PO Q4 PRN PRN Reason: Pain, Mild (1-3) Al Hydrox/Mg Hydrox/Simethicone (Maalox Plus 30 Ml) 30 ml PO Q4 PRN PRN Reason: Heartburn Enoxaparin Sodium (Lovenox) 40 mg SC DAILY [facility] Last Admin: 02/25/17 09:20 Dose: 40 mg Gabapentin (Neurontin) 600 mg PO TID [facility] Last Admin: 02/25/17 09:20 Dose: 600 mg Insulin Aspart (Novolog) 20 unit SC TIDAC [facility] Insulin Glargine (Lantus) 15 unit SC HS [facility] Last Admin: 02/24/17 21:30 Dose: Not Given Lisinopril (Zestril) 10 mg PO DAILY [facility] Last Admin: 02/25/17 09:20 Dose: 10 mg Lorazepam (Ativan) 2 mg PO Q6H PRN PRN Reason: severe agitation Last Admin: 02/24/17 19:03 Dose: 2 mg Magnesium Hydroxide (Milk Of Magnesia) 30 ml PO DAILY PRN PRN Reason: Constipation Oxycodone/Acetaminophen (Percocet 5/325 Mg Tab) 1 tab PO Q4 PRN PRN Reason: Pain, moderate (4-7) Stop: 02/26/17 22:37 Last Admin: 02/25/17 09:17 Dose: 1 tab - Labs Labs: 02/23/17 21:33 02/23/17 21:33 PT 12.1 SECONDS (9.7-12.2) 02/23/17 21:33 INR 1.1 02/23/17 21:33 APTT 32 SECONDS (21-34) 02/23/17 21:33 - Head Exam Head Exam: ATRAUMATIC - Eye Exam Eye Exam: EOMI - ENT Exam ENT Exam: Mucous Membranes Moist - Neck Exam Neck Exam: Full ROM - Respiratory Exam Respiratory Exam: Clear to Ausculation Bilateral - Cardiovascular Exam Cardiovascular Exam: REGULAR RHYTHM - GI/Abdominal Exam GI & Abdominal Exam: Soft, Normal Bowel Sounds - Back Exam Back Exam: absent: CVA tenderness (L), CVA tenderness (R) Additional comments: stage 2 sacarl ulcer noted - Neurological Exam Neurological Exam: Awake - Psychiatric Exam Psychiatric exam: Normal Affect Assessment and Plan - Assessment and Plan (Free Text) Assessment: Altered Mental Status 2/2 to Dementia; chronic -agitated however improving -Avoid benzos, started Haldol prn agitation per psych recommendations -[facility] will need placement into [facility] for [facility]; social work eval pending Sacral ulcers -Stage 2 -wound care consulted Diabetes Mellitus; chronic -ISS -Gabapentin 400mg TID -Lisinopril 10mg PO daily HTN -BP well controlled -Lisinopril 10mg PO daily -Aspirin Prophylactic measures -Lovenox 40mg SC daily -Protonix 40mg IV daily -PT eval/OT eval, Social Work Management per Dr Muhammad
[2017-02-25] MEDS: (Lantus) Insulin Glargine, Recombinant SC SCH (22:11)
[2017-02-26] MEDS: Oxycodone/Acetaminophen 5/325 mg Tab PO PRN
[2017-02-26] MEDS: (Novolog) Insulin Aspart, Recombinant 100 u/ml 10 ml vial SC SCH ×3 (08:30→16:30)
[2017-02-26] MEDS: Enoxaparin 40 mg Syringe SC SCH (09:35)
[2017-02-26] MEDS ORDERED: Influenza Vaccine 60 mcg/0.5 mL SYR (4YR UP) IM ONE (10:00)
[2017-02-26] MEDS: (Lantus) Insulin Glargine, Recombinant SC SCH (21:28)
[2017-02-27] MEDS: (Novolog) Insulin Aspart, Recombinant 100 u/ml 10 ml vial SC SCH ×3 (08:12→16:54)
[2017-02-27] MEDS: Enoxaparin 40 mg Syringe SC SCH (09:43)
--- NOTE | 2017-02-27 15:58 | CARD ---
APPROVED REPORT EKG Measurement Heart [id number] <Conclusion> Normal sinus rhythm Inferior infarct, age undetermined Abnormal ECG
[2017-02-27] MEDS: (Lantus) Insulin Glargine, Recombinant SC SCH (21:55)
[2017-02-28] MEDS: (Novolog) Insulin Aspart, Recombinant 100 u/ml 10 ml vial SC SCH ×3 (07:57→17:20)
[2017-02-28] MEDS: Enoxaparin 40 mg Syringe SC SCH (09:52)
[2017-02-28] MEDS: Oxycodone/Acetaminophen 5/325 mg Tab PO PRN ×2 (13:23→23:00)
[2017-02-28 14:01] LABS: BASO % 0.3 % (0.0-2.0); EOS # 0.1 K/uL (0.0-0.7); EOS % 2.4 % (0.0-4.0); LYMPH # 1.4 K/uL (1.0-4.3); LYMPH % 21.7 % (20.0-40.0); MEAN CELL VOLUME 81.4 fL (80.0-94.0); MEAN CORPUSCULAR HEMOGLOBIN 26.8 pg (27.0-31.0); MEAN CORPUSCULAR HGB CONC 32.9 g/dL (33.0-37.0); MEAN PLATELET VOLUME 8.5 fL (7.2-11.7); MONO # 0.3 K/uL (0.0-0.8); MONO % 4.3 % (0.0-10.0); RED CELL DISTRIBUTION WIDTH 14.5 % (11.5-14.5); WHITE BLOOD COUNT 6.2 K/uL (4.8-10.8)
--- NOTE | 2017-02-28 14:10 | CP.PCM.PN ---
Subjective - Date & Time of Evaluation Date of Evaluation: 02/28/17 Time of Evaluation: 10:00 - Subjective Subjective: PGY3 on medicine Dr. Muhammad service: Pt seen and examined at bedside this morning. No acute events overnight per RN. Combative behavior was noted previously but not today. Pt was able to follow commands and carry out conversation without agitation. 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 No other complaints at this time. Objective - Vital Signs/Intake and Output Vital Signs (last 24 hours): Temp Pulse Resp BP Pulse Ox 97.9 F 77 20 156/89 H 97 02/28/17 08:05 02/28/17 08:05 02/28/17 08:05 02/28/17 08:05 02/28/17 08:05 Intake and Output: 02/28/17 02/28/17 06:59 18:59 Intake Total 480 Balance 480 - Medications Medications: Current Medications Acetaminophen (Tylenol 325mg Tab) 650 mg PO Q4 PRN PRN Reason: Pain, Mild (1-3) Al Hydrox/Mg Hydrox/Simethicone (Maalox Plus 30 Ml) 30 ml PO Q4 PRN PRN Reason: Heartburn Enoxaparin Sodium (Lovenox) 40 mg SC DAILY [facility] Last Admin: 02/28/17 09:52 Dose: 40 mg Gabapentin (Neurontin) 600 mg PO TID [facility] Last Admin: 02/28/17 13:23 Dose: 600 mg Insulin Aspart (Novolog) 20 unit SC TIDAC [facility] Last Admin: 02/28/17 12:23 Dose: 20 unit Insulin Glargine (Lantus) 15 unit SC HS [facility] Last Admin: 02/27/17 21:55 Dose: 15 units Lisinopril (Zestril) 10 mg PO DAILY [facility] Last Admin: 02/28/17 09:52 Dose: 10 mg Lorazepam (Ativan) 2 mg PO Q6H PRN PRN Reason: severe agitation Last Admin: 02/24/17 19:03 Dose: 2 mg Magnesium Hydroxide (Milk Of Magnesia) 30 ml PO DAILY PRN PRN Reason: Constipation Oxycodone/Acetaminophen (Percocet 5/325 Mg Tab) 1 tab PO Q4H PRN PRN Reason: severe pain Stop: 03/03/17 13:07 Last Admin: 02/28/17 13:23 Dose: 1 tab - Labs Labs: 02/28/17 13:54 02/23/17 21:33 PT 12.1 SECONDS (9.7-12.2) 02/23/17 21:33 INR 1.1 02/23/17 21:33 APTT 32 SECONDS (21-34) 02/23/17 21:33 - Constitutional Appears: Non-toxic, No Acute Distress - Head Exam Head Exam: NORMOCEPHALIC - Eye Exam Eye Exam: Normal appearance Pupil Exam: NORMAL ACCOMODATION - ENT Exam ENT Exam: Mucous Membranes Moist - Respiratory Exam Respiratory Exam: Clear to Ausculation Bilateral, NORMAL BREATHING PATTERN. absent: Wheezes - Cardiovascular Exam Cardiovascular Exam: REGULAR RHYTHM, +S1, +S2 - GI/Abdominal Exam GI & Abdominal Exam: Soft, Normal Bowel Sounds. absent: Tenderness - Neurological Exam Neurological Exam: Alert, Awake - Psychiatric Exam Psychiatric exam: Normal Mood - Skin Skin Exam: Intact Assessment and Plan - Assessment and Plan (Free Text) Assessment: Altered Mental Status 2/2 to Dementia; chronic -agitated however improving -Avoid benzos, started Haldol prn agitation per psych recommendations -patient will need [facility] [place] [facility]; social work eval pending Sacral ulcers -Stage 2 -wound care consulted Diabetes Mellitus; chronic -ISS -Gabapentin 400mg TID -Lisinopril 10mg PO daily -Lantus increased to 20U HS -Novolog 20U TIDAC HTN -BP well controlled -Lisinopril 10mg PO daily -Aspirin Hx of bilateral BKA Surgery Dr. Dias consulted, help appreciated. Prophylactic measures -Lovenox 40mg SC daily -Protonix 40mg IV daily -PT eval/OT eval, Social Work Management per Dr Muhammad
[2017-02-28 14:24] LABS: BLOOD UREA NITROGEN 9 mg/dL (9-20); CALCIUM 8.5 mg/dl (8.6-10.4); CARBON DIOXIDE 26 mmol/L (22-30); CHLORIDE 99 mmol/L (98-107); GFR AFRICAN-AMERICAN > 60; GLUCOSE,RANDOM 327 mg/dL (75-110); POTASSIUM 3.7 mmol/L (3.6-5.2); SODIUM 134 mmol/L (132-148)
--- NOTE | 2017-02-28 17:18 | CP.PCM.CON ---
History of Present Illness - History of Present Illness History of Present Illness: Vascular Surgery Consult Note for Dr. Dias Reason for Consult: 66M well known to the surgical service presented to ED for generalized body pain. Patient was seen and discharge from the ER on 02/22 after having a fall. He states that his pain has been occurring intermittently for a while. He had a R AKA done several weeks ago. He wants the yusef and sutures removed by Dr. Dias. He is requesting pain medication to help ease the pain. Patient states F/C, N/V, SOB, chest pain, abdominal pain, diarrhea, night sweats. PMH: CAD with 3 stent placement, CABG, IDDM, Asthma, and HTN Meds: As per EMR Allergy: Tomato PSH: CABG, Stent placement, Bilateral AKA Social: Smokes 1/2 pack a day since he was 11 years old, social etoh use, denies illicit drug use. Review of Systems - Review of Systems All systems: reviewed and no additional remarkable complaints except (aches and pain) Past Patient History - Infectious Disease Hx of Infectious Diseases: None - Past Medical History & Family History Past Medical History?: Yes - Past Social History Smoking Status: Former Smoker - CARDIAC Hx Cardiac Disorders: Yes (CAD,CABG,Coronary stent) Hx Hypercholesterolemia: Yes Hx Hypertension: Yes - PULMONARY Hx Respiratory Disorders: Yes Hx Asthma: Yes - NEUROLOGICAL Hx Neurological Disorder: No - HEENT Hx HEENT Problems: Yes Hx Cataracts: Yes Hx Glaucoma: Yes - RENAL Hx Chronic Kidney Disease: No - ENDOCRINE/METABOLIC Hx Diabetes Mellitus Type 1: Yes - HEMATOLOGICAL/ONCOLOGICAL Hx Blood Disorders: No - INTEGUMENTARY Hx Dermatological Problems: No - MUSCULOSKELETAL/RHEUMATOLOGICAL Hx Arthritis: Yes - GASTROINTESTINAL Hx Gastrointestinal Disorders: No - GENITOURINARY/GYNECOLOGICAL Hx Genitourinary Disorders: No - PSYCHIATRIC Hx Substance Use: No - SURGICAL HISTORY Hx Surgeries: Yes Hx Cholecystectomy: Yes Hx Coronary Artery Bypass Graft: Yes Hx Coronary Stent: Yes (x3) Hx Orthopedic Surgery: Yes (bilateral amputee) - ANESTHESIA Hx Anesthesia: Yes Hx Anesthesia Reactions: No Hx Malignant Hyperthermia: No Has any member of the family had a problem w/ anesthesia?: No Meds Allergies/Adverse Reactions: Allergies Allergy/AdvReac Type Severity Reaction Status Date / Time tomato Allergy RASH Verified 02/11/17 21:53 - Medications Medications: Current Medications Acetaminophen (Tylenol 325mg Tab) 650 mg PO Q4 PRN PRN Reason: Pain, Mild (1-3) Al Hydrox/Mg Hydrox/Simethicone (Maalox Plus 30 Ml) 30 ml PO Q4 PRN PRN Reason: Heartburn Enoxaparin Sodium (Lovenox) 40 mg SC DAILY [facility] Last Admin: 02/28/17 09:52 Dose: 40 mg Gabapentin (Neurontin) 600 mg PO TID [facility] Last Admin: 02/28/17 13:23 Dose: 600 mg Insulin Aspart (Novolog) 20 unit SC TIDAC [facility] Last Admin: 02/28/17 12:23 Dose: 20 unit Insulin Glargine (Lantus) 20 unit SC [facility] Lisinopril (Zestril) 10 mg PO DAILY [facility] Last Admin: 02/28/17 09:52 Dose: 10 mg Lorazepam (Ativan) 2 mg PO Q6H PRN PRN Reason: severe agitation Last Admin: 02/24/17 19:03 Dose: 2 mg Magnesium Hydroxide (Milk Of Magnesia) 30 ml PO DAILY PRN PRN Reason: Constipation Oxycodone/Acetaminophen (Percocet 5/325 Mg Tab) 1 tab PO Q4H PRN PRN Reason: severe pain Stop: 03/03/17 13:07 Last Admin: 02/28/17 13:23 Dose: 1 tab Physical Exam - Constitutional Appears: No Acute Distress - Head Exam Head Exam: ATRAUMATIC, NORMOCEPHALIC - Eye Exam Eye Exam: Normal appearance - ENT Exam ENT Exam: Mucous Membranes Dry - Respiratory Exam Respiratory Exam: NORMAL BREATHING PATTERN - Cardiovascular Exam Cardiovascular Exam: REGULAR RHYTHM - GI/Abdominal Exam GI & Abdominal Exam: Soft. absent: Tenderness - Extremities Exam Additional comments: Bilateral aka - some yusef and sutures still present in R incision, complaining of tenderness at incision - Neurological Exam Neurological exam: Alert, Oriented x3 - Psychiatric Exam Psychiatric exam: Agitated - Skin Skin Exam: Dry, Intact, Normal Color, Warm Results - Vital Signs Recent Vital Signs: Last Vital Signs Temp 98.6 F 02/28/17 16:00 Pulse 86 02/28/17 16:00 Resp 20 02/28/17 16:00 BP 134/72 02/28/17 16:00 Pulse Ox 100 02/28/17 16:00 - Labs Result Diagrams: 02/28/17 13:54 02/28/17 13:54 Labs: Laboratory Results - last 24 hr 02/27/17 02/28/17 02/28/17 21:02 07:44 11:52 WBC RBC Hgb Hct MCV MCH MCHC RDW Plt Count MPV Neut % (Auto) Lymph % (Auto) [place] % (Auto) Eos % (Auto) Baso % (Auto) Neut # Lymph # [place] # Eos # Baso # Sodium Potassium Chloride Carbon Dioxide Anion Gap BUN Creatinine Est GFR ( Amer) Est GFR (Non-Af Amer) POC Glucose (mg/dL) 221 H 260 H 269 H Random Glucose Calcium 02/28/17 02/28/17 02/28/17 13:54 13:54 16:23 WBC 6.2 RBC 4.42 Hgb 11.8 L Hct 36.0 MCV 81.4 MCH 26.8 L MCHC 32.9 L RDW 14.5 Plt Count 211 MPV 8.5 Neut % (Auto) 71.3 Lymph % (Auto) 21.7 [place] % (Auto) 4.3 Eos % (Auto) 2.4 Baso % (Auto) 0.3 Neut # 4.4 Lymph # 1.4 [place] # 0.3 Eos # 0.1 Baso # 0.0 Sodium 134 Potassium 3.7 Chloride 99 Carbon Dioxide 26 Anion Gap 13 BUN 9 Creatinine 0.8 Est GFR ( Amer) > 60 Est GFR (Non-Af Amer) > 60 POC Glucose (mg/dL) 120 H Random Glucose 327 H Calcium 8.5 L Assessment & Plan - Assessment and Plan (Free Text) Plan: 66 M with bilateral AKA complaining of generalized aches and pain -Only removed half of sutures and 2 yusef due to patient's pain -Will remove the rest tomorrow if patient is willing -Medical management as per primary -Discussed with Dr. Larissa Roe PGY1
[2017-02-28] MEDS: (Lantus) Insulin Glargine, Recombinant SC SCH (21:53)
[2017-03-01 07:05] LABS: BASO % 0.3 % (0.0-2.0); EOS # 0.2 K/uL (0.0-0.7); EOS % 3.2 % (0.0-4.0); HEMATOCRIT 36.1 % (35.0-51.0); LYMPH # 2.4 K/uL (1.0-4.3); LYMPH % 33.8 % (20.0-40.0); MEAN CELL VOLUME 80.8 fL (80.0-94.0); MEAN CORPUSCULAR HGB CONC 33.4 g/dL (33.0-37.0); MEAN PLATELET VOLUME 8.2 fL (7.2-11.7); MONO # 0.4 K/uL (0.0-0.8); MONO % 5.7 % (0.0-10.0); NRBC % 0.1 % (0.0-2.0); RED CELL DISTRIBUTION WIDTH 14.9 % (11.5-14.5); WHITE BLOOD COUNT 7.1 K/uL (4.8-10.8)
--- NOTE | 2017-03-01 07:21 | CP.PCM.PN ---
Subjective - Date & Time of Evaluation Date of Evaluation: 03/01/17 Time of Evaluation: 10:00 - Subjective Subjective: PGY3 on medicine Dr. Muhammad service: Pt seen and examined at bedside this morning. Pt reports bilateral BKA pain when some suture were removed. More suture to be removed when pt able to tolerate pain. No other complaints overnight. Pending placement. Objective - Vital Signs/Intake and Output Vital Signs (last 24 hours): Temp Pulse Resp BP Pulse Ox 97.6 F 64 16 130/77 98 03/01/17 00:00 03/01/17 00:00 03/01/17 00:00 03/01/17 00:00 03/01/17 00:00 Intake and Output: 03/01/17 03/01/17 06:59 18:59 Intake Total 500 Balance 500 - Medications Medications: Current Medications Acetaminophen (Tylenol 325mg Tab) 650 mg PO Q4 PRN PRN Reason: Pain, Mild (1-3) Al Hydrox/Mg Hydrox/Simethicone (Maalox Plus 30 Ml) 30 ml PO Q4 PRN PRN Reason: Heartburn Enoxaparin Sodium (Lovenox) 40 mg SC DAILY [facility] Last Admin: 02/28/17 09:52 Dose: 40 mg Gabapentin (Neurontin) 600 mg PO TID [facility] Last Admin: 02/28/17 17:39 Dose: Not Given Insulin Aspart (Novolog) 20 unit SC TIDAC [facility] Last Admin: 02/28/17 17:20 Dose: Not Given Insulin Glargine (Lantus) 20 unit SC HS [facility] Last Admin: 02/28/17 21:53 Dose: 20 unit Lisinopril (Zestril) 10 mg PO DAILY [facility] Last Admin: 02/28/17 09:52 Dose: 10 mg Lorazepam (Ativan) 2 mg PO Q6H PRN PRN Reason: severe agitation Last Admin: 03/01/17 00:35 Dose: 2 mg Magnesium Hydroxide (Milk Of Magnesia) 30 ml PO DAILY PRN PRN Reason: Constipation Oxycodone/Acetaminophen (Percocet 5/325 Mg Tab) 1 tab PO Q4H PRN PRN Reason: severe pain Stop: 03/03/17 13:07 Last Admin: 02/28/17 23:00 Dose: 1 tab - Labs Labs: 03/01/17 06:50 02/28/17 13:54 PT 12.1 SECONDS (9.7-12.2) 02/23/17 21:33 INR 1.1 02/23/17 21:33 APTT 32 SECONDS (21-34) 02/23/17 21:33 - Constitutional Appears: Non-toxic, No Acute Distress - Head Exam Head Exam: NORMOCEPHALIC - Eye Exam Eye Exam: Normal appearance - Respiratory Exam Respiratory Exam: Clear to Ausculation Bilateral, NORMAL BREATHING PATTERN. absent: Wheezes - Cardiovascular Exam Cardiovascular Exam: REGULAR RHYTHM, +S1, +S2. absent: Gallop, Rubs - GI/Abdominal Exam GI & Abdominal Exam: Soft, Normal Bowel Sounds. absent: Tenderness - Extremities Exam Additional comments: bilateral BKA - Neurological Exam Neurological Exam: Alert, Awake, Oriented x3 - Psychiatric Exam Psychiatric exam: Normal Mood Assessment and Plan - Assessment and Plan (Free Text) Assessment: Hx of bilateral BKA -Surgery Dr. Dias consulted, help appreciated. -Percocet PRN. -Suture removal as per surgery team. Altered Mental Status 2/2 to Dementia; chronic -agitated however improving -Avoid benzos, started Haldol prn agitation per psych recommendations -Haldol 1mg PO q1H PRN. -Patient will need placement into care home for [facility]; social work eval pending Sacral ulcers -Stage 2 -wound care consulted Diabetes Mellitus; chronic -ISS -Gabapentin 400mg TID -Lisinopril 10mg PO daily -Lantus increased to 20U HS -Novolog 20U TIDAC HTN -BP well controlled -Lisinopril 10mg PO daily -Aspirin Prophylactic measures -Lovenox 40mg SC daily -Protonix 40mg IV daily -PT eval/OT eval, Social Work -Pending placement Management per Dr Muhammad
[2017-03-01 07:28] LABS: ALB/GLOB RATIO 1.3 (1.0-2.1); ALKALINE PHOSPHATASE 85 U/L (38-126); ALT/SGPT 30 U/L (21-72); AST/SGOT 18 U/L (17-59); BILIRUBIN,TOTAL 0.7 mg/dL (0.2-1.3); BLOOD UREA NITROGEN 8 mg/dL (9-20); CALCIUM 8.8 mg/dl (8.6-10.4); CARBON DIOXIDE 28 mmol/L (22-30); CHLORIDE 100 mmol/L (98-107); GFR AFRICAN-AMERICAN > 60; GLUCOSE,RANDOM 209 mg/dL (75-110); POTASSIUM 3.6 mmol/L (3.6-5.2); SODIUM 135 mmol/L (132-148); TOTAL PROTEIN 6.2 g/dL (6.3-8.3)
[2017-03-01] MEDS: Oxycodone/Acetaminophen 5/325 mg Tab PO PRN ×2 (07:45→19:31)
[2017-03-01] MEDS: (Novolog) Insulin Aspart, Recombinant 100 u/ml 10 ml vial SC SCH ×3 (07:46→16:30)
[2017-03-01 08:12] VITALS: RESP 20
--- NOTE | 2017-03-01 08:35 | CP.PCM.PN ---
Subjective - Date & Time of Evaluation Date of Evaluation: 03/01/17 Time of Evaluation: 07:00 - Subjective Subjective: General Surgery Note for Dr. Dias Patient seen and examined at bedside. No acute event overnight. Patient still complains of generalized pain especially in legs bilaterally. Patient states nothing is helping and no one wants to give him anything for pain. Patient would only let surgery team remove 2 sutures today (still has 4-5 left in R aka incision site). No other complaints today. Objective - Vital Signs/Intake and Output Vital Signs (last 24 hours): Temp Pulse Resp BP Pulse Ox 98.1 F 70 20 168/65 H 97 03/01/17 08:10 03/01/17 08:10 03/01/17 08:10 03/01/17 08:10 03/01/17 08:10 Intake and Output: 03/01/17 03/01/17 06:59 18:59 Intake Total 500 Balance 500 - Medications Medications: Current Medications Acetaminophen (Tylenol 325mg Tab) 650 mg PO Q4 PRN PRN Reason: Pain, Mild (1-3) Al Hydrox/Mg Hydrox/Simethicone (Maalox Plus 30 Ml) 30 ml PO Q4 PRN PRN Reason: Heartburn Enoxaparin Sodium (Lovenox) 40 mg SC DAILY [facility] Last Admin: 02/28/17 09:52 Dose: 40 mg Gabapentin (Neurontin) 600 mg PO TID [facility] Last Admin: 02/28/17 17:39 Dose: Not Given Insulin Aspart (Novolog) 20 unit SC TIDAC [facility] Last Admin: 03/01/17 07:46 Dose: 20 unit Insulin Glargine (Lantus) 20 unit SC HS [facility] Last Admin: 02/28/17 21:53 Dose: 20 unit Lisinopril (Zestril) 10 mg PO DAILY [facility] Last Admin: 02/28/17 09:52 Dose: 10 mg Lorazepam (Ativan) 2 mg PO Q6H PRN PRN Reason: severe agitation Last Admin: 03/01/17 00:35 Dose: 2 mg Magnesium Hydroxide (Milk Of Magnesia) 30 ml PO DAILY PRN PRN Reason: Constipation Oxycodone/Acetaminophen (Percocet 5/325 Mg Tab) 1 tab PO Q4H PRN PRN Reason: severe pain Stop: 03/03/17 13:07 Last Admin: 03/01/17 07:45 Dose: 1 tab - Labs Labs: 03/01/17 06:50 03/01/17 06:50 PT 12.1 SECONDS (9.7-12.2) 02/23/17 21:33 INR 1.1 02/23/17 21:33 APTT 32 SECONDS (21-34) 02/23/17 21:33 - Constitutional Appears: Agitated, Chronically Ill - Eye Exam Eye Exam: Normal appearance - ENT Exam ENT Exam: Mucous Membranes Dry - Respiratory Exam Respiratory Exam: NORMAL BREATHING PATTERN - Cardiovascular Exam Cardiovascular Exam: REGULAR RHYTHM - Extremities Exam Additional comments: bilateral aka - removed 2 sutures today (still has 4-5 left in R aka incision site) - Neurological Exam Neurological Exam: Alert, Awake, Oriented x3 - Psychiatric Exam Psychiatric exam: Agitated - Skin Skin Exam: Dry, Intact, Warm Assessment and Plan - Assessment and Plan (Free Text) Plan: 66 M with bilateral AKA complaining of generalized aches and pain -Will remove the rest of sutures later today or tomorrow if patient is willing -Analgesics PRN -Medical management as per primary -Discussed with Dr. Larissa Roe PGY1
[2017-03-01] MEDS: Enoxaparin 40 mg Syringe SC SCH (09:54)
[2017-03-01] MEDS: (Lantus) Insulin Glargine, Recombinant SC SCH (21:48)
[2017-03-02] MEDS: Oxycodone/Acetaminophen 5/325 mg Tab PO PRN ×2 (02:29→20:07)
[2017-03-02 07:23] LABS: BASO % 0.6 % (0.0-2.0); EOS # 0.2 K/uL (0.0-0.7); EOS % 2.8 % (0.0-4.0); HEMATOCRIT 37.8 % (35.0-51.0); LYMPH # 1.7 K/uL (1.0-4.3); LYMPH % 25.9 % (20.0-40.0); MEAN CELL VOLUME 81.5 fL (80.0-94.0); MEAN CORPUSCULAR HEMOGLOBIN 26.5 pg (27.0-31.0); MEAN CORPUSCULAR HGB CONC 32.5 g/dL (33.0-37.0); MEAN PLATELET VOLUME 8.3 fL (7.2-11.7); MONO # 0.5 K/uL (0.0-0.8); MONO % 7.4 % (0.0-10.0); RED CELL DISTRIBUTION WIDTH 15.2 % (11.5-14.5); WHITE BLOOD COUNT 6.7 K/uL (4.8-10.8)
[2017-03-02 07:40] LABS: BLOOD UREA NITROGEN 9 mg/dL (9-20); CALCIUM 8.8 mg/dl (8.6-10.4); CARBON DIOXIDE 27 mmol/L (22-30); CHLORIDE 100 mmol/L (98-107); GFR AFRICAN-AMERICAN > 60; GLUCOSE,RANDOM 206 mg/dL (75-110); POTASSIUM 3.8 mmol/L (3.6-5.2); SODIUM 136 mmol/L (132-148)
[2017-03-02] MEDS: (Novolog) Insulin Aspart, Recombinant 100 u/ml 10 ml vial SC SCH ×3 (07:59→17:30)
[2017-03-02] MEDS: Enoxaparin 40 mg Syringe SC SCH (09:40)
--- NOTE | 2017-03-02 16:02 | CP.PCM.PCO ---
Physician Communication Note - Physician Communication Note Physician Communication Note: Remaining sutures removed today at bedside.
--- NOTE | 2017-03-02 18:28 | CP.PCM.PN ---
Subjective - Date & Time of Evaluation Date of Evaluation: 03/02/17 Time of Evaluation: 11:00 - Subjective Subjective: Dr. Muhammad note: Patient seen and examined in room. He is complaining of pain where he had his AKA due to the sutures and is asking for them to be taken out. He has no other complaints, no events overnight per nursing staff. Objective - Vital Signs/Intake and Output Vital Signs (last 24 hours): Temp Pulse Resp BP Pulse Ox 97.6 F 81 20 127/73 99 03/02/17 16:11 03/02/17 16:11 03/02/17 16:11 03/02/17 16:11 03/02/17 16:11 Intake and Output: 03/02/17 03/02/17 06:59 18:59 Intake Total 300 560 Balance 300 560 - Medications Medications: Current Medications Acetaminophen (Tylenol 325mg Tab) 650 mg PO Q4 PRN PRN Reason: Pain, Mild (1-3) Al Hydrox/Mg Hydrox/Simethicone (Maalox Plus 30 Ml) 30 ml PO Q4 PRN PRN Reason: Heartburn Enoxaparin Sodium (Lovenox) 40 mg SC DAILY [facility] Last Admin: 03/02/17 09:40 Dose: 40 mg Gabapentin (Neurontin) 600 mg PO TID [facility] Last Admin: 03/02/17 17:42 Dose: 600 mg Haloperidol (Haldol) 1 mg PO Q1H PRN PRN Reason: Agitation Last Admin: 03/02/17 14:09 Dose: 1 mg Insulin Aspart (Novolog) 20 unit SC TIDAC [facility] Last Admin: 03/02/17 17:30 Dose: 20 unit Insulin Glargine (Lantus) 20 unit SC HS [facility] Last Admin: 03/01/17 21:48 Dose: 20 unit Lisinopril (Zestril) 10 mg PO DAILY [facility] Last Admin: 03/02/17 09:40 Dose: 10 mg Magnesium Hydroxide (Milk Of Magnesia) 30 ml PO DAILY PRN PRN Reason: Constipation Oxycodone/Acetaminophen (Percocet 5/325 Mg Tab) 1 tab PO Q4H PRN PRN Reason: severe pain Stop: 03/03/17 13:07 Last Admin: 03/02/17 02:29 Dose: 1 tab - Labs Labs: 03/02/17 06:55 03/02/17 06:55 PT 12.1 SECONDS (9.7-12.2) 02/23/17 21:33 INR 1.1 02/23/17 21:33 APTT 32 SECONDS (21-34) 02/23/17 21:33 - Constitutional Appears: Non-toxic, No Acute Distress - Respiratory Exam Respiratory Exam: Clear to Ausculation Bilateral. absent: Rhonchi, Wheezes - Cardiovascular Exam Cardiovascular Exam: REGULAR RHYTHM - GI/Abdominal Exam GI & Abdominal Exam: Soft, Normal Bowel Sounds. absent: Tenderness - Extremities Exam Additional comments: bilateral AKA with sutures on his left AKA. Assessment and Plan - Assessment and Plan (Free Text) Assessment: Hx of bilateral BKA 03/02: surgery removed his sutures today, continue with Percocet for pain. Surgery Dr. Dias consulted, help appreciated. -Percocet PRN. -Suture removal as per surgery team. Altered Mental Status 2/2 to Dementia; chronic 03/02: continue management, monitor for redirection, follow up with case mangement for placement. agitated however improving -Avoid benzos, started Haldol prn agitation per psych recommendations -Haldol 1mg PO q1H PRN. -[facility] will [facility]; social work eval pending Sacral ulcers -Stage 2 -wound care consulted Diabetes Mellitus; chronic -ISS -Gabapentin 400mg TID -Lisinopril 10mg PO daily -Lantus increased to 20U HS -Novolog 20U TIDAC HTN -BP well controlled -Lisinopril 10mg PO daily -Aspirin Prophylactic measures -Lovenox 40mg SC daily -Protonix 40mg IV daily -PT eval/OT eval, Social Work -Pending placement
[2017-03-02] MEDS: (Lantus) Insulin Glargine, Recombinant SC SCH (21:32)
[2017-03-03] MEDS: Oxycodone/Acetaminophen 5/325 mg Tab PO PRN (00:25)
[2017-03-03] MEDS: (Novolog) Insulin Aspart, Recombinant 100 u/ml 10 ml vial SC SCH ×3 (08:25→16:58)
[2017-03-03] MEDS: Enoxaparin 40 mg Syringe SC SCH (09:33)
--- NOTE | 2017-03-03 15:24 | CP.PCM.PN ---
Subjective - Date & Time of Evaluation Date of Evaluation: 03/03/17 Time of Evaluation: 10:00 - Subjective Subjective: PGY3 on medicine Dr. Muhammad service: Pt seen and examined at bedside this morning. Pt has no complaints. No acute events overnight. Objective - Vital Signs/Intake and Output Vital Signs (last 24 hours): Temp Pulse Resp BP Pulse Ox 98 F 88 20 131/77 98 03/03/17 07:23 03/03/17 07:23 03/03/17 07:23 03/03/17 07:23 03/02/17 23:44 Intake and Output: 03/03/17 03/03/17 06:59 18:59 Intake Total 660 360 Balance 660 360 - Medications Medications: Current Medications Acetaminophen (Tylenol 325mg Tab) 650 mg PO Q4 PRN PRN Reason: Pain, Mild (1-3) Al Hydrox/Mg Hydrox/Simethicone (Maalox Plus 30 Ml) 30 ml PO Q4 PRN PRN Reason: Heartburn Gabapentin (Neurontin) 600 mg PO TID [facility] Last Admin: 03/03/17 14:30 Dose: 600 mg Haloperidol (Haldol) 1 mg PO Q1H PRN PRN Reason: Agitation Last Admin: 03/02/17 14:09 Dose: 1 mg Insulin Aspart (Novolog) 20 unit SC TIDAC [facility] Last Admin: 03/03/17 12:30 Dose: 20 unit Insulin Glargine (Lantus) 20 unit SC HS [facility] Last Admin: 03/02/17 21:32 Dose: 20 unit Lisinopril (Zestril) 10 mg PO DAILY [facility] Last Admin: 03/03/17 09:33 Dose: 10 mg Magnesium Hydroxide (Milk Of Magnesia) 30 ml PO DAILY PRN PRN Reason: Constipation - Labs Labs: 03/02/17 06:55 03/02/17 06:55 PT 12.1 SECONDS (9.7-12.2) 02/23/17 21:33 INR 1.1 02/23/17 21:33 APTT 32 SECONDS (21-34) 02/23/17 21:33 - Constitutional Appears: Non-toxic, No Acute Distress - Head Exam Head Exam: NORMOCEPHALIC - Eye Exam Eye Exam: Normal appearance - Respiratory Exam Respiratory Exam: Clear to Ausculation Bilateral, NORMAL BREATHING PATTERN. absent: Wheezes - Cardiovascular Exam Cardiovascular Exam: REGULAR RHYTHM, +S1, +S2. absent: Gallop, Rubs - GI/Abdominal Exam GI & Abdominal Exam: Soft, Normal Bowel Sounds. absent: Tenderness - Extremities Exam Additional comments: bilateral AKA - Neurological Exam Neurological Exam: Alert, Awake, Oriented x3 - Psychiatric Exam Psychiatric exam: Normal Mood Assessment and Plan - Assessment and Plan (Free Text) Assessment: Hx of bilateral AKA Surgery Dr. Dias consulted, help appreciated. -Percocet PRN. -Suture removal as per surgery team. Altered Mental Status 2/2 to Dementia; chronic 03/02: continue management, monitor for redirection, follow up with case mangement for placement. agitated however improving -Avoid benzos, started Haldol prn agitation per psych recommendations -Haldol 1mg PO q1H PRN. -Patient will need placement into residential for [facility]; social work eval pending Sacral ulcers -Stage 2 -wound care consulted Diabetes Mellitus; chronic -ISS -Gabapentin 400mg TID -Lisinopril 10mg PO daily -Lantus increased to 20U HS -Novolog 20U TIDAC HTN -BP well controlled -Lisinopril 10mg PO daily -Aspirin Prophylactic measures -Lovenox 40mg SC daily -Protonix 40mg IV daily -PT eval/OT eval, Social Work -Pending placement
[2017-03-03 16:18] VITALS: BP 106/66; PULSE 72; TEMP 98.5; O2SAT 99
[2017-03-03] MEDS: Influenza Vaccine 60 mcg/0.5 mL SYR (4YR UP) IM ONE ×2 (17:26→17:29)
--- NOTE | 2017-03-11 12:39 | DS ---
The patient admitted to the hospital with chief complaint of generalized weakness, fatigue, and tiredness. The patient gets bedrest, supportive care, and IV fluids. The patient showed improvement. Discharged to be followed outpatient. Marti Muhammad MD
== END 2017-03-03 21:55 | DRG 884 ==
LOC: C.ER 20:21 → OBSVTOIN 22:10 → C.9E 22:10 → C.3T 23:20
PROVIDERS: ADMIT Internal Medicine Pulmonary Disease; ATTEND Internal Medicine Pulmonary Disease
PROC: 8E0YXY8 Suture Removal from Lower Extremity (ICD-10-PCS; principal; 2017-03-02)
DX: F03.91 Unspecified dementia, unspecified severity, with behavioral disturbance (principal); L89.152 Pressure ulcer of sacral region, stage 2; E11.51 Type 2 diabetes mellitus with diabetic peripheral angiopathy without gangrene; E11.65 Type 2 diabetes mellitus with hyperglycemia; Z89.611 Acquired absence of right leg above knee; Z89.612 Acquired absence of left leg above knee; R62.7 Adult failure to thrive; R41.82 Altered mental status, unspecified; E78.00 Pure hypercholesterolemia, unspecified; F17.210 Nicotine dependence, cigarettes, uncomplicated; H40.9 Unspecified glaucoma; I10 Essential (primary) hypertension; I25.10 Atherosclerotic heart disease of native coronary artery without angina pectoris; J45.909 Unspecified asthma, uncomplicated; R29.6 Repeated falls; Z95.5 Presence of coronary angioplasty implant and graft; F32.9 Major depressive disorder, single episode, unspecified; Z79.4 Long term (current) use of insulin; Z89.511 Acquired absence of right leg below knee; Z89.512 Acquired absence of left leg below knee; Z95.1 Presence of aortocoronary bypass graft; F41.9 Anxiety disorder, unspecified; Z48.02 Encounter for removal of sutures

== ENCOUNTER 2017-11-30 17:27 | Inpatient (IN) | payer MEDICARE, MEDICAID ==
[2017-11-30 17:29] VITALS: BMI 35.7
--- NOTE | 2017-11-30 19:39 | C.PDOC ---
History Of Present Illness 66 y/o M c PMHx CHF EF 37%, DM, bilateral AKA p/w shortness of breath x 1 day. Patient states was sitting watching TV when he suddenly became short of breath, diaphoretic. Girlfriend called EMS, patient was given nitroglycerin en route. Patient denies fever, cough, chest pain, vomiting. Patient complaints of chronic bilateral leg pain. PMD [place] Time Seen by Provider: 11/30/17 19:06 Chief Complaint (Nursing): Shortness Of Breath Past Medical History Vital Signs: Last Vital Signs Temp 98.3 F 11/30/17 17:42 Pulse 85 11/30/17 19:16 Resp 19 11/30/17 19:16 BP 119/84 11/30/17 19:16 Pulse Ox 96 11/30/17 20:32 - Medical History PMH: Anxiety, Arthritis, Asthma, Back Problems, Depression, Diabetes, HTN, Hypercholesterolemia Denies: Chronic Kidney Disease Surgical History: CABG, Cholecystectomy, Coronary Stent (x3) - [facility] Procedures ABOVE KNEE AMPUTATION (12/07/14) ANGIOPLASTY OF OTHER NON-CORONARY VESSEL(S) (11/28/13) ATHERECTOMY OF OTHER NON-CORONARY VESSEL(S) (10/21/11) BELOW KNEE AMPUTAT NEC (09/10/14) CATARAC PHACOEMULS/ASPIR (02/13/14) CONTRAST AORTOGRAM (09/04/14) CONTRAST ARTERIOGRAM-LEG (09/04/14) DETACHMENT AT RIGHT UPPER LEG, LOW, OPEN APPROACH (01/07/17) FLUOROSCOPY R LOW EXTREM ART W L OSM CONTRAST, LASER INTRAOP (11/18/16) INFLUENZA VACCINATION (04/24/14) INSEJ [id number] PERIPHERAL NON-CORONARY VES STENT(S) (11/28/13) INSERT LENS AT CATAR EXT (02/13/14) INSERTION OF ONE VASCULAR STENT (11/28/13) INSPECTION OF LOWER ARTERY, OPEN APPROACH (11/18/16) LOC EXC BONE LESION NEC (10/31/14) OCCUPATIONAL THERAPY (09/17/14) OTHER MYECTOMY (10/10/14) PHYSICAL THERAPY NEC (09/17/14) PROCEDURE ON SINGLE VESSEL (11/28/13) RECREATIONAL THERAPY (09/17/14) SUTURE REMOVAL FROM LOWER EXTREMITY (02/23/17) VACCINATION NEC (04/24/14) VASC SHUNT & BYPASS NEC (11/28/13) Family History: States: Unknown Family Hx - Social History Hx Tobacco Use: Yes Hx Alcohol Use: No Hx Substance Use: No - Immunization History Hx Tetanus Toxoid Vaccination: No Hx Influenza Vaccination: No Hx Pneumococcal Vaccination: No Review Of Systems Except As Marked, All Systems Reviewed And Found Negative. Constitutional: Negative for: Fever Cardiovascular: Negative for: Chest Pain Physical Exam - Physical Exam Additional Physical Exam Comments: Constitutional: No acute distress. Head: Normocephalic. Atraumatic. Eyes: PERRL. ENT: Moist mucous membranes. Neck: Supple. Cardiovascular: Regular rate. Radial pulse 2+ bilaterally. Chest: No tenderness. Respiratory: Clear to auscultation bilaterally. GI: Soft. Nontender. Nondistended. Back: No CVA tenderness. Musculoskeletal: Bilateral AKA. Skin: No rash. Neurologic: Alert, no focal deficit. ED Course And Treatment - Laboratory Results Result Diagrams: 11/30/17 19:39 11/30/17 19:39 O2 Sat by Pulse Oximetry: 96 Medical Decision Making Medical Decision Making: EKG Sinus rhythm, 104 bpm, no ST elevations Impression: 66 y/o M c PMHx CHF p/w sudden onset shortness of breath, given nitroglycerin en route to ED and without abnormal lung sounds, hypoxia, or accessory muscle use at the time of my evaluation. Differential includes: most likely CHF exacerbation. Also possible ACS, PNA, heat related illness (98 degrees today) CXR s/p CABG, cardiomegaly, no consolidation, no pulmonary edema Dr. Muhammad accepts patient to his service for NSTEMI. Disposition - Disposition Disposition: HOSPITALIZED Disposition Time: 20:24 Condition: GUARDED - POA Core Measure Indicators: Chest Pain - Clinical Impression Clinical Impression: NSTEMI (non-ST elevated myocardial infarction) - Scribe Statement The provider has reviewed the documentation as recorded by the Scribe (Jam Davis) Provider Attestation: All medical record entries made by the Scribe were at my direction and personally dictated by me. I have reviewed the chart and agree that the record accurately reflects my personal performance of the history, physical exam, medical decision making, and the department course for this patient. I have also personally directed, reviewed, and agree with the discharge instructions and disposition.
[2017-11-30 19:48] LABS: BASO % 0.4 % (0.0-2.0); EOS # 0.1 K/uL (0.0-0.7); HEMOGLOBIN 15.4 g/dL (12.0-18.0); LYMPH # 1.2 K/uL (1.0-4.3); LYMPH % 13.6 % (20.0-40.0); MEAN CELL VOLUME 81.7 fL (80.0-94.0); MEAN CORPUSCULAR HEMOGLOBIN 27.1 pg (27.0-31.0); MEAN CORPUSCULAR HGB CONC 33.2 g/dL (33.0-37.0); MEAN PLATELET VOLUME 8.7 fL (7.2-11.7); MONO # 0.4 K/uL (0.0-0.8); MONO % 4.3 % (0.0-10.0); NEUT # 7.1 K/uL (1.8-7.0); NEUT % 80.7 % (50.0-75.0); NRBC % 0.1 % (0.0-2.0); RBC 5.67 Mil/uL (4.40-5.90); RED CELL DISTRIBUTION WIDTH 15.5 % (11.5-14.5); WHITE BLOOD COUNT 8.8 K/uL (4.8-10.8)
[2017-11-30 19:51] LABS: SQUAMOUS EPITHIAL < 1 /hpf (0-5); URINE BACTERIA RARE (<OCC); URINE BILIRUBIN NEGATIVE (NEGATIVE); URINE BLOOD 1+ (NEGATIVE); URINE CLARITY Clear (Clear); URINE COLOR Yellow (YELLOW); URINE GLUCOSE (UA) 3+ mg/dL (Normal); URINE HYALINE CAST 0-2 /lpf (0-2); URINE LEUKOCYTE ESTERASE NEG Leu/uL (Negative); URINE PROTEIN 2+ mg/dL (NEGATIVE); URINE UROBILINOGEN NORMAL mg/dL (0.2-1.0)
[2017-11-30 20:00] LABS: INR 1.1; PROTHROMBIN TIME 11.8 SECONDS (9.7-12.2)
[2017-11-30 20:09] LABS: CALCIUM 9.1 mg/dl (8.6-10.4); GFR NON-AFRICAN AMERICAN > 60
[2017-11-30 20:10] LABS: ALB/GLOB RATIO 1.3 (1.0-2.1); ALBUMIN 4.3 g/dL (3.5-5.0); ALT/SGPT < 6 U/L (21-72); AST/SGOT 49 U/L (17-59); BLOOD UREA NITROGEN 11 mg/dL (9-20)
[2017-11-30 20:22] LABS: B-TYPE NATRIURETIC PEPTIDE 739 pg/mL (0-900); CK-MB 5.72 ng/mL (0.0-3.38)
[2017-12-01] MEDS ORDERED: Albuterol-Ipratrop 3 mg / 0.5 (3 ml) UD INH STA (01:05)
[2017-12-01] MEDS ORDERED: Heparin25000 units/250ml 1/2NS 25,000 UNITS/250 ML BAG IV PRN (07:40)
--- NOTE | 2017-12-01 08:03 | RAD ---
Chest x-ray single frontal view History: Dyspnea. Comparison: 02/11/2017 Findings: Mild to moderate venous congestion. Patchy bibasilar airspace opacities; left greater than right. Small nodular density at right lung base laterally. Cardiomegaly. Status post median sternotomy. Prominent ectatic aorta. Degenerative changes in the spine and shoulders. Impression: Mild to moderate venous congestion. Patchy bibasilar airspace opacities; left greater than right. Small nodular density at right lung base laterally. Cardiomegaly. Status post median sternotomy. Prominent ectatic aorta.
[2017-12-01] MEDS: Enoxaparin 100 mg Syringe SC SCH ×2 (10:48→22:02)
[2017-12-01] MEDS ORDERED: Dextrose 50% SYRINGE Inj (50 ml) IV PRN (10:51)
[2017-12-01] MEDS ORDERED: Albuterol HFA 90 mcg/actuation (8 g) INH PRN (10:53)
[2017-12-01] MEDS ORDERED: Glucagon Recombinant 1 mg Inj IM PRN (10:57)
[2017-12-01] MEDS: oxyCODONE 10 mg ER Tab (oxyCONTIN) PO SCH ×2 (11:38→21:57)
[2017-12-01] MEDS: (Novolin R) Insulin Human Regular 100 units/ml vial SC SCH ×3 (13:19→21:55)
--- NOTE | 2017-12-01 13:37 | CP.PCM.PN ---
"Subjective - Date & Time of Evaluation Date of Evaluation: 12/01/17 Time of Evaluation: 08:00 - Subjective Subjective: Progress note for Dr. Muhammad's Service Patient was seen and examined at bedside. He reports he feels immense pulsating pain in his legs. Denied any chest pain, shortness of breath, abdominal pain, n/ v/d/c or urinary symptoms. PMHx: Asthma, HTN, HLD, IDDM, CAD with 3 stent placement, CABG, BPH, Tobacco Use Disorder PSHx: CABG, Stent placement, Bilateral AKA Meds: As per EMR Allergy: Tomato SHx: Smokes 1/2 pack a day since he was 11 years old, social etoh use, denies illicit drug use. Objective - Vital Signs/Intake and Output Vital Signs (last 24 hours): Temp Pulse Resp BP Pulse Ox 97.8 F 84 20 165/88 H 96 11/30/17 23:40 12/01/17 07:48 11/30/17 23:40 11/30/17 23:40 11/30/17 23:40 - Medications Medications: Current Medications Albuterol (Ventolin Hfa 90 Mcg/Actuation (8 G)) 1 puff INH RQ4 PRN PRN Reason: Wheezing Aspirin (Aspirin Chewable) 81 mg PO DAILY [facility] Last Admin: 12/01/17 09:33 Dose: 81 mg Clopidogrel Bisulfate (Plavix) 75 mg PO DAILY [facility] Last Admin: 12/01/17 09:33 Dose: 75 mg Dextrose (Dextrose 50% Inj) 0 ml IV STAT PRN; Protocol PRN Reason: Hypoglycemia Protocol Dextrose (Glutose 15) 0 gm PO ONCE PRN; Protocol PRN Reason: Hypoglycemia Protocol Enoxaparin Sodium (Lovenox) 90 mg SC Q12 [facility] Last Admin: 12/01/17 10:48 Dose: 90 mg Gabapentin (Neurontin) 300 mg PO TID [facility] Last Admin: 12/01/17 13:19 Dose: 300 mg Glucagon (Glucagen Diagnostic Kit) 0 mg IM STAT PRN; Protocol PRN Reason: Hypoglycemia Protocol Dextrose (Dextrose 5% In Water 1000 Ml) 1,000 mls @ 0 mls/hr IV .Q0M PRN; Protocol; Per Protocol PRN Reason: Hypoglycemia Protocol Insulin Human Regular (Novolin R) 0 unit SC ACHS [facility] PRN Reason: Protocol Last Admin: 12/01/17 13:19 Dose: 8 units Lisinopril (Zestril) 10 mg PO DAILY [facility] Last Admin: 12/01/17 09:33 Dose: 10 mg Nicotine (Nicoderm Cq) 1 patch TD DAILY [facility] Last Admin: 12/01/17 10:48 Dose: 1 patch Oxycodone HCl (Oxycontin Extended Release Tab) 10 mg PO Q12 [facility] Stop: 12/04/17 11:01 Last Admin: 12/01/17 11:38 Dose: 10 mg Rosuvastatin Calcium (Crestor) 10 mg PO [facility] Tamsulosin HCl (Flomax) 0.4 mg PO DAILY [facility] - Labs Labs: 11/30/17 19:39 11/30/17 19:39 PT 11.8 SECONDS (9.7-12.2) 11/30/17 19:39 INR 1.1 11/30/17 19:39 APTT 32 SECONDS (21-34) 11/30/17 19:39 - Constitutional Appears: No Acute Distress, Chronically Ill - Head Exam Head Exam: NORMAL INSPECTION, NORMOCEPHALIC - Eye Exam Eye Exam: EOMI, Normal appearance, PERRL Pupil Exam: NORMAL ACCOMODATION - ENT Exam ENT Exam: Mucous Membranes Moist, Normal Exam - Respiratory Exam Respiratory Exam: Clear to Ausculation Bilateral, NORMAL BREATHING PATTERN. absent: Decreased Breath Sounds - Cardiovascular Exam Cardiovascular Exam: REGULAR RHYTHM, RRR, +S1, +S2 Additional comments: CABG scar noted, healed - GI/Abdominal Exam GI & Abdominal Exam: Soft, Normal Bowel Sounds. absent: Distended, Tenderness - Extremities Exam Additional comments: Bilateral AKA - Neurological Exam Neurological Exam: Alert, Awake, Oriented x3 - Psychiatric Exam Psychiatric exam: Normal Affect, Normal Mood - Skin Skin Exam: Dry, Intact, Normal Color, Warm Assessment and Plan - Assessment and Plan (Free Text) Plan: NSTEMI - Cardiology - Dr. Roche - Risk factors: HTN, DM, HLD, CAD with hx of CABG, PVD - ADA Score 5 - EKG: Sinus rhythm, 104 bpm, no ST elevations, will continue to trend - Initial LYLA: 0.2420, will continue to trend - ECHO ordered pending read - Called patient's pharmacy he was not on any ASA or plavix ([phone]|| [facility]) Medications: - Started ASA, Plavix, Therapeutic Lovenox, Crestor 40mg PO QHS HTN - Resumed Lisinopril 10mg PO daily, Lasix 40mg PO daily HLD - Resumed Crestor 40mg PO QHS T2DM with Neuropathy - Accuchecks - HHD with Carb Consistent, 2gram Meds: - ISS - medium, Gabapentin CAD with prior CABG PVD Bilateral AKA with Neuropathy BPH -Restarted Flomax Asthma - Albuterol PRN Tobacco Use Disorder - Encouraged smoking cessation - Nicotine Patch Prophylactic Care - GI: Protonix 40mg PO daily - DVT: Lovenox 90 SC BID Disposition: Pending Cardiac Eval and Reccs. All medical management per Dr. Muhammad. Case discussed w/ Dr. Muhammad, Joan Silva DO, PGY2"
[2017-12-01 14:26] LABS: BASO % 0.3 % (0.0-2.0); EOS # 0.1 K/uL (0.0-0.7); EOS % 1.6 % (0.0-4.0); HEMOGLOBIN 15.7 g/dL (12.0-18.0); LYMPH # 1.7 K/uL (1.0-4.3); LYMPH % 18.3 % (20.0-40.0); MEAN CELL VOLUME 81.5 fL (80.0-94.0); MEAN CORPUSCULAR HEMOGLOBIN 27.9 pg (27.0-31.0); MEAN CORPUSCULAR HGB CONC 34.3 g/dL (33.0-37.0); MEAN PLATELET VOLUME 8.1 fL (7.2-11.7); MONO # 0.4 K/uL (0.0-0.8); MONO % 4.6 % (0.0-10.0); NEUT # 7.2 K/uL (1.8-7.0); NEUT % 75.2 % (50.0-75.0); NRBC % 0.1 % (0.0-2.0); RBC 5.63 Mil/uL (4.40-5.90); RED CELL DISTRIBUTION WIDTH 15.2 % (11.5-14.5); WHITE BLOOD COUNT 9.5 K/uL (4.8-10.8)
[2017-12-01 14:49] LABS: ALB/GLOB RATIO 1.2 (1.0-2.1); ALBUMIN 3.9 g/dL (3.5-5.0); ALT/SGPT 20 U/L (21-72); AST/SGOT 37 U/L (17-59); BLOOD UREA NITROGEN 11 mg/dL (9-20); CALCIUM 9.3 mg/dl (8.6-10.4); GFR NON-AFRICAN AMERICAN > 60; HDL CHOLESTEROL 33 mg/dL (30-70)
[2017-12-01 14:55] LABS: LDL CHOLESTEROL 206 mg/dL (0-129)
[2017-12-01 15:31] LABS: CK-MB 12.7 ng/mL (0.0-3.38)
--- NOTE | 2017-12-01 19:27 | CP.PCM.CON ---
History of Present Illness - History of Present Illness History of Present Illness: I was asked to see patient by Dr Muhammad. Patient is a 66 year old male with with a history of PAD s/p bilaterla AKA, CAD s/p CABG who presnets with daiphoresis. History is obtained from the chart as the patient is not answering appropriately. He was noted to have NSTEMI. He denies chest pain or dyspnea currently. Review of Systems - Review of Systems Systems not reviewed;Unavailable: Altered Mental Status Past Patient History - Infectious Disease Hx of Infectious Diseases: None - Past Medical History & Family History Past Medical History?: Yes - Past Social History Smoking Status: Heavy Smoker > 10 Cigarettes Daily - CARDIAC Hx Hypercholesterolemia: Yes Hx Hypertension: Yes - PULMONARY Hx Asthma: Yes - NEUROLOGICAL Hx Neurological Disorder: No - HEENT Hx HEENT Problems: Yes Hx Cataracts: Yes Hx Glaucoma: Yes - RENAL Hx Chronic Kidney Disease: No - ENDOCRINE/METABOLIC Hx Diabetes Mellitus Type 1: Yes - HEMATOLOGICAL/ONCOLOGICAL Hx Blood Disorders: No - INTEGUMENTARY Hx Dermatological Problems: No - MUSCULOSKELETAL/RHEUMATOLOGICAL Hx Falls: No - GASTROINTESTINAL Hx Gastrointestinal Disorders: No - GENITOURINARY/GYNECOLOGICAL Hx Genitourinary Disorders: No - PSYCHIATRIC Hx Substance Use: No - SURGICAL HISTORY Hx Cholecystectomy: Yes Hx Coronary Artery Bypass Graft: Yes Hx Coronary Stent: Yes (x3) - ANESTHESIA Hx Anesthesia: Yes Hx Anesthesia Reactions: No Hx Malignant Hyperthermia: No Has any member of the family had a problem w/ anesthesia?: No Meds Allergies/Adverse Reactions: Allergies Allergy/AdvReac Type Severity Reaction Status Date / Time tomato Allergy RASH Verified 02/11/17 21:53 - Medications Medications: Current Medications Albuterol (Ventolin Hfa 90 Mcg/Actuation (8 G)) 1 puff INH RQ4 PRN PRN Reason: Wheezing Aspirin (Aspirin Chewable) 81 mg PO DAILY [facility] Last Admin: 12/01/17 09:33 Dose: 81 mg Clopidogrel Bisulfate (Plavix) 75 mg PO DAILY [facility] Last Admin: 12/01/17 09:33 Dose: 75 mg Dextrose (Dextrose 50% Inj) 0 ml IV STAT PRN; Protocol PRN Reason: Hypoglycemia Protocol Dextrose (Glutose 15) 0 gm PO ONCE PRN; Protocol PRN Reason: Hypoglycemia Protocol Enoxaparin Sodium (Lovenox) 90 mg SC Q12 [facility] Last Admin: 12/01/17 10:48 Dose: 90 mg Famotidine (Pepcid) 20 mg PO BID [facility] Furosemide (Lasix) 40 mg PO DAILY [facility] Gabapentin (Neurontin) 300 mg PO TID [facility] Last Admin: 12/01/17 18:28 Dose: 300 mg Glucagon (Glucagen Diagnostic Kit) 0 mg IM STAT PRN; Protocol PRN Reason: Hypoglycemia Protocol Dextrose (Dextrose 5% In Water 1000 Ml) 1,000 mls @ 0 mls/hr IV .Q0M PRN; Protocol; Per Protocol PRN Reason: Hypoglycemia Protocol Insulin Human Regular (Novolin R) 0 unit SC ACHS [facility] PRN Reason: Protocol Last Admin: 12/01/17 18:30 Dose: 3 units Lisinopril (Zestril) 10 mg PO DAILY [facility] Last Admin: 12/01/17 09:33 Dose: 10 mg Nicotine (Nicoderm Cq) 1 patch TD DAILY [facility] Last Admin: 12/01/17 10:48 Dose: 1 patch Oxycodone HCl (Oxycontin Extended Release Tab) 10 mg PO Q12 [facility] Stop: 12/04/17 11:01 Last Admin: 12/01/17 11:38 Dose: 10 mg Rosuvastatin Calcium (Crestor) 40 mg PO HS [facility] Tamsulosin HCl (Flomax) 0.4 mg PO DAILY [facility] Physical Exam - Constitutional Appears: Non-toxic - Head Exam Head Exam: NORMAL INSPECTION - Eye Exam Eye Exam: Normal appearance - ENT Exam ENT Exam: Mucous Membranes Moist - Neck Exam Neck exam: Positive for: Full Rom - Respiratory Exam Respiratory Exam: Decreased Breath Sounds - Cardiovascular Exam Cardiovascular Exam: REGULAR RHYTHM - GI/Abdominal Exam GI & Abdominal Exam: Normal Bowel Sounds - Rectal Exam Rectal Exam: Deferred - Extremities Exam Additional comments: bilateral amputation - Back Exam Back exam: NORMAL INSPECTION - Neurological Exam Neurological exam: Alert - Psychiatric Exam Additional comments: confused - Skin Skin Exam: Normal Color Results - Vital Signs Recent Vital Signs: Last Vital Signs Temp 98.5 F 12/01/17 15:00 Pulse 83 12/01/17 15:00 Resp 20 12/01/17 15:00 BP 145/82 12/01/17 15:00 Pulse Ox 96 12/01/17 15:00 - Labs Result Diagrams: 12/01/17 14:21 12/01/17 14:21 Labs: Laboratory Results - last 24 hr 11/30/17 11/30/17 11/30/17 19:39 19:39 19:39 WBC 8.8 RBC 5.67 Hgb 15.4 D Hct 46.3 MCV 81.7 MCH 27.1 MCHC 33.2 RDW 15.5 H Plt Count 225 MPV 8.7 Neut % (Auto) 80.7 H Lymph % (Auto) 13.6 L [place] % (Auto) 4.3 Eos % (Auto) 1.0 Baso % (Auto) 0.4 Neut # (Auto) 7.1 H Lymph # (Auto) 1.2 Deuel # (Auto) 0.4 Eos # (Auto) 0.1 Baso # (Auto) 0.0 PT 11.8 INR 1.1 APTT 32 Sodium Potassium Chloride Carbon Dioxide Anion Gap BUN Creatinine Est GFR ( Amer) Est GFR (Non-Af Amer) POC Glucose (mg/dL) Random Glucose Hemoglobin A1c Calcium Phosphorus Magnesium Total Bilirubin AST ALT Alkaline Phosphatase Total Creatine Kinase CK-MB (Mass) Troponin I NT-Pro-B Natriuret Pep Total Protein Albumin Globulin Albumin/Globulin Ratio Triglycerides Cholesterol LDL Cholesterol Direct HDL Cholesterol Free T4 TSH 3rd Generation Urine Color Yellow Urine Clarity Clear Urine pH 6.0 Ur Specific [place] 1.013 Urine Protein 2+ H Urine Glucose (UA) 3+ H Urine Ketones Negative Urine Blood 1+ H Urine Nitrate Negative Urine Bilirubin Negative Urine Urobilinogen Normal Ur Leukocyte Esterase Neg Urine WBC (Auto) 12 H Urine RBC (Auto) 18 H Ur Squamous Epith Cells < 1 Urine Bacteria Rare Hyaline Casts 0-2 11/30/17 12/01/17 12/01/17 19:39 06:39 11:01 WBC RBC Hgb Hct MCV MCH MCHC RDW Plt Count MPV Neut % (Auto) Lymph % (Auto) Deuel % (Auto) Eos % (Auto) Baso % (Auto) Neut # (Auto) Lymph # (Auto) Deuel # (Auto) Eos # (Auto) Baso # (Auto) PT INR APTT Sodium 140 Potassium 4.8 Chloride 104 Carbon Dioxide 24 Anion Gap 16 BUN 11 Creatinine 0.8 Est GFR ( Amer) > 60 Est GFR (Non-Af Amer) > 60 POC Glucose (mg/dL) 274 H 350 H Random Glucose 338 H Hemoglobin A1c Calcium 9.1 Phosphorus 3.8 Magnesium 1.8 Total Bilirubin 0.9 AST 49 ALT < 6 L D Alkaline Phosphatase 92 Total Creatine Kinase 145 CK-MB (Mass) 5.72 H Troponin I 0.2420 H* NT-Pro-B Natriuret Pep 739 Total Protein 7.6 Albumin 4.3 Globulin 3.3 Albumin/Globulin Ratio 1.3 Triglycerides Cholesterol LDL Cholesterol Direct HDL Cholesterol Free T4 TSH 3rd Generation Urine Color Urine Clarity Urine pH Ur Specific [place] Urine Protein Urine Glucose (UA) Urine Ketones Urine Blood Urine Nitrate Urine Bilirubin Urine Urobilinogen Ur Leukocyte Esterase Urine WBC (Auto) Urine RBC (Auto) Ur Squamous Epith Cells Urine Bacteria Hyaline Casts 12/01/17 12/01/17 12/01/17 14:21 14:21 14:21 WBC RBC Hgb Hct MCV MCH MCHC RDW Plt Count MPV Neut % (Auto) Lymph % (Auto) Deuel % (Auto) Eos % (Auto) Baso % (Auto) Neut # (Auto) Lymph # (Auto) Deuel # (Auto) Eos # (Auto) Baso # (Auto) PT INR APTT Sodium 138 Potassium 4.1 Chloride 101 Carbon Dioxide 27 Anion Gap 15 BUN 11 Creatinine 0.8 Est GFR ( Amer) > 60 Est GFR (Non-Af Amer) > 60 POC Glucose (mg/dL) Random Glucose 325 H Hemoglobin A1c 9.2 H Calcium 9.3 Phosphorus 3.5 Magnesium 1.8 Total Bilirubin 0.7 AST 37 ALT 20 L D Alkaline Phosphatase 98 Total Creatine Kinase 225 H Cancelled CK-MB (Mass) 12.7 H Cancelled Troponin I 3.6100 H* Cancelled NT-Pro-B Natriuret Pep Total Protein 7.2 Albumin 3.9 Globulin 3.3 Albumin/Globulin Ratio 1.2 Triglycerides 173 H D Cholesterol 290 H LDL Cholesterol Direct 206 H HDL Cholesterol 33 Free T4 TSH 3rd Generation 1.56 Urine Color Urine Clarity Urine pH Ur Specific [place] Urine Protein Urine Glucose (UA) Urine Ketones Urine Blood Urine Nitrate Urine Bilirubin Urine Urobilinogen Ur Leukocyte Esterase Urine WBC (Auto) Urine RBC (Auto) Ur Squamous Epith Cells Urine Bacteria Hyaline Casts 12/01/17 12/01/17 14:21 14:21 WBC 9.5 RBC 5.63 Hgb 15.7 Hct 45.9 MCV 81.5 MCH 27.9 MCHC 34.3 RDW 15.2 H Plt Count 205 MPV 8.1 Neut % (Auto) 75.2 H Lymph % (Auto) 18.3 L Deuel % (Auto) 4.6 Eos % (Auto) 1.6 Baso % (Auto) 0.3 Neut # (Auto) 7.2 H Lymph # (Auto) 1.7 Deuel # (Auto) 0.4 Eos # (Auto) 0.1 Baso # (Auto) 0.0 PT INR APTT Sodium Potassium Chloride Carbon Dioxide Anion Gap BUN Creatinine Est GFR ( Amer) Est GFR (Non-Af Amer) POC Glucose (mg/dL) Random Glucose Hemoglobin A1c Calcium Phosphorus Magnesium Total Bilirubin AST ALT Alkaline Phosphatase Total Creatine Kinase CK-MB (Mass) Troponin I NT-Pro-B Natriuret Pep Total Protein Albumin Globulin Albumin/Globulin Ratio Triglycerides Cholesterol LDL Cholesterol Direct HDL Cholesterol Free T4 0.92 TSH 3rd Generation Urine Color Urine Clarity Urine pH Ur Specific [place] Urine Protein Urine Glucose (UA) Urine Ketones Urine Blood Urine Nitrate Urine Bilirubin Urine Urobilinogen Ur Leukocyte Esterase Urine WBC (Auto) Urine RBC (Auto) Ur Squamous Epith Cells Urine Bacteria Hyaline Casts - EKG Data EKG Interpreted by: Myself Assessment & Plan (1) NSTEMI (non-ST elevated myocardial infarction) Assessment and Plan: would benefit from cardiac cath, however the patient is not speaking or answering approriately. He does not appear to understand that he had an NC. Givne absence of hemodynamic instability recommend lovenox. add ASA Plavix. beta warner. Status: Acute
--- NOTE | 2017-12-01 20:09 | CARD ---
APPROVED REPORT Date of service: 11/30/2017 EKG Measurement Heart [id number] <Conclusion> Sinus tachycardia Left axis deviation Nonspecific ST and T wave abnormality Abnormal ECG
--- NOTE | 2017-12-02 06:32 | HP ---
Copied To: Marti Muhammad MD Attending MD: Marti Muhammad MD HISTORY OF PRESENT ILLNESS: The patient is a 66-year-old male with a chief complaint of chest pain, who came to the ER, found to have nonSTEMI. The patient has history of diabetes, ____ bilateral amputation, peripheral vascular disease. PHYSICAL EXAMINATION: GENERAL: The patient is awake, alert, and oriented. VITAL SIGNS: Temperature 98, pulse 90, blood pressure. HEENT: Within normal limits. NECK: Supple. CHEST: Symmetrical. HEART: Regular. ABDOMEN: Soft. EXTREMITIES: Bilateral amputation. ASSESSMENT AND PLAN: The patient suffers from nonSTEMI elevation myocardial infarction. The patient to get bed rest, supportive care, and Lovenox. Nallely Mccarthy evaluation. Marti Muhammad MD
--- NOTE | 2017-12-02 07:51 | CP.PCM.PN ---
Subjective - Date & Time of Evaluation Date of Evaluation: 12/02/17 Time of Evaluation: 07:40 - Subjective Subjective: patient is more alert. appropriate this am. He denies current chest pain Objective - Vital Signs/Intake and Output Vital Signs (last 24 hours): Temp Pulse Resp BP Pulse Ox 97.2 F L 72 18 119/67 100 12/02/17 04:00 12/02/17 07:31 12/02/17 04:00 12/02/17 04:00 12/02/17 04:00 - Medications Medications: Current Medications Albuterol (Ventolin Hfa 90 Mcg/Actuation (8 G)) 1 puff INH RQ4 PRN PRN Reason: Wheezing Aspirin (Aspirin Chewable) 81 mg PO DAILY [facility] Last Admin: 12/01/17 09:33 Dose: 81 mg Clopidogrel Bisulfate (Plavix) 75 mg PO DAILY [facility] Last Admin: 12/01/17 09:33 Dose: 75 mg Dextrose (Dextrose 50% Inj) 0 ml IV STAT PRN; Protocol PRN Reason: Hypoglycemia Protocol Dextrose (Glutose 15) 0 gm PO ONCE PRN; Protocol PRN Reason: Hypoglycemia Protocol Enoxaparin Sodium (Lovenox) 90 mg SC Q12 [facility] Last Admin: 12/01/17 22:02 Dose: 90 mg Famotidine (Pepcid) 20 mg PO BID [facility] Furosemide (Lasix) 40 mg PO DAILY [facility] Gabapentin (Neurontin) 300 mg PO TID [facility] Last Admin: 12/01/17 18:28 Dose: 300 mg Glucagon (Glucagen Diagnostic Kit) 0 mg IM STAT PRN; Protocol PRN Reason: Hypoglycemia Protocol Dextrose (Dextrose 5% In Water 1000 Ml) 1,000 mls @ 0 mls/hr IV .Q0M PRN; Protocol; Per Protocol PRN Reason: Hypoglycemia Protocol Insulin Human Regular (Novolin R) 0 unit SC ACHS [facility] PRN Reason: Protocol Last Admin: 12/01/17 21:55 Dose: Not Given Lisinopril (Zestril) 10 mg PO DAILY [facility] Last Admin: 12/01/17 09:33 Dose: 10 mg Nicotine (Nicoderm Cq) 1 patch TD DAILY [facility] Last Admin: 12/01/17 10:48 Dose: 1 patch Rosuvastatin Calcium (Crestor) 40 mg PO HS [facility] Last Admin: 12/01/17 21:57 Dose: 40 mg Tamsulosin HCl (Flomax) 0.4 mg PO DAILY [facility] - Labs Labs: 12/01/17 14:21 12/01/17 14:21 PT 11.8 SECONDS (9.7-12.2) 11/30/17 19:39 INR 1.1 11/30/17 19:39 APTT 32 SECONDS (21-34) 11/30/17 19:39 - Constitutional Appears: Non-toxic - Head Exam Head Exam: NORMAL INSPECTION - Eye Exam Eye Exam: Normal appearance - ENT Exam ENT Exam: Mucous Membranes Moist - Neck Exam Neck Exam: Full ROM - Respiratory Exam Respiratory Exam: Decreased Breath Sounds - Cardiovascular Exam Cardiovascular Exam: REGULAR RHYTHM - GI/Abdominal Exam GI & Abdominal Exam: Normal Bowel Sounds - Rectal Exam Rectal Exam: Deferred - Extremities Exam Additional comments: amputation - Back Exam Back Exam: NORMAL INSPECTION - Neurological Exam Neurological Exam: Alert - Psychiatric Exam Psychiatric exam: Normal Affect - Skin Skin Exam: Normal Color Assessment and Plan (1) NSTEMI (non-ST elevated myocardial infarction) Assessment & Plan: patient agrees to cardiac cath. recommend procedure today. NPO Status: Acute (2) Ischemic cardiomyopathy Assessment & Plan: LV function is severely depressed. will discuss options for prevention of sudden cardiac Status: Acute
[2017-12-02 08:09] LABS: BASO % 0.5 % (0.0-2.0); EOS # 0.1 K/uL (0.0-0.7); EOS % 1.8 % (0.0-4.0); HEMOGLOBIN 14.9 g/dL (12.0-18.0); LYMPH # 1.7 K/uL (1.0-4.3); MEAN CORPUSCULAR HEMOGLOBIN 28.1 pg (27.0-31.0); MEAN CORPUSCULAR HGB CONC 34.7 g/dL (33.0-37.0); MEAN PLATELET VOLUME 8.1 fL (7.2-11.7); MONO # 0.4 K/uL (0.0-0.8); MONO % 5.5 % (0.0-10.0); NEUT # 5.8 K/uL (1.8-7.0); NEUT % 71.2 % (50.0-75.0); RBC 5.3 Mil/uL (4.40-5.90); RED CELL DISTRIBUTION WIDTH 15.4 % (11.5-14.5); WHITE BLOOD COUNT 8.1 K/uL (4.8-10.8)
[2017-12-02] MEDS: (Novolin R) Insulin Human Regular 100 units/ml vial SC SCH ×4 (08:16→21:24)
[2017-12-02 08:35] LABS: ALB/GLOB RATIO 1.2 (1.0-2.1); ALBUMIN 3.6 g/dL (3.5-5.0); ALT/SGPT 16 U/L (21-72); AST/SGOT 27 U/L (17-59); BLOOD UREA NITROGEN 18 mg/dL (9-20); CALCIUM 9.2 mg/dl (8.6-10.4); GFR NON-AFRICAN AMERICAN > 60
--- NOTE | 2017-12-02 10:21 | CP.PCM.PN ---
"<Bar Silvaa - Last Filed: 12/02/17 11:22> Subjective - Date & Time of Evaluation Date of Evaluation: 12/02/17 Time of Evaluation: 08:00 - Subjective Subjective: Progress Note for Dr. Muhammad's Service (Hospitalist Service is Covering) Patient was seen and examined at bedside. Patient reports no chest pain, shortness of breath. Objective - Vital Signs/Intake and Output Vital Signs (last 24 hours): Temp Pulse Resp BP Pulse Ox 98.1 F 73 18 128/71 100 12/02/17 08:05 12/02/17 08:05 12/02/17 08:05 12/02/17 08:05 12/02/17 08:05 - Medications Medications: Current Medications Albuterol (Ventolin Hfa 90 Mcg/Actuation (8 G)) 1 puff INH RQ4 PRN PRN Reason: Wheezing Aspirin (Aspirin Chewable) 81 mg PO DAILY [facility] Last Admin: 12/01/17 09:33 Dose: 81 mg Clopidogrel Bisulfate (Plavix) 75 mg PO DAILY [facility] Last Admin: 12/01/17 09:33 Dose: 75 mg Dextrose (Dextrose 50% Inj) 0 ml IV STAT PRN; Protocol PRN Reason: Hypoglycemia Protocol Dextrose (Glutose 15) 0 gm PO ONCE PRN; Protocol PRN Reason: Hypoglycemia Protocol Enoxaparin Sodium (Lovenox) 90 mg SC Q12 [facility] Last Admin: 12/01/17 22:02 Dose: 90 mg Famotidine (Pepcid) 20 mg PO BID [facility] Furosemide (Lasix) 40 mg PO DAILY [facility] Gabapentin (Neurontin) 300 mg PO TID [facility] Last Admin: 12/01/17 18:28 Dose: 300 mg Glucagon (Glucagen Diagnostic Kit) 0 mg IM STAT PRN; Protocol PRN Reason: Hypoglycemia Protocol Dextrose (Dextrose 5% In Water 1000 Ml) 1,000 mls @ 0 mls/hr IV .Q0M PRN; Protocol; Per Protocol PRN Reason: Hypoglycemia Protocol Insulin Human Regular (Novolin R) 0 unit SC ACHS [facility] PRN Reason: Protocol Last Admin: 12/02/17 08:16 Dose: Not Given Lisinopril (Zestril) 10 mg PO DAILY [facility] Last Admin: 12/01/17 09:33 Dose: 10 mg Nicotine (Nicoderm Cq) 1 patch TD DAILY [facility] Last Admin: 12/01/17 10:48 Dose: 1 patch Rosuvastatin Calcium (Crestor) 40 mg PO HS [facility] Last Admin: 12/01/17 21:57 Dose: 40 mg Tamsulosin HCl (Flomax) 0.4 mg PO DAILY [facility] - Labs Labs: 12/02/17 07:58 12/02/17 07:58 PT 11.8 SECONDS (9.7-12.2) 11/30/17 19:39 INR 1.1 11/30/17 19:39 APTT 32 SECONDS (21-34) 11/30/17 19:39 - Additional Findings Additional findings: - Constitutional Appears: No Acute Distress, Chronically Ill - Head Exam Head Exam: NORMAL INSPECTION, NORMOCEPHALIC - Eye Exam Eye Exam: EOMI, Normal appearance, PERRL Pupil Exam: NORMAL ACCOMODATION - ENT Exam ENT Exam: Mucous Membranes Moist, Normal Exam - Respiratory Exam Respiratory Exam: Clear to Ausculation Bilateral, NORMAL BREATHING PATTERN. absent: Decreased Breath Sounds - Cardiovascular Exam Cardiovascular Exam: REGULAR RHYTHM, RRR, +S1, +S2 Additional comments: CABG scar noted, healed - GI/Abdominal Exam GI & Abdominal Exam: Soft, Normal Bowel Sounds. absent: Distended, Tenderness - Extremities Exam Additional comments: Bilateral AKA - Neurological Exam Neurological Exam: Alert, Awake, Oriented x3 - Psychiatric Exam Psychiatric exam: Normal Affect, Normal Mood - Skin Skin Exam: Dry, Intact, Normal Color, Warm Assessment and Plan - Assessment and Plan (Free Text) Plan: NSTEMI - Cardiology - Dr. Roche - Risk factors: HTN, DM, HLD, CAD with hx of CABG, PVD - ADA Score 5 - EKG: Sinus rhythm, 104 bpm, no ST elevations, will continue to trend - Initial LYLA: 0.2420, will continue to trend - ECHO: LVEF 26% , moderate to severe systolic dysfunction, global hypokinesis, mild , calcified aortic valve 1.71cm2 - Patient is for Cardiac Cath today with Dr. Roche - Called patient's pharmacy he was not on any ASA or plavix ([phone]|| [facility]) Medications: - Started ASA, Plavix, Therapeutic Lovenox, Crestor 40mg PO QHS HTN - Resumed Lisinopril 10mg PO daily, Lasix 40mg PO daily HLD - Resumed Crestor 40mg PO QHS T2DM with Neuropathy - Accuchecks - HHD with Carb Consistent, 2gram Meds: - ISS - medium, Gabapentin CAD with prior CABG PVD Bilateral AKA with Neuropathy BPH -Restarted Flomax Asthma - Albuterol PRN Tobacco Use Disorder - Encouraged smoking cessation - Nicotine Patch Prophylactic Care - GI: Protonix 40mg PO daily - DVT: Lovenox 90 SC BID Disposition: Patient is for Cardiac Cath today. DW Dr. Hernandez (covering for Dr. Muhammad), Joan Silva DO, PGY2 <Kerrie Hernandez - Last Filed: 12/02/17 17:50> Objective - Vital Signs/Intake and Output Vital Signs (last 24 hours): Temp Pulse Resp BP Pulse Ox 98.4 F 85 20 129/62 96 12/02/17 15:00 12/02/17 15:00 12/02/17 15:00 12/02/17 15:00 12/02/17 15:00 - Medications Medications: Current Medications Albuterol (Ventolin Hfa 90 Mcg/Actuation (8 G)) 1 puff INH RQ4 PRN PRN Reason: Wheezing Aspirin (Aspirin Chewable) 81 mg PO DAILY [facility] Last Admin: 12/02/17 10:26 Dose: 81 mg Clopidogrel Bisulfate (Plavix) 75 mg PO DAILY [facility] Last Admin: 12/02/17 10:26 Dose: 75 mg Dextrose (Dextrose 50% Inj) 0 ml IV STAT PRN; Protocol PRN Reason: Hypoglycemia Protocol Dextrose (Glutose 15) 0 gm PO ONCE PRN; Protocol PRN Reason: Hypoglycemia Protocol Enoxaparin Sodium (Lovenox) 90 mg SC Q12 [facility] Last Admin: 12/02/17 10:26 Dose: Not Given Famotidine (Pepcid) 20 mg PO BID [facility] Last Admin: 12/02/17 10:25 Dose: 20 mg Furosemide (Lasix) 40 mg PO DAILY [facility] Last Admin: 12/02/17 10:27 Dose: 40 mg Gabapentin (Neurontin) 300 mg PO TID [facility] Last Admin: 12/02/17 13:11 Dose: Not Given Glucagon (Glucagen Diagnostic Kit) 0 mg IM STAT PRN; Protocol PRN Reason: Hypoglycemia Protocol Dextrose (Dextrose 5% In Water 1000 Ml) 1,000 mls @ 0 mls/hr IV .Q0M PRN; Protocol; Per Protocol PRN Reason: Hypoglycemia Protocol Insulin Human Regular (Novolin R) 0 unit SC ACHS [facility] PRN Reason: Protocol Last Admin: 12/02/17 16:53 Dose: Not Given Lisinopril (Zestril) 10 mg PO DAILY [facility] Last Admin: 12/02/17 10:26 Dose: 10 mg Nicotine (Nicoderm Cq) 1 patch TD DAILY [facility] Last Admin: 12/02/17 10:25 Dose: 1 patch Rosuvastatin Calcium (Crestor) 40 mg PO HS [facility] Last Admin: 12/01/17 21:57 Dose: 40 mg Tamsulosin HCl (Flomax) 0.4 mg PO DAILY [facility] Last Admin: 12/02/17 10:25 Dose: 0.4 mg - Labs Labs: 12/02/17 07:58 12/02/17 07:58 PT 11.8 SECONDS (9.7-12.2) 11/30/17 19:39 INR 1.1 11/30/17 19:39 APTT 32 SECONDS (21-34) 11/30/17 19:39 Attending/Attestation - Attestation Notes (Text): Patient was seen and examined by me with Dr Franco. Patient feels better,not sob,no chest pain. c/o AKA stump pain Assessment and the plan discussed with the resident I agree with the documentation 12/02/17 17:49"
[2017-12-02] MEDS: Enoxaparin 100 mg Syringe SC SCH (10:26)
--- NOTE | 2017-12-02 10:58 | CARD ---
APPROVED REPORT Date of service: 12/01/2017 EXAM: Two-dimensional and M-mode echocardiogram with Doppler and color Doppler. Other Information Quality : GoodRhythm : Technically limited study due to body habitus, supine INDICATION Non STEMI Surgery/Intervention CABG: RISK FACTORS Hypertension Obesity Diabetes 2D DIMENSIONS IVSd1.2 (0.7-1.1cm)LVDd5.5 (3.9-5.9cm) LVOT Diameter2.0 (1.8-2.4cm)PWd1.3 (0.7-1.1cm) LVDs4.9 (2.5-4.0cm)FS (%) 10.4 % LVEF (%)26.0 (>50%) M-Mode DIMENSIONS RVDd1.72 (2.1-3.2cm)Left Atrium (MM)2.79 (2.5-4.0cm) IVSd1.44 (0.7-1.1cm)Aortic Root3.47 (2.2-3.7cm) LVDd4.72 (4.0-5.6cm)Aortic Cusp Exc.1.68 (1.5-2.0cm) PWd1.29 (0.7-1.1cm)FS (%) 13 % LVDs4.10 (2.0-3.8cm)LVEF (%)28 (>50%) Aortic Valve AoV Peak Fzmixknd856.6cm/sAoV VTI28.1cmAO Peak GR.9mmHg LVOT Peak Yaxrquwr39.5cm/sLVOT VTI16.44cmAO Mean GR.5mmHg OLAMIDE (VMAX)1.48ma1AHM (VTI)1.90cm2 Mitral Valve MV E Rxtspqet840.3cm/sMV A Oqiwizuo065.8cm/sE/A ratio1.1 TDI E/Lateral E'0.0E/Medial E'0.0 Tricuspid Valve TR Peak Isgevabh788hc/sTR Peak Gr.44zrHyEYGD45xzAm LEFT VENTRICLE The left ventricle is normal size. There is normal left ventricular wall thickness. Left ventricle systolic function is moderately to severely impaired. The Ejection Fraction is 20-25%. There is global hypokinesis of the left ventricle. Transmitral Doppler flow pattern is Grade II-pseudonormal filling dynamics. Lv filling pressure is elevated No left ventricle thrombus noted on this study. There is no ventricular septal defect visualized. There is no left ventricular aneurysm. There is no mass noted in the left ventricle. RIGHT VENTRICLE The right ventricle is normal size. There is normal right ventricular wall thickness. The right ventricular systolic function is normal. ATRIA The left atrium size is normal. The right atrium size is normal. The interatrial septum is intact with no evidence for an atrial septal defect. AORTIC VALVE The aortic valve is mildly to moderately thickened. No aortic regurgitation is present. There is mild valvular aortic stenosis. Calculated aortic valve area is 1.71 cm2 with maximum pressure gradient of 9 mmHg and mean pressure gradient of 5 mmHg. There is no aortic valvular vegetation. MITRAL VALVE The mitral valve is normal in structure and function. There is no evidence of mitral valve prolapse. There is no mitral valve stenosis. There is no mitral valve regurgitation noted. TRICUSPID VALVE The tricuspid valve is normal in structure and function. There is no tricuspid valve regurgitation noted. There is no tricuspid valve prolapse or vegetation. There is no tricuspid valve stenosis. PULMONIC VALVE The pulmonary valve is normal in structure and function. There is no pulmonic valvular regurgitation. There is no pulmonic valvular stenosis. GREAT VESSELS The aortic root is normal in size. The ascending aorta is normal in size. The pulmonary artery is normal. The IVC is normal in size and collapses >50% with inspiration. PERICARDIAL EFFUSION The pericardium appears normal. There is no pleural effusion. <Conclusion> There is global hypokinesis of the left ventricle. There is mild valvular aortic stenosis. Calculated aortic valve area is 1.71 cm2 with maximum pressure gradient of 9 mmHg and mean pressure gradient of 5 mmHg. Transmitral Doppler flow pattern is Grade II-pseudonormal filling dynamics. Lv filling pressure is elevated Left ventricle systolic function is moderately to severely impaired. The Ejection Fraction is 20-25%.
[2017-12-02 15:45] VITALS: RESP 20
[2017-12-02] MEDS ORDERED: Midazolam 2 MG/2 ML VIAL ONE (19:11)
[2017-12-02] MEDS ORDERED: Iodixanol 320 MG/ML 100 ML BOTTLE IV ONE (19:11)
[2017-12-02] MEDS ORDERED: Lidocaine 2% MPF (5 ml) Inj ONE (19:23)
--- NOTE | 2017-12-02 19:42 | CARD ---
APPROVED REPORT Date of service: 12/01/2017 EKG Measurement Heart [id number] 194P2 [id number] <Conclusion> Normal sinus rhythm Abnormal QRS-T angle, consider primary T wave abnormality Abnormal ECG
--- NOTE | 2017-12-02 19:42 | CARD ---
APPROVED REPORT Date of service: 12/01/2017 EKG Measurement Heart [id number] MA [id number] <Conclusion> Sinus rhythm with occasional premature ventricular complexes Abnormal QRS-T angle, consider primary T wave abnormality Abnormal ECG
[2017-12-02] MEDS ORDERED: Enalaprilat 2.5 MG/2 ML ONE (19:52)
--- NOTE | 2017-12-02 20:13 | CP.PCM.PN ---
Subjective - Date & Time of Evaluation Date of Evaluation: 12/02/17 Time of Evaluation: 20:10 - Subjective Subjective: Patient s/p Cath 1. L Main: Patent 2. LAD: Proximal 100% 3. L Cx: Proximal 100% 4. RCA: Proximal 100% 5. MCRAE to LAD patent 6. SVG to OM patent 7. EF: 20%, dilated LV, EDP 25, No AO-LV gradient No other grafts seen (Or RCA graft occluded) Recommend medical management Bed rest till 12 Mid night Change Lovenox to 40 SC daily Resume diet Check labs in am Objective - Vital Signs/Intake and Output Vital Signs (last 24 hours): Temp Pulse Resp BP Pulse Ox 98.4 F 85 20 129/62 96 12/02/17 15:00 12/02/17 15:00 12/02/17 15:00 12/02/17 15:00 12/02/17 15:00 - Medications Medications: Current Medications Albuterol (Ventolin Hfa 90 Mcg/Actuation (8 G)) 1 puff INH RQ4 PRN PRN Reason: Wheezing Aspirin (Aspirin Chewable) 81 mg PO DAILY [facility] Last Admin: 12/02/17 10:26 Dose: 81 mg Clopidogrel Bisulfate (Plavix) 75 mg PO DAILY [facility] Last Admin: 12/02/17 10:26 Dose: 75 mg Dextrose (Dextrose 50% Inj) 0 ml IV STAT PRN; Protocol PRN Reason: Hypoglycemia Protocol Dextrose (Glutose 15) 0 gm PO ONCE PRN; Protocol PRN Reason: Hypoglycemia Protocol Enoxaparin Sodium (Lovenox) 40 mg SC DAILY [facility] Famotidine (Pepcid) 20 mg PO BID [facility] Last Admin: 12/02/17 10:25 Dose: 20 mg Furosemide (Lasix) 40 mg PO DAILY [facility] Last Admin: 12/02/17 10:27 Dose: 40 mg Gabapentin (Neurontin) 300 mg PO TID [facility] Last Admin: 12/02/17 13:11 Dose: Not Given Glucagon (Glucagen Diagnostic Kit) 0 mg IM STAT PRN; Protocol PRN Reason: Hypoglycemia Protocol Dextrose (Dextrose 5% In Water 1000 Ml) 1,000 mls @ 0 mls/hr IV .Q0M PRN; Protocol; Per Protocol PRN Reason: Hypoglycemia Protocol Insulin Human Regular (Novolin R) 0 unit SC ACHS [facility] PRN Reason: Protocol Last Admin: 12/02/17 16:53 Dose: Not Given Lisinopril (Zestril) 10 mg PO DAILY [facility] Last Admin: 12/02/17 10:26 Dose: 10 mg Nicotine (Nicoderm Cq) 1 patch TD DAILY [facility] Last Admin: 12/02/17 10:25 Dose: 1 patch Rosuvastatin Calcium (Crestor) 40 mg PO HS [facility] Last Admin: 12/01/17 21:57 Dose: 40 mg Tamsulosin HCl (Flomax) 0.4 mg PO DAILY [facility] Last Admin: 12/02/17 10:25 Dose: 0.4 mg - Labs Labs: 12/02/17 07:58 12/02/17 07:58 PT 11.8 SECONDS (9.7-12.2) 11/30/17 19:39 INR 1.1 11/30/17 19:39 APTT 32 SECONDS (21-34) 11/30/17 19:39
[2017-12-02] MEDS ORDERED: Oxycodone/Acetaminophen 5/325 mg Tab ONE (20:30)
[2017-12-02] MEDS ORDERED: Oxycodone/Acetaminophen 5/325 mg Tab PO STA (20:51)
--- NOTE | 2017-12-03 02:58 | CP.PCM.PN ---
Subjective - Date & Time of Evaluation Date of Evaluation: 12/03/17 Time of Evaluation: 02:55 - Subjective Subjective: PGY-1 Medicine Progress note for Hospitalist covering for Dr. Muhammad Patient was seen and examined at bedside s/p cardiac cath POD#1. Nurse reports confusion after the Percocet given s/p catherization. Patient is now back to baseline, although verbally combative with staff. Denies chest pain, shortness of breath, nausea, vomiting, headache, dizziness. Objective - Vital Signs/Intake and Output Vital Signs (last 24 hours): Temp Pulse Resp BP Pulse Ox 99.0 F 93 H 20 145/80 96 12/02/17 22:00 12/02/17 22:00 12/02/17 22:00 12/02/17 22:00 12/02/17 15:00 - Medications Medications: Current Medications Albuterol (Ventolin Hfa 90 Mcg/Actuation (8 G)) 1 puff INH RQ4 PRN PRN Reason: Wheezing Aspirin (Aspirin Chewable) 81 mg PO DAILY [facility] Last Admin: 12/02/17 10:26 Dose: 81 mg Clopidogrel Bisulfate (Plavix) 75 mg PO DAILY [facility] Last Admin: 12/02/17 10:26 Dose: 75 mg Dextrose (Dextrose 50% Inj) 0 ml IV STAT PRN; Protocol PRN Reason: Hypoglycemia Protocol Dextrose (Glutose 15) 0 gm PO ONCE PRN; Protocol PRN Reason: Hypoglycemia Protocol Enoxaparin Sodium (Lovenox) 40 mg SC DAILY [facility] Famotidine (Pepcid) 20 mg PO BID [facility] Last Admin: 12/02/17 20:43 Dose: 20 mg Furosemide (Lasix) 40 mg PO DAILY [facility] Last Admin: 12/02/17 10:27 Dose: 40 mg Gabapentin (Neurontin) 300 mg PO TID [facility] Last Admin: 12/02/17 20:43 Dose: 300 mg Glucagon (Glucagen Diagnostic Kit) 0 mg IM STAT PRN; Protocol PRN Reason: Hypoglycemia Protocol Dextrose (Dextrose 5% In Water 1000 Ml) 1,000 mls @ 0 mls/hr IV .Q0M PRN; Protocol; Per Protocol PRN Reason: Hypoglycemia Protocol Insulin Human Regular (Novolin R) 0 unit SC ACHS [facility] PRN Reason: Protocol Last Admin: 12/02/17 21:24 Dose: Not Given Lisinopril (Zestril) 10 mg PO DAILY [facility] Last Admin: 12/02/17 10:26 Dose: 10 mg Nicotine (Nicoderm Cq) 1 patch TD DAILY [facility] Last Admin: 12/02/17 10:25 Dose: 1 patch Rosuvastatin Calcium (Crestor) 40 mg PO HS [facility] Last Admin: 12/02/17 21:56 Dose: 40 mg Tamsulosin HCl (Flomax) 0.4 mg PO DAILY [facility] Last Admin: 12/02/17 10:25 Dose: 0.4 mg - Labs Labs: 12/02/17 07:58 12/02/17 07:58 PT 11.8 SECONDS (9.7-12.2) 11/30/17 19:39 INR 1.1 11/30/17 19:39 APTT 32 SECONDS (21-34) 11/30/17 19:39 - Constitutional Appears: No Acute Distress, Chronically Ill - Head Exam Head Exam: ATRAUMATIC, NORMOCEPHALIC - Eye Exam Eye Exam: EOMI, Normal appearance - ENT Exam ENT Exam: Mucous Membranes Moist, Normal Exam - Respiratory Exam Respiratory Exam: Clear to Ausculation Bilateral, NORMAL BREATHING PATTERN. absent: Rales, Rhonchi, Wheezes - Cardiovascular Exam Additional comments: refused CABG scar noted, healed - GI/Abdominal Exam Additional comments: refused - Extremities Exam Additional comments: bilateral AKA - Neurological Exam Neurological Exam: Alert Additional comments: oriented to person, place - Skin Skin Exam: Dry, Intact, Normal Color, Warm Assessment and Plan - Assessment and Plan (Free Text) Assessment: 66yoM PMH HTN, HLD, CAD s/p CABG, PVD admitted for NSTEMI Plan: 1) NSTEMI - Cardiology: Dr. Roche - [facility] - Risk Factors: HTN, DM, HLD, CAD with hx of CABG, PVD - ADA Score 5 - EKG: Sinus rhythm, 104 bpm, no ST elevations, will continue to trend - LYLA OA 11/30 @ 1939: 0.2420, LYLA 12/01 @ 1421: 3.6100 - ECHO 12/01: LVEF 26%, moderate to severe diastolic dysfunction, global hypokinesis, mild , calcified aortic valve 1.71cm2 - s/p cardiac catherization (12/02) POD#1: 1. L Main: Patent 2. LAD: Proximal 100% 3. L Cx: Proximal 100% 4. RCA: Proximal 100% 5. MCRAE to LAD patent 6. SVG to OM patent 7. EF: 20%, dilated LV, EDP 25, No AO-LV gradient No other grafts seen (Or RCA graft occluded) - ASA 81mg po daily - Plavix 75mg po daily - Crestor 40mg po daily 2) Hx Hypertension - Lisinopril 10mg po daily - Lasix 40mg po daily 3) Hyperlipidemia - Crestor 40mg po HS 4) Diabetes Mellitus, type 2 with neuropathy - Accuchecks ACHS - hypoglycemia protocol - Heart Healthy Diet with Carb Consistent, 2gram - ISS, medium - Gabapentin 300mg po tid 5) BPH - Flomax 0.4mg po daily 6) Asthma - Albuterol 1 puff INH q4 prn 7) Tobacco use - encouraged cessation - Nicotine patch 8) CAD s/p CABG 9) PVD s/p bilateral AKA with neuropathy 10) PPx - DVT: Lovenox 40 SC bid - GI: Pepcid 20 po bid will d/w Dr. Hernandez covering for Dr. Jb Magallanes PGY-1
[2017-12-03 07:59] LABS: BASO % 0.4 % (0.0-2.0); EOS # 0.1 K/uL (0.0-0.7); EOS % 1.5 % (0.0-4.0); HEMOGLOBIN 13.8 g/dL (12.0-18.0); LYMPH # 1.4 K/uL (1.0-4.3); LYMPH % 18.9 % (20.0-40.0); MEAN CELL VOLUME 81.4 fL (80.0-94.0); MEAN CORPUSCULAR HEMOGLOBIN 27.4 pg (27.0-31.0); MEAN CORPUSCULAR HGB CONC 33.7 g/dL (33.0-37.0); MEAN PLATELET VOLUME 8.3 fL (7.2-11.7); MONO # 0.4 K/uL (0.0-0.8); MONO % 5.9 % (0.0-10.0); NEUT # 5.6 K/uL (1.8-7.0); NEUT % 73.3 % (50.0-75.0); RBC 5.05 Mil/uL (4.40-5.90); RED CELL DISTRIBUTION WIDTH 15.3 % (11.5-14.5); WHITE BLOOD COUNT 7.6 K/uL (4.8-10.8)
[2017-12-03 08:13] LABS: ALB/GLOB RATIO 1.2 (1.0-2.1); ALBUMIN 3.5 g/dL (3.5-5.0); ALT/SGPT 22 U/L (21-72); AST/SGOT 17 U/L (17-59); BLOOD UREA NITROGEN 17 mg/dL (9-20); CALCIUM 9.5 mg/dl (8.6-10.4); GFR NON-AFRICAN AMERICAN > 60
[2017-12-03] MEDS: (Novolin R) Insulin Human Regular 100 units/ml vial SC SCH ×2 (08:36→12:38)
[2017-12-03 08:52] VITALS: TEMP 98.4; O2SAT 95
[2017-12-03 09:51] VITALS: BP 154/81
[2017-12-03 09:52] VITALS: PULSE 83
[2017-12-03] MEDS ORDERED: Enoxaparin 40 mg Syringe SC SCH (10:00)
--- NOTE | 2017-12-03 10:37 | CP.PCM.PN ---
Subjective - Date & Time of Evaluation Date of Evaluation: 12/03/17 Time of Evaluation: 10:15 - Subjective Subjective: patient denies chest pain. s/p cardiac cath. Patent MCRAE to LAD, SVG to OM. occluded SVG to RCA. severe LV dysfunction Objective - Vital Signs/Intake and Output Vital Signs (last 24 hours): Temp Pulse Resp BP Pulse Ox 98.4 F 83 20 154/81 H 95 12/03/17 07:25 12/03/17 09:51 12/03/17 07:25 12/03/17 09:51 12/03/17 07:25 - Medications Medications: Current Medications Albuterol (Ventolin Hfa 90 Mcg/Actuation (8 G)) 1 puff INH RQ4 PRN PRN Reason: Wheezing Aspirin (Aspirin Chewable) 81 mg PO DAILY [facility] Last Admin: 12/03/17 09:49 Dose: 81 mg Clopidogrel Bisulfate (Plavix) 75 mg PO DAILY [facility] Last Admin: 12/03/17 09:49 Dose: 75 mg Dextrose (Dextrose 50% Inj) 0 ml IV STAT PRN; Protocol PRN Reason: Hypoglycemia Protocol Dextrose (Glutose 15) 0 gm PO ONCE PRN; Protocol PRN Reason: Hypoglycemia Protocol Enoxaparin Sodium (Lovenox) 40 mg SC DAILY [facility] Last Admin: 12/03/17 09:50 Dose: 40 mg Famotidine (Pepcid) 20 mg PO BID [facility] Last Admin: 12/03/17 09:49 Dose: 20 mg Furosemide (Lasix) 40 mg PO DAILY [facility] Last Admin: 12/03/17 09:50 Dose: 40 mg Gabapentin (Neurontin) 300 mg PO TID [facility] Last Admin: 12/03/17 09:50 Dose: 300 mg Glucagon (Glucagen Diagnostic Kit) 0 mg IM STAT PRN; Protocol PRN Reason: Hypoglycemia Protocol Dextrose (Dextrose 5% In Water 1000 Ml) 1,000 mls @ 0 mls/hr IV .Q0M PRN; Protocol; Per Protocol PRN Reason: Hypoglycemia Protocol Insulin Human Regular (Novolin R) 0 unit SC ACHS [facility] PRN Reason: Protocol Last Admin: 12/03/17 08:36 Dose: 6 units Lisinopril (Zestril) 10 mg PO DAILY [facility] Last Admin: 12/03/17 09:49 Dose: 10 mg Nicotine (Nicoderm Cq) 1 patch TD DAILY [facility] Last Admin: 12/03/17 09:51 Dose: 1 patch Rosuvastatin Calcium (Crestor) 40 mg PO HS [facility] Last Admin: 12/02/17 21:56 Dose: 40 mg Tamsulosin HCl (Flomax) 0.4 mg PO DAILY [facility] Last Admin: 12/03/17 09:50 Dose: 0.4 mg - Labs Labs: 12/03/17 07:33 12/03/17 07:33 PT 11.8 SECONDS (9.7-12.2) 11/30/17 19:39 INR 1.1 11/30/17 19:39 APTT 32 SECONDS (21-34) 11/30/17 19:39 - Constitutional Appears: Non-toxic - Eye Exam Eye Exam: Normal appearance - ENT Exam ENT Exam: Mucous Membranes Moist - Neck Exam Neck Exam: Full ROM - Respiratory Exam Respiratory Exam: Decreased Breath Sounds - Cardiovascular Exam Cardiovascular Exam: REGULAR RHYTHM - GI/Abdominal Exam GI & Abdominal Exam: Normal Bowel Sounds - Rectal Exam Rectal Exam: Deferred - Extremities Exam Additional comments: amputation - Back Exam Back Exam: NORMAL INSPECTION - Neurological Exam Neurological Exam: Alert - Psychiatric Exam Psychiatric exam: Normal Affect - Skin Skin Exam: Normal Color Assessment and Plan (1) NSTEMI (non-ST elevated myocardial infarction) Assessment & Plan: s/p cardiac cath. will manage medically. stressed compliance Status: Acute (2) Ischemic cardiomyopathy Assessment & Plan: ideally would benefit from Lifevest and reevalaution of LV function in 3 months and possible AICD, hwoever patient has been noncompliant Status: Acute
--- NOTE | 2017-12-03 12:13 | CP.PCM.DIS ---
Provider - Provider Date of Admission: 11/30/17 21:00 Attending physician: Marti Muhammad MD Time Spent in preparation of Discharge (in minutes): 40 Hospital Course - Lab Results Lab Results: Micro Results 11/30/17 19:39 Urine,Clean Catch Urine Culture - Final No Growth (<1,000 CFU/ML) Most Recent Lab Values WBC 7.6 K/uL (4.8-10.8) 12/03/17 07:33 RBC 5.05 Mil/uL (4.40-5.90) 12/03/17 07:33 Hgb 13.8 g/dL (12.0-18.0) 12/03/17 07:33 Hct 41.1 % (35.0-51.0) 12/03/17 07:33 MCV 81.4 fL (80.0-94.0) 12/03/17 07:33 MCH 27.4 pg (27.0-31.0) 12/03/17 07:33 MCHC 33.7 g/dL (33.0-37.0) 12/03/17 07:33 RDW 15.3 % (11.5-14.5) H 12/03/17 07:33 Plt Count 199 K/uL (130-400) 12/03/17 07:33 MPV 8.3 fL (7.2-11.7) 12/03/17 07:33 Neut % (Auto) 73.3 % (50.0-75.0) 12/03/17 07:33 Lymph % (Auto) 18.9 % (20.0-40.0) L 12/03/17 07:33 [place] % (Auto) 5.9 % (0.0-10.0) 12/03/17 07:33 Eos % (Auto) 1.5 % (0.0-4.0) 12/03/17 07:33 Baso % (Auto) 0.4 % (0.0-2.0) 12/03/17 07:33 Neut # (Auto) 5.6 K/uL (1.8-7.0) 12/03/17 07:33 Lymph # (Auto) 1.4 K/uL (1.0-4.3) 12/03/17 07:33 [place] # (Auto) 0.4 K/uL (0.0-0.8) 12/03/17 07:33 Eos # (Auto) 0.1 K/uL (0.0-0.7) 12/03/17 07:33 Baso # (Auto) 0.0 K/uL (0.0-0.2) 12/03/17 07:33 PT 11.8 SECONDS (9.7-12.2) 11/30/17 19:39 INR 1.1 11/30/17 19:39 APTT 32 SECONDS (21-34) 11/30/17 19:39 Sodium 138 mmol/L (132-148) 12/03/17 07:33 Potassium 4.0 mmol/L (3.6-5.2) 12/03/17 07:33 Chloride 99 mmol/L (98-107) 12/03/17 07:33 Carbon Dioxide 31 mmol/L (22-30) H 12/03/17 07:33 Anion Gap 12 (10-20) 12/03/17 07:33 BUN 17 mg/dL (9-20) 12/03/17 07:33 Creatinine 0.9 mg/dL (0.8-1.5) 12/03/17 07:33 Est GFR ( Amer) > 60 12/03/17 07:33 Est GFR (Non-Af Amer) > 60 12/03/17 07:33 POC Glucose (mg/dL) 318 mg/dL (65-110) H 12/03/17 06:35 Random Glucose 340 mg/dL (75-110) H 12/03/17 07:33 Hemoglobin A1c 9.2 % (4.2-6.5) H 12/01/17 14:21 Calcium 9.5 mg/dl (8.6-10.4) 12/03/17 07:33 Phosphorus 3.5 mg/dL (2.5-4.5) 12/03/17 07:33 Magnesium 1.8 mg/dL (1.6-2.3) 12/03/17 07:33 Total Bilirubin 0.7 mg/dL (0.2-1.3) 12/03/17 07:33 AST 17 U/L (17-59) D 12/03/17 07:33 ALT 22 U/L (21-72) 12/03/17 07:33 Alkaline Phosphatase 86 U/L (38-126) 12/03/17 07:33 Total Creatine Kinase 225 U/L (55-170) H 12/01/17 14:21 CK-MB (Mass) 12.7 ng/mL (0.0-3.38) H 12/01/17 14:21 Troponin I 3.6100 ng/mL (0.00-0.120) H* 12/01/17 14:21 NT-Pro-B Natriuret Pep 739 pg/mL (0-900) 11/30/17 19:39 Total Protein 6.5 g/dL (6.3-8.3) 12/03/17 07:33 Albumin 3.5 g/dL (3.5-5.0) 12/03/17 07:33 Globulin 2.9 gm/dL (2.2-3.9) 12/03/17 07:33 Albumin/Globulin Ratio 1.2 (1.0-2.1) 12/03/17 07:33 Triglycerides 173 mg/dL (0-149) H D 12/01/17 14:21 Cholesterol 290 mg/dL (0-199) H 12/01/17 14:21 LDL Cholesterol Direct 206 mg/dL (0-129) H 12/01/17 14:21 HDL Cholesterol 33 mg/dL (30-70) 12/01/17 14:21 Free T4 0.92 ng/dL (0.78-2.19) 12/01/17 14:21 TSH 3rd Generation 1.56 mIU/L (0.46-4.68) 12/01/17 14:21 Urine Color Yellow (YELLOW) 11/30/17 19:39 Urine Clarity Clear (Clear) 11/30/17 19:39 Urine pH 6.0 (5.0-8.0) 11/30/17 19:39 Ur Specific [place] 1.013 (1.003-1.030) 11/30/17 19:39 Urine Protein 2+ mg/dL (NEGATIVE) H 11/30/17 19:39 Urine Glucose (UA) 3+ mg/dL (Normal) H 11/30/17 19:39 Urine Ketones Negative mg/dL (NEGATIVE) 11/30/17 19:39 Urine Blood 1+ (NEGATIVE) H 11/30/17 19:39 Urine Nitrate Negative (NEGATIVE) 11/30/17 19:39 Urine Bilirubin Negative (NEGATIVE) 11/30/17 19:39 Urine Urobilinogen Normal mg/dL (0.2-1.0) 11/30/17 19:39 Ur Leukocyte Esterase Neg [place]/uL (Negative) 11/30/17 19:39 Urine WBC (Auto) 12 /hpf (0-5) H 11/30/17 19:39 Urine RBC (Auto) 18 /hpf (0-3) H 11/30/17 19:39 Ur Squamous Epith Cells < 1 /hpf (0-5) 11/30/17 19:39 Urine Bacteria Rare (<OCC) 11/30/17 19:39 Hyaline Casts 0-2 /lpf (0-2) 11/30/17 19:39 - Hospital Course Hospital Course: PMHx: Asthma, HTN, HLD, IDDM, CAD with 3 stent placement, CABG, BPH, Tobacco Use Disorder PSHx: CABG, Stent placement, Bilateral AKA Meds: As per EMR Allergy: Tomato SHx: Smokes 1/2 pack a day since he was 11 years old, social etoh use, denies illicit drug use. Hospital Course: 66 year old male who came to the ER for shortness of breath x1 day and was admitted to the hospital for an NSTEMI. Cardiology, Dr. Roche was consulted. EKG: Sinus rhythm, 104 bpm, no ST elevations, will continue to trend. Patient's tropinins were negative. ECHO LVEF 26% , moderate to severe systolic dysfunction, global hypokinesis, mild , calcified aortic valve 1.71cm2. Patient underwent a cardiac cath with Dr. Armas which showed: 1.L Main: Patent 2. LAD: Proximal 100% 3. L Cx: Proximal 100% 4. RCA: Proximal 100% 5. MCRAE to LAD patent 6. SVG to OM patent 7. EF: 20%, dilated LV, EDP 25, No AO-LV gradient No other grafts seen (Or RCA graft occluded) Cardiology recommended medical management. Cardiology, Dr. Roche stated patient would ideally would benefit from Lifevest and reevalaution of LV function in 3 months and possible AICD, however patient has been noncompliant. Patient was instructed to follow up with Dr. Roche as an outpatient and to follow up with PMD Dr. Muhammad. This is a summary of the patient's hospital course. Please refer to EMR for complete details. Discharge Exam - Head Exam Head Exam: ATRAUMATIC, NORMOCEPHALIC - Eye Exam Eye Exam: EOMI, Normal appearance - ENT Exam ENT Exam: Mucous Membranes Moist - Respiratory Exam Respiratory Exam: Clear to PA & Lateral, NORMAL BREATHING PATTERN - Cardiovascular Exam Cardiovascular Exam: REGULAR RHYTHM, +S1, +S2 Additional comments: CABG scar noted, healed - GI/Abdominal Exam GI & Abdominal Exam: Normal Bowel Sounds, Soft. absent: Tenderness - Extremities Exam Additional comments: Bilateral AKA - Neurological Exam Neurological exam: Alert, Oriented x3 - Psychiatric Exam Psychiatric exam: Anxious - Skin Skin Exam: Normal Color Discharge Plan - Discharge Medications Prescriptions: Albuterol HFA [Ventolin HFA 90 mcg/actuation (8 g)] 1 puff INH RQ4 PRN #1 inhaler PRN Reason: Wheezing Aspirin [Aspirin Chewable] 81 mg PO DAILY #30 chew Clopidogrel [Plavix] 75 mg PO DAILY #30 tab Furosemide [Lasix] 40 mg PO DAILY #30 tab Gabapentin [Neurontin] 300 mg PO TID #90 cap Insulin Aspart, Recombinant [Novolog] 20 unit SQ TID 30 Days unit Insulin Glargine, Recombina [Lantus] 15 unit SC HS 30 Days unit Lisinopril [Zestril] 10 mg PO DAILY #30 tab Rosuvastatin Calcium [Crestor] 40 mg PO HS #30 tab Tamsulosin [Flomax] 0.4 mg PO DAILY #30 cap - Follow Up Plan Condition: GUARDED Disposition: HOSPICE - HOME Instructions: Heart Attack (DC) Referrals: Marti Muhammad MD [Staff Provider] - Nallely Roche MD [Staff Provider] -
--- NOTE | 2017-12-05 00:19 | CARDCATH ---
Copied To: Zach Armas MD Attending MD: Zach Armas MD PROCEDURE DATE: 12/02/2017 PROCEDURES: 1. Left heart catheterization. 2. Coronary angiogram. 3. Left internal mammary artery graft angiogram. 4. Saphenous vein graft angiogram. REFERRING PHYSICIANS: 1. Marti Muhammad MD 2. Nallely oRche MD PERFORMING PHYSICIAN: Zach Armas MD CLINICAL INDICATIONS: 1. Chest pain. 2. Non-ST elevation myocardial infarction. 3. History of coronary artery disease and CABG. 4. History of coronary stenting. 5. Peripheral arterial disease, status post bilateral AKA. 6. Hypertension. 7. Hyperlipidemia. 8. Diabetes. DESCRIPTION OF PROCEDURE: After informed consent, the patient was prepped and draped in the usual sterile fashion. Lidocaine 2% was given in the right groin for local anesthesia. Using micropuncture technique, a 6-Austrian sheath was introduced into the right common femoral artery. A JR4 6-Austrian diagnostic catheter was crossed into the left ventricle across the aortic valve. LV end-diastolic pressure was measured. Contrast was injected and the LV angiogram was done. Then, the catheter was pulled back across the aortic valve. The gradient across the aortic valve was measured. Then, the same catheter was engaged into the right coronary artery. Contrast was injected and right coronary angiogram was done. Then, the catheter was exchanged to a JL4 6-Austrian diagnostic catheter. The catheter was engaged into the left main coronary artery. Contrast was injected and left coronary angiogram was done. Using JR4 6-Austrian diagnostic catheter, saphenous vein graft angiogram was performed. Using MCRAE 6-Austrian diagnostic catheter, MCRAE graft angiogram was done. The patient tolerated the procedure well. Postprocedure, the sheath was pulled manually with excellent hemostasis. Radiological supervision and radiological interpretation of the coronary angiogram were done. FINDINGS: 1. Left main coronary artery is patent. 2. Proximal LAD is 100% occluded. 3. Proximal left circumflex is 100% occluded. 4. Proximal right coronary artery is 100% occluded. 5. MCRAE graft to LAD is patent. 6. Saphenous vein graft to obtuse marginal artery is patent. 7. LV ejection fraction is approximately 20%. Dilated cardiomyopathy. PDP is 25. No gradient across the aortic valve. 8. No other grafts were seen. Probably if the patient's RCA graft is slightly occluded. CONCLUSION: Coronary artery disease as described above. RECOMMENDATIONS: Recommend medical management. Zach Armas MD
== END 2017-12-03 14:05 | disposition home health service (06) | DRG 281 ==
LOC: C.ER 17:27 → C.9E 21:00 → C.6T 21:52
PROVIDERS: ADMIT Internal Medicine Pulmonary Disease; ATTEND Internal Medicine Pulmonary Disease
PROC: 4A023N7 Measurement of Cardiac Sampling and Pressure, Left Heart, Percutaneous Approach (ICD-10-PCS; principal; 2017-12-02)
PROC: B2181ZZ Fluoroscopy of Left Internal Mammary Bypass Graft using Low Osmolar Contrast (ICD-10-PCS; 2017-12-02)
PROC: B2151ZZ Fluoroscopy of Left Heart using Low Osmolar Contrast (ICD-10-PCS; 2017-12-02)
PROC: B2121ZZ Fluoroscopy of Single Coronary Artery Bypass Graft using Low Osmolar Contrast (ICD-10-PCS; 2017-12-02)
PROC: B2111ZZ Fluoroscopy of Multiple Coronary Arteries using Low Osmolar Contrast (ICD-10-PCS; 2017-12-02)
DX: I21.4 Non-ST elevation (NSTEMI) myocardial infarction (principal); I25.810 Atherosclerosis of coronary artery bypass graft(s) without angina pectoris; I42.0 Dilated cardiomyopathy; I11.0 Hypertensive heart disease with heart failure; I25.10 Atherosclerotic heart disease of native coronary artery without angina pectoris; I25.82 Chronic total occlusion of coronary artery; I35.8 Other nonrheumatic aortic valve disorders; I50.9 Heart failure, unspecified; E11.51 Type 2 diabetes mellitus with diabetic peripheral angiopathy without gangrene; E11.40 Type 2 diabetes mellitus with diabetic neuropathy, unspecified; J45.909 Unspecified asthma, uncomplicated; N40.0 Benign prostatic hyperplasia without lower urinary tract symptoms; G89.29 Other chronic pain; E78.5 Hyperlipidemia, unspecified; E78.00 Pure hypercholesterolemia, unspecified; H40.9 Unspecified glaucoma; F17.210 Nicotine dependence, cigarettes, uncomplicated; Z89.612 Acquired absence of left leg above knee; Z89.611 Acquired absence of right leg above knee; Z91.19 Patient's noncompliance with other medical treatment and regimen; Z95.5 Presence of coronary angioplasty implant and graft; Z90.49 Acquired absence of other specified parts of digestive tract; Z79.4 Long term (current) use of insulin